=== PATIENT | female | born 1970 | race Caucasian/White ===

== ENCOUNTER 2017-07-02 12:25 | Emergency (ER) | payer MEDICAID ==
[~2017-07-02] VITALS: Ht 172.7 cm; Wt 115.7 kg
[2017-07-02] MEDS ORDERED: TIZANIDINE HCL6 MG PO (12:43)
[2017-07-02] MEDS ORDERED: LANTUS100 UNITS/ SUB-Q (12:44)
[2017-07-02] MEDS ORDERED: HUMALOG100 UNIT/1 SUB-Q (12:44)
[2017-07-02] MEDS ORDERED: METFORMIN HCL1000 MG PO (12:44)
[2017-07-02] MEDS ORDERED: CATAPRES0.1 MG PO (12:45)
[2017-07-02] MEDS ORDERED: PHARBEDRYL25 MG PO (12:45)
[2017-07-02] MEDS ORDERED: METOPROLOL SUCC25 MG PO (12:46)
[2017-07-02] MEDS ORDERED: BUPROPION XL150 MG PO (12:46)
[2017-07-02] MEDS ORDERED: GABAPENTIN300 MG PO (12:46)
[2017-07-02] MEDS ORDERED: FLUOXETINE HCL20 MG PO (12:47)
[2017-07-02] MEDS ORDERED: ASPIR 8181 MG PO (12:47)
[2017-07-02] MEDS ORDERED: DOC-Q-LACE100 MG PO (12:48)
[2017-07-02] MEDS ORDERED: COMBIVENT RESPIM4 GM INH (12:48)
[2017-07-02] MEDS ORDERED: AMITRIPTYLINE H25 MG PO (12:48)
[2017-07-02] MEDS ORDERED: GLUCAGON EMERGEN1 MG INJ (12:49)
[2017-07-02] MEDS ORDERED: COZAAR50 MG PO (12:49)
[2017-07-02] MEDS ORDERED: OYSTER SHELL+D1 EACH PO (12:49)
[2017-07-02] MEDS ORDERED: PRAVACHOL40 MG PO (12:50)
[2017-07-02] MEDS ORDERED: MECLIZINE HCL25 MG PO (13:36)
== END 2017-07-02 14:23 | disposition home or self-care (01) ==
LOC: ED 12:25
DX: R42 Dizziness and giddiness (principal); I10 Essential (primary) hypertension; E11.9 Type 2 diabetes mellitus without complications; F32.9 Major depressive disorder, single episode, unspecified; E78.00 Pure hypercholesterolemia, unspecified; Z87.01 Personal history of pneumonia (recurrent); Z90.49 Acquired absence of other specified parts of digestive tract; Z88.8 Allergy status to other drugs, medicaments and biological substances; Z88.1 Allergy status to other antibiotic agents; Z79.899 Other long term (current) drug therapy; Z79.4 Long term (current) use of insulin; Z79.84 Long term (current) use of oral hypoglycemic drugs; Z79.82 Long term (current) use of aspirin
CPT/HCPCS: 99283

== ENCOUNTER 2017-09-20 12:11 | Emergency (ER) | payer MEDICAID ==
[~2017-09-20] VITALS: Ht 172.7 cm; Wt 115.7 kg
[~2017-09-20 12:11] MED LIST: AMITRIPTYLINE H25 MG PO; ASPIR 8181 MG PO; BUPROPION XL150 MG PO; CATAPRES0.1 MG PO; COMBIVENT RESPIM4 GM INH; COZAAR50 MG PO; DOC-Q-LACE100 MG PO; FLUOXETINE HCL20 MG PO; GABAPENTIN300 MG PO; GLUCAGON EMERGEN1 MG INJ; HUMALOG100 UNIT/1 SUB-Q; LANTUS100 UNITS/ SUB-Q; MECLIZINE HCL25 MG PO; METFORMIN HCL1000 MG PO; METOPROLOL SUCC25 MG PO; OYSTER SHELL+D1 EACH PO; PHARBEDRYL25 MG PO; PRAVACHOL40 MG PO; TIZANIDINE HCL6 MG PO
[2017-09-20] MEDS ORDERED: SYNTHROID75 MCG PO (12:24)
== END 2017-09-20 12:29 | disposition home or self-care (01) ==
LOC: ED 12:11
DX: Z00.8 Encounter for other general examination (principal)

== ENCOUNTER 2017-10-31 14:26 | Emergency (ER) | payer OTHER ==
[~2017-10-31] VITALS: Ht 172.7 cm; Wt 130.6 kg
[~2017-10-31 14:26] MED LIST changes: +SYNTHROID75 MCG PO
== END 2017-10-31 15:57 | disposition home or self-care (01) ==
LOC: ED 14:26
DX: S39.012A Strain of muscle, fascia and tendon of lower back, initial encounter (principal); I10 Essential (primary) hypertension; E78.00 Pure hypercholesterolemia, unspecified; E11.9 Type 2 diabetes mellitus without complications; F32.9 Major depressive disorder, single episode, unspecified; Z86.711 Personal history of pulmonary embolism; Z87.01 Personal history of pneumonia (recurrent); Z86.19 Personal history of other infectious and parasitic diseases; Z90.49 Acquired absence of other specified parts of digestive tract; Z90.89 Acquired absence of other organs; Z88.1 Allergy status to other antibiotic agents; Z88.8 Allergy status to other drugs, medicaments and biological substances; Z88.7 Allergy status to serum and vaccine; Z79.899 Other long term (current) drug therapy; Z79.4 Long term (current) use of insulin; Z79.82 Long term (current) use of aspirin; X50.9XXA Other and unspecified overexertion or strenuous movements or postures, initial encounter
CPT/HCPCS: 96372; 99282; J1885

== ENCOUNTER 2018-02-21 00:09 | Emergency (ER) | payer OTHER ==
[~2018-02-21] VITALS: Ht 175.3 cm; Wt 139.7 kg
[2018-02-21] MEDS ORDERED: PENICILLIN V P500 MG PO (00:25)
[2018-02-21] MEDS ORDERED: TRAMADOL HCL50 MG PO (02:42)
[2018-02-21] MEDS ORDERED: AUGMENTIN 875-1 EACH PO (02:42)
== END 2018-02-21 02:55 | disposition home or self-care (01) ==
LOC: ED 00:09
DX: R51 Headache (principal); K08.89 Other specified disorders of teeth and supporting structures; Z87.01 Personal history of pneumonia (recurrent); E11.9 Type 2 diabetes mellitus without complications; I10 Essential (primary) hypertension; F32.9 Major depressive disorder, single episode, unspecified; E78.00 Pure hypercholesterolemia, unspecified; Z88.8 Allergy status to other drugs, medicaments and biological substances; Z88.1 Allergy status to other antibiotic agents; Z79.899 Other long term (current) drug therapy; Z79.4 Long term (current) use of insulin; Z79.82 Long term (current) use of aspirin; Z79.2 Long term (current) use of antibiotics
CPT/HCPCS: 70450; 80053; 85025; 96374; 96375; 99284; J1200; J1885; J2765; J7030

== ENCOUNTER 2018-03-09 19:19 | Emergency (ER) | payer OTHER ==
[~2018-03-09] VITALS: Ht 175.3 cm; Wt 139.7 kg
[~2018-03-09 19:19] MED LIST changes: +AUGMENTIN 875-1 EACH PO; +PENICILLIN V P500 MG PO; +TRAMADOL HCL50 MG PO
[2018-03-09] MEDS ORDERED: CIPRODEX OTIC7.5 ML AD (19:41)
[2018-03-09] MEDS ORDERED: PREDNISOLONE SO10 ML (19:41)
[2018-03-09] MEDS ORDERED: ACULAR LS5 ML OPTH (19:41)
== END 2018-03-09 20:37 | disposition home or self-care (01) ==
LOC: ED 19:19
DX: G89.18 Other acute postprocedural pain (principal); H57.12 Ocular pain, left eye; E11.9 Type 2 diabetes mellitus without complications; I10 Essential (primary) hypertension; E78.00 Pure hypercholesterolemia, unspecified; Z88.1 Allergy status to other antibiotic agents; Z88.7 Allergy status to serum and vaccine; Z88.8 Allergy status to other drugs, medicaments and biological substances; Z79.4 Long term (current) use of insulin; Z79.899 Other long term (current) drug therapy; Z79.82 Long term (current) use of aspirin; Z98.42 Cataract extraction status, left eye
CPT/HCPCS: 99282

== ENCOUNTER 2018-03-14 19:11 | Emergency (ER) | payer OTHER ==
[~2018-03-14] VITALS: Ht 175.3 cm; Wt 142.4 kg
[~2018-03-14 19:11] MED LIST changes: +ACULAR LS5 ML OPTH; +CIPRODEX OTIC7.5 ML AD; +PREDNISOLONE SO10 ML
[2018-03-14] MEDS ORDERED: TRAMADOL HCL50 MG PO (22:22)
== END 2018-03-14 22:40 | disposition home or self-care (01) ==
LOC: ED 19:11
DX: S06.0X1A Concussion with loss of consciousness of 30 minutes or less, initial encounter (principal); S16.1XXA Strain of muscle, fascia and tendon at neck level, initial encounter; S80.212A Abrasion, left knee, initial encounter; T14.8XXA Other injury of unspecified body region, initial encounter; M54.5 Low back pain; G89.29 Other chronic pain; E11.9 Type 2 diabetes mellitus without complications; E66.01 Morbid (severe) obesity due to excess calories; I10 Essential (primary) hypertension; F32.9 Major depressive disorder, single episode, unspecified; E78.00 Pure hypercholesterolemia, unspecified; Z87.01 Personal history of pneumonia (recurrent); Z88.1 Allergy status to other antibiotic agents; Z88.7 Allergy status to serum and vaccine; Z88.8 Allergy status to other drugs, medicaments and biological substances; Z79.4 Long term (current) use of insulin; Z79.82 Long term (current) use of aspirin; Z79.899 Other long term (current) drug therapy; W01.10XA Fall on same level from slipping, tripping and stumbling with subsequent striking against unspecified object, initial encounter
CPT/HCPCS: 70450; 72100; 72125; 73502; 73560; 96374; 96375; 99284; J1170; J2405

== ENCOUNTER 2018-04-20 11:46 | Emergency (ER) | payer OTHER ==
[~2018-04-20] VITALS: Ht 175.3 cm; Wt 142.4 kg
[2018-04-20] MEDS ORDERED: OMEPRAZOLE20 MG PO (12:41)
[2018-04-20] MEDS ORDERED: VIBRAMYCIN100 MG PO (12:47)
[2018-04-20] MEDS ORDERED: AUGMENTIN 875-1 EACH PO (12:47)
== END 2018-04-20 13:00 | disposition home or self-care (01) ==
LOC: ED 11:46
DX: L02.411 Cutaneous abscess of right axilla (principal); L02.31 Cutaneous abscess of buttock; E11.9 Type 2 diabetes mellitus without complications; F32.9 Major depressive disorder, single episode, unspecified; I10 Essential (primary) hypertension; Z88.1 Allergy status to other antibiotic agents; Z88.7 Allergy status to serum and vaccine; Z88.8 Allergy status to other drugs, medicaments and biological substances; Z79.4 Long term (current) use of insulin; Z79.899 Other long term (current) drug therapy; Z79.82 Long term (current) use of aspirin
CPT/HCPCS: 99283

== ENCOUNTER 2018-07-07 06:05 | Day surgery (SDC) | payer OTHER ==
[~2018-07-07] VITALS: Ht 175.3 cm; Wt 143.8 kg
[~2018-07-07 06:05] MED LIST changes: +AMLODIPINE BESYL5 MG PO; +FAMOTIDINE20 MG PO; +NYSTATIN15 GM TOP; +OMEPRAZOLE20 MG PO; +PRAZOSIN HCL2 MG PO; +VIBRAMYCIN100 MG PO
--- NOTE | 2018-07-07 08:12 | NUR ---
07/07/18 0812 Mary Jane Morris 0805-PATIENT ARRIVED TO PACU ON 3L NC O2 SAT 99% PATIENT REACTIVE TO VOICE LAYING LEFT LATERAL. RR EVEN. SR. ABDOMEN ROUND AND SOFT.
--- NOTE | 2018-07-07 12:06 | OR ---
[facility] [address], [place] [address] Signed DATE OF OPERATION: 07/07/2018 SURGEON: Eddy Kincaid MD UPPER AND LOWER ENDOSCOPY REPORT PREOPERATIVE DIAGNOSES: 1. Anemia. 2. Chronic constipation. 3. Heartburn. POSTOPERATIVE DIAGNOSES: 1. Punctate hemorrhagic distal gastritis. 2. Proximal and distal esophagitis. 3. Bfbghxo-ne-yutcajqu internal hemorrhoids. PROCEDURES: 1. EGD with CLOtest and biopsies of the antrum and GE junction. 2. Colonoscopy without biopsy. 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 However, she is having some health issues and she has moved to [place], [place] to be closer to her sister. In the meantime, she is awaiting disability. When she established with her primary care provider, she was found to be anemic and also suffers with chronic constipation. As a result, she was asked to see me for upper and lower endoscopy. In the office, I gave her pamphlets on upper and lower endoscopy and we looked at those together along with the risks including, but not limited to gas bloating, crampy abdominal pain, bleeding, perforation, requiring surgery, and missed diagnosis. Also, because of her body mass index, very full face and neck and all her medical issues, we asked an anesthesia provider to help us with increased monitoring and sedation with propofol. She had expressed understanding and wish to proceed. DESCRIPTION OF PROCEDURE: Sen was taken into our endoscopy suite and placed in the supine semi-recumbent position. The posterior oropharynx was anesthetized with Hurricaine spray. A bite block was utilized for the case. She was given propofol per our nurse ice cream vault worker. The adult gastroscope was introduced and advanced under direct visualization of camera up into the third portion of the duodenum under direct visualization of camera without difficulty. The duodenum and pyloric channel were fine. In the distal half of the Electronically Signed By: EDDY KINCAID MD 07/07/18 1206 PATIENT NAME: SEN BOUDREAUX JHOAN OPERATIVE REPORT DATE OF : 70 REPORT #: [id number] PHYSICIAN: EDDY KINCAID MD PCP: CATILYN CHAVIS MD REPORT IS CONFIDENTIAL AND NOT TO BE RELEASED WITHOUT AUTHORIZATION [facility] [address], [place] [address] Signed stomach, she has a punctate hemorrhagic gastritis. I suspect this is part of her cause of her anemia. We took a biopsy of the antrum for pathologic review as well as CLOtest. There were no ulcerations. Upon retroflexion of the scope, I really could not appreciate a hiatal hernia. There were no gastric or esophageal varices. I withdrew the scope up to the GE junction, which was compliant without stricture. However, she does have moderate disruption to the Z-line and a couple of islands of granulation tissue above the Z-line. Consequently, we took a biopsy in that area for pathologic review. The middle esophagus was fine and then just below the upper esophageal sphincter in her proximal esophagus, she had a single island of granulation tissue as well. After this, the gas was suctioned out, the gastroscope removed. Sen tolerated the procedure quite well. RECOMMENDATIONS: I will see Sen back in my office in 7 to 14 days to review her results. She is currently taking omeprazole once a day. Sen was then rotated into the left lateral decubitus position. She was maintained on IV sedation with propofol per our nurse ice cream vault worker. A digital rectal exam was performed. This was unremarkable other than liquid stool. She had taken a double prep because of her history of constipation. The adult colonoscope was introduced and advanced under direct visualization of camera. There were several areas of liquid stool I had to suction out. We eventually made our way into the cecum itself. We saw no pathology throughout the entire colon or rectum. We had taken pictures throughout for photodocumentation. Upon retroflexion of the scope, she does have vdzorsh-vz-tuhsmnbn internal hemorrhoids. After this, the gas was suctioned out. The colonoscope removed. Sen tolerated the procedure quite well. RECOMMENDATIONS: I will see Sen back in my office in 7 to 14 days to review her results. Eddy Kincaid MD ALB/MODL /[id number] cc: Eddy Kincaid MD Electronically Signed By: EDDY KINCAID MD 07/07/18 1206 PATIENT NAME: SEN BOUDREAUX [facility] OPERATIVE REPORT DATE OF : 70 REPORT #: [id number] PHYSICIAN: EDDY KINCAID MD PCP: CAITLYN CHAVIS MD REPORT IS CONFIDENTIAL AND NOT TO BE RELEASED WITHOUT AUTHORIZATION [address] [address] Signed Andrews Massey, MD Antony Dawn, MARISABEL Chavis MD Copies: EDDY KINCAID MD,ANTONY COHEN MD, NP, LOHITH VEERAPPA MD ~ Electronically Signed By: EDDY KINCAID MD 07/07/18 1206 PATIENT NAME: SEN BOUDREAUX JHOAN OPERATIVE REPORT DATE OF : 70 REPORT #: [id number] PHYSICIAN: EDDY KINCAID MD PCP: CAITLYN CHAVIS MD REPORT IS CONFIDENTIAL AND NOT TO BE RELEASED WITHOUT AUTHORIZATION
== END 2018-07-07 09:05 | disposition home or self-care (01) ==
LOC: OPS 06:05 → DS 06:05 → OPS 06:45 → DS 08:15 → OPS 09:05
PROVIDERS: Colon & Rectal Surgery
PROC: 0DJD8ZZ Inspection of Lower Intestinal Tract, Via Natural or Artificial Opening Endoscopic (ICD-10-PCS; 2018-07-07)
PROC: 0DB98ZX Excision of Duodenum, Via Natural or Artificial Opening Endoscopic, Diagnostic (ICD-10-PCS; principal; 2018-07-07 06:45)
PROC: 0DB78ZX Excision of Stomach, Pylorus, Via Natural or Artificial Opening Endoscopic, Diagnostic (ICD-10-PCS; 2018-07-07 06:45)
DX: K64.8 Other hemorrhoids (principal); K20.9 Esophagitis, unspecified; K29.50 Unspecified chronic gastritis without bleeding; K59.09 Other constipation; D64.9 Anemia, unspecified; F32.9 Major depressive disorder, single episode, unspecified; E11.22 Type 2 diabetes mellitus with diabetic chronic kidney disease; I12.9 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e 4 chronic kidney disease, or unspecified chronic kidney disease; N18.3 Chronic kidney disease, stage 3 (moderate); E03.9 Hypothyroidism, unspecified; E78.5 Hyperlipidemia, unspecified; E55.9 Vitamin D deficiency, unspecified; G43.909 Migraine, unspecified, not intractable, without status migrainosus; Z79.4 Long term (current) use of insulin; Z88.8 Allergy status to other drugs, medicaments and biological substances; Z88.1 Allergy status to other antibiotic agents; Z79.82 Long term (current) use of aspirin; Z79.899 Other long term (current) drug therapy
CPT/HCPCS: 86677; 88305; J2704; J7120

== ENCOUNTER 2018-12-17 16:37 | Emergency (ER) | payer OTHER ==
[~2018-12-17] VITALS: Ht 175.3 cm; Wt 148.3 kg
[~2018-12-17 16:37] MED LIST changes: +AMITRIPTYLINE H50 MG PO; +AMITRIPTYLINE H75 MG PO; +BACTRIM DS TAB1 EACH PO; +BUPROPION XL300 MG PO; +HYDROCHLOROTHIA25 MG PO; +LEVOTHYROXINE25 MCG PO; +LEVOTHYROXINE75 MCG PO; +MAVYRET 100-401 EACH PO; +METFORMIN HCL500 M1 PO; +METOPROLOL TART50 MG PO; +NEURONTIN300 MG PO; +PRAVASTATIN SOD40 MG PO; +PRAZOSIN HCL5 MG PO; +SENNA8.6 MG PO; +TIZANIDINE HCL2 MG PO
== END 2018-12-17 19:08 | disposition home or self-care (01) ==
LOC: ED 16:37
DX: Z00.8 Encounter for other general examination (principal); F41.9 Anxiety disorder, unspecified; I12.9 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e 4 chronic kidney disease, or unspecified chronic kidney disease; E11.22 Type 2 diabetes mellitus with diabetic chronic kidney disease; N18.3 Chronic kidney disease, stage 3 (moderate); E78.00 Pure hypercholesterolemia, unspecified; Z87.01 Personal history of pneumonia (recurrent); Z86.711 Personal history of pulmonary embolism; Z86.19 Personal history of other infectious and parasitic diseases; Z90.49 Acquired absence of other specified parts of digestive tract; Z88.1 Allergy status to other antibiotic agents; Z88.8 Allergy status to other drugs, medicaments and biological substances; Z88.7 Allergy status to serum and vaccine; Z79.899 Other long term (current) drug therapy; Z79.4 Long term (current) use of insulin
CPT/HCPCS: 36415; 80053; 80176; 81001; 84443; 85025; 99283; G0480

== ENCOUNTER 2019-02-16 17:35 | Emergency (ER) | payer OTHER ==
[~2019-02-16] VITALS: Ht 175.3 cm; Wt 154.2 kg
--- OUTSIDE RECORDS SUMMARY | ~2019-02-16 | XMS | Encounter Summary ---
Demographics + + + | Address | [address] | | | [place] [address] | + + + | Home Phone | | + + + | Preferred Language | Unknown | + + + | Marital Status | Unknown | + + + | Druze Affiliation | Unknown | + + + | Race | Unknown | + + + | Ethnic Group | Unknown | + + + Author + + + | Author | [facility] | + + + | Organization | [facility] | + + + | Address | Unknown | + + + | Phone | Unavailable | + + + Support + + + + + | Name | Relationship | Address | Phone | + + + + + | Isabel Cardona | ECON | [address] | | | | | [place] | | | | | [address] | | + + + + + Care Team Providers + +------+ + | Care Choral Director Name | Role | Phone | + [...] | | | | | [place] [address] | | | | | | [phone] | | | +--------+ + + + [...] + + | 02/23/ | Office | Infectious Diseases | Annel Whitten | | | 2019 | Visit | | Мария Farley MD | | | | | | [address] | | | | | | [place] [address] | | | | | | [phone] | | | | | | | | +--------+---------+ + + + | 05/09/ | Office | Nephrology | Andrews Massey MD | | | 2018 | Visit | | [address] | | | | | | [facility] | | | | | | [address] | | | | | | | [...]
--- OUTSIDE RECORDS SUMMARY | ~2019-02-16 | XMS | Encounter Summary ---
Demographics + + + | Address | [address] | | | [place] [address] | + + + | Home Phone | | + + + | Preferred Language | Unknown | + + + | Marital Status | Unknown | + + + | Christian Affiliation | Unknown | + + + | Race | Unknown | + + + | Ethnic Group | Unknown | + + + Author + + + | Author | [facility] | + + + | Organization | [facility] | + + + | Address | Unknown | + + + | Phone | Unavailable | + + + Support + + + + + | Name | Relationship | Address | Phone | + + + + + | Isabel Cardona | ECON | [address] | | | | | [place] | | | | | [address] | | + + + + + Care Team Providers + +------+ + | Care Counsellors Name | Role | Phone | + [...] + + | 02/16/ | Documentati | [facility] | Garcia KanikaMICHELLE | Other (Lab from | | 2019 | on Only | Infectious Disease | | [facility] DOS | | | | [address] | | 02/15/19 ([facility]) ) | | | | [facility] [address] | | | | | | [place] [address] | | | | | | [phone] | | | +--------+ + + + [...] Lab DOS 02/15/19 ([facility]). Lab abstracted into [facility] and sent to scan. Christa CMA. in this encounter Plan of Treatment +--------+---------+ + + + | Date | Type | Specialty | Care Team | Description | +--------+---------+ + + + | 02/23/ | Office | Infectious Diseases | Annel Whitten | | | 2018 | Visit | | Мария Farley MD | | | | | | [address] | | | | | | [place] [address] | | | | | | [phone] | | | | | | | | +--------+---------+ + + + | 05/09/ | Office | Nephrology | Andrews Massey MD | | | 2018 | Visit | | [address] | | | | | | [address] [place] | | | | | | [address] | | | | | | | [...] | [address] | [place] [address] | | | LABORATORY | 13 | | | + + + + + in this encounter Visit Diagnoses Not on filein this encounter"
--- OUTSIDE RECORDS SUMMARY | ~2019-02-16 | XMS | Encounter Summary ---
Demographics + + + | Address | [address] | | | [place] [address] | + + + | Home Phone | | + + + | Preferred Language | Unknown | + + + | Marital Status | Unknown | + + + | Voodoo Affiliation | Unknown | + + + | Race | Unknown | + + + | Ethnic Group | Unknown | + + + Author + + + | Author | [facility] | + + + | Organization | [facility] | + + + | Address | Unknown | + + + | Phone | Unavailable | + + + Support + + + + + | Name | Relationship | Address | Phone | + + + + + | Isabel Cardona | ECON | [address] | | | | | [place] | | | | | [address] | | + + + + + Care Team Providers + +------+ + | Care Box Sealing Machine Catcher Name | Role | Phone | + [...] | | | | | [place] [address] | | | | | | [phone] | | | +--------+ + + + [...] [address] | | | | | | [place] [address] | | | | | | [phone] | | | | | | | | +--------+---------+ + + + | 05/09/ | Office | Nephrology | Andrews Massey MD | | | 2018 | Visit | | [address] | | | | | | [address] [place] | | | | | | [address] [...] | | | 3 (moderate) ([facility]) | | + +--------+ + + [...] | | | 3 (moderate) ([facility]) | | + +--------+ + + [...] | | | 3 (moderate) ([facility]) | | + +--------+ + + [...] | | | 3 (moderate) ([facility]) | | + +--------+ + + [...] | | | 3 (moderate) ([facility]) | | + +--------+ + + [...] + + + | [facility] | [address] [facility] [address] | [place] [address] | [phone] | | LABORATORY | [address] | | [...]
--- OUTSIDE RECORDS SUMMARY | ~2019-02-16 | XMS | Encounter Summary ---
Demographics + + + | Address | [address] | | | [place] [address] | + + + | Home Phone | | + + + | Preferred Language | Unknown | + + + | Marital Status | Unknown | + + + | Latter Day Affiliation | Unknown | + + + | Race | Unknown | + + + | Ethnic Group | Unknown | + + + Author + + + | Author | [facility] | + + + | Organization | [facility] | + + + | Address | Unknown | + + + | Phone | Unavailable | + + + Support + + + + + | Name | Relationship | Address | Phone | + + + + + | Isabel Cardona | ECON | [address] | | | | | [place] | | | | | [address] | | + + + + + Care Team Providers + +------+ + | Care Basket Operator Name | Role | Phone | [...] Essential | | | | [place] [address] | | (primary) | | | | [phone] | | hypertension; | | | | [...] | | | | | [place] [address] | | | | | | [phone] | | | | | | | | +--------+---------+ + + + | 05/09/ | Office | Nephrology | Andrews Massey MD | | | 2019 | Visit | | [address] | | | | | | [address] [facility] | | | | | | [address] | | | | | | | [...] | + + + + + | [facility] | [address] [facility] | [place] [address] | [phone] | | LABORATORY | [address]. | | | + + + + [...]
--- OUTSIDE RECORDS SUMMARY | ~2019-02-16 | XMS | Encounter Summary ---
Demographics + + + | Address | [address] | | | [place] [address] | + + + | Home Phone [...] | Author | [facility] | + + + | Organization | [facility] | + + + | Address | Unknown | + + + | Phone | Unavailable | + + + Support + + + + + | Name | Relationship | Address | Phone | + + + + + | Isabel Cardona | ECON | [address] | | | | | [place] | | | | | [address] | | + + + + + Care Team Providers + +------+ + | Care Instrumentation Specialist Name | Role | Phone | [...] + + | 02/16/ | Documentati | [facility] | Garcia KanikaMICHELLE | Other (Lab from | | 2019 | on Only | Infectious Disease | | [facility] DOS | | | | [address] | | 02/15/19 ([facility]) ) | | | | [facility] [address] | | | | | | [place] [address] | | | | | | [phone] | | | +--------+ + + + [...] Lab DOS 02/15/19 ([facility]). Lab abstracted into [facility] and sent to scan. Christa CMA. in [...] [address] | | | | | | [place] [address] | | | | | | [phone] | | | | | | | | +--------+---------+ + + + | 05/09/ | Office | Nephrology | Andrews Massey MD | | | 2018 | Visit | | [address] | | | | | | [address] [place] | | | | | | [address] | | | | | | | [...] | [address] | [place] [address] | | | LABORATORY | 13 | | | + + + + + in this encounter Visit Diagnoses Not on filein this encounter"
--- OUTSIDE RECORDS SUMMARY | ~2019-02-16 | XMS | Encounter Summary ---
Demographics + + + | Address | [address] | | | [place] [address] | + + + | Home Phone | | + + + | Preferred Language | Unknown | + + + | Marital Status | Unknown | + + + | Yazidi Affiliation | Unknown | + + + | Race | Unknown | + + + | Ethnic Group | Unknown | + + + Author + + + | Author | [facility] | + + + | Organization | [facility] | + + + | Address | Unknown | + + + | Phone | Unavailable | + + + Support + + + + + | Name | Relationship | Address | Phone | + + + + + | Isabel Cardona | ECON | [address] | | | | | [place] | | | | | [address] | | + + + + + Care Team Providers + +------+ + | Care Membership Sales Representative Name | Role | Phone | [...] | | 2019 | on Only | [place] [address] | MICHELLE Lovelace | 02/11/19) | | | | [address] | | | | | | [place] [address] | | | | | | [phone] | | | +--------+ + + + [...] | | | | | [place] [address] | | | | | | [phone] | | | | | | | | +--------+---------+ + + + | 05/09/ | Office | Nephrology | Andrews Massey MD | | | 2019 | Visit | | [address] | | | | | | [address] [place] | | | | | | [address] | | | | | | | | +--------+---------+ + + + as of this encounter Visit Diagnoses Not on filein this encounter"
--- OUTSIDE RECORDS SUMMARY | ~2019-02-16 | XMS | Encounter Summary ---
Demographics + + + | Address | [address] | | | [place] [address] | + + + | Home Phone [...] + + + | Author | [facility] | + + + | Organization | [facility] | + + + | Address | Unknown | + + + | Phone | Unavailable | + + + Support + + + + + | Name | Relationship | Address | Phone | + + + + + | Isabel Cardona | ECON | [address] | | | | | [place] | | | | | [address] | | + + + + + Care Team Providers + +------+ + | Care Receiving Lead Name | Role | Phone | + [...] | | [address] | [address] [place], [place] | ([facility]) (Primary Dx); | | | | [place] [address] | [address] | Bilateral leg edema; | | | | [phone] | | Anemia of chronic | | | | | | renal failure, stage | | | | | | 3 (moderate) ([facility]); | | | | | | [...] | | | | | ([facility]); Class 3 | | | | [...] adult | | | | | | ([facility]) | +--------+---------+ + + + Social [...] Ferritin, uric acid, urinalysis, Urine total pro wlak-ut-utvjjpyihc ratio before she comes back in 3 months.in this encounter Progress Notes Andrews Massey MD - 01/31/2019 12:00 PM PSTFormatting of this note may be different from th e original. Patient Active Problem List Diagnosis CKD (chronic kidney disease), stage III ([facility]) Essential (primary) hypertension Type 2 diabetes mellitus with diabetic nephropathy, with long-term current use of insul in (HCC) Persistent proteinuria Class 3 severe obesity due to excess calories without serious comorbidity with body mas s index (BMI) of 45.0 to 49.9 in adult (HCC) Hyperuricemia Anemia of chronic renal failure, stage 3 (moderate) ([facility]) Vitamin D deficiency Bilateral leg edema [...] [facility] The patient has history of hypertension [...] LABIRON 36.8 01/18/2019 LABPROT 2,352.9 (A) 10/08/2018 [id number] 22 (A) 04/21/2018 Assessment: Ms. Restrepo is [...] Ferritin, uric acid, urinalysis, Urine total pro bthn-rp-hdqyfjvpdz ratio before she comes back in 3 [...] | | | | | [place] [address] | | | | | | [phone] | | | | | | | | +--------+---------+ + + + | 05/09/ | Office | Nephrology | Andrews Massey MD | | | 2019 | Visit | | [address] | | | | | | [address] [place] | | | | | | [address] | | | | | | | [...]
--- OUTSIDE RECORDS SUMMARY | ~2019-02-16 | XMS | Encounter Summary ---
Demographics + + + | Address | [address] | | | [place] [address] | + + + | Home Phone | | + + + | Preferred Language | Unknown | + + + | Marital Status | Unknown | + + + | Mandaeism Affiliation | Unknown | + + + | Race | Unknown | + + + | Ethnic Group | Unknown | + + + Author + + + | Author | [facility] | + + + | Organization | [facility] | + + + | Address | Unknown | + + + | Phone | Unavailable | + + + Support + + + + + | Name | Relationship | Address | Phone | + + + + + | Isabel Cardona | ECON | [address] | | | | | [place] | | | | | [address] | | + + + + + Care Team Providers + +------+ + | Care Senior Brand Manager Name | Role | Phone | [...] | | | | | [place] [address] | | | | | | [phone] | | | +--------+ + + + [...] | | | | | | [place] [address] | | | | | | [phone] | | | | | | | | +--------+---------+ + + + | 05/09/ | Office | Nephrology | Andrews Massey MD | | | 2018 | Visit | | [address] | | | | | | [address] [place] | | | | | | [address] | | | | | | | | +--------+---------+ + + + as of this encounter Visit Diagnoses Not on filein this encounter"
--- OUTSIDE RECORDS SUMMARY | ~2019-02-16 | XMS | Clinical Summary ---
Demographics + + + | Address | [address] | | | [place] [address] | + + + | Home Phone [...] + | Author | [email or web address] | + + + | Organization | [email or web address] | + + + | Address | Unknown | + + + | Phone | Unavailable | + + + Support + + + + + | Name | Relationship | Address | Phone | + + + + + | Sen Cardona | ECON | [address] | | | | | [place] | | | | | [address] | | + + + + + Care Team Providers + +------+ + | Care Forming Tube Selector Name | Role | Phone | + [...] tablets by | 15 | 11 | 11/ | 111 | Activ | | 1.25 MG tablet | mouth every morning. | tablet | | 2/20 | 2/20 | e | | | | | | 18 | 19 | | + + +--------+---------+------+------+-------+ Active Problems [...] | Hunter, | Labs Only (BMP | 2018 | on Only | | MICHELLE Lovelace | 02/11/19) | +--------+ + + + + | 02/14/ | Orders Only | | Hunter, | CKD (chronic kidney | 2018 | | | MICHELLE Lovelace [...] | | | | | ([facility]) (Primary Dx); | | | | | | Bilateral leg edema; | | | | | | Anemia of chronic | | | | | | renal failure, stage | | | | | | 3 (moderate) ([facility]); | | | | | | Essential [...] | | | | | ([facility]); Class 3 | | | | | [...] adult | | | | | | ([facility]) | +--------+ + + + + | 01/31/ | Telephone | | Hunter, | | | 2019 | | | MICHELLE Lovelace | | +--------+ + + + + | 01/21/ | Documentati | | Hunter | Garo Only | | 2018 | on Only | | MICHELLE Lovelace | (01/18/2019) | +--------+ + + + + | 01/18/ | Telephone | | Hunter | | | 2018 | | | [...] + + + + | Temperature | 37.1 C (98.7 F) | 10/25/2018 1:07 PM PST | + + + + | Respiratory Rate | 18 | 10/25/2018 1:07 PM PST | + + + + | Oxygen Saturation | 98% | 10/25/2018 1:07 PM PST | + + + + | Inhaled [...] AM PST | + + + + Plan of Treatment +--------+---------+ + + + | Date | Type | Specialty | Care Team | Description | +--------+---------+ + + + | 02/23/ | Office | | Annel Whitten | | 2018 | Visit | | Мария Farley MD | | | | | | [address] | | | | | | [place] [address] | | | | | | [phone] | | | | | | | | +--------+---------+ + + + | 05/09/ | Office | | Andrews Massey MD | | | 2019 | Visit | | [address] | | | | | | [address] [place], [place] | | | | | | [address] | | | | | | | [...] | | 08/11/2017, 01/07/2017 | | | (#1) | 8 | | | + + [...] + + from Last 3 Months Results Comprehensive metabolic panel (02/15/2019 5:05 PM) [...] | [address] | [place] [address] | | | LABORATORY | 13 | | | + + + + + Basic metabolic panel (02/11/2019 4:58 PM) + + + + + | Component | Value | Ref Range | Performed At | + + + + + | GLUCOSE | 277 (A) | 70 - 100 mg/dL | [email or web address] | | | | | LABORATORY | [...] + + + + | [facility] | [address] | [place] [address] | [phone] | | LABORATORY | Blvd. | | [...] +------+-------+ + | MEDICAID | [place] | [id number] | | | [address] | | | [address] | | | | [place], [place] | | | [place] | | | | [address] | | | INSPECTOR SALVAGE | | | | | + +--------+ [...] Self | [birth year] | Home: | [address] | | | al/Fam | | 1970 | [phone] | [place] | | | [place] | | | [phone] | [address] | + +--------+ +--------+ + +
--- OUTSIDE RECORDS SUMMARY | ~2019-02-16 | XMS | Encounter Summary ---
Demographics + + + | Address | [address] | | | [place] [address] | + + + | Home Phone | | + + + | Preferred Language | Unknown | + + + | Marital Status | Unknown | + + + | Jehovah'S Witness Affiliation | Unknown | + + + | Race | Unknown | + + + | Ethnic Group | Unknown | + + + Author + + + | Author | [facility] | + + + | Organization | [facility] | + + + | Address | Unknown | + + + | Phone | Unavailable | + + + Support + + + + + | Name | Relationship | Address | Phone | + + + + + | Isabel Cardona | ECON | [address] | | | | | [place] | | | | | [address] | | + + + + + Care Team Providers + +------+ + | Care Director Of Cardiology Service Line Name | Role | Phone | + [...] | | [address] | [address] [place], [place] | ([facility]) (Primary Dx); | | | | [place] [address] | [address] | Bilateral leg edema; | | | | [phone] | | Anemia of chronic | | | | | | renal failure, stage | | | | | | 3 (moderate) ([facility]); | | | | | | [...] insulin | | | | | | ([facility]); Class 3 | | | | [...] adult | | | | | | ([facility]) | +--------+---------+ + + + Social [...] Ferritin, uric acid, urinalysis, Urine total pro hrnp-jg-mgxxvkflen ratio before she comes back in 3 months.in this encounter Progress Notes Andrews Massey MD - 01/31/2019 12:00 PM PSTFormatting of this note may be different from th e original. Patient Active Problem List Diagnosis CKD (chronic kidney disease), stage III ([facility]) Essential (primary) hypertension Type 2 diabetes mellitus with diabetic nephropathy, with long-term current use of insul in (HCC) Persistent proteinuria Class 3 severe obesity due to excess calories without serious comorbidity with body mas s index (BMI) of 45.0 to 49.9 in adult (HCC) Hyperuricemia Anemia of chronic renal failure, stage 3 (moderate) ([facility]) Vitamin D deficiency Bilateral leg edema [...] to baseline with t he interventions at [facility]. The patient has history of hypertension [...] LABIRON 36.8 01/18/2019 LABPROT 2,352.9 (A) 10/08/2018 [id number] 22 (A) 04/21/2018 Assessment: Ms. Restrepo is [...] Ferritin, uric acid, urinalysis, Urine total pro olpk-ik-ordzuxvatv ratio before she comes back in 3 [...] | | | | | [place] [address] | | | | | | [phone] | | | | | | | | +--------+---------+ + + + | 05/09/ | Office | Nephrology | Andrews aMssey MD | | | 2019 | Visit | | [address] | | | | | | [address] [place] | | | | | | [address] | | | | | | | [...]
--- OUTSIDE RECORDS SUMMARY | ~2019-02-16 | XMS | Encounter Summary ---
Demographics + + + | Address | [address] | | | [place] [address] | + + + | Home Phone [...] | [facility] | + + + | Organization | [facility] | + + + | Address | Unknown | + + + | Phone | Unavailable | + + + Support + + + + + | Name | Relationship | Address | Phone | + + + + + | Isabel Cardona | ECON | [address] | | | | | [place] | | | | | [address] | | + + + + + Care Team Providers + +------+ + | Care Facility Maintenance Mechanic Name | Role | Phone | [...] Essential | | | | [place] [address] | | (primary) | | | | [phone] | | hypertension; | | | | [...] | | | | | [place] [address] | | | | | | [phone] | | | | | | | | +--------+---------+ + + + | 05/09/ | Office | Nephrology | Andrews Massey MD | | | 2019 | Visit | | [address] | | | | | | [address] [facility] | | | | | | [address] | | | | | | | [...] | + + + + + | [facility] | [address] | [place] [address] | [phone] | | LABORATORY | Phi. | | [...]
--- OUTSIDE RECORDS SUMMARY | ~2019-02-16 | XMS | Encounter Summary ---
Demographics + + + | Address | [address] | | | [place] [address] | + + + | Home Phone | | + + + | Preferred Language | Unknown | + + + | Marital Status | Unknown | + + + | Congregation Affiliation | Unknown | + + + | Race | Unknown | + + + | Ethnic Group | Unknown | + + + Author + + + | Author | [facility] | + + + | Organization | [facility] | + + + | Address | Unknown | + + + | Phone | Unavailable | + + + Support + + + + + | Name | Relationship | Address | Phone | + + + + + | Isabel Cardona | ECON | [address] | | | | | [place] | | | | | [address] | | + + + + + Care Team Providers + +------+ + | Care Solution Architect Name | Role | Phone | [...] | | | | | [place] [address] | | | | | | [phone] | | | +--------+ + + + [...] [address] | | | | | | [place] [address] | | | | | | [phone] | | | | | | | | +--------+---------+ + + + | 05/09/ | Office | Nephrology | Andrews Massey MD | | | 2018 | Visit | | [address] | | | | | | [address] [facility] | | | | | | [address] | | | | | | | [...]
--- OUTSIDE RECORDS SUMMARY | ~2019-02-16 | XMS | Encounter Summary ---
Demographics + + + | Address | [address] | | | [place] [address] | + + + | Home Phone | | + + + | Preferred Language | Unknown | + + + | Marital Status | Unknown | + + + | Sikhism Affiliation | Unknown | + + + | Race | Unknown | + + + | Ethnic Group | Unknown | + + + Author + + + | Author | [facility] | + + + | Organization | [facility] | + + + | Address | Unknown | + + + | Phone | Unavailable | + + + Support + + + + + | Name | Relationship | Address | Phone | + + + + + | Isabel Cardona | ECON | [address] | | | | | [place] | | | | | [address] | | + + + + + Care Team Providers + +------+ + | Care Small Equipment Operator Name | Role | Phone | [...] | | 2019 | on Only | [address] | MICHELLE Lovelace | 02/11/19) | | | | [address] | | | | | | [place] [address] | | | | | | [phone] | | | +--------+ + + + [...] | | | | | [place] [address] | | | | | | [phone] | | | | | | | | +--------+---------+ + + + | 05/09/ | Office | Nephrology | Andrews Massey MD | | | 2019 | Visit | | [address] | | | | | | [address] [place] | | | | | | [address] | | | | | | | | +--------+---------+ + + + as of this encounter Visit Diagnoses Not on filein this encounter"
--- OUTSIDE RECORDS SUMMARY | ~2019-02-16 | XMS | Clinical Summary ---
Demographics + + + | Address | [address] | | | [place] [address] | + + + | Home Phone | | + + + | Preferred Language | Unknown | + + + | Marital Status | Unknown | + + + | Rastafarian Affiliation | Unknown | + + + | Race | Unknown | + + + | Ethnic Group | Unknown | + + + Author + + + | Author | [facility] | + + + | Organization | [facility] | + + + | Address | Unknown | + + + | Phone | Unavailable | + + + Support + + + + + | Name | Relationship | Address | Phone | + + + + + | Sen Cardona | ECON | [address] | | | | | [place] | | | | | [address] | | + + + + + Care Team Providers + +------+ + | Care Retail Merchandising Manager Name | Role | Phone | [...] III | | | | | | ([facility]) (Primary Dx); | | | | | | Bilateral leg edema; | | | | | | Anemia of chronic | | | | | | renal failure, stage | | | | | | 3 (moderate) ([facility]); | | | | | [...] | | | | | ([facility]); Class 3 | | | [...] | | | | | ([facility]) | +--------+ + + + + [...] [address] | | | | | | [place] [address] | | | | | | [phone] | | | | | | | | +--------+---------+ + + + | 05/09/ | Office | | Andrews Massey MD | | | 2019 | Visit | | [address] | | | | | | [address] [place], [place] | | | | | | [address] | | | | | | | [...] | [address] | [place] [address] | | | LABORATORY | 13 | | | + + + + + Basic metabolic panel (02/11/2019 4:58 PM) + + + + + | Component | Value | Ref Range | Performed At | + + + + + | GLUCOSE | 277 (A) | 70 - 100 mg/dL | [facility] | | | | | LABORATORY | [...] + + + + | [facility] | [address] | [place] [address] | [phone] | | LABORATORY | Blvd[address] | | [...] +------+-------+ + | MEDICAID | [place] | [id number] | | | [address] | | | N | | | | [place], [place] | | | [place] | | | | [address] | | | RAILROAD SHOP INSPECTOR | | | | | + +--------+ [...] | | al/Fam | | 1970 | [phone] | [place] | | | [place] | | | [phone] | [address] | + +--------+ +--------+ + +
--- OUTSIDE RECORDS SUMMARY | ~2019-02-16 | XMS | Encounter Summary ---
Demographics + + + | Address | [address] | | | [place] [address] | + + + | Home Phone | | + + + | Preferred Language | Unknown | + + + | Marital Status | Unknown | + + + | Mormon Affiliation | Unknown | + + + | Race | Unknown | + + + | Ethnic Group | Unknown | + + + Author + + + | Author | [facility] | + + + | Organization | [facility] | + + + | Address | Unknown | + + + | Phone | Unavailable | + + + Support + + + + + | Name | Relationship | Address | Phone | + + + + + | Isabel Cardona | ECON | [address] | | | | | [place] | | | | | [address] | | + + + + + Care Team Providers + +------+ + | Care Yield Loss Inspector Name | Role | Phone | [...] | | | | | [place] [address] | | | | | | [phone] | | | +--------+ + + + [...] | | | | | | [place] [address] | | | | | | [phone] | | | | | | | | +--------+---------+ + + + | 05/09/ | Office | Nephrology | Andrews Massey MD | | | 2018 | Visit | | [address] | | | | | | [address] [place] | | | | | | [address] [...] | | | | | 3 (moderate) ([facility]) | | + +--------+ + + | [...] | | | | | 3 (moderate) ([facility]) | | + +--------+ + + | [...] | | | | | 3 (moderate) ([facility]) | | + +--------+ + + | [...] | | | | | 3 (moderate) ([facility]) | | + +--------+ + + | [...] | | | | | 3 (moderate) ([facility]) | | + +--------+ + + | [...] | [facility] | [address] | [place] [address] | [phone] | | LABORATORY | Blvd[address] | | [...]
--- OUTSIDE RECORDS SUMMARY | ~2019-02-16 | XMS | Encounter Summary ---
Demographics + + + | Address | [address] | | | [place] [address] | + + + | Home Phone [...] + + + | Author | [facility] | + + + | Organization | [facility] | + + + | Address | Unknown | + + + | Phone | Unavailable | + + + Support + + + + + | Name | Relationship | Address | Phone | + + + + + | Isabel Cardona | ECON | [address] | | | | | [place] | | | | | [address] | | + + + + + Care Team Providers + +------+ + | Care Power Plant Technician Name | Role | Phone | [...] | | | | | [place] [address] | | | | | | [phone] | | | +--------+ + + + [...] | | | | | | [place] [address] | | | | | | [phone] | | | | | | | | +--------+---------+ + + + | 05/09/ | Office | Nephrology | Andrews Massey MD | | | 2018 | Visit | | [address] | | | | | | [address] [place] | | | | | | [address] | | | | | | | | +--------+---------+ + + + as of this encounter Visit Diagnoses Not on filein this encounter"
--- OUTSIDE RECORDS SUMMARY | 2019-02-16 17:38 | XMS ---
PreManage Notification: SEN BODUREAUX Security Medication Coordinator Events No recent Security Events currently on file CRITERIA MET - [facility] - Has Care Guidelines CARE PROVIDERS CAITLYN CHAVIS Internal Medicine 09/29/2018-Current Anita Margarita PHONE: [phone] CJ VELASQUEZ Primary Care Current PHONE: [phone] Lorraine has no Care Guidelines for this patient. Care History Medical/Surgical 09/29/2018 [facility] - Patient is currently established with [facility]. If patient is seen in the ED during business hours. Please contact [facility]Ws at [facility]. Care Recommendation: This patient has had 5 or more Emergency Department visits in the last 12 months.\T\nbsp; Patient requires education on the scope and purpose of the ED as an acute care provider not a Primary Care Provider and should not be utilized for chronic conditions.\T\nbsp; These are guidelines and the provider should exercise clinical judgment when providing care. E.D. VISIT COUNT (12 MO.) 7 [facility] TOTAL 7 NOTE: Visits indicate total known visits. ED/UCC VISIT TRACKING (12 MO.) 02/16/2019 17:36 [facility] [place] TYPE: Emergency COMPLAINT: - L KNEE PAIN 12/17/2018 16:38 [facility] [place] TYPE: Emergency COMPLAINT: - MEDICAL CLEARANCE DIAGNOSES: - Acquired absence of other specified parts of digestive tract - Personal history of pneumonia (recurrent) - terminal supervisor (current) use of insulin - Allergy status to other antibiotic agents status - Personal history of pulmonary embolism - Allergy status to other drugs, medicaments and biological substances status - Pure hypercholesterolemia, unspecified - Chronic kidney disease, stage 3 (moderate) - Other longterm (current) drug therapy - Anxiety disorder, unspecified - 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e 4 chronic kidney disease, or unspecified chronic kidney disease - Allergy status to serum and vaccine status - Personal history of other infectious and parasitic diseases - Encounter for other general examination - Type 2 diabetes mellitus with diabetic chronic kidney disease 09/26/2018 02:[address] [facility] [place] TYPE: Emergency COMPLAINT: - TOXIC ENCEPHALOPATHY DIAGNOSES: - Dizziness and giddiness - Unspecified mood [affective] disorder - Allergy status to other antibiotic agents status - Essential (primary) hypertension - terminal supervisor (current) use of aspirin - Allergy status to serum and vaccine status - Toxic encephalopathy - Morbid (severe) obesity due to excess calories - Hypomagnesemia - Pure hypercholesterolemia, unspecified - Allergy status to other drugs, medicaments and biological substances status - Body mass index (BMI) 45.0-49.9, adult - Post-traumatic stress disorder, unspecified - Type 2 diabetes mellitus without complications - Poisoning by antiparkinsonism drugs and other central muscle-tone depressants, accidental (unintentional), initial encounter - Acute kidney failure, unspecified - Major depressive disorder, single episode, unspecified - Personal history of pulmonary embolism - Unspecified viral hepatitis C without hepatic coma - Hypothyroidism, unspecified - halfway (current) use of insulin - Poisoning by antiviral drugs, accidental (unintentional), initial encounter - Allergy status to penicillin - Other tank terminal gauger (current) drug therapy - Chronic obstructive pulmonary disease, unspecified - Other intervertebral disc displacement, lumbosacral region 04/20/2018 11:47 [facility] [place] TYPE: Emergency COMPLAINT: - SKIN PROBLEMS/BP PROBLEM DIAGNOSES: - Essential (primary) hypertension - Cutaneous abscess of right axilla - Allergy status to serum and vaccine status - Type 2 diabetes mellitus without complications - Cutaneous abscess of buttock - Allergy status to other drugs, medicaments and biological substances status - terminal supervisor (current) use of aspirin - Allergy status to other antibiotic agents status - Major depressive disorder, single episode, unspecified - Other longterm (current) drug therapy - terminal supervisor (current) use of insulin 03/14/2018 19:12 [facility] [place] TYPE: Emergency COMPLAINT: - FALL DIAGNOSES: - OTHER INJURY OF UNSPECIFIED BODY REGION, INITIAL E - Other chronic pain - Abrasion, left knee, initial encounter - Allergy status to other drugs, medicaments and biological substances status - Other injury of unspecified body region, initial encounter - terminal supervisor (current) use of aspirin - Allergy status to other antibiotic agents status - Concussion with loss of consciousness of 30 minutes or less, initial encounter - Low back pain - Type 2 diabetes mellitus without complications - PURE HYPERCHOLESTEROLEMIA, UNSPECIFIED - Fall on same level from slipping, tripping and stumbling with subsequent striking against unspecified object, initial encounter - Other tank terminal gauger (current) drug therapy - Morbid (severe) obesity due to excess calories - Major depressive disorder, single episode, unspecified - Allergy status to serum and vaccine status - Strain of muscle, fascia and tendon at neck level, initial encounter - terminal supervisor (current) use of insulin - Essential (primary) hypertension - Unspecified injury of head, initial encounter - Pure hypercholesterolemia, unspecified - Personal history of pneumonia (recurrent) 03/09/2018 19:19 [facility] [place] TYPE: Emergency COMPLAINT: - L EYE PAIN,POST SURGERY DIAGNOSES: - Ocular pain, left eye - Allergy status to serum and vaccine status - halfway (current) use of aspirin - Pure hypercholesterolemia, unspecified - Allergy status to other antibiotic agents status - Cataract extraction status, left eye - Essential (primary) hypertension - Other tank terminal gauger (current) drug therapy - Other acute postprocedural pain - Type 2 diabetes mellitus without complications - terminal supervisor (current) use of insulin - Allergy status to other drugs, medicaments and biological substances status - PURE HYPERCHOLESTEROLEMIA, UNSPECIFIED 02/21/2018 00:10 [facility] [place] TYPE: Emergency COMPLAINT: - HEADACHE DIAGNOSES: - Allergy status to other drugs, medicaments and biological substances status - Headache - PURE HYPERCHOLESTEROLEMIA, UNSPECIFIED - Major depressive disorder, single episode, unspecified - Allergy status to other antibiotic agents status - Type 2 diabetes mellitus without complications - OTHER SPECIFIED DISORDERS OF TEETH AND SUPPORTING STRUCTURES - Other longterm (current) drug therapy - halfway (current) use of antibiotics - Personal history of pneumonia (recurrent) - Pure hypercholesterolemia, unspecified - Other specified disorders of teeth and supporting structures - Essential (primary) hypertension - halfway (current) use of aspirin - terminal supervisor (current) use of insulin INPATIENT VISIT TRACKING (12 MO.) 09/26/2018 02:[address] [facility] [place] TYPE: Medical Surgical COMPLAINT: - TOXIC ENCEPHALOPATHY DIAGNOSES: - Allergy status to serum and vaccine status - Hypomagnesemia - Other tank terminal gauger (current) drug therapy - Morbid (severe) obesity due to excess calories - Chronic obstructive pulmonary disease, unspecified - Hypothyroidism, unspecified - Allergy status to penicillin - Type 2 diabetes mellitus without complications - Other intervertebral disc displacement, lumbosacral region - Dizziness and giddiness - Body mass index (BMI) 45.0-49.9, adult - Allergy status to other drugs, medicaments and biological substances status - Personal history of pulmonary embolism - Unspecified viral hepatitis C without hepatic coma - terminal supervisor (current) use of aspirin - Unspecified mood [affective] disorder - Poisoning by unspecified drugs, medicaments and biological substances, accidental (unintentional), initial encounter - Major depressive disorder, single episode, unspecified - Poisoning by antiviral drugs, accidental (unintentional), initial encounter - Acute kidney failure, unspecified - Essential (primary) hypertension - Post-traumatic stress disorder, unspecified - Allergy status to other antibiotic agents status - terminal supervisor (current) use of insulin - Poisoning by antiparkinsonism drugs and other central muscle-tone depressants, accidental (unintentional), initial encounter - Toxic encephalopathy - Pure hypercholesterolemia, unspecified [email or web address]
[2019-02-16] MEDS ORDERED: AMITRIPTYLINE100 MG PO (18:08)
[2019-02-16] MEDS ORDERED: NEURONTIN300 MG PO (18:09)
[2019-02-16] MEDS ORDERED: LANTUS100 UNITS/ (18:10)
[2019-02-16] MEDS ORDERED: SEROQUEL200 MG PO (18:12)
[2019-02-16] MEDS ORDERED: PRAVASTATIN SOD40 MG PO (18:12)
[2019-02-16] MEDS ORDERED: PROZAC20 MG (18:13)
[2019-02-16] MEDS ORDERED: ATIVAN1 MG PO (18:13)
[2019-02-16] MEDS ORDERED: PRAZOSIN HCL5 MG PO (18:14)
[2019-02-16] MEDS ORDERED: NORCO 5-325 TA1 EACH PO (19:15)
== END 2019-02-16 19:39 | disposition home or self-care (01) ==
LOC: ED 17:35
DX: S83.92XA Sprain of unspecified site of left knee, initial encounter (principal); X50.9XXA Other and unspecified overexertion or strenuous movements or postures, initial encounter; E11.22 Type 2 diabetes mellitus with diabetic chronic kidney disease; F32.9 Major depressive disorder, single episode, unspecified; I12.9 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e 4 chronic kidney disease, or unspecified chronic kidney disease; N18.3 Chronic kidney disease, stage 3 (moderate); E78.00 Pure hypercholesterolemia, unspecified; Z88.8 Allergy status to other drugs, medicaments and biological substances; Z88.1 Allergy status to other antibiotic agents; Z88.7 Allergy status to serum and vaccine; Z79.899 Other long term (current) drug therapy; Z79.82 Long term (current) use of aspirin; Z79.4 Long term (current) use of insulin
CPT/HCPCS: 29515; 73560; 99283-25

== ENCOUNTER 2019-03-09 11:15 | Emergency (ER) | payer OTHER ==
[~2019-03-09] VITALS: Ht 175.3 cm; Wt 154.2 kg
--- OUTSIDE RECORDS SUMMARY | ~2019-03-09 | XMS | Encounter Summary ---
Demographics + + + | Address | [address] | | | [place] [address] | + + + | Home Phone | | + + + | Preferred Language | Unknown | + + + | Marital Status | Unknown | + + + | Nondenominational Affiliation | Unknown | + + + | Race | Unknown | + + + | Ethnic Group | Unknown | + + + Author + + + | Author | [facility] | + + + | Organization | [facility] | + + + | Address | Unknown | + + + | Phone | Unavailable | + + + Support + + + + + | Name | Relationship | Address | Phone | + + + + + | Isabel Cardona | ECON | [address] | | | | | [place] | | | | | [address] | | + + + + + Care Team Providers + +------+ + | Care Law Professor Name | Role | Phone | + +------+ + | Lisa Mcclain MD | PCP | | + +------+ + Encounter Details +--------+ + + + + | Date | Type | Department | Care Team | Description | +--------+ + + + + | 01/31/ | Telephone | [facility] | [place], | | | 2019 | | [place] [address] | [place] [address] | | | | | [address] | | | | | | [place] [address] | | | | | | [phone] | | | +--------+ + + + [...] | | | | | | [address] [place], [place] | | | | | | [address] | | | | | | | | +--------+---------+ + + + + +--------+ + + | Name | Priori | Associated Diagnoses | Order Schedule | | | ty | | | + +--------+ + + | Protein / creatinine ratio, urine | Routin | CKD (chronic | Expected: | | | e | kidney disease), | 02/07/2019, Expires: | | | | stage III (HCC) | 02/01/2020 | | | | Essential (primary) | | | | | hypertension | | | | | Persistent | | | | | proteinuria | | | | | Hyperuricemia | | | | | Anemia of chronic | | | | | renal failure, stage | | | | | 3 (moderate) (HCC) | | + +--------+ + + | Renal function panel | Routin | CKD (chronic | Expected: | | | e | kidney disease), | 05/03/2019, Expires: | | | | stage III (HCC) | 02/01/2020 | | | | Essential (primary) | | | | | hypertension | | | | | Persistent | | | | | proteinuria | | | | | Hyperuricemia | | | | | Anemia of chronic | | | | | renal failure, stage | | | | | 3 (moderate) (HCC) | | + +--------+ + + | CBC W/Auto Diff (Reflex to | Routin | CKD (chronic | Expected: | | Manual) | e | kidney disease), | 05/03/2019, Expires: | | | | stage III (HCC) | 02/01/2020 | | | | Essential (primary) | | | | | hypertension | | | | | Persistent | | | | | proteinuria | | | | | Hyperuricemia | | | | | Anemia of chronic | | | | | renal failure, stage | | | | | 3 (moderate) (HCC) | | + +--------+ + + | Iron Panel W/UIBC | Routin | CKD (chronic | Expected: | | | e | kidney disease), | 05/03/2019, Expires: | | | | stage III (HCC) | 02/01/2020 | | | | Essential (primary) | | | | | hypertension | | | | | Persistent | | | | | proteinuria | | | | | Hyperuricemia | | | | | Anemia of chronic | | | | | renal failure, stage | | | | | 3 (moderate) (HCC) | | + +--------+ + + | Ferritin | Routin | CKD (chronic | Expected: | | | e | kidney disease), | 05/03/2019, Expires: | | | | stage III (HCC) | 02/01/2020 | | | | Essential (primary) | | | | | hypertension | | | | | Persistent | | | | | proteinuria | | | | | Hyperuricemia | | | | | Anemia of chronic | | | | | renal failure, stage | | | | | 3 (moderate) ([facility]) | | + +--------+ + + | Uric acid | Routin | CKD (chronic | Expected: | | | e | kidney disease), | 05/03/2019, Expires: | | | | stage III (HCC) | 02/01/2020 | | | | Essential (primary) | | | | | hypertension | | | | | Persistent | | | | | proteinuria | | | | | Hyperuricemia | | | | | Anemia of chronic | | | | | renal failure, stage | | | | | 3 (moderate) ([facility]) | | + +--------+ + + | Urinalysis (reflex to micro) | Routin | CKD (chronic | Expected: | | | e | kidney disease), | 05/03/2019, Expires: | | | | stage III (HCC) | 02/01/2020 | | | | Essential (primary) | | | | | hypertension | | | | | Persistent | | | | | proteinuria | | | | | Hyperuricemia | | | | | Anemia of chronic | | | | | renal failure, stage | | | | | 3 (moderate) ([facility]) | | + +--------+ + + | Protein / creatinine ratio, urine | Routin | CKD (chronic | Expected: | | | e | kidney disease), | 05/03/2019, Expires: | | | | stage III (HCC) | 02/01/2020 | | | | Essential (primary) | | | | | hypertension | | | | | Persistent | | | | | proteinuria | | | | | Hyperuricemia | | | | | Anemia of chronic | | | | | renal failure, stage | | | | | 3 (moderate) (HCC) | | + +--------+ + + as of this encounter Results Basic metabolic panel (02/11/2019 4:58 PM) + + + + + | Component | Value | Ref Range | Performed At | + + + + + | GLUCOSE | 277 (A) | 70 - 100 mg/dL | [facility] | | | | | [facility] | + + + + + | BUN | 32 (A) | 6 - 23 mg/dL | [facility] | | | | | LAB[facility] | + + + + + | CREATININE | 1.66 (A) | 0.60 - 1.35 mg/dL | [facility] | | | | | LAB[facility] | + + + + + | BUN/CREAT | 19.3 | 6.0 - 28.6 | [facility] | | | | | LAB[facility] | + + + + + | CALCIUM | 9.2 | 8.5 - 10.3 mg/dL | [facility] | | | | | LAB[facility] | + + + + + | SODIUM | 136 | 132 - 143 mmol/L | [facility] | | | | | LAB[facility] | + + + + + | POTASSIUM | 5.4 (A) | 3.6 - 5.1 mmol/L | [facility] | | | | | LAB[facility] | + + + + + | CHLORIDE | 105 | 95 - 112 mmol/L | [facility] | | | | | [facility] | + + + + + | CO2 | 22 | 19 - 31 mmol/L | [facility] | | | | | LAB[facility] | + + + + + | ANION GAP AGAP | 14.4 | 7 - 21 mmol/L | [facility] | | | | | LAB[facility] | + + + + + | EGFR | 33 (A) | 60 - 140 mg/dL | [facility] | | | | | LAB[facility]AT[facility] | + + + + + + + | Specimen | + + | Blood | + + + + + + + | Performing | Address | City/State/Zipcode | Phone Number | | Organization | | | | + + + + + | [facility] | [address] | [place] [address] | [phone] | | LABORATORY | [place] | | | + + + + + in this encounter Visit Diagnoses + + | Diagnosis | + + | CKD (chronic kidney disease), stage III (HCC) - Primary | + + | Chronic kidney disease, Stage III (moderate) | + + | Essential (primary) hypertension | + + | Unspecified essential hypertension | + + | Persistent proteinuria | + + | Proteinuria | + + | Hyperuricemia | + + | Other abnormal blood chemistry | + + | Anemia of chronic renal failure, stage 3 (moderate) (HCC) | + +"
--- OUTSIDE RECORDS SUMMARY | ~2019-03-09 | XMS | Encounter Summary ---
Demographics + + + | Address | [address] | | | [place] [address] | + + + | Home Phone | | + + + | Preferred Language | Unknown | + + + | Marital Status | Unknown | + + + | Samaritan Affiliation | Unknown | + + + | Race | Unknown | + + + | Ethnic Group | Unknown | + + + Author + + + | Author | [facility] | + + + | Organization | [facility] | + + + | Address | Unknown | + + + | Phone | Unavailable | + + + Support + + + + + | Name | Relationship | Address | Phone | + + + + + | Isabel Cardona | ECON | [address] | | | | | [place] | | | | | [address] | | + + + + + Care Team Providers + +------+ + | Care Hematology Nurse Educator Name | Role | Phone | + [...] | | | | | [place] [address] | | | | | | [phone] | | | +--------+ + + + [...]
--- OUTSIDE RECORDS SUMMARY | ~2019-03-09 | XMS | Encounter Summary ---
Demographics + + + | Address | [address] | | | [place] [address] | + + + | Home Phone | | + + + | Preferred Language | Unknown | + + + | Marital Status | Unknown | + + + | Zoroastrian Affiliation | Unknown | + + + | Race | Unknown | + + + | Ethnic Group | Unknown | + + + Author + + + | Author | [facility] | + + + | Organization | [facility] | + + + | Address | Unknown | + + + | Phone | Unavailable | + + + Support + + + + + | Name | Relationship | Address | Phone | + + + + + | Isabel Cardona | ECON | [address] | | | | | [place] | | | | | [address] | | + + + + + Care Team Providers + +------+ + | Care Placement Manager Name | Role | Phone | [...] + + | 02/16/ | Documentati | Merged With [facility] | Garcia KanikaMICHELLE | Other (Lab from | | 2019 | on Only | Infectious Disease | | [facility] DOS | | | | [address] | | 02/15/19 ([facility]) ) | | | | [facility] [address] | | | | | | [place] [address] | | | | | | [phone] | | | +--------+ + + + [...] Lab DOS 02/15/19 (CMP). Lab abstracted into [facility]. and sent to scan. Christa CMA. in this encounter Plan of Treatment +--------+---------+ + + + | Date | Type | Specialty | Care Team | Description | +--------+---------+ + + + | 05/09/ Office | Nephrology | Andrews Massey MD | | | 2018 | Visit | | [address] | | | | | | [address] [place], [place] | | | | | | [address] | | | | | | | [...] + + + | [facility] | [address] | [place] [address] | | | LABORATORY | 13 | | | + + + + + in this encounter Visit Diagnoses Not on filein this encounter"
--- OUTSIDE RECORDS SUMMARY | ~2019-03-09 | XMS | Encounter Summary ---
Demographics + + + | Address | [address] | | | [place] [address] | + + + | Home Phone | | + + + | Preferred Language | Unknown | + + + | Marital Status | Unknown | + + + | Bahai Affiliation | Unknown | + + + | Race | Unknown | + + + | Ethnic Group | Unknown | + + + Author + + + | Author | [facility] | + + + | Organization | [facility] | + + + | Address | Unknown | + + + | Phone | Unavailable | + + + Support + + + + + | Name | Relationship | Address | Phone | + + + + + | Isabel Cardona | ECON | [address] | | | | | [place] | | | | | [address] | | + + + + + Care Team Providers + +------+ + | Care Bobbin Fixer Name | Role | Phone | + [...] disease), stage III | | | | [address] | | (HCC); Essential | | | | [place] [address] | | (primary) | | | | [phone] | | hypertension; | | | | [...] [place] | | | | | | [address] | | | | | | | [...] + + + | [facility] | [address] | [place] [address] | [phone] | | LABORATORY | [address] | | [...]
--- OUTSIDE RECORDS SUMMARY | ~2019-03-09 | XMS | Clinical Summary ---
Demographics + + + | Address | [address] | | | [place] [address] | + + + | Home Phone | | + + + | Preferred Language | Unknown | + + + | Marital Status | Unknown | + + + | Jew Affiliation | Unknown | + + + | Race | Unknown | + + + | Ethnic Group | Unknown | + + + Author + + + | Author | [facility] | + + + | Organization | [facility] | + + + | Address | Unknown | + + + | Phone | Unavailable | + + + Support + + + + + | Name | Relationship | Address | Phone | + + + + + | Sen Cardona | ECON | [address] | | | | | [place] | | | | | [address] | | + + + + + Care Team Providers + +------+ + | Care Environmental Health Technologist Name | Role | Phone | + [...] Tetanus Toxoids | Rash | Medium | 06/03/20 | [...] + + +--------+---------+------+------+-------+ | prazosin | Take 5 mg by mouth | | 0 | 08/1 [...] CONTAINER HOME MISC | | | | 20 | | e | | | | | | 18 | | | + + +--------+---------+------+------+-------+ | B-D INS SYRINGE | | | 1 | 08/0 | | Activ | | 0.5CC/31GX5/16 31G X | | | | 20 | | e | | 516" 0.5 ML | | | | 18 | | | + + +--------+---------+------+------+-------+ | | Take by mouth. | | | | | Activ | | Glecaprevir-Pibrenta | | | | | | e | | svir 100-40 MG TABS | | | | | | | + + +--------+---------+------+------+-------+ | indapamide (LOZOL) | Take 0.5 tablets by | 15 | 11 | 09/30 | 09/30 | Activ | | 1.25 MG tablet | mouth every morning. | tablet | | / | 01/19 | e | | | | | | 18 | 19 | | + + +--------+---------+------+------+-------+ | quetiapine [...] | | e | + + +--------+---------+------+------+-------+ Active Problems + [...] edema | 06/18/2018 | + + + Encounters +--------+ + + + + | Date | Type | Specialty | Care Team | Description | +--------+ + + + + | 03/01/ | Documentati | | Annel Whitten | Other (02/28/2019 | | 2019 | on Only | | Мария Farley MD | [facility]- HCV | | | | | | RNA rcvd: 03/01/2019) | +--------+ + + + + | 02/23/ | Office | | Annel Whitten | Chronic hepatitis C | | 2019 | Visit | | Мария Farley MD | without hepatic coma | | | | | | (HCC) (Primary Dx) | +--------+ + + + + | 02/16/ | Documentati | | Kanika Garcia MA | Other (Lab from | | 2018 | on Only | | | [facility] DOS | | | | | | 02/15/19 (CMP) ) | +--------+ + + + + | 02/14/ | Documentati | | [place], | Labs Only (BMP | | 2018 | on Only | | [facility] [place] | 02/11/19) | +--------+ + + + + | 02/14/ | Orders Only | | [place], | CKD (chronic kidney | | 2018 | | | [facility] [place] | disease), stage III | | | | | | (HCC); Essential | | | | | | [...] (HCC) | +--------+ + + + + | 01/31/ | Office | | Andrews Massey MD | CKD (chronic kidney | | 2019 | Visit | | | disease), stage III | | | | | | (HCC) (Primary Dx); | | | | | | Bilateral leg edema; | | | | | | Anemia of chronic | | | | | | renal failure, stage | | | | | | 3 (moderate) (HCC); | | | | | | Essential [...] | | | | | | ([facility]); Class 3 | | | | | [...] | | | | | | ([facility]) | +--------+ + + + + | 01/31/ | Telephone | | [place], | | | 2018 | | | [place] [place] | | +--------+ + + + + | 01/21/ | Documentati | | [place] | Garo Hutchinson | | 2018 | on Only | | [place] [place] | (01/18/2019) | +--------+ + + + + | 01/18/ | Telephone | | [place], | | | 2018 | | | [place] [place] | | +--------+ + + + + from Last 3 Months Immunizations + + + + | Name [...] PM PDT | + + + + Plan of Treatment +--------+---------+ + + + | Date | Type | Specialty | Care Team | Description | +--------+---------+ + + + | 05/09/ | Office | | Andrews Massey MD | | | 2019 | Visit | | [address] | | | | | | [address] [place] | | | | | | [phone] | | | | | | | | +--------+---------+ + + + + + + + + | Health [...] | + + + + + | Statin Therapy | | | | | (optimal intensity) | 8 | | | + + + + + | Hemoglobin A1c | | 04/21/2018 | | | | 8 | | | + + + + + | Vaccine: Influenza | | 08/11/2017, 01/07/2017 | | | (Season Ended) | 9 | | | + + + + + | Vaccine: | | 04/06/2016 | | | Pneumococcal (PPSV23 | 1 | | | | only) 19-64 Highest | | | | | Risk (2 of 3 - | | | | | PPSV23) | | | | + + + + + Procedures + +--------+ + + + | [...] section. | + +--------+ + + + from Last 3 Months Results HCV RNA quant by PCR (02/28/2019 [...] | [address] | [place] [address] | | | LABORATORY | 13 | | | + + + + + Comprehensive metabolic panel (02/15/2019 5:05 PM) + [...] | [facility] | [address] | [place] [address] | | | LABORATORY | 13 | | | + + + + + Basic metabolic panel (02/11/2019 4:58 PM) + [...] | + + + + + | [facility] | [address] | [place] [address] | [phone] | | LABORATORY | [address] | | | + + + + + Iron panel (01/18/2019 3:10 PM) [...] + | Blood | + + Uric acid (01/18/2019 3:10 PM) + +---------+ [...] + + | Blood | + + from Last 3 Months Insurance + +--------+ +------+-------+ + | Payer | Benefi | Subscriber | Type | Phone | Address | | | t Plan | ID | | | | | | / | | | | | | | Group | | | | | + +--------+ +------+-------+ + | MEDICAID | [employer] | [id number] | | | [address] | | | [place] | | | | [place] | | | [place] | | | | [address] | | | HEALTHCARE CORPORATE ACCOUNT DIRECTOR | | | | | + +--------+ [...] Self | [birth year] | Home: | [address] | | | al/Fam | | 1970 | [phone] [place] | | | [place] | | | [phone] | [address] | + +--------+ +--------+ + +
--- OUTSIDE RECORDS SUMMARY | ~2019-03-09 | XMS | Encounter Summary ---
Demographics + + + | Address | [address] | | | [place] [address] | + + + | Home Phone | | + + + | Preferred Language | Unknown | + + + | Marital Status | Unknown | + + + | Christian Affiliation | Unknown | + + + | Race | Unknown | + + + | Ethnic Group | Unknown | + + + Author + + + | Author | [facility] | + + + | Organization | [facility] | + + + | Address | Unknown | + + + | Phone | Unavailable | + + + Support + + + + + | Name | Relationship | Address | Phone | + + + + + | Isabel Cardona | ECON | [address] | | | | | [place] | | | | | [address] | | + + + + + Care Team Providers + +------+ + | Care Poising Inspector Name | Role | Phone | + [...] | | | | | [place] [address] | | | | | | [phone] | | | +--------+ + + + [...] | | | | | | [address] [place] | | | | | | [address] | | | | | | | | +--------+---------+ + + + as of this encounter Visit Diagnoses Not on filein this encounter"
--- OUTSIDE RECORDS SUMMARY | ~2019-03-09 | XMS | Encounter Summary ---
Demographics + + + | Address | [address] | | | [place] [address] | + + + | Home Phone | | + + + | Preferred Language | Unknown | + + + | Marital Status | Unknown | + + + | Anglican Affiliation | Unknown | + + + | Race | Unknown | + + + | Ethnic Group | Unknown | + + + Author + + + | Author | [facility] | + + + | Organization | [facility] | + + + | Address | Unknown | + + + | Phone | Unavailable | + + + Support + + + + + | Name | Relationship | Address | Phone | + + + + + | Isabel Cardona | ECON | [address] | | | | | [place] | | | | | [address] | | + + + + + Care Team Providers + +------+ + | Care Tracing Lathe Set Up Operator Name | Role | Phone | [...] + + | 02/16/ | Documentati | [facility] | Garcia KanikaMICHELLE | Other (Lab from | | 2019 | on Only | Infectious Disease | | [facility] | | | | [address] | | 02/15/19 ([facility]) ) | | | | [facility] [address] | | | | | | [place] [address] | | | | | | [phone] | | | +--------+ + + + [...] Lab DOS 02/15/19 (CMP). Lab abstracted into [employer] and sent to scan. Christa CMA. in this encounter Plan of Treatment +--------+---------+ + + + | Date | Type | Specialty | Care Team | Description | +--------+---------+ + + + | 05/09/ Office | Nephrology | Andrews Massey MD | | | 2018 | Visit | | [address] | | | | | | [address] [place], [place] | | | | | | [address] | | | | | | | [...] | [address] | [place] [address] | | | LABORATORY | 13 | | | + + + + + in this encounter Visit Diagnoses Not on filein this encounter"
--- OUTSIDE RECORDS SUMMARY | ~2019-03-09 | XMS | Encounter Summary ---
Demographics + + + | Address | [address] | | | [place] [address] | + + + | Home Phone [...] + + | Author | [facility] | + + + | Organization | [facility] | + + + | Address | Unknown | + + + | Phone | Unavailable | + + + Support + + + + + | Name | Relationship | Address | Phone | + + + + + | Isabel Cardona | ECON | [address] | | | | | [place] | | | | | [address] | | + + + + + Care Team Providers + +------+ + | Care Speech Language Pathologist Travel Name | Role | Phone | + [...] + + | 03/01/ | Documentati | [facility] | Annel Whitten | Other (02/28/2019 | | 2019 | on Only | Infectious Disease | Мария Farley MD | [facility] | | | | [address] | [address] | RNA rcvd: 03/01/2019) | | | | [facility] [address] | [place] [address] | | | | | [place] [address] | [phone] | | | | | [phone] | | | +--------+ + + + [...] [place] | | | | | | [address] | | | | | | | [...] | [address] | [place] [address] | | | LABORATORY | 13 | | | + + + + + in this encounter Visit Diagnoses Not on filein this encounter"
--- OUTSIDE RECORDS SUMMARY | ~2019-03-09 | XMS | Clinical Summary ---
Demographics + + + | Address | [address] | | | [place] [address] | + + + | Home Phone | | + + + | Preferred Language | Unknown | + + + | Marital Status | Unknown | + + + | Catholic Affiliation | Unknown | + + + | Race | Unknown | + + + | Ethnic Group | Unknown | + + + Author + + + | Author | [facility] | + + + | Organization | [facility] | + + + | Address | Unknown | + + + | Phone | Unavailable | + + + Support + + + + + | Name | Relationship | Address | Phone | + + + + + | Sen Cardona | ECON | [address] | | | | | [place] | | | | | [address] | | + + + + + Care Team Providers + +------+ + | Care Data Analysis Assistant Name | Role | Phone | [...] insulin | | | | | | ([facility]); Class 3 | | [...] adult | | | | | | ([facility]) | +--------+ + + + + | [...] | | | | | | [address] [place] | | | | | | [phone] | | | | | | | [...] | [address] | [place] [address] | | | LABORATORY | 13 | [...] | [address] | [place] [address] | | | LABORATORY | 13 | [...] | + + + + + | [facility] | [address] | [place] [address] | [phone] | | LABORATORY | [address] | | [...] +------+-------+ + | MEDICAID | [place] | [id number] | | | [address] | | | N | | | | [place] | | | [place] | | | | [address] | | | ACTIVITIES DIRECTOR | | | | | + [...] | | al/Fam | | 1970 | [phone] | [place] | | | hipolito | | | [address]262 | [address] | + +--------+ +--------+ + +
--- OUTSIDE RECORDS SUMMARY | ~2019-03-09 | XMS | Encounter Summary ---
Demographics + + + | Address | [address] | | | [place] [address] | + + + | Home Phone [...] + + + | Author | [facility] | + + + | Organization | [facility] | + + + | Address | Unknown | + + + | Phone | Unavailable | + + + Support + + + + + | Name | Relationship | Address | Phone | + + + + + | Isabel Cardona | ECON | [address] | | | | | [place] | | | | | [address] | | + + + + + Care Team Providers + +------+ + | Care Slot Supervisor Name | Role | Phone | [...] | | 2019 | on Only | [address] | MICHELLE Lovelace | 02/11/19) | | | | [place] | | | | | | [place] [address] | | | | | | [phone] | | | +--------+ + + + [...] [place] | | | | | | [address] | | | | | | | | +--------+---------+ + + + as of this encounter Visit Diagnoses Not on filein this encounter"
--- OUTSIDE RECORDS SUMMARY | ~2019-03-09 | XMS | Encounter Summary ---
Demographics + + + | Address | [address] | | | [place] [address] | + + + | Home Phone | | + + + | Preferred Language | Unknown | + + + | Marital Status | Unknown | + + + | Orthodox Affiliation | Unknown | + + + | Race | Unknown | + + + | Ethnic Group | Unknown | + + + Author + + + | Author | [facility] | + + + | Organization | [facility] | + + + | Address | Unknown | + + + | Phone | Unavailable | + + + Support + + + + + | Name | Relationship | Address | Phone | + + + + + | Isabel Cardona | ECON | [address] | | | | | [place] | | | | | [address] | | + + + + + Care Team Providers + +------+ + | Care Power Generation Technician Name | Role | Phone | [...] + + | 02/23/ | Office | [facility] | Annel Whitten | Chronic hepatitis C | | 2019 | Visit | Infectious Disease | Мария Farley MD | without hepatic coma | | | | [address] | [address] | (HCC) (Primary Dx) | | | | [facility] [address] | [place] [address] | | | | | [place] [address] | [phone] | | | | | [phone] | | | +--------+---------+ + + + [...] may be dif ferent from the original. [facility] Service: Infectious Diseases Outpatient Follow Up Note CHIEF COMPLAINT Follow up on Hep C HISTORY OF PRESENT ILLNESS The patient is a 48 y.o.-year-old female presenting today for follow up. She finished her m edications 3 months ago. She denies any side effects. [facility] and started on seroquel. She experienced significant weight gain since the n. PAST MEDICAL HISTORY Patient Active Problem List Diagnosis CKD (chronic kidney disease), stage III ([facility]) Essential (primary) hypertension Type 2 diabetes mellitus with diabetic nephropathy, with long-term current use of insul in ([facility]) Persistent proteinuria Class 3 severe obesity due to excess calories without serious comorbidity with body mas s index (BMI) of 45.0 to 49.9 in adult (HCC) Hyperuricemia Anemia of chronic renal failure, stage 3 (moderate) ([facility]) Vitamin D deficiency Bilateral leg edema [...] , Rfl: 1 BD SHARPS CON[facility], , Disp: , Rfl: 0 [...] with any worsening of symptoms. Dictation software, [employer], used which may contain error for similar sounding words even af ter review. Personal communication requested for any clarification. Portions of this chart may have been copied from previous notes for continuity of care purp jen Whitten MD Infectious Diseases [facility] [address] [place], [place] [address] O: F: 02/23/2019 in this encounter Plan of Treatment +--------+---------+ + + + | Date | Type | Specialty | Care Team | Description | +--------+---------+ + + + | 05/09/ | Office | Nephrology | Andrews Massey MD | | | 2019 | Visit | | [address] | | | | | | [address] [place], [place] | | | | | | [address] | | | | | | | [...]
--- OUTSIDE RECORDS SUMMARY | ~2019-03-09 | XMS | Encounter Summary ---
Demographics + + + | Address | [address] | | | [place] [address] | + + + | Home Phone | | + + + | Preferred Language | Unknown | + + + | Marital Status | Unknown | + + + | Rastafari Affiliation | Unknown | + + + | Race | Unknown | + + + | Ethnic Group | Unknown | + + + Author + + + | Author | [facility] | + + + | Organization | [facility] | + + + | Address | Unknown | + + + | Phone | Unavailable | + + + Support + + + + + | Name | Relationship | Address | Phone | + + + + + | Isabel Cardona | ECON | [address] | | | | | [place] | | | | | [address] | | + + + + + Care Team Providers + +------+ + | Care Pockets And Pieces Necktie Operator Name | Role | Phone | [...] | | | | | [place] [address] | | | | | | [phone] | | | +--------+ + + + [...] | | | | | | [address] [place] | | | | | | [address] | | | | | | | | +--------+---------+ + + + as of this encounter Visit Diagnoses Not on filein this encounter"
--- OUTSIDE RECORDS SUMMARY | ~2019-03-09 | XMS | Encounter Summary ---
Demographics + + + | Address | [address] | | | [place] [address] | + + + | Home Phone | | + + + | Preferred Language | Unknown | + + + | Marital Status | Unknown | + + + | Yazdanism Affiliation | Unknown | + + + | Race | Unknown | + + + | Ethnic Group | Unknown | + + + Author + + + | Author | [facility] | + + + | Organization | [facility] | + + + | Address | Unknown | + + + | Phone | Unavailable | + + + Support + + + + + | Name | Relationship | Address | Phone | + + + + + | Isabel Cardona | ECON | [address] | | | | | [place] | | | | | [address] | | + + + + + Care Team Providers + +------+ + | Care Messenger Copy Name | Role | Phone | + [...] | | | | | [place] [address] | | | | | | [phone] | | | +--------+ + + + [...] | | | | | | [address] [place], [place] | | | | | | [address] | | | | | | | [...] | | | | 3 (moderate) ([facility]) | | + +--------+ + + | [...] | | | | 3 (moderate) ([facility]) | | + +--------+ + + | [...] | | | | 3 (moderate) ([facility]) | | + +--------+ + + | [...] + + + | [facility] | [address] | [place] [address] | [phone] | | LABORATORY | Phi. | | [...]
--- OUTSIDE RECORDS SUMMARY | ~2019-03-09 | XMS | Encounter Summary ---
Demographics + + + | Address | [address] | | | [place] [address] | + + + | Home Phone | | + + + | Preferred Language | Unknown | + + + | Marital Status | Unknown | + + + | Scientology Affiliation | Unknown | + + + | Race | Unknown | + + + | Ethnic Group | Unknown | + + + Author + + + | Author | [facility] | + + + | Organization | [facility] | + + + | Address | Unknown | + + + | Phone | Unavailable | + + + Support + + + + + | Name | Relationship | Address | Phone | + + + + + | Isabel Cardona | ECON | [address] | | | | | [place] | | | | | [address] | | + + + + + Care Team Providers + +------+ + | Care Fuel Operator Name | Role | Phone | [...] + + | 03/01/ | Documentati | [facility] | Annel Whitten | Other (02/28/2019 | | 2019 | on Only | Infectious Disease | Мария Farley MD | [facility] | | | | [address] | [address] | RNA rcvd: 03/01/2019) | | | | [facility] [address] | [place] [address] | | | | | [place] [address] | [phone] | | | | | [phone] | | | +--------+ + + + [...] [place] | | | | | | [address] | | | | | | | [...] | [facility] | [address] | [place] [address] | | | LABORATORY | 13 | | | + + + + + in this encounter Visit Diagnoses Not on filein this encounter"
--- OUTSIDE RECORDS SUMMARY | ~2019-03-09 | XMS | Encounter Summary ---
Demographics + + + | Address | [address] | | | [place] [address] | + + + | Home Phone [...] | Author | [facility] | + + + | Organization | [facility] | + + + | Address | Unknown | + + + | Phone | Unavailable | + + + Support + + + + + | Name | Relationship | Address | Phone | + + + + + | Isabel Cardona | ECON | [address] | | | | | [place] | | | | | [address] | | + + + + + Care Team Providers + +------+ + | Care Maintenance Person Name | Role | Phone | + [...] | | 2019 | on Only | [address] | MICHELLE Lovelace | 02/11/19) | | | | [place] [address] | | | | | | [place] [address] | | | | | | [phone] | | | +--------+ + + + [...] [place] | | | | | | [address] | | | | | | | | +--------+---------+ + + + as of this encounter Visit Diagnoses Not on filein this encounter"
--- OUTSIDE RECORDS SUMMARY | ~2019-03-09 | XMS | Encounter Summary ---
Demographics + + + | Address | [address] | | | [place] [address] | + + + | Home Phone | | + + + | Preferred Language | Unknown | + + + | Marital Status | Unknown | + + + | Baptism Affiliation | Unknown | + + + | Race | Unknown | + + + | Ethnic Group | Unknown | + + + Author + + + | Author | [facility] | + + + | Organization | [facility] | + + + | Address | Unknown | + + + | Phone | Unavailable | + + + Support + + + + + | Name | Relationship | Address | Phone | + + + + + | Isabel Cardona | ECON | [address] | | | | | [place] | | | | | [address] | | + + + + + Care Team Providers + +------+ + | Care Butcher Head Name | Role | Phone | [...] + + | 02/23/ | Office | [facility] | Annel Whitten | Chronic hepatitis C | | 2019 | Visit | Infectious Disease | Мария Farley MD | without hepatic coma | | | | [address] | [address] | (HCC) (Primary Dx) | | | | [facility] [address] | [place] [address] | | | | | [place] [address] | [phone] | | | | | [phone] | | | +--------+---------+ + + + [...] may be dif ferent from the original. [facility] Service: Infectious Diseases Outpatient Follow Up Note CHIEF COMPLAINT Follow up on Hep C HISTORY OF PRESENT ILLNESS The patient is a 48 y.o.-year-old female presenting today for follow up. She finished her m edications 3 months ago. She denies any side effects. She [facility] and started on seroquel. She experienced significant weight gain since the n. PAST MEDICAL HISTORY Patient Active Problem List Diagnosis CKD (chronic kidney disease), stage III ([facility]) Essential (primary) hypertension Type 2 diabetes mellitus with diabetic nephropathy, with long-term current use of insul in ([facility]) Persistent proteinuria Class 3 severe obesity due to excess calories without serious comorbidity with body mas s index (BMI) of 45.0 to 49.9 in adult (HCC) Hyperuricemia Anemia of chronic renal failure, stage 3 (moderate) ([facility]) Vitamin D deficiency Bilateral leg edema [...] with any worsening of symptoms. Dictation software, [employer], used which may contain error for similar sounding words even af ter review. Personal communication requested for any clarification. Portions of this chart may have been copied from previous notes for continuity of care purp jen Whitten MD Infectious Diseases [facility] [address] [place], [place] [address] O: F: 02/23/2019 in this encounter Plan of Treatment +--------+---------+ + + + | Date | Type | Specialty | Care Team | Description | +--------+---------+ + + + | 05/09/ | Office | Nephrology | Andrews Massey MD | | | 2019 | Visit | | [address] | | | | | | [address] [place], [place] | | | | | | [address] | | | | | | | [...]
--- OUTSIDE RECORDS SUMMARY | ~2019-03-09 | XMS | Encounter Summary ---
Demographics + + + | Address | [address] | | | [place] [address] | + + + | Home Phone | | + + + | Preferred Language | Unknown | + + + | Marital Status | Unknown | + + + | Congregation Affiliation | Unknown | + + + | Race | Unknown | + + + | Ethnic Group | Unknown | + + + Author + + + | Author | [facility] | + + + | Organization | [facility] | + + + | Address | Unknown | + + + | Phone | Unavailable | + + + Support + + + + + | Name | Relationship | Address | Phone | + + + + + | Isabel Cardona | ECON | [address] | | | | | [place] | | | | | [address] | | + + + + + Care Team Providers + +------+ + | Care Cloth Dyeing Range Tender Name | Role | Phone | [...] Essential | | | | [place] [address] | | (primary) | | | | [phone] | | hypertension; | | | | [...] [place] | | | | | | [address] | | | | | | | [...] + + + | [facility] | [address] | [place] [address] | [phone] | | LABORATORY | Blvd. | | [...]
--- OUTSIDE RECORDS SUMMARY | ~2019-03-09 | XMS | Encounter Summary ---
Demographics + + + | Address | [address] | | | [place] [address] | + + + | Home Phone | | + + + | Preferred Language | Unknown | + + + | Marital Status | Unknown | + + + | Catholic Affiliation | Unknown | + + + | Race | Unknown | + + + | Ethnic Group | Unknown | + + + Author + + + | Author | [facility] | + + + | Organization | [facility] | + + + | Address | Unknown | + + + | Phone | Unavailable | + + + Support + + + + + | Name | Relationship | Address | Phone | + + + + + | Isabel Cardona | ECON | [address] | | | | | [place] | | | | | [address] | | + + + + + Care Team Providers + +------+ + | Care Floor Covering Printer Name | Role | Phone | + [...] | | [address] | [address] [place], [place] | ([facility]) (Primary Dx); | | | | [place] [address] | [address] | Bilateral leg edema; | | | | [phone] | | Anemia of chronic | | | | | | renal failure, stage | | | | | | 3 (moderate) ([facility]); | | | | | | [...] | | | | | ([facility]); Class 3 | | | | [...] | | | | | ([facility]) | +--------+---------+ + + + Social [...] Ferritin, uric acid, urinalysis, Urine total pro vlqp-tr-djoinyhead ratio before she comes back in 3 months.in this encounter Progress Notes Andrews Massey MD - 01/31/2019 12:00 PM PSTFormatting of this note may be different from th e original. Patient Active Problem List Diagnosis CKD (chronic kidney disease), stage III ([facility]) Essential (primary) hypertension Type 2 diabetes mellitus with diabetic nephropathy, with long-term current use of insul in (HCC) Persistent proteinuria Class 3 severe obesity due to excess calories without serious comorbidity with body mas s index (BMI) of 45.0 to 49.9 in adult (HCC) Hyperuricemia Anemia of chronic renal failure, stage 3 (moderate) ([facility]) Vitamin D deficiency Bilateral leg edema [...] to baseline with t he interventions at [facility]. The patient has history of hypertension [...] LABIRON 36.8 01/18/2019 LABPROT 2,352.9 (A) 10/08/2018 [id number] 22 (A) 04/21/2018 Assessment: Ms. Restrepo is [...] Ferritin, uric acid, urinalysis, Urine total pro veen-jw-lfqmeibeuy ratio before she comes back in 3 [...] | | | | | | [address] [place], [place] | | | | | | [id number] | | | | | | | [...]
--- OUTSIDE RECORDS SUMMARY | ~2019-03-09 | XMS | Encounter Summary ---
Demographics + + + | Address | [address] | | | [place] [address] | + + + | Home Phone | | + + + | Preferred Language | Unknown | + + + | Marital Status | Unknown | + + + | Jewish Affiliation | Unknown | + + + | Race | Unknown | + + + | Ethnic Group | Unknown | + + + Author + + + | Author | [facility] | + + + | Organization | [facility] | + + + | Address | Unknown | + + + | Phone | Unavailable | + + + Support + + + + + | Name | Relationship | Address | Phone | + + + + + | Isabel Cardona | ECON | [address] | | | | | [place] | | | | | [address] | | + + + + + Care Team Providers + +------+ + | Care Interface Designer Name | Role | Phone | [...] | | [address] | [address] [place], [place] | ([facility]) (Primary Dx); | | | | [place] [address] | [address] | Bilateral leg edema; | | | | [phone] | | Anemia of chronic | | | | | | renal failure, stage | | | | | | 3 (moderate) ([facility]); | | | | | [...] | | | | | ([facility]); Class 3 | | | [...] | | | | | ([facility]) | +--------+---------+ + + + [...] Ferritin, uric acid, urinalysis, Urine total pro ycwk-fd-yrjmqkqyyl ratio before she comes back in 3 months.in this encounter Progress Notes Andrews Massey MD - 01/31/2019 12:00 PM PSTFormatting of this note may be different from th e original. Patient Active Problem List Diagnosis CKD (chronic kidney disease), stage III ([facility]) Essential (primary) hypertension Type 2 diabetes mellitus with diabetic nephropathy, with long-term current use of insul in (HCC) Persistent proteinuria Class 3 severe obesity due to excess calories without serious comorbidity with body mas s index (BMI) of 45.0 to 49.9 in adult (HCC) Hyperuricemia Anemia of chronic renal failure, stage 3 (moderate) ([facility]) Vitamin D deficiency Bilateral leg [...] to baseline with t he interventions at [facility]. The patient has history of [...] LABIRON 36.8 01/18/2019 LABPROT 2,352.9 (A) 10/08/2018 [id number] 22 (A) 04/21/2018 Assessment: Ms. Restrepo is [...] Ferritin, uric acid, urinalysis, Urine total pro ajdc-vn-eqlppaisgu ratio before she comes back in 3 [...] | | | | | | [address] [place], [place] | | | | | | [id number] | | | | | | | [...]
--- OUTSIDE RECORDS SUMMARY | ~2019-03-09 | XMS | Encounter Summary ---
Demographics + + + | Address | [address] | | | [place] [address] | + + + | Home Phone | | + + + | Preferred Language | Unknown | + + + | Marital Status | Unknown | + + + | Scientologist Affiliation | Unknown | + + + | Race | Unknown | + + + | Ethnic Group | Unknown | + + + Author + + + | Author | [facility] | + + + | Organization | [facility] | + + + | Address | Unknown | + + + | Phone | Unavailable | + + + Support + + + + + | Name | Relationship | Address | Phone | + + + + + | Isabel Cardona | ECON | [address] | | | | | [place] | | | | | [address] | | + + + + + Care Team Providers + +------+ + | Care Tank Maker Wood Name | Role | Phone | + [...] | | | | | [place] [address] | | | | | | [phone] | | | +--------+ + + + [...]
[~2019-03-09 11:15] MED LIST changes: +AMITRIPTYLINE100 MG PO; +ATIVAN1 MG PO; +LANTUS100 UNITS/; +NORCO 5-325 TA1 EACH PO; +PROZAC20 MG; +SEROQUEL200 MG PO
--- OUTSIDE RECORDS SUMMARY | 2019-03-09 11:22 | XMS ---
PreManage Notification: SEN BOUDREAUX Security Tow Car Driver Events No recent Security Events currently on file CRITERIA MET - [facility] - Has Care Guidelines - [facility] - 2 Visits in 30 Days CARE PROVIDERS CAITLYN CHAVIS Internal Medicine 09/29/2018-[facility] ANDREJoseph PHONE: [phone] CJ VELASQUEZ Primary Care Current PHONE: [phone] Guidelines [facility] Date: 02/17/2019 Care Coordination: Currently engaged in mental health services with [facility].\T\nbsp; Please contact [facility] with mental health concerns.\T\nbsp; [phone]. Allergies: Azithromycin - mild to moderate Lisinopril - mild to moderate\T\nbsp; Care History Medical/Surgical 09/29/2018 [facility] - Patient is currently established with [facility]. If patient is seen in the ED during business hours. Please contact [facility] at [facility]. Care Recommendation: This patient has had 5 [...] providing care. E.D. VISIT COUNT (12 MO.) [place] TOTAL 7 NOTE: Visits indicate total known visits. ED/UCC VISIT TRACKING (12 MO.) 03/09/2019 11:16 [place] TYPE: Emergency COMPLAINT: - SOB 02/16/2019 17:36 [place] [place] TYPE: Emergency COMPLAINT: - L KNEE PAIN DIAGNOSES: - Type 2 diabetes mellitus with diabetic chronic kidney disease - Allergy status to other drugs, medicaments and biological substances status - 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e 4 chronic kidney disease, or unspecified chronic kidney disease - Other halfway (current) drug therapy - ferry terminal agent (current) use of insulin - Major depressive disorder, single episode, unspecified - Unspecified internal derangement of left knee - Sprain of unspecified site of left knee, initial encounter - Allergy status to other antibiotic agents status - Chronic kidney disease, stage 3 (moderate) - Pure hypercholesterolemia, unspecified - Pain in left knee - half-way (current) use of aspirin - Allergy status to serum and vaccine status - Other and unspecified overexertion or strenuous movements or postures, initial encounter 12/17/2018 16:38 [place] [place] TYPE: Emergency COMPLAINT: - MEDICAL CLEARANCE DIAGNOSES: - Acquired absence of other specified parts of digestive tract - Personal history of pneumonia (recurrent) - ferry terminal agent (current) use of insulin - Allergy status to other antibiotic agents status - Personal history of pulmonary embolism - Allergy status to other drugs, medicaments and biological substances status - Pure hypercholesterolemia, unspecified - Chronic kidney disease, stage 3 (moderate) - Other halfway (current) drug therapy - Anxiety disorder, unspecified - 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e 4 chronic kidney disease, or unspecified chronic kidney disease - Allergy status to serum and vaccine status - Personal history of other infectious and parasitic diseases - Encounter for other general examination - Type 2 diabetes mellitus with diabetic chronic kidney disease 09/26/2018 02:47 [place] [place] TYPE: Emergency COMPLAINT: - TOXIC ENCEPHALOPATHY DIAGNOSES: - Dizziness and giddiness - Unspecified mood [affective] disorder - Allergy status to other antibiotic agents status - Essential (primary) hypertension - half-way (current) use of aspirin - Allergy status [...] without hepatic coma - Hypothyroidism, unspecified - ferry terminal agent (current) use of insulin - Poisoning by antiviral drugs, accidental (unintentional), initial encounter - Allergy status to penicillin - Other halfway (current) drug therapy - Chronic obstructive pulmonary [...] drugs, medicaments and biological substances status - ferry terminal agent (current) use of aspirin - Allergy status to other antibiotic agents status - Major depressive disorder, single episode, unspecified - Other halfway (current) drug therapy - ferry terminal agent (current) use of insulin 03/14/2018 19:12 [place] [place] TYPE: Emergency COMPLAINT: - FALL DIAGNOSES: - OTHER INJURY OF UNSPECIFIED BODY REGION, INITIAL E - Other chronic pain - Abrasion, left knee, initial encounter - Allergy status to other drugs, medicaments and biological substances status - Other injury of unspecified body region, initial encounter - ferry terminal agent (current) use of aspirin - Allergy status to other antibiotic agents status - Concussion with loss of consciousness of 30 minutes or less, initial encounter - Low back pain - Type 2 diabetes mellitus without complications - PURE HYPERCHOLESTEROLEMIA, UNSPECIFIED - Fall on same level from slipping, tripping and stumbling with subsequent striking against unspecified object, initial encounter - Other laborer marine terminal (current) drug therapy - Morbid (severe) obesity due to excess calories - Major depressive disorder, single episode, unspecified - Allergy status to serum and vaccine status - Strain of muscle, fascia and tendon at neck level, initial encounter - half-way (current) use of insulin - Essential (primary) hypertension - Unspecified injury of head, initial encounter - Pure hypercholesterolemia, unspecified - Personal history of pneumonia (recurrent) 03/09/2018 19:19 [place] [place] TYPE: Emergency COMPLAINT: - L EYE PAIN,POST SURGERY DIAGNOSES: - Ocular pain, left eye - Allergy status to serum and vaccine status - ferry terminal agent (current) use of aspirin - Pure hypercholesterolemia, unspecified - Allergy status to other antibiotic agents status - Cataract extraction status, left eye - Essential (primary) hypertension - Other laborer marine terminal (current) drug therapy - Other acute postprocedural pain - Type 2 diabetes mellitus without complications - half-way (current) use of insulin - Allergy status to other drugs, medicaments and biological substances status - PURE HYPERCHOLESTEROLEMIA, UNSPECIFIED INPATIENT VISIT TRACKING (12 MO.) 09/26/2018 02:[address] [facility] [place] TYPE: Medical Surgical COMPLAINT: - TOXIC ENCEPHALOPATHY DIAGNOSES: - Allergy status to serum and vaccine status - Hypomagnesemia - Other halfway (current) drug therapy - Morbid (severe) obesity [...] viral hepatitis C without hepatic coma - half-way (current) use of aspirin - Unspecified mood [affective] disorder - Poisoning by unspecified drugs, medicaments and biological substances, accidental (unintentional), initial encounter - Major depressive disorder, single episode, unspecified - Poisoning by antiviral drugs, accidental (unintentional), initial encounter - Acute kidney failure, unspecified - Essential (primary) hypertension - Post-traumatic stress disorder, unspecified - Allergy status to other antibiotic agents status - ferry terminal agent (current) use of insulin - Poisoning by antiparkinsonism drugs and other central muscle-tone depressants, accidental (unintentional), initial encounter - Toxic encephalopathy - Pure hypercholesterolemia, unspecified [email or web address]
[2019-03-09] MEDS ORDERED: PROMETHAZINE-C473 ML PO (13:16)
[2019-03-09] MEDS ORDERED: ZITHROMAX250 MG PO (13:16)
[2019-03-09] MEDS ORDERED: PREDNISONE20 MG PO (13:16)
== END 2019-03-09 13:49 | disposition home or self-care (01) ==
LOC: ED 11:15
DX: J20.9 Acute bronchitis, unspecified (principal); E11.9 Type 2 diabetes mellitus without complications; I10 Essential (primary) hypertension; F32.9 Major depressive disorder, single episode, unspecified; E78.00 Pure hypercholesterolemia, unspecified; Z88.1 Allergy status to other antibiotic agents; Z88.8 Allergy status to other drugs, medicaments and biological substances; Z88.7 Allergy status to serum and vaccine; Z79.899 Other long term (current) drug therapy; Z79.4 Long term (current) use of insulin; Z79.82 Long term (current) use of aspirin
CPT/HCPCS: 71046; 80053; 85025; 94640; 96374; 99283-25; J2930

== ENCOUNTER 2019-03-12 14:56 | Emergency (ER) | payer OTHER ==
[~2019-03-12] VITALS: Ht 175.3 cm; Wt 154.2 kg
--- OUTSIDE RECORDS SUMMARY | ~2019-03-12 | XMS | Encounter Summary ---
Demographics + + + | Address | [address] | | | [place] [address] | + + + | Home Phone | | + + + | Preferred Language | Unknown | + + + | Marital Status | Unknown | + + + | Temple Affiliation | Unknown | + + + | Race | Unknown | + + + | Ethnic Group | Unknown | + + + Author + + + | Author | [facility] | + + + | Organization | [facility] | + + + | Address | Unknown | + + + | Phone | Unavailable | + + + Support + + + + + | Name | Relationship | Address | Phone | + + + + + | Isabel Cardona | ECON | [address] | | | | | [place] | | | | | [phone] | | + + + + + Care Team Providers + +------+ + | Care Double Back Operator Name | Role | Phone | + +------+ + | Lisa Watson MD | PCP | | + +------+ + Encounter Details +--------+---------+ + + + | Date | Type | Department | Care Team | Description | +--------+---------+ + + + | 01/31/ | Office | [facility] | Andrews Massey MD | CKD (chronic kidney | | 2019 | Visit | [address] | [address] | disease), stage III | | | | [address] | [address] [place], [place] | ([facility]LY [facility]) (Primary Dx); | | | | [place] [address] | [address] | Bilateral leg edema; | | | | [phone] | | Anemia of chronic | | | | | | renal failure, stage | | | | | | 3 (moderate) ([facility]); | | | | | | Essential (primary) | | | | | | hypertension; | | | | | | Persistent | | | | | | proteinuria; | | | | | | Hyperuricemia; Type | | | | | | 2 diabetes mellitus | | | | | | with diabetic | | | | | | nephropathy, with | | | | | | long-term current | | | | | | use of insulin | | | | | | ([facility]); Class 3 | | | | | | severe obesity due | | | | | | to excess calories | | | | | | without serious | | | | | | comorbidity with | | | | | | body mass index | | | | | | (BMI) of 45.0 to | | | | | | 49.9 in adult | | | | | | ([facility]) | +--------+---------+ + + + Social History [...] + + + | Blood Pressure | 132/72 | 01/31/2019 11:54 AM PST | + + + + | Pulse | 62 | 01/31/2019 11:54 AM PST | + + + + | Temperature | - | - | + + + + | Respiratory Rate | - | - | + + + + | Oxygen Saturation | - | - | + + + + | Inhaled Oxygen | - | - | | Concentration | | | + + + + | Weight | 153.9 kg (339 lb 4.8 | 01/31/2019 11:54 AM PST | | | oz) | | + + + + | Height | 175.3 cm (5' 9") | 01/31/2019 11:54 AM PST | + + + + | Body Mass Index | 50.11 | 01/31/2019 11:54 AM PST | + + + + in this encounter Instructions Patient Instructions - Andrews Massey MD - 01/31/2019 12:00 PM PSTDiscussions/Recommendatio ns: I discussed today with Ms. Restrepo the meaning of her CKD and the interaction of that wit h her diabetes & hypertension. I stressed the importance of keeping her BG & BP controlled and avoiding getting dehydra jane if we are to have a chance at helping preserve her renal function. She showed good unde rstanding. I gave her instructions on how to chart her blood pressure in the appropriate manner at home. She is to call us if they fall outside of the optimal provided range. She will bring her sphygmomanometer for validation once a year. She will strictly abide by a low salt, low purine diet and will avoid all kinds of NSAID s for analgesia. Also: I kept her on Indapamide 0.625 mg daily. I sent her for a repeat BMP, UTPCR in 1 week. She will report back to me her home BP readings in 1-2 weeks. At that time, I will decid e whether any change to his vasoactive regimen is warranted. I Kept her on Ferrous Sulfate 325 mg daily. I warned her about its possible side effect s including constipation. she voiced good understanding. I asked her to elevate her legs for 1 hour once or twice a day. She knows that she still needs to be active and ambulatory carefully as possible. I advised her to exercise regularly but safely & to try to lose weight methodically; She voiced good understanding. She will continue to F/U with your office regularly. She will have a RFP, CBC, Iron studies, Ferritin, uric acid, urinalysis, Urine total pro nqgy-bx-djaftslocl ratio before she comes back in 3 months.in this encounter Progress Notes Andrews Massey MD - 01/31/2019 12:00 PM PSTFormatting of this note may be different from th e original. Patient Active Problem List Diagnosis CKD (chronic kidney disease), stage III ([facility]) Essential (primary) hypertension Type 2 diabetes mellitus with diabetic nephropathy, with long-term current use of insul in (HCC) Persistent proteinuria Class 3 severe obesity due to excess calories without serious comorbidity with body mas s index (BMI) of 45.0 to 49.9 in adult (HCC) Hyperuricemia Anemia of chronic renal failure, stage 3 (moderate) ([facility]) Vitamin D deficiency Bilateral leg edema Dear Dr watson: I saw your patient Ms. Restrepo in the office on an urgent basis today. As you are familiar with her case, I will not state her past history in detail. Briefly, she is a 48 y.o. femal e patient with past history as delineated above; she is here to F/U on her CKD & its associ ated complications. She tells me that in 2015, she was told her GFR was down during an acute illness. In 03/2018, her sCr & eGFR were 1.25 & 46. She was hospitalized in late 08/2018 with metabolic encephalopathy; had a minor drop in her GFR (did not amount to an actual CANDICE per KDIGO reference); GFR went back to baseline with t he interventions at [facility]. The patient has history of hypertension since 2016, Diabetes Mellitus since ~1996; her BG and BP control has been reportedly adequate; She has prolonged exposure to NSAIDs: Ibuprofe n 1,200 mg a day for years; she denies any history of recent exposure to known nephrotoxins . she denies any recurrent nephrolithiasis or pyelonephritis. she tells me that she's had no history of urinary retention, gross hematuria or dysuria; she has no incontinence symptoms. No symptoms of UTI; she has 1-2 times nightly nocturia. No history of passing kidney ston es. she has no foamy urine either. her baseline Creatinine is 1.4. There is no family histor y of renal genetic diseases such as PKD. she says that she feels 'good ' today. she denies any blurred vision tinnitus, headache, f ever, chills, or cough. No nausea, vomiting, abdominal pain, diarrhea, melena, or hematoche aye. She has vertigo for which she F/U's with your office. No chest pain, palpitation, dizz iness, loss of consciousness, orthopnea, paroxysmal nocturnal dyspnea; this summer she start ed having leg edema. She has chronic low back & knees pain. The following portions of the patient's history were reviewed and updated as appropriate: a llergies, current medications, past medical history, past social history, past surgical hist ory, family history and problem list. *U/S from 06/2018: no evidence of any significant renal anatomic abnormalities except for m ild cortical thinning. As in History of Present Illness & in Assessment. All the pertinent systems were reviewed a nd were otherwise negative. Current Outpatient Prescriptions Medication Sig Dispense Refill amitriptyline (ELAVIL) 25 MG tablet Take 100 mg by mouth nightly. aspirin 81 MG tablet Take 81 mg by mouth daily. buPROPion (WELLBUTRIN XL) 300 MG 24 hr tablet Take 300 mg by mouth daily. Calcium Carb-Cholecalciferol 600-400 MG-UNIT TABS Take by mouth daily. docusate sodium (COLACE) 100 MG capsule Take 100 mg by mouth 2 (two) times daily. famotidine (PEPCID) 20 MG tablet Take 20 mg by mouth nightly as needed. 0 FLUoxetine HCl 60 MG TABS Take 60 mg by mouth daily. gabapentin (NEURONTIN) 300 MG capsule Take 600 mg by mouth 3 (three) times daily. glucagon (GLUCAGON EMERGENCY) 1 MG injection Inject 1 mg into the vein as needed. indapamide (LOZOL) 1.25 MG tablet Take 0.5 tablets by mouth every morning. 15 tablet 11 insulin glargine (LANTUS) 100 UNIT/ML injection Inject 35 Units into the skin 2 (two) t imes daily. insulin lispro, human, (HUMALOG) 100 UNIT/ML injection Inject 8 Units into the skin 3 ( three) times daily before meals. ipratropium-albuterol (COMBIVENT RESPIMAT) 20-100 MCG/ACT inhaler Inhale 1 puff into th e lungs 4 (four) times daily. levothyroxine (SYNTHROID) 25 MCG tablet Take 75 mcg by mouth every morning before break fast. metoprolol (LOPRESSOR) 50 MG tablet Take 50 mg by mouth 2 (two) times daily. nystatin (MYCOSTATIN) cream Apply topically as needed. 0 prazosin (MINIPRESS) 5 MG capsule Take 5 mg by mouth nightly. 0 RA P COL-RITE 8.6-50 MG per tablet Take 1 tablet by mouth daily. 0 senna (SENOKOT) 8.6 MG tablet Take 1 tablet by mouth daily. B-D INS SYRINGE 0.5CC/31GX5/16 31G X 5/16" 0.5 ML 1 BD SHARPS CONTAINER HOME MISC 0 FREESTYLE TEST STRIPS test strip 0 Glecaprevir-Pibrentasvir 100-40 MG TABS Take by mouth. No current facility-administered medications for this visit. Physical Exam: BP 132/72 (BP Location: Left upper arm, Patient Position: Sitting) | Pulse 62 | Ht 1.753 m (5' 9") | Wt 153.9 kg (339 lb 4.8 oz) | BMI 50.11 kg/m General appearance: Pleasant, not in acute distress. Neck: Supple without tracheal deviation or jugular venous distension. Head and ENT: Head is atraumatic. The oropharynx is without erythema or thrush. Eyes: Anicteric. The extraocular muscle movements are normal. Lungs: Clear to auscultation bilaterally. There are no wheezes. Heart: Regular rate and rhythm without any rub, gallop. No murmur. Abdominal exam: Severely obese. Soft and nontender with normal bowel sounds. Musculoskeletal: No costovertebral angle tenderness bilaterally. Extremities: Warm to touch with 1+ leg edema. There is no cyanosis. Skin: There are no rashes, petechiae, or ecchymosis. Neurological: Awake, alert, and oriented to time, place, and person. Normal gross motor po wer. There is no asterixis. Psychiatric: The patient s behavior is normal. Judgment and thought content are normal. Lab Results Component Value Date BUN 27 (A) 10/26/2018 CREATININE 1.47 (A) 10/26/2018 EGFR 38 10/26/2018 NA 139 10/26/2018 K 4.5 10/26/2018 CL 25 10/26/2018 CO2 25 10/26/2018 CA 9.8 10/26/2018 PHOS 3.8 10/08/2018 ALB 3.5 10/11/2018 HGB 10.4 (A) 10/11/2018 URICACID 9.0 (A) 01/18/2019 WBC 7.9 10/11/2018 HCT 32.7 (A) 10/11/2018 FERRITIN 81.60 01/18/2019 LABIRON 36.8 01/18/2019 LABPROT 2,352.9 (A) 10/08/2018 [id number] 22 (A) 04/21/2018 Assessment: Ms. Restrepo is a 48 y.o. female patient with stage III CKD on a background of longstanding d iabetes & hypertension. The most likely pathology here is that of diabetic nephropathy + /- hypertensive nephrosclerosis/arteriolosclerosis. RENAL FUNCTION: Relatively stable GFR BLOOD PRESSURE: Reports it better controlled at home BLOOD SUGAR: Reports it better controlled ELECTROLYTES: okay ANEMIA: Mild now VITAMIN D: Deficiency is being treated thru your office PARATHYROID HORMONE: ok URIC ACID: Mildly up PROTEINURIA: moderate URINALYSIS: No UTI or hematuria VOLUME STATUS: Euvolumic. Discussions/Recommendations: I discussed today with Ms. Restrepo the meaning of her CKD and the interaction of that wit h her diabetes & hypertension. I stressed the importance of keeping her BG & BP controlled and avoiding getting dehydra jane if we are to have a chance at helping preserve her renal function. She showed good unde rstanding. I gave her instructions on how to chart her blood pressure in the appropriate manner at home. She is to call us if they fall outside of the optimal provided range. She will bring her sphygmomanometer for validation once a year. She will strictly abide by a low salt, low purine diet and will avoid all kinds of NSAID s for analgesia. Also: I kept her on Indapamide 0.625 mg daily. I sent her for a repeat BMP, UTPCR in 1 week. (I will not add an MRA (Spirono or Eplerenone) as her K was near the upper limit of norm al at this time; I will see if she can bring her K down with limiting it in the diet. Then I will introduce an MRA.) (I advised to wait on restarting the DHP CCB Amlodipine to 10 mg as it will likely worse n her leg edema. I advised to hold off on uptitrating her alpha elda Prazosin.) She will report back to me her home BP readings in 1-2 weeks. At that time, I will decid e whether any change to his vasoactive regimen is warranted. I kept her on Ferrous Sulfate 325 mg daily. I warned her about its possible side effects including constipation. she voiced good understanding. I asked her to elevate her legs for 1 hour once or twice a day. She knows that she still needs to be active and ambulatory carefully as possible. I advised her to exercise regularly but safely & to try to lose weight methodically; She voiced good understanding. She will continue to F/U with your office regularly. She will have a RFP, CBC, Iron studies, Ferritin, uric acid, urinalysis, Urine total pro [id number] ratio before she comes back in 3 months. I spent 15 minutes of this 25-minute visit in education, counseling and answering all of her questions to her satisfaction. Thank you Dr Watson for the opportunity to see this patient in F/U today. Please do not hesi dunn to call me at any time with questions or concerns. Truly yours, Andrews Massey MD FACP DEE TATE in this encounter Plan of Treatment +--------+---------+ + + + | Date | Type | Specialty | Care Team | Description | +--------+---------+ + + + | 05/09/ | Office | Nephrology | Andrews Massey MD | | | 2019 | Visit | | [address] | | | | | | [address] [place], [place] | | | | | | [id number] | | | | | | | | +--------+---------+ + + + as of this encounter Visit Diagnoses + + | Diagnosis | + + | CKD (chronic kidney disease), stage III (HCC) - Primary | + + | Chronic kidney disease, Stage III (moderate) | + + | Bilateral leg edema | + + | Edema | + + | Anemia of chronic renal failure, stage 3 (moderate) (HCC) | + + | Essential (primary) hypertension | + + | Unspecified essential hypertension | + + | Persistent proteinuria | + + | Proteinuria | + + | Hyperuricemia | + + | Other abnormal blood chemistry | + + | Type 2 diabetes mellitus with diabetic nephropathy, with long-term current use of | | insulin (HCC) | + + | Class 3 severe obesity due to excess calories without serious comorbidity with body | | mass index (BMI) of 45.0 to 49.9 in adult (HCC) | + + | Vitamin D deficiency | + + | Unspecified vitamin D deficiency | + +
--- OUTSIDE RECORDS SUMMARY | ~2019-03-12 | XMS | Encounter Summary ---
Demographics + + + | Address | [address] | | | [place] [address] | + + + | Home Phone | | + + + | Preferred Language | Unknown | + + + | Marital Status | Unknown | + + + | Religion Affiliation | Unknown | + + + | Race | Unknown | + + + | Ethnic Group | Unknown | + + + Author + + + | Author | [facility] | + + + | Organization | [facility] | + + + | Address | Unknown | + + + | Phone | Unavailable | + + + Support + + + + + | Name | Relationship | Address | Phone | + + + + + | Isabel Cardona | ECON | [address] | | | | | [place] | | | | | [address] | | + + + + + Care Team Providers + +------+ + | Care Manager Payer Name | Role | Phone | + +------+ + | Lisa Mcclain MD | PCP | | + +------+ + Encounter Details +--------+ + + + + | Date | Type | Department | Care Team | Description | +--------+ + + + + | 01/18/ | Telephone | [facility] | [place], | | | 2019 | | [place] | [place] | | | | | [address] | | | | | | [place] [address] | | | | | | [phone] | | | +--------+ + + + [...] | | | | | | [address] | | | | | | [address] | | | | | | | | +--------+---------+ + + + as of this encounter Visit Diagnoses Not on filein this encounter"
--- OUTSIDE RECORDS SUMMARY | ~2019-03-12 | XMS | Encounter Summary ---
Demographics + + + | Address | [address] | | | [place] [address] | + + + | Home Phone | | + + + | Preferred Language | Unknown | + + + | Marital Status | Unknown | + + + | Baptism Affiliation | Unknown | + + + | Race | Unknown | + + + | Ethnic Group | Unknown | + + + Author + + + | Author | [facility] | + + + | Organization | [facility] | + + + | Address | Unknown | + + + | Phone | Unavailable | + + + Support + + + + + | Name | Relationship | Address | Phone | + + + + + | Isabel Cardona | ECON | [address] | | | | | [place] | | | | | [address] | | + + + + + Care Team Providers + +------+ + | Care Calender Operator Helper Name | Role | Phone | + [...] | | 2019 | on Only | [place] [address] | [place] | 02/11/19) | | | | [address] | | | | | | [place] [address] | | | | | | [phone] | | | +--------+ + + + [...] [place] | | | | | | [address] | | | | | | | | +--------+---------+ + + + as of this encounter Visit Diagnoses Not on filein this encounter"
--- OUTSIDE RECORDS SUMMARY | ~2019-03-12 | XMS | Encounter Summary ---
Demographics + + + | Address | [address] | | | [place] [address] | + + + | Home Phone | | + + + | Preferred Language | Unknown | + + + | Marital Status | Unknown | + + + | Jew Affiliation | Unknown | + + + | Race | Unknown | + + + | Ethnic Group | Unknown | + + + Author + + + | Author | [facility] | + + + | Organization | [facility] | + + + | Address | Unknown | + + + | Phone | Unavailable | + + + Support + + + + + | Name | Relationship | Address | Phone | + + + + + | Isabel Cardona | ECON | [address] | | | | | [place] | | | | | [address] | | + + + + + Care Team Providers + +------+ + | Care Speed Belt Sander Name | Role | Phone | [...] Essential | | | | [place] [address] | | (primary) | | | | [phone] | | hypertension; | | | | [...] [place] | | | | | | [address] | | | | | | | [...] + + + | [facility] | [address] | [place] [address] | [phone] | | LABORATORY | Blvd. | | [...]
--- OUTSIDE RECORDS SUMMARY | ~2019-03-12 | XMS | Encounter Summary ---
Demographics + + + | Address | [address] | | | [place] [address] | + + + | Home Phone | | + + + | Preferred Language | Unknown | + + + | Marital Status | Unknown | + + + | Oriental Orthodox Affiliation | Unknown | + + + | Race | Unknown | + + + | Ethnic Group | Unknown | + + + Author + + + | Author | [facility] | + + + | Organization | [facility] | + + + | Address | Unknown | + + + | Phone | Unavailable | + + + Support + + + + + | Name | Relationship | Address | Phone | + + + + + | Isabel Cardona | ECON | [address] | | | | | [place] | | | | | [address] | | + + + + + Care Team Providers + +------+ + | Care Shoe Dyer Name | Role | Phone | + +------+ + | iLsa Mcclain MD | PCP | | + [...] | | | | | [place] [address] | | | | | | [phone] | | | +--------+ + + + [...] | | | | | | [address] [place], [place] | | | | | | [address] | | | | | | | [...] | | | | | 3 (moderate) ([facility]) | | + +--------+ + + | [...] | | | | | 3 (moderate) ([facility]) | | + +--------+ + + | [...] | | | | | 3 (moderate) ([facility]) | | + +--------+ + + | [...] [facility] | [address] | [place] [address] | [phone] | | LABORATORY | Phi. | | [...]
--- OUTSIDE RECORDS SUMMARY | ~2019-03-12 | XMS | Encounter Summary ---
Demographics + + + | Address | [address] | | | [place] [address] | + + + | Home Phone [...] | Author | [facility] | + + + | Organization | [facility] | + + + | Address | Unknown | + + + | Phone | Unavailable | + + + Support + + + + + | Name | Relationship | Address | Phone | + + + + + | Isabel Cardona | ECON | [address] | | | | | [place] | | | | | [address] | | + + + + + Care Team Providers + +------+ + | Care Facilities Project Manager Name | Role | Phone | [...] + + | 02/23/ | Office | [facility] | Annel Whitten | Chronic hepatitis C | | 2019 | Visit | Infectious Disease | Мария Farley MD | without hepatic coma | | | | [address] | [address] | (HCC) (Primary Dx) | | | | [facility] [address] | [place] [address] | | | | | [place] [address] | [phone] | | | | | [phone] | | | +--------+---------+ + + + [...] may be dif ferent from the original. [facility] Service: Infectious Diseases Outpatient Follow Up Note CHIEF COMPLAINT Follow up on Hep C HISTORY OF PRESENT ILLNESS The patient is a 48 y.o.-year-old female presenting today for follow up. She finished her m edications 3 months ago. She denies any side effects. She recently spent a 3-day [facility] and started on seroquel. She experienced significant weight gain since the n. PAST MEDICAL HISTORY Patient Active Problem List Diagnosis CKD (chronic kidney disease), stage III ([facility]) Essential (primary) hypertension Type 2 diabetes mellitus with diabetic nephropathy, with long-term current use of insul in ([facility]) Persistent proteinuria Class 3 severe obesity due to excess calories without serious comorbidity with body mas s index (BMI) of 45.0 to 49.9 in adult (HCC) Hyperuricemia Anemia of chronic renal failure, stage 3 (moderate) ([facility]) Vitamin D deficiency Bilateral leg [...] , Rfl: 1 BD [facility] CON[facility], , Disp: , Rfl: 0 buPROPion (WELLBUTRIN [...] with any worsening of symptoms. Dictation software, Bloomfire, used which may contain error for similar sounding words even af ter review. Personal communication requested for any clarification. Portions of this chart may have been copied from previous notes for continuity of care purp jen Whitten MD Infectious Diseases [facility] [address] [place], [place] [address] O: F: 02/23/2019 in this encounter Plan of Treatment +--------+---------+ + + + | Date | Type | Specialty | Care Team | Description | +--------+---------+ + + + | 05/09/ | Office | Nephrology | Andrews Massey MD | | | 2019 | Visit | | [address] | | | | | | [address] [place], [place] | | | | | | [address] | | | | | | | [...]
--- OUTSIDE RECORDS SUMMARY | ~2019-03-12 | XMS | Encounter Summary ---
Demographics + + + | Address | [address] | | | [place] [address] | + + + | Home Phone | | + + + | Preferred Language | Unknown | + + + | Marital Status | Unknown | + + + | Sabianism Affiliation | Unknown | + + + | Race | Unknown | + + + | Ethnic Group | Unknown | + + + Author + + + | Author | [facility] | + + + | Organization | [facility] | + + + | Address | Unknown | + + + | Phone | Unavailable | + + + Support + + + + + | Name | Relationship | Address | Phone | + + + + + | Isabel Cardona | ECON | [address] | | | | | [place] | | | | | [address] | | + + + + + Care Team Providers + +------+ + | Care Hand Touch Up Painter Name | Role | Phone | + [...] + + | 02/16/ | Documentati | [facility] | Garcia KanikaMICHELLE | Other (Lab from | | 2019 | on Only | Infectious Disease | | [facility] | | | | [address] | | 02/15/19 ([facility]) ) | | | | [facility] [address] | | | | | | [place] [address] | | | | | | [phone] | | | +--------+ + + + [...] Lab DOS 02/15/19 (CMP). Lab abstracted into [facility] and sent to scan. Christa CMA. in this encounter Plan of Treatment +--------+---------+ + + + | Date | Type | Specialty | Care Team | Description | +--------+---------+ + + + | 05/09/ Office | Nephrology | Andrews Massey MD | | | 2018 | Visit | | [address] | | | | | | [address] [place], [place] | | | | | | [address] | | | | | | | [...] | [address] | [place] [address] | | | LABORATORY | 13 | | | + + + + + in this encounter Visit Diagnoses Not on filein this encounter"
--- OUTSIDE RECORDS SUMMARY | ~2019-03-12 | XMS | Encounter Summary ---
Demographics + + + | Address | [address] | | | [place] [address] | + + + | Home Phone [...] | Author | [facility] | + + + | Organization | [facility] [facility] | + + + | Address | Unknown | + + + | Phone | Unavailable | + + + Support + + + + + | Name | Relationship | Address | Phone | + + + + + | Isabel Cardona | ECON | [address] | | | | | [place] | | | | | [address] | | + + + + + Care Team Providers + +------+ + | Care Human Resources Generalist Name | Role | Phone | + [...] + + | 02/23/ | Office | [facility] | Annel Whitten | Chronic hepatitis C | | 2019 | Visit | Infectious Disease | Мария Farley MD | without hepatic coma | | | | [address] | [address] | (HCC) (Primary Dx) | | | | [facility] [address] | [place] [address] | | | | | [place] [address] | [phone] | | | | | [phone] | | | +--------+---------+ + + + [...] may be dif ferent from the original. [facility] Service: Infectious Diseases Outpatient Follow Up Note CHIEF COMPLAINT Follow up on Hep C HISTORY OF PRESENT ILLNESS The patient is a 48 y.o.-year-old female presenting today for follow up. She finished her m edications 3 months ago. She denies any side effects. She recently [facility] and started on seroquel. She experienced significant weight gain since the n. PAST MEDICAL HISTORY Patient Active Problem List Diagnosis CKD (chronic kidney disease), stage III ([facility]) Essential (primary) hypertension Type 2 diabetes mellitus with diabetic nephropathy, with long-term current use of insul in ([facility]) Persistent proteinuria Class 3 severe obesity due to excess calories without serious comorbidity with body mas s index (BMI) of 45.0 to 49.9 in adult (HCC) Hyperuricemia Anemia of chronic renal failure, stage 3 (moderate) ([facility]) Vitamin D deficiency Bilateral leg [...] , Rfl: 1 BD [facility], , Disp: , Rfl: 0 buPROPion (WELLBUTRIN [...] with any worsening of symptoms. Dictation software, Living Proof, used which may contain error for similar sounding words even af ter review. Personal communication requested for any clarification. Portions of this chart may have been copied from previous notes for continuity of care purp jen Whitten MD Infectious Diseases [facility] [address] [place], [place] [address] O: F: 02/23/2019 in this encounter Plan of Treatment +--------+---------+ + + + | Date | Type | Specialty | Care Team | Description | +--------+---------+ + + + | 05/09/ | Office | Nephrology | Andrews Massey MD | | | 2019 | Visit | | [address] | | | | | | [address] [place], [place] | | | | | | [address] | | | | | | | [...]
--- OUTSIDE RECORDS SUMMARY | ~2019-03-12 | XMS | Encounter Summary ---
Demographics + + + | Address | [address] | | | [place] [address] | + + + | Home Phone | | + + + | Preferred Language | Unknown | + + + | Marital Status | Unknown | + + + | Temple Affiliation | Unknown | + + + | Race | Unknown | + + + | Ethnic Group | Unknown | + + + Author + + + | Author | [facility] | + + + | Organization | [facility] [facility] | + + + | Address | Unknown | + + + | Phone | Unavailable | + + + Support + + + + + | Name | Relationship | Address | Phone | + + + + + | Isabel Cardona | ECON | [address] | | | | | [place] | | | | | [address] | | + + + + + Care Team Providers + +------+ + | Care Air Route Controller Name | Role | Phone | + [...] | | [address] | [address] [place], [place] | ([facility]) (Primary Dx); | | | | [place] [address] | [address] | Bilateral leg edema; | | | | [phone] | | Anemia of chronic | | | | | | renal failure, stage | | | | | | 3 (moderate) ([facility]); | | | | | | Essential [...] insulin | | | | | | ([facility]); Class 3 | | | | | [...] adult | | | | | | ([facility]) | +--------+---------+ + + + Social History [...] Ferritin, uric acid, urinalysis, Urine total pro cifz-ks-kdbzkcweoc ratio before she comes back in 3 months.in this encounter Progress Notes Andrews Massey MD - 01/31/2019 12:00 PM PSTFormatting of this note may be different from th e original. Patient Active Problem List Diagnosis CKD (chronic kidney disease), stage III ([facility]) Essential (primary) hypertension Type 2 diabetes mellitus with diabetic nephropathy, with long-term current use of insul in (HCC) Persistent proteinuria Class 3 severe obesity due to excess calories without serious comorbidity with body mas s index (BMI) of 45.0 to 49.9 in adult (HCC) Hyperuricemia Anemia of chronic renal failure, stage 3 (moderate) ([facility]) Vitamin D deficiency Bilateral leg edema Dear [...] to baseline with t he interventions at [facility]. The patient has history of hypertension [...] LABIRON 36.8 01/18/2019 LABPROT 2,352.9 (A) 10/08/2018 [id number] 22 (A) 04/21/2018 Assessment: Ms. Restrepo is [...] Ferritin, uric acid, urinalysis, Urine total pro qexb-bn-dknebyvsom ratio before she comes back in 3 [...] | | | | | | [address] [place], [place] | | | | | | [address] | | | | | | | [...]
--- OUTSIDE RECORDS SUMMARY | ~2019-03-12 | XMS | Encounter Summary ---
Demographics + + + | Address | [address] | | | [place] [address] | + + + | Home Phone | | + + + | Preferred Language | Unknown | + + + | Marital Status | Unknown | + + + | Gnosticist Affiliation | Unknown | + + + | Race | Unknown | + + + | Ethnic Group | Unknown | + + + Author + + + | Author | [facility] | + + + | Organization | [facility] | + + + | Address | Unknown | + + + | Phone | Unavailable | + + + Support + + + + + | Name | Relationship | Address | Phone | + + + + + | Isabel Cardona | ECON | [address] | | | | | [place] | | | | | [address] | | + + + + + Care Team Providers + +------+ + | Care Enrober Name | Role | Phone | + [...] + + | 02/16/ | Documentati | [facility] | Garcia KanikaMICHELLE | Other (Lab from | | 2019 | on Only | Infectious Disease | | [facility] | | | | [address] | | 02/15/19 ([facility]) ) | | | | [facility] [address] | | | | | | [place] [address] | | | | | | [phone] | | | +--------+ + + + [...] Lab DOS 02/15/19 (CMP). Lab abstracted into [facility] and sent to scan. Christa CMA. in this encounter Plan of Treatment +--------+---------+ + + + | Date | Type | Specialty | Care Team | Description | +--------+---------+ + + + | 05/09/ Office | Nephrology | Anrdews Massey MD | | | 2018 | Visit | | [address] | | | | | | [address] [place], [place] | | | | | | [address] | | | | | | | [...] | [address] | [place] [address] | | | LABORATORY | 13 | | | + + + + + in this encounter Visit Diagnoses Not on filein this encounter"
--- OUTSIDE RECORDS SUMMARY | ~2019-03-12 | XMS | Encounter Summary ---
Demographics + + + | Address | [address] | | | [place] [address] | + + + | Home Phone | | + + + | Preferred Language | Unknown | + + + | Marital Status | Unknown | + + + | Denominational Affiliation | Unknown | + + + | Race | Unknown | + + + | Ethnic Group | Unknown | + + + Author + + + | Author | [facility] | + + + | Organization | [facility] | + + + | Address | Unknown | + + + | Phone | Unavailable | + + + Support + + + + + | Name | Relationship | Address | Phone | + + + + + | Isabel Cardona | ECON | [address] | | | | | [place] | | | | | [address] | | + + + + + Care Team Providers + +------+ + | Care Heating Element Repairer Name | Role | Phone | + [...] | | | | | [place] [address] | | | | | | [phone] | | | +--------+ + + + [...]
--- OUTSIDE RECORDS SUMMARY | ~2019-03-12 | XMS | Encounter Summary ---
Demographics + + + | Address | [address] | | | [place] [address] | + + + | Home Phone | | + + + | Preferred Language | Unknown | + + + | Marital Status | Unknown | + + + | Orthodox Affiliation | Unknown | + + + | Race | Unknown | + + + | Ethnic Group | Unknown | + + + Author + + + | Author | [facility] | + + + | Organization | [facility] | + + + | Address | Unknown | + + + | Phone | Unavailable | + + + Support + + + + + | Name | Relationship | Address | Phone | + + + + + | Isabel Cardona | ECON | [address] | | | | | [place] | | | | | [address] | | + + + + + Care Team Providers + +------+ + | Care Authorization Manager Name | Role | Phone | [...] | | | | | [place] [address] | | | | | | [phone] | | | +--------+ + + + [...] | | | | | | [address] [place], [place] | | | | | | [address] | | | | | | | [...] + + + | [facility] | [address] | [place] [address] | [phone] | | LABORATORY | Phi. | | [...]
--- OUTSIDE RECORDS SUMMARY | ~2019-03-12 | XMS | Encounter Summary ---
Demographics + + + | Address | [address] | | | [place] [address] | + + + | Home Phone [...] + + | Author | [facility] | + + + | Organization | [facility] | + + + | Address | Unknown | + + + | Phone | Unavailable | + + + Support + + + + + | Name | Relationship | Address | Phone | + + + + + | Isabel Cardona | ECON | [address] | | | | | [place] | | | | | [address] | | + + + + + Care Team Providers + +------+ + | Care Traffic Officer Name | Role | Phone | [...] + + | 03/01/ | Documentati | [facility] | Annel Whitten | Other (02/28/2019 | | 2019 | on Only | Infectious Disease | Мария Farley MD | [facility] | | | | [address] | [address] | RNA rcvd: 03/01/2019) | | | | [facility] [address] | [place] [address] | | | | | [place] [address] | [phone] | | | | | [phone] | | | +--------+ + + + [...] [place] | | | | | | [address] | | | | | | | [...] | [address] | [place] [address] | | | LABORATORY | 13 | | | + + + + + in this encounter Visit Diagnoses Not on filein this encounter"
--- OUTSIDE RECORDS SUMMARY | ~2019-03-12 | XMS | Encounter Summary ---
Demographics + + + | Address | [address] | | | [place] [address] | + + + | Home Phone | | + + + | Preferred Language | Unknown | + + + | Marital Status | Unknown | + + + | Mandaeism Affiliation | Unknown | + + + | Race | Unknown | + + + | Ethnic Group | Unknown | + + + Author + + + | Author | [facility] | + + + | Organization | [facility] | + + + | Address | Unknown | + + + | Phone | Unavailable | + + + Support + + + + + | Name | Relationship | Address | Phone | + + + + + | Isabel Cardona | ECON | [address] | | | | | [place] | | | | | [address] | | + + + + + Care Team Providers + +------+ + | Care Windows Mobile Developer Name | Role | Phone | [...] + + | 03/01/ | Documentati | [facility] | Annel Whitten | Other (02/28/2019 | | 2019 | on Only | Infectious Disease | Мария Farley MD | [facility] | | | | [address] | [address] | RNA rcvd: 03/01/2019) | | | | [facility] [address] | [place] [address] | | | | | [place] [address] | [phone] | | | | | [phone] | | | +--------+ + + + [...] [place] | | | | | | [address] | | | | | | | [...] | [address] | [place] [address] | | | LABORATORY | 13 | | | + + + + + in this encounter Visit Diagnoses Not on filein this encounter"
--- OUTSIDE RECORDS SUMMARY | ~2019-03-12 | XMS | Clinical Summary ---
Demographics + + + | Address | [address] | | | [place] [address] | + + + | Home Phone [...] + | Author | [facility] | + + + | Organization | [facility] | + + + | Address | Unknown | + + + | Phone | Unavailable | + + + Support + + + + + | Name | Relationship | Address | Phone | + + + + + | Sen Cardona | ECON | [address] | | | | | [place] | | | | | [address] | | + + + + + Care Team Providers + +------+ + | Care Radial Arm Saw Operator Name | Role | Phone | [...] insulin | | | | | | ([facility]); Class 3 | | | | [...] adult | | | | | | ([facility]) | +--------+ + + + + [...] | | | | | | [address] [place] | | | | | | [id number] | | | | | | | [...] | [address] | [place] [address] | | | LABORATORY | 13 | [...] | [address] | [place] [address] | | | LABORATORY | 13 | [...] | + + + + + | [facility] | [address] | [place] [address] | [phone] | | LABORATORY | [address]vd[address] | | [...] +------+-------+ + | MEDICAID | [place] | [id number] | | | [address] | | | [place] | | | | [place] | | | [place] | | | | [address] | | | SHOT POLISHER | | | | | + +--------+ [...] | | al/Fam | | 1970 | [phone] | [place] | | | [place] | | | [address] | [address] | + +--------+ +--------+ + +
--- OUTSIDE RECORDS SUMMARY | ~2019-03-12 | XMS | Encounter Summary ---
Demographics + + + | Address | [address] | | | [place] [address] | + + + | Home Phone | | + + + | Preferred Language | Unknown | + + + | Marital Status | Unknown | + + + | Mormonism Affiliation | Unknown | + + + | Race | Unknown | + + + | Ethnic Group | Unknown | + + + Author + + + | Author | [facility] | + + + | Organization | [facility] | + + + | Address | Unknown | + + + | Phone | Unavailable | + + + Support + + + + + | Name | Relationship | Address | Phone | + + + + + | Isabel Cardona | ECON | [address] | | | | | [place] | | | | | [address] | | + + + + + Care Team Providers + +------+ + | Care Knife Machine Operator Name | Role | Phone [...] Essential | | | | [place] [address] | | (primary) | | | | [phone] | | hypertension; | | | | [...] [place] | | | | | | [address] | | | | | | | [...] + + + | [facility] | [address] | [place] [address] | [phone] | | LABORATORY | Blvd[address] | | [...]
--- OUTSIDE RECORDS SUMMARY | ~2019-03-12 | XMS | Encounter Summary ---
Demographics + + + | Address | [address] | | | [place] [address] | + + + | Home Phone | | + + + | Preferred Language | Unknown | + + + | Marital Status | Unknown | + + + | Muslim Affiliation | Unknown | + + + | Race | Unknown | + + + | Ethnic Group | Unknown | + + + Author + + + | Author | [facility] | + + + | Organization | [facility] | + + + | Address | Unknown | + + + | Phone | Unavailable | + + + Support + + + + + | Name | Relationship | Address | Phone | + + + + + | Isabel Cardona | ECON | [address] | | | | | [place] | | | | | [address] | | + + + + + Care Team Providers + +------+ + | Care Pulling Unit Operator Name | Role | Phone | [...] | | | | | [place] [address] | | | | | | [phone] | | | +--------+ + + + [...] | | | | | | [address] [place] | | | | | | [address] | | | | | | | | +--------+---------+ + + + as of this encounter Visit Diagnoses Not on filein this encounter"
--- OUTSIDE RECORDS SUMMARY | ~2019-03-12 | XMS | Clinical Summary ---
Demographics + + + | Address | [address] | | | [place] [address] | + + + | Home Phone [...] + + | Author | [facility] | + + + | Organization | [facility] | + + + | Address | Unknown | + + + | Phone | Unavailable | + + + Support + + + + + | Name | Relationship | Address | Phone | + + + + + | Sen Cardona | ECON | [address] | | | | | [place] | | | | | [address] | | + + + + + Care Team Providers + +------+ + | Care Rivet Hammer Machine Operator Name | Role | Phone [...] | | | | | ([facility]); Class 3 | | | [...] | | | | | ([facility]) | +--------+ + + + [...] | | | | | | [address] [place] | | | | | | [id number] | | | | | | | [...] | [address] | [place] [address] | | | LABORATORY | 13 | [...] | [address] | [place] [address] | | | LABORATORY | 13 | [...] | + + + + + | [facility] | [address] | [place] [address] | [phone] | | LABORATORY | [address] | | [...] +------+-------+ + | MEDICAID | [place] | [id number] | | | [address] | | | N | | | | [place] | | | [place] | | | | [address] | | | AIRPORT OPERATIONS SPECIALIST | | | | | + +--------+ [...] | | al/Fam | | 1970 | [phone] [place] | | | hipolito | | | [phone] | [address] | + +--------+ +--------+ + +
--- OUTSIDE RECORDS SUMMARY | ~2019-03-12 | XMS | Encounter Summary ---
Demographics + + + | Address | [address] | | | [place] [address] | + + + | Home Phone | | + + + | Preferred Language | Unknown | + + + | Marital Status | Unknown | + + + | Mandaeism Affiliation | Unknown | + + + | Race | Unknown | + + + | Ethnic Group | Unknown | + + + Author + + + | Author | [facility] | + + + | Organization | [facility] | + + + | Address | Unknown | + + + | Phone | Unavailable | + + + Support + + + + + | Name | Relationship | Address | Phone | + + + + + | Isabel Cardona | ECON | [address] | | | | | [place] | | | | | [address] | | + + + + + Care Team Providers + +------+ + | Care Manager Integrated Name | Role | Phone | + [...] | | 2019 | on Only | [address] | MICHELLE Lovelace | 02/11/[birth year]) | | | | [address] | | | | | | [place] [address] | | | | | | [phone] | | | +--------+ + + + [...] [place] | | | | | | [address] | | | | | | | | +--------+---------+ + + + as of this encounter Visit Diagnoses Not on filein this encounter"
--- OUTSIDE RECORDS SUMMARY | ~2019-03-12 | XMS | Encounter Summary ---
Demographics + + + | Address | [address] | | | [place] [address] | + + + | Home Phone | | + + + | Preferred Language | Unknown | + + + | Marital Status | Unknown | + + + | Tenriism Affiliation | Unknown | + + + | Race | Unknown | + + + | Ethnic Group | Unknown | + + + Author + + + | Author | [facility] | + + + | Organization | [facility] | + + + | Address | Unknown | + + + | Phone | Unavailable | + + + Support + + + + + | Name | Relationship | Address | Phone | + + + + + | Isabel Cardona | ECON | [address] | | | | | [place] | | | | | [address] | | + + + + + Care Team Providers + +------+ + | Care Pmo Business Analyst Name | Role | Phone | [...] | | | | | [place] [address] | | | | | | [phone] | | | +--------+ + + + [...]
[~2019-03-12 14:56] MED LIST changes: +PREDNISONE20 MG PO; +PROMETHAZINE-C473 ML PO; +ZITHROMAX250 MG PO
--- OUTSIDE RECORDS SUMMARY | 2019-03-12 14:58 | XMS ---
PreManage Notification: SEN BOUDREAUX Security Sales Representative Door To Door Events No recent Security Events currently on file CRITERIA MET - [facility] - Has Care Guidelines - [facility] - 2 Visits in 30 Days CARE PROVIDERS CAITLYN CHAVIS Internal Medicine 09/29/2018-[facility] ANDREJoseph PHONE: [phone] CJ VELASQUEZ Primary Care Current PHONE: [phone] Guidelines [facility] Guidelines Date: 02/17/2019 Care Coordination: Currently engaged in mental health services with [facility].\T\nbsp; Please contact [facility] with mental health concerns.\T\nbsp; [phone]. Allergies: Azithromycin - mild to moderate Lisinopril - mild to moderate\T\nbsp; Care History Medical/Surgical 09/29/2018 [facility] - Patient is currently established with [facility]. If patient is seen in the ED during business hours. Please contact [facility] at [facility]. Care Recommendation: This patient has had [...] known visits. ED/UCC VISIT TRACKING (12 MO.) 03/12/2019 14:56 [facility] [place] TYPE: Emergency COMPLAINT: - SOB, LEFT SIDE PAIN 03/09/2019 11:16 [facility] [place] TYPE: Emergency COMPLAINT: - SOB DIAGNOSES: - Pure hypercholesterolemia, unspecified - cat cracker operator (current) use of insulin - Major depressive disorder, single episode, unspecified - Allergy status to serum and vaccine status - Other intermediate (current) drug therapy - Cough - long-term (current) use of aspirin - Essential (primary) hypertension - Acute bronchitis, unspecified - Type 2 diabetes mellitus without complications - Allergy status to other antibiotic agents status - Allergy status to other drugs, medicaments and biological substances status 02/16/2019 17:36 [facility] [place] TYPE: Emergency COMPLAINT: - L KNEE PAIN DIAGNOSES: - Type 2 diabetes mellitus with diabetic chronic kidney disease - Allergy status to other drugs, medicaments and biological substances status - 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e 4 chronic kidney disease, or unspecified chronic kidney disease - Other canvas baster (current) drug therapy - cat cracker operator (current) use of insulin - Major depressive disorder, single episode, unspecified - Unspecified internal derangement of left knee - Sprain of unspecified site of left knee, initial encounter - Allergy status to other antibiotic agents status - Chronic kidney disease, stage 3 (moderate) - Pure hypercholesterolemia, unspecified - Pain in left knee - long-term (current) use of aspirin - Allergy status to serum and vaccine status - Other and unspecified overexertion or strenuous movements or postures, initial encounter 12/17/2018 16:38 [facility] [place] TYPE: Emergency COMPLAINT: - MEDICAL CLEARANCE DIAGNOSES: - Acquired absence of other specified parts of digestive tract - Personal history of pneumonia (recurrent) - long-term (current) use of insulin - Allergy status to other antibiotic agents status - Personal history of pulmonary embolism - Allergy status to other drugs, medicaments and biological substances status - Pure hypercholesterolemia, unspecified - Chronic kidney disease, stage 3 (moderate) - Other intermediate (current) drug therapy - Anxiety disorder, unspecified [...] agents status - Essential (primary) hypertension - long-term (current) use of aspirin - Allergy status [...] without hepatic coma - Hypothyroidism, unspecified - cat cracker operator (current) use of insulin - Poisoning by antiviral drugs, accidental (unintentional), initial encounter - Allergy status to penicillin - Other intermediate (current) drug therapy - Chronic obstructive pulmonary [...] drugs, medicaments and biological substances status - long-term (current) use of aspirin - Allergy status to other antibiotic agents status - Major depressive disorder, single episode, unspecified - Other canvas baster (current) drug therapy - long-term (current) use of insulin 03/14/2018 19:12 [facility] [place] TYPE: Emergency COMPLAINT: - FALL DIAGNOSES: - OTHER INJURY OF UNSPECIFIED BODY REGION, INITIAL E - Other chronic pain - Abrasion, left knee, initial encounter - Allergy status to other drugs, medicaments and biological substances status - Other injury of unspecified body region, initial encounter - cat cracker operator (current) use of aspirin - Allergy status to other antibiotic agents status - Concussion with loss of consciousness of 30 minutes or less, initial encounter - Low back pain - Type 2 diabetes mellitus without complications - PURE HYPERCHOLESTEROLEMIA, UNSPECIFIED - Fall on same level from slipping, tripping and stumbling with subsequent striking against unspecified object, initial encounter - Other intermediate (current) drug therapy - Morbid (severe) obesity due to excess calories - Major depressive disorder, single episode, unspecified - Allergy status to serum and vaccine status - Strain of muscle, fascia and tendon at neck level, initial encounter - cat cracker operator (current) use of insulin - Essential (primary) hypertension - Unspecified injury of head, initial encounter - Pure hypercholesterolemia, unspecified - Personal history of pneumonia (recurrent) INPATIENT VISIT TRACKING (12 MO.) 09/26/2018 02:[address] [facility] [place] TYPE: Observation COMPLAINT: - TOXIC ENCEPHALOPATHY DIAGNOSES: - Allergy status to serum and vaccine status - Hypomagnesemia - Other canvas baster (current) drug therapy - Morbid (severe) obesity [...] viral hepatitis C without hepatic coma - long-term (current) use of aspirin - Unspecified mood [affective] disorder - Poisoning by unspecified drugs, medicaments and biological substances, accidental (unintentional), initial encounter - Major depressive disorder, single episode, unspecified - Poisoning by antiviral drugs, accidental (unintentional), initial encounter - Acute kidney failure, unspecified - Essential (primary) hypertension - Post-traumatic stress disorder, unspecified - Allergy status to other antibiotic agents status - cat cracker operator (current) use of insulin - Poisoning by antiparkinsonism drugs and other central muscle-tone depressants, accidental (unintentional), initial encounter - Toxic encephalopathy - Pure hypercholesterolemia, unspecified [email or web address]
[2019-03-12] MEDS ORDERED: NIACIN250 M1 PO (15:22)
[2019-03-12] MEDS ORDERED: FISH OIL 1,0001 EAC3 PO (15:22)
[2019-03-12] MEDS ORDERED: VICTOZA 3-0.6 MG/0.1 SUB-Q (15:23)
[2019-03-12] MEDS ORDERED: COZAAR50 MG PO (15:25)
[2019-03-12] MEDS ORDERED: INDAPAMIDE1.25 MG PO (15:25)
[2019-03-12] MEDS ORDERED: FEROSUL325 MG PO (15:27)
[2019-03-12] MEDS ORDERED: SUMATRIPTAN SUC50 MG PO (15:28)
[2019-03-12] MEDS ORDERED: PERCOCET 5-3251 EACH PO (21:21)
--- NOTE | 2019-03-13 07:18 | EKG ---
[facility] [address] [place] [address] Signed Sinus tachycardia Otherwise normal ECG When compared with ECG of 26-SEP-2018 06:02, Vent. rate has increased BY 45 BPM T wave inversion no longer evident in Anterior leads Confirmed by LIDA REAVES MD ([id number]) on 03/13/2019 7:18:29 AM Electronically Signed By: LIDA REAVES MD 03/13/19 0718 PATIENT NAME: JANUSZSEN JHOAN Electrocardiogram DATE OF : 70 PHYSICIAN: LIDA REAVES MD REPORT #: [id number] REPORT IS CONFIDENTIAL AND NOT TO BE RELEASED WITHOUT AUTHORIZATION
== END 2019-03-12 21:55 | disposition home or self-care (01) ==
LOC: ED 14:56
DX: J40 Bronchitis, not specified as acute or chronic (principal); R07.81 Pleurodynia; E11.22 Type 2 diabetes mellitus with diabetic chronic kidney disease; I12.9 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e 4 chronic kidney disease, or unspecified chronic kidney disease; N18.3 Chronic kidney disease, stage 3 (moderate); Z88.8 Allergy status to other drugs, medicaments and biological substances; Z88.1 Allergy status to other antibiotic agents; Z88.7 Allergy status to serum and vaccine; Z79.52 Long term (current) use of systemic steroids; Z79.899 Other long term (current) drug therapy; Z79.4 Long term (current) use of insulin
CPT/HCPCS: 71045; 71260; 80053; 85025; 85379; 93005; 93010; 94640; 94644; 96361; 99285-25; J1100; J1170; J1885; J2270; J7030; Q9967

== ENCOUNTER 2019-03-16 20:27 | Emergency (ER) | payer OTHER ==
[~2019-03-16] VITALS: Ht 175.3 cm; Wt 154.2 kg
--- OUTSIDE RECORDS SUMMARY | ~2019-03-16 | XMS | Encounter Summary ---
Demographics + + + | Address | [address] | | | [place] [address] | + + + | Home Phone | | + + + | Preferred Language | Unknown | + + + | Marital Status | Unknown | + + + | Faith Affiliation | Unknown | + + + | Race | Unknown | + + + | Ethnic Group | Unknown | + + + Author + + + | Author | [facility] | + + + | Organization | [facility] | + + + | Address | Unknown | + + + | Phone | Unavailable | + + + Support + + + + + | Name | Relationship | Address | Phone | + + + + + | Isabel Cardona | ECON | [address] | | | | | [place] | | | | | [address] | | + + + + + Care Team Providers + +------+ + | Care Promotions Assistant Name | Role | Phone | + +------+ + | Lisa Mcclain MD | PCP | | + +------+ + Reason for Visit +--------+ + | Reason | Comments | +--------+ + | Other | 02/28/2019 [facility]- HCV RNA rcvd: 03/01/2019 | +--------+ + Encounter Details +--------+ + + + + | Date | Type | Department | Care Team | Description | +--------+ + + + + | 03/01/ | Documentati | [facility] | Annel Whitten | Other (02/28/2019 | | 2019 | on Only | Infectious Disease | Мария Farley MD | [facility] | | | | [address] | [address] | RNA rcvd: 03/01/2019) | | | | [facility] [address] | [place] [address] | | | | | [place] [address] | [phone] | | | | | [phone] | | | +--------+ + + + [...] + as of this encounter Progress Notes Patricia Peterson CMA - 03/01/2019 1:55 PM PDT02/28/2019 [facility]- HCV RNA rcvd: 03/01/20 19 Abstracted. Scanned.in this encounter Plan of Treatment +--------+---------+ + + + | Date | Type | Specialty | Care Team | Description | +--------+---------+ + + + | 05/09/ | Office | Nephrology | Andrews Massey MD | | | 2019 | Visit | | [address] | | | | | | [address] [place] | | | | | | [address] | | | | | | | | +--------+---------+ + + + as of this encounter Procedures + +--------+ + + + | Procedure Name | Priori | Date/Time | Associated Diagnosis | Comments | | | ty | | | | + +--------+ + + + | HEPATITIS C RNA, | Routin | 02/28/2019 | | Results for this | | QUANTITATIVE, PCR | e | 3:44 PM | | procedure are in the | | | | PDT | | results section. | + +--------+ + + + in this encounter Results HCV RNA quant by PCR (02/28/2019 3:44 PM) + + + + + | Component | Value | Ref Range | Performed At | + + + + + | HCV RNA VIRAL LOAD | NOT DETECTED | not detected Log | [facility] | | | | IU/ml | LABORATORY | + + + + + | HCV RNA VIRAL LOAD | NOT DETECTED | not detected IU/ml | [facility] | | | | | LABORATORY | + + + + + + + | Specimen | + + | Blood | + + + + + + + | Performing | Address | City/State/Zipcode | Phone Number | | Organization | | | | + + + + + | [facility] | [address] | [place] [address] | | | LABORATORY | 13 | | | + + + + + in this encounter Visit Diagnoses Not on filein this encounter"
--- OUTSIDE RECORDS SUMMARY | ~2019-03-16 | XMS | Encounter Summary ---
Demographics + + + | Address | [address] | | | [place] [address] | + + + | Home Phone | | + + + | Preferred Language | Unknown | + + + | Marital Status | Unknown | + + + | Mormonism Affiliation | Unknown | + + + | Race | Unknown | + + + | Ethnic Group | Unknown | + + + Author + + + | Author | [facility] | + + + | Organization | [facility] | + + + | Address | Unknown | + + + | Phone | Unavailable | + + + Support + + + + + | Name | Relationship | Address | Phone | + + + + + | Isabel Cardona | ECON | [address] | | | | | [place] | | | | | [address] | | + + + + + Care Team Providers + +------+ + | Care Nail Tech Name | Role | Phone | + [...] | | | | | [place] [address] | | | | | | [phone] | | | +--------+ + + + [...]
--- OUTSIDE RECORDS SUMMARY | ~2019-03-16 | XMS | Encounter Summary ---
Demographics + + + | Address | [address] | | | [place] [address] | + + + | Home Phone | | + + + | Preferred Language | Unknown | + + + | Marital Status | Unknown | + + + | Bahai Affiliation | Unknown | + + + | Race | Unknown | + + + | Ethnic Group | Unknown | + + + Author + + + | Author | [facility] | + + + | Organization | [facility] | + + + | Address | Unknown | + + + | Phone | Unavailable | + + + Support + + + + + | Name | Relationship | Address | Phone | + + + + + | Isabel Cardona | ECON | [address] | | | | | [place] | | | | | [address] | | + + + + + Care Team Providers + +------+ + | Care Elevator Examiner Name | Role | Phone | + [...] + + | 02/23/ | Office | [facility] | Annel Whitten | Chronic hepatitis C | | 2019 | Visit | Infectious Disease | Мария Farley MD | without hepatic coma | | | | [address] | [address] | (HCC) (Primary Dx) | | | | [facility] [address] | [place] [address] | | | | | [place] [address] | [phone] | | | | | [phone] | | | +--------+---------+ + + + [...] may be dif ferent from the original. [facility] Service: Infectious Diseases Outpatient Follow Up Note CHIEF COMPLAINT Follow up on Hep C HISTORY OF PRESENT ILLNESS The patient is a 48 y.o.-year-old female presenting today for follow up. She finished her m edications 3 months ago. She denies any side effects. She [facility] and started on seroquel. She experienced significant weight gain since the n. PAST MEDICAL HISTORY Patient Active Problem List Diagnosis CKD (chronic kidney disease), stage III ([facility]) Essential (primary) hypertension Type 2 diabetes mellitus with diabetic nephropathy, with long-term current use of insul in ([facility]) Persistent proteinuria Class 3 severe obesity due to excess calories without serious comorbidity with body mas s index (BMI) of 45.0 to 49.9 in adult (HCC) Hyperuricemia Anemia of chronic renal failure, stage 3 (moderate) ([facility]) Vitamin D deficiency Bilateral leg [...] , Rfl: 1 BD 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 Dictation software, [employer], used which may contain error for similar sounding words even af ter review. Personal communication requested for any clarification. Portions of this chart may have been copied from previous notes for continuity of care purp jen Whitten MD Infectious Diseases [facility] [address] [place], [place] [address] O: F: 02/23/2019 in this encounter Plan of Treatment +--------+---------+ + + + | Date | Type | Specialty | Care Team | Description | +--------+---------+ + + + | 05/09/ | Office | Nephrology | Andrews Massey MD | | | 2019 | Visit | | [address] | | | | | | [address] [place], [place] | | | | | | [address] | | | | | | | [...]
--- OUTSIDE RECORDS SUMMARY | ~2019-03-16 | XMS | Encounter Summary ---
Demographics + + + | Address | [address] | | | [place] [address] | + + + | Home Phone | | + + + | Preferred Language | Unknown | + + + | Marital Status | Unknown | + + + | Episcopal Affiliation | Unknown | + + + | Race | Unknown | + + + | Ethnic Group | Unknown | + + + Author + + + | Author | [facility] | + + + | Organization | [facility] | + + + | Address | Unknown | + + + | Phone | Unavailable | + + + Support + + + + + | Name | Relationship | Address | Phone | + + + + + | Isabel Cardona | ECON | [address] | | | | | [place] | | | | | [address] | | + + + + + Care Team Providers + +------+ + | Care Propellant Assembler Name | Role | Phone | [...] | | | | | [place] [address] | | | | | | [phone] | | | +--------+ + + + [...] | | | | | | [address] [place], [place] | | | | | | [address] | | | | | | | [...] | | | | 3 (moderate) ([facility]) | | + +--------+ + + | [...] | | | | 3 (moderate) ([facility]) | | + +--------+ + + | [...] | | | | 3 (moderate) ([facility]) | | + +--------+ + + | [...] + + + | [facility] | [address] | [place] [address] | [phone] | | LABORATORY | Phi. | | [...]
--- OUTSIDE RECORDS SUMMARY | ~2019-03-16 | XMS | Encounter Summary ---
Demographics + + + | Address | [address] | | | [place] [address] | + + + | Home Phone | | + + + | Preferred Language | Unknown | + + + | Marital Status | Unknown | + + + | Rastafarian Affiliation | Unknown | + + + | Race | Unknown | + + + | Ethnic Group | Unknown | + + + Author + + + | Author | [facility] | + + + | Organization | [facility] | + + + | Address | Unknown | + + + | Phone | Unavailable | + + + Support + + + + + | Name | Relationship | Address | Phone | + + + + + | Isabel Cardona | ECON | [address] | | | | | [place] | | | | | [address] | | + + + + + Care Team Providers + +------+ + | Care Tab Cutting Machine Operator Name | Role | Phone | [...] | | | | | [place] [address] | | | | | | [phone] | | | +--------+ + + + [...] | | | | | | [address] [place] | | | | | | [address] | | | | | | | | +--------+---------+ + + + as of this encounter Visit Diagnoses Not on filein this encounter"
--- OUTSIDE RECORDS SUMMARY | ~2019-03-16 | XMS | Encounter Summary ---
Demographics + + + | Address | [address] | | | [place] [address] | + + + | Home Phone | | + + + | Preferred Language | Unknown | + + + | Marital Status | Unknown | + + + | Confucianist Affiliation | Unknown | + + + | Race | Unknown | + + + | Ethnic Group | Unknown | + + + Author + + + | Author | [facility] | + + + | Organization | [facility] | + + + | Address | Unknown | + + + | Phone | Unavailable | + + + Support + + + + + | Name | Relationship | Address | Phone | + + + + + | Isabel Cardona | ECON | [address] | | | | | [place] | | | | | [address] | | + + + + + Care Team Providers + +------+ + | Care Lasting Room Supervisor Name | Role | Phone | [...] | | 2019 | on Only | [place] [address] | MICHELLE Lovelace | 02/11/19) | | | | [address] | | | | | | [place] [address] | | | | | | [phone] | | | +--------+ + + + [...] [place] | | | | | | [address] | | | | | | | | +--------+---------+ + + + as of this encounter Visit Diagnoses Not on filein this encounter"
--- OUTSIDE RECORDS SUMMARY | ~2019-03-16 | XMS | Encounter Summary ---
Demographics + + + | Address | [address] | | | [place] [address] | + + + | Home Phone | | + + + | Preferred Language | Unknown | + + + | Marital Status | Unknown | + + + | Hindu Affiliation | Unknown | + + + | Race | Unknown | + + + | Ethnic Group | Unknown | + + + Author + + + | Author | [facility] | + + + | Organization | [facility] | + + + | Address | Unknown | + + + | Phone | Unavailable | + + + Support + + + + + | Name | Relationship | Address | Phone | + + + + + | Isabel Cardona | ECON | [address] | | | | | [place] | | | | | [address] | | + + + + + Care Team Providers + +------+ + | Care Tile Sorter Name | Role | Phone | + [...] + + | 02/23/ | Office | [facility] | Annel Whitten | Chronic hepatitis C | | 2019 | Visit | Infectious Disease | Мария Farley MD | without hepatic coma | | | | [address] | [address] | (HCC) (Primary Dx) | | | | [facility] [address] | [place] [address] | | | | | [place] [address] | [phone] | | | | | [phone] | | | +--------+---------+ + + + [...] may be dif ferent from the original. [facility] Service: Infectious Diseases Outpatient Follow Up Note CHIEF COMPLAINT Follow up on Hep C HISTORY OF PRESENT ILLNESS The patient is a 48 y.o.-year-old female presenting today for follow up. She finished her m edications 3 months ago. She denies any side effects. She recently [facility] and started on seroquel. She experienced significant weight gain since the n. PAST MEDICAL HISTORY Patient Active Problem List Diagnosis CKD (chronic kidney disease), stage III ([facility]) Essential (primary) hypertension Type 2 diabetes mellitus with diabetic nephropathy, with long-term current use of insul in ([facility]) Persistent proteinuria Class 3 severe obesity due to excess calories without serious comorbidity with body mas s index (BMI) of 45.0 to 49.9 in adult (HCC) Hyperuricemia Anemia of chronic renal failure, stage 3 (moderate) ([facility]) Vitamin D deficiency Bilateral [...] , Rfl: 1 BD [facility], , Disp: , Rfl: 0 buPROPion (WELLBUTRIN [...] with any worsening of symptoms. Dictation software, [employer] used which may contain error for similar sounding words even af ter review. Personal communication requested for any clarification. Portions of this chart may have been copied from previous notes for continuity of care purp jen Whitten MD Infectious Diseases [facility] Infect[facility] Clinic [address] [place], [place] [address] O: F: 02/23/2019 in this encounter Plan of Treatment +--------+---------+ + + + | Date | Type | Specialty | Care Team | Description | +--------+---------+ + + + | 05/09/ | Office | Nephrology | Andrews Massey MD | | | 2019 | Visit | | [address] | | | | | | [address] [place], [place] | | | | | | [address] | | | | | | | [...]
--- OUTSIDE RECORDS SUMMARY | ~2019-03-16 | XMS | Encounter Summary ---
Demographics + + + | Address | [address] | | | [place] [address] | + + + | Home Phone | | + + + | Preferred Language | Unknown | + + + | Marital Status | Unknown | + + + | Hoahaoism Affiliation | Unknown | + + + | Race | Unknown | + + + | Ethnic Group | Unknown | + + + Author + + + | Author | [facility] | + + + | Organization | [facility] | + + + | Address | Unknown | + + + | Phone | Unavailable | + + + Support + + + + + | Name | Relationship | Address | Phone | + + + + + | Isabel Cardona | ECON | [address] | | | | | [place] | | | | | [address] | | + + + + + Care Team Providers + +------+ + | Care Lining Stitcher Name | Role | Phone | + [...] Essential | | | | [place] [address] | | (primary) | | | | [phone] | | hypertension; | | | | [...] [place] | | | | | | [address] | | | | | | | [...] + + + | [facility] | [address] | [place] [address] | [phone] | | LABORATORY | Blvd. | | [...]
--- OUTSIDE RECORDS SUMMARY | ~2019-03-16 | XMS | Clinical Summary ---
Demographics + + + | Address | [address] | | | [place] [address] | + + + | Home Phone | | + + + | Preferred Language | Unknown | + + + | Marital Status | Unknown | + + + | Adventist Affiliation | Unknown | + + + | Race | Unknown | + + + | Ethnic Group | Unknown | + + + Author + + + | Author | [facility] | + + + | Organization | [facility] | + + + | Address | Unknown | + + + | Phone | Unavailable | + + + Support + + + + + | Name | Relationship | Address | Phone | + + + + + | Sen Cardona | ECON | [address] | | | | | [place] | | | | | [address] | | + + + + + Care Team Providers + +------+ + | Care Activities Concierge Name | Role | Phone | + [...] | | | | | | [address] [place] | | | | | | [phone] | | | | | | | [...] | [address] | [place] [address] | | | LABORATORY | 13 | [...] | [address] | [place] [address] | | | LABORATORY | 13 | [...] | + + + + + | [facility] | [address] | [place] [address] | [phone] | | LABORATORY | Blvd. | | [...] +------+-------+ + | MEDICAID | [place] | [id number] | | | [address] | | | N | | | | [place] | | | [place] | | | | [address] | | | COORDINATING PRODUCER | | | | | + +--------+ [...] | | al/Fam | | 1970 | [phone] | [place] | | | [place] | | | [phone] | [phone] | + +--------+ +--------+ + +
--- OUTSIDE RECORDS SUMMARY | ~2019-03-16 | XMS | Encounter Summary ---
Demographics + + + | Address | [address] | | | [place] [address] | + + + | Home Phone | | + + + | Preferred Language | Unknown | + + + | Marital Status | Unknown | + + + | Islam Affiliation | Unknown | + + + | Race | Unknown | + + + | Ethnic Group | Unknown | + + + Author + + + | Author | [facility] | + + + | Organization | [facility] | + + + | Address | Unknown | + + + | Phone | Unavailable | + + + Support + + + + + | Name | Relationship | Address | Phone | + + + + + | Isabel Cardona | ECON | [address] | | | | | [place] | | | | | [address] | | + + + + + Care Team Providers + +------+ + | Care Dry Folder Cloth Name | Role | Phone | + [...] + + | 02/16/ | Documentati | [facility] | Garcia KanikaMICHELLE | Other (Lab from | | 2019 | on Only | Infectious Disease | | [facility] | | | | [address] | | 02/15/19 ([facility]) ) | | | | [facility] [address] | | | | | | [place] [address] | | | | | | [phone] | | | +--------+ + + + [...] Lab DOS 02/15/19 (CMP). Lab abstracted into [facility] and sent to scan. Christa CMA. in this encounter Plan of Treatment +--------+---------+ + + + | Date | Type | Specialty | Care Team | Description | +--------+---------+ + + + | 05/09/ Office | Nephrology | Andrews Massey MD | | | 2018 | Visit | | [address] | | | | | | [address] [place], [place] | | | | | | [address] | | | | | | | [...] | [address] | [place] [address] | | | LABORATORY | 13 | | | + + + + + in this encounter Visit Diagnoses Not on filein this encounter"
--- OUTSIDE RECORDS SUMMARY | ~2019-03-16 | XMS | Encounter Summary ---
Demographics + + + | Address | [address] | | | [place] [address] | + + + | Home Phone | | + + + | Preferred Language | Unknown | + + + | Marital Status | Unknown | + + + | Muslim Affiliation | Unknown | + + + | Race | Unknown | + + + | Ethnic Group | Unknown | + + + Author + + + | Author | [facility] | + + + | Organization | [facility] | + + + | Address | Unknown | + + + | Phone | Unavailable | + + + Support + + + + + | Name | Relationship | Address | Phone | + + + + + | Isabel Cardona | ECON | [address] | | | | | [place] | | | | | [address] | | + + + + + Care Team Providers + +------+ + | Care Tube Fitter Name | Role | Phone | + [...] + + | 02/16/ | Documentati | [facility] | Garcia KanikaMICHELLE | Other (Lab from | | 2019 | on Only | Infectious Disease | | [facility] DOS | | | | [address] | | 02/15/19 ([facility]) ) | | | | [facility] [address] | | | | | | [place] [address] | | | | | | [phone] | | | +--------+ + + + [...] Lab DOS 02/15/19 (CMP). Lab abstracted into [facility] and sent to scan. Christa CMA. in this encounter Plan of Treatment +--------+---------+ + + + | Date | Type | Specialty | Care Team | Description | +--------+---------+ + + + | 05/09/ Office | Nephrology | Andrews Massey MD | | | 2018 | Visit | | [address] | | | | | | [address] [place], [place] | | | | | | [address] | | | | | | | [...] | [address] | [place] [address] | | | LABORATORY | 13 | | | + + + + + in this encounter Visit Diagnoses Not on filein this encounter"
--- OUTSIDE RECORDS SUMMARY | ~2019-03-16 | XMS | Encounter Summary ---
Demographics + + + | Address | [address] | | | [place] [address] | + + + | Home Phone | | + + + | Preferred Language | Unknown | + + + | Marital Status | Unknown | + + + | Cheondoism Affiliation | Unknown | + + + | Race | Unknown | + + + | Ethnic Group | Unknown | + + + Author + + + | Author | [facility] | + + + | Organization | [facility] | + + + | Address | Unknown | + + + | Phone | Unavailable | + + + Support + + + + + | Name | Relationship | Address | Phone | + + + + + | Isabel Cardona | ECON | [address] | | | | | [place] | | | | | [address] | | + + + + + Care Team Providers + +------+ + | Care Can Runner Name | Role | Phone | + [...] | | [address] | [address] [place], [place] | ([facility]) (Primary Dx); | | | | [place] [address] | [address] | Bilateral leg edema; | | | | [phone] | | Anemia of chronic | | | | | | renal failure, stage | | | | | | 3 (moderate) ([facility]); | | | | | | Essential [...] insulin | | | | | | ([facility]); Class 3 | | | | [...] adult | | | | | | ([facility]) | +--------+---------+ + + + Social History [...] Ferritin, uric acid, urinalysis, Urine total pro rbds-wg-fqrvuhsxbp ratio before she comes back in 3 months.in this encounter Progress Notes Andrews Massey MD - 01/31/2019 12:00 PM PSTFormatting of this note may be different from th e original. Patient Active Problem List Diagnosis CKD (chronic kidney disease), stage III ([facility]) Essential (primary) hypertension Type 2 diabetes mellitus with diabetic nephropathy, with long-term current use of insul in (HCC) Persistent proteinuria Class 3 severe obesity due to excess calories without serious comorbidity with body mas s index (BMI) of 45.0 to 49.9 in adult (HCC) Hyperuricemia Anemia of chronic renal failure, stage 3 (moderate) ([facility]) Vitamin D deficiency Bilateral leg edema Dear [...] to baseline with t he interventions at [facility]. The patient has history of hypertension since [...] LABIRON 36.8 01/18/2019 LABPROT 2,352.9 (A) 10/08/2018 [id number] 22 (A) 04/21/2018 Assessment: Ms. Restrepo is [...] Ferritin, uric acid, urinalysis, Urine total pro buoo-al-icnrubxhqk ratio before she comes back in 3 [...] | | | | | | [address] [place], [place] | | | | | | [id number] | | | | | | | [...]
--- OUTSIDE RECORDS SUMMARY | ~2019-03-16 | XMS | Encounter Summary ---
Demographics + + + | Address | [address] | | | [place] [address] | + + + | Home Phone | | + + + | Preferred Language | Unknown | + + + | Marital Status | Unknown | + + + | Alevism Affiliation | Unknown | + + + | Race | Unknown | + + + | Ethnic Group | Unknown | + + + Author + + + | Author | [facility] | + + + | Organization | [facility] | + + + | Address | Unknown | + + + | Phone | Unavailable | + + + Support + + + + + | Name | Relationship | Address | Phone | + + + + + | Isabel Cardona | ECON | [address] | | | | | [place] | | | | | [address] | | + + + + + Care Team Providers + +------+ + | Care Square Cutter Name | Role | Phone | [...] III | | | | [address] | | (HCC); Essential | | | | [place] [address] | | (primary) | | | | [phone] | | hypertension; | | | | [...] [place] | | | | | | [address] | | | | | | | [...] + + + | [facility] | [address] | [place] [address] | [phone] | | LABORATORY | Blvd. | | [...]
--- OUTSIDE RECORDS SUMMARY | ~2019-03-16 | XMS | Encounter Summary ---
Demographics + + + | Address | [address] | | | [place] [address] | + + + | Home Phone | | + + + | Preferred Language | Unknown | + + + | Marital Status | Unknown | + + + | Anabaptism Affiliation | Unknown | + + + | Race | Unknown | + + + | Ethnic Group | Unknown | + + + Author + + + | Author | [facility] | + + + | Organization | [facility] | + + + | Address | Unknown | + + + | Phone | Unavailable | + + + Support + + + + + | Name | Relationship | Address | Phone | + + + + + | Isabel Cardona | ECON | [address] | | | | | [place] | | | | | [address] | | + + + + + Care Team Providers + +------+ + | Care Drafter Chief Design Name | Role | Phone | + [...] | | | | | [place] [address] | | | | | | [phone] | | | +--------+ + + + [...] | | | | | | [address] [place], [place] | | | | | | [address] | | | | | | | [...] | | 3 (moderate) ([facility]) | | + +--------+ + [...] | | 3 (moderate) ([facility]) | | + +--------+ + [...] | | 3 (moderate) ([facility]) | | + +--------+ + [...] + + + | [facility] | [address] | [place] [address] | [phone] | | LABORATORY | [address] | | [...]
--- OUTSIDE RECORDS SUMMARY | ~2019-03-16 | XMS | Encounter Summary ---
Demographics + + + | Address | [address] | | | [place] [address] | + + + | Home Phone | | + + + | Preferred Language | Unknown | + + + | Marital Status | Unknown | + + + | Sikh Affiliation | Unknown | + + + | Race | Unknown | + + + | Ethnic Group | Unknown | + + + Author + + + | Author | [facility] | + + + | Organization | [facility] | + + + | Address | Unknown | + + + | Phone | Unavailable | + + + Support + + + + + | Name | Relationship | Address | Phone | + + + + + | Isabel Cardona | ECON | [address] | | | | | [place] | | | | | [address] | | + + + + + Care Team Providers + +------+ + | Care Twine Winder Name | Role | Phone | + +------+ + | Lisa Mclcain MD | PCP | | + +------+ [...] | | 2019 | on Only | [place] [address] | [place] | 02/11/19) | | | | [address] | | | | | | [place] [address] | | | | | | [phone] | | | +--------+ + + + [...] [place] | | | | | | [address] | | | | | | | | +--------+---------+ + + + as of this encounter Visit Diagnoses Not on filein this encounter"
--- OUTSIDE RECORDS SUMMARY | ~2019-03-16 | XMS | Encounter Summary ---
Demographics + + + | Address | [address] | | | [place] [address] | + + + | Home Phone [...] + | Author | [facility] | + + + | Organization | [facility] | + + + | Address | Unknown | + + + | Phone | Unavailable | + + + Support + + + + + | Name | Relationship | Address | Phone | + + + + + | Isabel Cardona | ECON | [address] | | | | | [place] | | | | | [address] | | + + + + + Care Team Providers + +------+ + | Care Home Visit Field Care Manager Name | Role | Phone | [...] | | [address] | [address] [place], [place] | ([facility]) (Primary Dx); | | | | [place] [address] | [address] | Bilateral leg edema; | | | | [phone] | | Anemia of chronic | | | | | | renal failure, stage | | | | | | 3 (moderate) ([facility]); | | | | | [...] | | | | | | ([facility]); Class 3 | | | [...] | | | | | | ([facility]) | +--------+---------+ + + + [...] Ferritin, uric acid, urinalysis, Urine total pro clhk-uh-ajsotpzwvw ratio before she comes back in 3 months.in this encounter Progress Notes Andrews Massey MD - 01/31/2019 12:00 PM PSTFormatting of this note may be different from th e original. Patient Active Problem List Diagnosis CKD (chronic kidney disease), stage III ([facility]) Essential (primary) hypertension Type 2 diabetes mellitus with diabetic nephropathy, with long-term current use of insul in (HCC) Persistent proteinuria Class 3 severe obesity due to excess calories without serious comorbidity with body mas s index (BMI) of 45.0 to 49.9 in adult (HCC) Hyperuricemia Anemia of chronic renal failure, stage 3 (moderate) ([facility]) Vitamin D deficiency Bilateral leg [...] to baseline with t he interventions at [facility]. The patient has history of hypertension [...] LABIRON 36.8 01/18/2019 LABPROT 2,352.9 (A) 10/08/2018 [id number] 22 (A) 04/21/2018 Assessment: Ms. Restrepo is [...] Ferritin, uric acid, urinalysis, Urine total pro wtnr-qd-deeyylujuf ratio before she comes back in 3 [...] | | | | | | [address] [place], [place] | | | | | | [id number] | | | | | | | [...]
--- OUTSIDE RECORDS SUMMARY | ~2019-03-16 | XMS | Encounter Summary ---
Demographics + + + | Address | [address] | | | [place] [address] | + + + | Home Phone | | + + + | Preferred Language | Unknown | + + + | Marital Status | Unknown | + + + | Orthodoxy Affiliation | Unknown | + + + | Race | Unknown | + + + | Ethnic Group | Unknown | + + + Author + + + | Author | [facility] | + + + | Organization | [facility] | + + + | Address | Unknown | + + + | Phone | Unavailable | + + + Support + + + + + | Name | Relationship | Address | Phone | + + + + + | Isabel Cardona | ECON | [address] | | | | | [place] | | | | | [address] | | + + + + + Care Team Providers + +------+ + | Care Manager Orange Name | Role | Phone | + [...] | | | | | [place] [address] | | | | | | [phone] | | | +--------+ + + + [...]
--- OUTSIDE RECORDS SUMMARY | ~2019-03-16 | XMS | Encounter Summary ---
Demographics + + + | Address | [address] | | | [place] [address] | + + + | Home Phone | | + + + | Preferred Language | Unknown | + + + | Marital Status | Unknown | + + + | Congregational Affiliation | Unknown | + + + | Race | Unknown | + + + | Ethnic Group | Unknown | + + + Author + + + | Author | [facility] | + + + | Organization | [facility] | + + + | Address | Unknown | + + + | Phone | Unavailable | + + + Support + + + + + | Name | Relationship | Address | Phone | + + + + + | Isabel Cardona | ECON | [address] | | | | | [place] | | | | | [address] | | + + + + + Care Team Providers + +------+ + | Care Semiconductor Wafers Etcher Stripper Name | Role | Phone | + [...] + + | 03/01/ | Documentati | [facility] | Annel Whitten | Other (02/28/2019 | | 2019 | on Only | Infectious Disease | Мария Farley MD | [facility] | | | | [address] | [address] | RNA rcvd: 03/01/2019) | | | | [facility] [address] | [place] [address] | | | | | [place] [address] | [phone] | | | | | [phone] | | | +--------+ + + + [...] [place] | | | | | | [address] | | | | | | | [...] | [address] | [place] [address] | | | LABORATORY | 13 | | | + + + + + in this encounter Visit Diagnoses Not on filein this encounter"
--- OUTSIDE RECORDS SUMMARY | ~2019-03-16 | XMS | Clinical Summary ---
Demographics + + + | Address | [address] | | | [place] [address] | + + + | Home Phone | | + + + | Preferred Language | Unknown | + + + | Marital Status | Unknown | + + + | Voodoo Affiliation | Unknown | + + + | Race | Unknown | + + + | Ethnic Group | Unknown | + + + Author + + + | Author | [facility] | + + + | Organization | [facility] | + + + | Address | Unknown | + + + | Phone | Unavailable | + + + Support + + + + + | Name | Relationship | Address | Phone | + + + + + | Sen Cardona | ECON | [address] | | | | | [place] | | | | | [address] | | + + + + + Care Team Providers + +------+ + | Care Reimbursement Auditor Name | Role | Phone | + [...] | | | | | ([facility]); Class 3 | | | | [...] adult | | | | | | ([facility]) | +--------+ + + + + [...] | | | | | | [address] [place] | | | | | | [id number] | | | | | | | [...] | [address] | [place] [address] | | | LABORATORY | 13 | [...] | [address] | [place] [address] | | | LABORATORY | 13 | [...] | + + + + + | [facility] | [address] | [place] [address] | [phone] | | LABORATORY | Blvd. | | [...] +------+-------+ + | MEDICAID | [place] | [id number] | | | [address] | | | [address] | | | | [place] | | | [place] | | | | [address] | | | HIDE HANDLER | | | | | + +--------+ [...] | | al/Fam | | 1970 | [phone] | [place] | | | [place] | | | [phone] | [address] | + +--------+ +--------+ + +
--- OUTSIDE RECORDS SUMMARY | ~2019-03-16 | XMS | Encounter Summary ---
Demographics + + + | Address | [address] | | | [place] [address] | + + + | Home Phone [...] + | Author | [email or web address] | + + + | Organization | [email or web address] | + + + | Address | Unknown | + + + | Phone | Unavailable | + + + Support + + + + + | Name | Relationship | Address | Phone | + + + + + | Isabel Cardona | ECON | [address] | | | | | [place] | | | | | [address] | | + + + + + Care Team Providers + +------+ + | Care Speech Communication Professor Name | Role | Phone | [...] | | | | | [place] [address] | | | | | | [phone] | | | +--------+ + + + [...] | | | | | | [address] [place] | | | | | | [address] | | | | | | | | +--------+---------+ + + + as of this encounter Visit Diagnoses Not on filein this encounter"
[~2019-03-16 20:27] MED LIST changes: +FEROSUL325 MG PO; +FISH OIL 1,0001 EAC3 PO; +INDAPAMIDE1.25 MG PO; +NIACIN250 M1 PO; +PERCOCET 5-3251 EACH PO; +SUMATRIPTAN SUC50 MG PO; +VICTOZA 3-0.6 MG/0.1 SUB-Q
--- OUTSIDE RECORDS SUMMARY | 2019-03-16 20:30 | XMS ---
PreManage Notification: SEN BOUDREAUX Security Informatics Specialist Events No recent Security Events currently on file CRITERIA MET - 6 ED Visits in 6 Months - [facility] - Has Care Guidelines - PDMP - [facility] - 2 Visits in 30 Days CARE PROVIDERS CAITLYN CHAVIS Internal Medicine 09/29/2018-[facility] PHONE: [phone] CJ VELASQUEZ Primary Care Current PHONE: [phone] Guidelines Source: [facility] Guidelines Date: 02/17/2019 Care Coordination: Currently engaged in mental health services with [facility].\T\nbsp; Please contact [facility] with mental health concerns.\T\nbsp; [phone]. Allergies: Azithromycin - mild to moderate Lisinopril - mild to moderate\T\nbsp; Care History Medical/Surgical 09/29/2018 [facility] - Patient is currently established with [facility]. If patient is seen in the ED during business hours. Please contact [facility] at [facility]. Care Recommendation: This patient has had 5 [...] known visits. ED/UCC VISIT TRACKING (12 MO.) 03/16/2019 20:27 [place] TYPE: Emergency COMPLAINT: - COUGH, L SIDE PAIN 03/12/2019 14:56 [place] [place] TYPE: Emergency COMPLAINT: - SOB, LEFT SIDE PAIN DIAGNOSES: - Type 2 diabetes mellitus with diabetic chronic kidney disease - Chronic kidney disease, stage 3 (moderate) - exterminator helper (current) use of systemic steroids - exterminator helper (current) use of insulin - Allergy status to other drugs, medicaments and biological substances status - Other nursing home (current) drug therapy - Allergy status to serum and vaccine status - Bronchitis, not specified as acute or chronic - 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e 4 chronic kidney disease, or unspecified chronic kidney disease - Allergy status to other antibiotic agents status - Pleurodynia 03/09/2019 11:16 [place] [place] TYPE: Emergency COMPLAINT: - SOB DIAGNOSES: - Pure hypercholesterolemia, unspecified - care home (current) use of insulin - Major depressive disorder, single episode, unspecified - Allergy status to serum and vaccine status - Other terminal clerk (current) drug therapy - Cough - care home (current) use of aspirin - Essential (primary) [...] or unspecified chronic kidney disease - Other nursing home (current) drug therapy - care home (current) use of insulin - Major depressive disorder, single episode, unspecified - Unspecified internal derangement of left knee - Sprain of unspecified site of left knee, initial encounter - Allergy status to other antibiotic agents status - Chronic kidney disease, stage 3 (moderate) - Pure hypercholesterolemia, unspecified - Pain in left knee - exterminator helper (current) use of aspirin - Allergy status to serum and vaccine status - Other and unspecified overexertion or strenuous movements or postures, initial encounter 12/17/2018 16:38 [place] [place] TYPE: Emergency COMPLAINT: - MEDICAL CLEARANCE DIAGNOSES: - Acquired absence of other specified parts of digestive tract - Personal history of pneumonia (recurrent) - exterminator helper (current) use of insulin - Allergy status to other antibiotic agents status - Personal history of pulmonary embolism - Allergy status to other drugs, medicaments and biological substances status - Pure hypercholesterolemia, unspecified - Chronic kidney disease, stage 3 (moderate) - Other nursing home (current) drug therapy - Anxiety disorder, unspecified [...] agents status - Essential (primary) hypertension - exterminator helper (current) use of aspirin - Allergy status [...] without hepatic coma - Hypothyroidism, unspecified - exterminator helper (current) use of insulin - Poisoning by antiviral drugs, accidental (unintentional), initial encounter - Allergy status to penicillin - Other nursing home (current) drug therapy - Chronic obstructive pulmonary [...] drugs, medicaments and biological substances status - exterminator helper (current) use of aspirin - Allergy status to other antibiotic agents status - Major depressive disorder, single episode, unspecified - Other terminal clerk (current) drug therapy - care home (current) use of insulin INPATIENT VISIT TRACKING (12 MO.) 09/26/2018 02:48 [place] TYPE: Observation COMPLAINT: - TOXIC ENCEPHALOPATHY DIAGNOSES: - Allergy status to serum and vaccine status - Hypomagnesemia - Other nursing home (current) drug therapy - Morbid (severe) obesity [...] viral hepatitis C without hepatic coma - care home (current) use of aspirin - Unspecified mood [affective] disorder - Poisoning by unspecified drugs, medicaments and biological substances, accidental (unintentional), initial encounter - Major depressive disorder, single episode, unspecified - Poisoning by antiviral drugs, accidental (unintentional), initial encounter - Acute kidney failure, unspecified - Essential (primary) hypertension - Post-traumatic stress disorder, unspecified - Allergy status to other antibiotic agents status - exterminator helper (current) use of insulin - Poisoning by antiparkinsonism drugs and other central muscle-tone depressants, accidental (unintentional), initial encounter - Toxic encephalopathy - Pure hypercholesterolemia, unspecified [email or web address]
[2019-03-18] MEDS ORDERED: OXYCODONE HCL5 MG PO (19:01)
[2019-03-18] MEDS ORDERED: LASIX40 MG PO (19:01)
== END 2019-03-16 22:07 | disposition home or self-care (01) ==
LOC: ED 20:27
DX: S29.011A Strain of muscle and tendon of front wall of thorax, initial encounter (principal); X58.XXXA Exposure to other specified factors, initial encounter; F32.9 Major depressive disorder, single episode, unspecified; I12.9 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e 4 chronic kidney disease, or unspecified chronic kidney disease; N18.3 Chronic kidney disease, stage 3 (moderate); E11.22 Type 2 diabetes mellitus with diabetic chronic kidney disease; Z88.8 Allergy status to other drugs, medicaments and biological substances; Z88.1 Allergy status to other antibiotic agents; Z79.899 Other long term (current) drug therapy; Z79.82 Long term (current) use of aspirin; Z79.52 Long term (current) use of systemic steroids; Z79.4 Long term (current) use of insulin
CPT/HCPCS: 71046; 96372; 99283-25; J1885

== ENCOUNTER 2019-03-28 14:43 | Emergency (ER) | payer OTHER ==
[~2019-03-28] VITALS: Ht 175.3 cm; Wt 154.2 kg
--- OUTSIDE RECORDS SUMMARY | ~2019-03-28 | XMS | Encounter Summary ---
Demographics + + + | Address | [address] | | | [place] [address] | + + + | Home Phone | | + + + | Preferred Language | Unknown | + + + | Marital Status | Unknown | + + + | Uatsdin Affiliation | Unknown | + + + | Race | Unknown | + + + | Ethnic Group | Unknown | + + + Author + + + | Author | [facility] | + + + | Organization | [facility] | + + + | Address | Unknown | + + + | Phone | Unavailable | + + + Support + + + + + | Name | Relationship | Address | Phone | + + + + + | Isabel Cardona | ECON | [address] | | | | | [place] | | | | | [address] | | + + + + + Care Team Providers + +------+ + | Care Cream Buyer Name | Role | Phone | + +------+ + | Lisa Mcclain MD | PCP | | + +------+ + Reason for Visit + + + | Reason | Comments | + + + | Labs Only | 01/18/2019 | + + + Encounter Details +--------+ + + + + | Date | Type | Department | Care Team | Description | +--------+ + + + + | 01/21/ | Documentati | [facility] | [place], | Labs Only | | 2019 | on Only | [place] [address] | [place] [address] | (01/18/2019) | | | | [address] | | | | | | [place] [address] | | | | | | [phone] | | | +--------+ + + + [...] + +---------+ + | Alcohol Use | Drinks/We | oz/Week | Comments | | | ek | | | + + +---------+ + | No | | | | + + +---------+ + + + + | Sex Assigned at | Date Recorded | | | | + + + | Not on file | | + + + as of this encounter Plan of Treatment +--------+---------+ + + + | Date | Type | Specialty | Care Team | Description | +--------+---------+ + + + | 05/09/ | Office | Nephrology | Andrews Massey MD | | | 2019 | Visit | | [address] | | | | | | [address] [place] | | | | | | [address] | | | | | | | | +--------+---------+ + + + as of this encounter Procedures + +--------+ + + + | Procedure Name | Priori | Date/Time | Associated Diagnosis | Comments | | | ty | | | | + +--------+ + + + | IRON AND TIBC | Routin | 01/18/2019 | | Results [...] section. | + +--------+ + + + in this encounter Results Uric acid (01/18/2019 3:10 PM) + +---------+ + + | Component | Value | Ref Range | Performed At | + +---------+ + + | URIC ACID | 9.0 (A) | 2.3 - 6.6 | | + +---------+ + + + + | Specimen | + + | Blood | + + Iron panel (01/18/2019 3:10 PM) + +--------+ + + | Component | Value | Ref Range | Performed At | + +--------+ + + | IRON | 141.30 | 37 - 160 | | + +--------+ + + | IRON % SAT | 36.8 | 20 - 55 | | + +--------+ + + | TIBC | 384 | 245 - 400 | | + +--------+ + + + + | Specimen | + + | Blood | + + Ferritin (01/18/2019 3:10 PM) + +-------+ + + | Component | Value | Ref Range | Performed At | + +-------+ + + | FERRITIN | 81.60 | 13 - 150 ng/mL | | + +-------+ + + + + | Specimen | + + | Blood | + + in this encounter Visit Diagnoses Not on filein this encounter"
--- OUTSIDE RECORDS SUMMARY | ~2019-03-28 | XMS | Encounter Summary ---
Demographics + + + | Address | [address] | | | [place] [address] | + + + | Home Phone | | + + + | Preferred Language | Unknown | + + + | Marital Status | Unknown | + + + | Hoahaoism Affiliation | Unknown | + + + | Race | Unknown | + + + | Ethnic Group | Unknown | + + + Author + + + | Author | [facility] | + + + | Organization | [facility] | + + + | Address | Unknown | + + + | Phone | Unavailable | + + + Support + + + + + | Name | Relationship | Address | Phone | + + + + + | Isabel Cardona | ECON | [address] | | | | | [place] | | | | | [address] | | + + + + + Care Team Providers + +------+ + | Care Electro Optics Engineer Name | Role | Phone | + +------+ + | Lisa Mcclain MD | PCP | | + +------+ + Reason for Visit +--------+ + | Reason | Comments | +--------+ + | Other | Lab from [facility] 02/15/19 (CMP) | +--------+ + Encounter Details +--------+ + + + + | Date | Type | Department | Care Team | Description | +--------+ + + + + | 02/16/ | Documentati | [facility] | Garcia KanikaMICHELLE | Other (Lab from | | 2019 | on Only | Infectious Disease | | [facility] | | | | [address] | | 02/15/19 ([facility]) ) | | | | [facility] [address] | | | | | | [place] [address] | | | | | | [phone] | | | +--------+ + + + [...] + + + as of this encounter Progress Notes Kanika Garcia MA - 02/16/2019 9:36 AM PDTLab from [facility] 02/15/19 (CMP). Lab abstracted into [facility] and sent to scan. Christa CMA. in this encounter Plan of Treatment +--------+---------+ + + + | Date | Type | Specialty | Care Team | Description | +--------+---------+ + + + | 05/09/ Office | Nephrology | Andrews Massey MD | | | 2018 | Visit | | [address] | | | | | | [address] [place], [place] | | | | | | [address] | | | | | | | | +--------+---------+ + + + as of this encounter Procedures + +--------+ + + + | Procedure Name | Priori | Date/Time | Associated Diagnosis | Comments | | | ty | | | | + +--------+ + + + | COMPREHENSIVE | Routin | 02/15/2019 | | Results for this | | METABOLIC PANEL | e | 5:05 PM | | procedure are in the | | | | PDT | | results section. | + +--------+ + + + in this encounter Results Comprehensive metabolic panel (02/15/2019 5:05 PM) + + + + + | Component | Value | Ref Range | Performed At | + + + + + | GLUCOSE | 172 (A) | 70 - 100 mg/dL | [facility] | | | | | [facility] | + + + + + | BUN | 34 (A) | 6 - 23 mg/dL | [facility] | | | | | [facility] | + + + + + | CREATININE | 1.53 (A) | 0.60 - 1.35 mg/dL | [facility] | | | | | [facility] | + + + + + | BUN/CREAT | 22.4 | 6.0 - 28.6 | [facility] | | | | | [facility] | + + + + + | CALCIUM | 8.6 | 8.5 - 10.3 mg/dL | [facility] | | | | | [facility] | + + + + + | TOTAL PROTEIN | 6.3 | 6.0 - 8.3 g/dL | [facility] | | | | | [facility] | + + + + + | Albumin | 3.5 | 3.5 - 5.0 | [facility] | | | | | [facility] | + + + + + | GLOBULIN | 2.8 | 1.8 - 3.5 | [facility] | | | | | [facility] | + + + + + | A/G | 1.3 | 1.1 - 2.4 | [facility] | | | | | [facility] | + + + + + | TBIL | 0.2 | 0.0 - 1.2 mg/dL | [facility] | | | | | [facility] | + + + + + | ALK PHOS | 118 | 31 - 130 | [facility] | | | | | LAB[facility]AT[facility] | + + + + + | ALT | 17 | 7 - 52 U/L | [facility] | | | | | [facility] | + + + + + | AST | 17 | 13 - 39 U/L | [facility] | | | | | LAB[facility]AT[facility] | + + + + + | SODIUM | 139 | 132 - 143 mmol/L | [facility] | | | | | [facility] | + + + + + | POTASSIUM | 5.1 | 3.6 - 5.1 mmol/L | [facility] | | | | | LAB[facility]AT[facility] | + + + + + | CHLORIDE | 107 | 95 - 112 mmol/L | [facility] | | | | | [facility] | + + + + + | CO2 | 19 | 19 - 31 mmol/L | [facility] | | | | | [facility] | + + + + + | ANION GAP AGAP | 18.1 | 7 - 21 mmol/L | [facility] | | | | | LAB[facility]AT[facility] | + + + + + | EGFR | 37 (A) | 60 mg/dL | [facility] | | | | | LABORATORY | + + + + + + + | Specimen | + + | Blood | + + + + + + + | Performing | Address | City/State/Zipcode | Phone Number | | Organization | | | | + + + + + | [facility] | [address] | [place] [address] | | | LABORATORY | 13 | | | + + + + + in this encounter Visit Diagnoses Not on filein this encounter"
--- OUTSIDE RECORDS SUMMARY | ~2019-03-28 | XMS | Encounter Summary ---
Demographics + + + | Address | [address] | | | [place] [address] | + + + | Home Phone | | + + + | Preferred Language | Unknown | + + + | Marital Status | Unknown | + + + | Taoist Affiliation | Unknown | + + + | Race | Unknown | + + + | Ethnic Group | Unknown | + + + Author + + + | Author | [facility] | + + + | Organization | [facility] | + + + | Address | Unknown | + + + | Phone | Unavailable | + + + Support + + + + + | Name | Relationship | Address | Phone | + + + + + | Isabel Cardona | ECON | [address] | | | | | [place] | | | | | [address] | | + + + + + Care Team Providers + +------+ + | Care Grease Maker Head Name | Role | Phone | + +------+ + | Lisa Mcclain MD | PCP | | + +------+ + Reason for Visit + + + | Reason | Comments | + + + | Labs Only | BMP 02/11/19 | + + + Encounter Details +--------+ + + + + | Date | Type | Department | Care Team | Description | +--------+ + + + + | 02/14/ | Documentati | [facility] | [place], | Labs Only (BMP | | 2019 | on Only | [address] | MICHELLE Lovelace | 02/11/19) | | | | [address] | | | | | | [place] [address] | | | | | | [phone] | | | +--------+ + + + [...] [place] | | | | | | [address] | | | | | | | | +--------+---------+ + + + as of this encounter Visit Diagnoses Not on filein this encounter"
--- OUTSIDE RECORDS SUMMARY | ~2019-03-28 | XMS | Encounter Summary ---
Demographics + + + | Address | [address] | | | [place] [address] | + + + | Home Phone | | + + + | Preferred Language | Unknown | + + + | Marital Status | Unknown | + + + | Hoahaoism Affiliation | Unknown | + + + | Race | Unknown | + + + | Ethnic Group | Unknown | + + + Author + + + | Author | [facility] | + + + | Organization | [facility] | + + + | Address | Unknown | + + + | Phone | Unavailable | + + + Support + + + + + | Name | Relationship | Address | Phone | + + + + + | Isabel Cardona | ECON | [address] | | | | | [place] | | | | | [address] | | + + + + + Care Team Providers + +------+ + | Care Resolution Analyst Name | Role | Phone | + +------+ + | Lisa Mcclain MD | PCP | | + +------+ + Reason for Visit + + + | Reason | Comments | + + + | Follow-up | HCV | + + + Encounter Details +--------+---------+ + + + | Date | Type | Department | Care Team | Description | +--------+---------+ + + + | 02/23/ | Office | [facility] | Annel Whitten | Chronic hepatitis C | | 2019 | Visit | Infectious Disease | Мария Farley MD | without hepatic coma | | | | [address] | [address] | (HCC) (Primary Dx) | | | | [facility] [address] | [place] [address] | | | | | [place] [address] | [phone] | | | | | [phone] | | | +--------+---------+ + + + [...] + + + as of this encounter Last Filed Vital Signs + + + + | Vital Sign | Reading | Time Taken | + + + + | Blood Pressure | 147/72 | 02/23/2019 1:27 PM PDT | + + + + | Pulse | 78 | 02/23/2019 1:27 PM PDT | + + + + | Temperature | 36.2 C (97.2 F) | 02/23/2019 1:27 PM PDT | + + + + | Respiratory Rate | 16 | 02/23/2019 1:27 PM PDT | + + + + | Oxygen Saturation | 98% | 02/23/2019 1:27 PM PDT | + + + + | Inhaled Oxygen | - | - | | Concentration | | | + + + + | Weight | 160.7 kg (354 lb 3.2 | 02/23/2019 1:27 PM PDT | | | oz) | | + + + + | Height | - | - | + + + + | Body Mass Index | 52.31 | 02/23/2019 1:27 PM PDT | + + + + in this encounter Instructions Patient Instructions - Annel Whitten MD - 02/23/2019 2:00 PM PDTLabs today follow up in 3 months with labs one week priorin this encounter Progress Notes Annel Whitten MD - 02/23/2019 2:00 PM PDTFormatting of this note may be dif ferent from the original. [facility] Service: Infectious Diseases Outpatient Follow Up Note CHIEF COMPLAINT Follow up on Hep C HISTORY OF PRESENT ILLNESS The patient is a 48 y.o.-year-old female presenting today for follow up. She finished her m edications 3 months ago. She denies any side effects. She recently [facility] and started on seroquel. She experienced significant weight gain since the n. PAST MEDICAL HISTORY Patient Active Problem List Diagnosis CKD (chronic kidney disease), stage III ([facility]) Essential (primary) hypertension Type 2 diabetes mellitus with diabetic nephropathy, with long-term current use of insul in ([facility]) Persistent proteinuria Class 3 severe obesity due to excess calories without serious comorbidity with body mas s index (BMI) of 45.0 to 49.9 in adult (HCC) Hyperuricemia Anemia of chronic renal failure, stage 3 (moderate) ([facility]) Vitamin D deficiency Bilateral leg edema PAST SURGICAL HISTORY Past Surgical History Procedure Laterality Date CATARACT EXTRACTION SECTION CHOLECYSTECTOMY COLONOSCOPY 07/07/18 ocular Ocular implants TONSILLECTOMY SOCIAL HISTORY Social History Social History Marital status: Unknown Spouse name: N/A Number of children: N/A Years of education: N/A Occupational History Not on file. Social History Main Topics Smoking status: Never Smoker Smokeless tobacco: Never Used Alcohol use No Drug use: No Sexual activity: Not on file Other Topics Concern Not on file Social History Narrative No narrative on file FAM. HISTORY No family history on file. MEDICATIONS Current Outpatient Prescriptions: amitriptyline (ELAVIL) 25 MG tablet, Take 100 mg by mouth nightly., Disp: , Rfl: aspirin 81 MG tablet, Take 81 mg by mouth daily., Disp: , Rfl: B-D INS SYRINGE 0.5CC/31GX5/16 31G X 5/16" 0.5 ML, , Disp: , Rfl: [address] HOME [facility], , Disp: , Rfl: 0 buPROPion (WELLBUTRIN XL) 300 MG 24 hr tablet, Take 300 mg by mouth daily., Disp: , Rf l: Calcium Carb-Cholecalciferol 600-400 MG-UNIT TABS, Take by mouth daily., Disp: , Rfl: docusate sodium (COLACE) 100 MG capsule, Take 100 mg by mouth 2 (two) times daily., Di sp: , Rfl: famotidine (PEPCID) 20 MG tablet, Take 20 mg by mouth nightly as needed., Disp: , Rfl: 0 FLUoxetine HCl 60 MG TABS, Take 60 mg by mouth daily., Disp: , Rfl: FREESTYLE TEST STRIPS test strip, , Disp: , Rfl: 0 gabapentin (NEURONTIN) 300 MG capsule, Take 600 mg by mouth 3 (three) times daily., Di sp: , Rfl: Glecaprevir-Pibrentasvir 100-40 MG TABS, Take by mouth., Disp: , Rfl: glucagon (GLUCAGON EMERGENCY) 1 MG injection, Inject 1 mg into the vein as needed., Di sp: , Rfl: HYDROcodone-acetaminophen (NORCO) 5-325 MG per tablet, Take 1 tablet by mouth every 6 (six) hours as needed for Pain., Disp: , Rfl: indapamide (LOZOL) 1.25 MG tablet, Take 0.5 tablets by mouth every morning., Disp: 15 tablet, Rfl: 11 insulin glargine (LANTUS) 100 UNIT/ML injection, Inject 35 Units into the skin 2 (two) times daily., Disp: , Rfl: insulin lispro, human, (HUMALOG) 100 UNIT/ML injection, Inject 8 Units into the skin 3 (three) times daily before meals., Disp: , Rfl: ipratropium-albuterol (COMBIVENT RESPIMAT) 20-100 MCG/ACT inhaler, Inhale 1 puff into the lungs 4 (four) times daily., Disp: , Rfl: levothyroxine (SYNTHROID) 25 MCG tablet, Take 75 mcg by mouth every morning before cruzito akfast., Disp: , Rfl: LORazepam (ATIVAN) 1 MG tablet, Take 1 mg by mouth every 6 (six) hours as needed for A nxiety., Disp: , Rfl: losartan (COZAAR) 50 MG tablet, Take 50 mg by mouth daily., Disp: , Rfl: metoprolol (LOPRESSOR) 50 MG tablet, Take 50 mg by mouth 2 (two) times daily., Disp: , Rfl: nystatin (MYCOSTATIN) cream, Apply topically as needed., Disp: , Rfl: 0 prazosin (MINIPRESS) 5 MG capsule, Take 5 mg by mouth nightly., Disp: , Rfl: 0 quetiapine (SEROQUEL) 200 MG tablet, Take 200 mg by mouth 2 (two) times daily., Disp: , Rfl: RA P COL-RITE 8.6-50 MG per tablet, Take 1 tablet by mouth daily., Disp: , Rfl: 0 senna (SENOKOT) 8.6 MG tablet, Take 1 tablet by mouth daily., Disp: , Rfl: Allergies Allergen Reactions Clindamycin Hives Adhesive Tape Rash Welts, plastic tape Cefazolin Rash Nafcillin Rash Tetanus Toxoids Rash Lisinopril Cough REVIEW OF SYSTEMS Negative except for pertinent items noted in HPI. PHYSICAL EXAM Vital Signs: BP 147/72 | Pulse 78 | Temp 97.2 F (36.2 C) | Resp 16 | Wt 160.7 kg (354 lb 3.2 oz) | SpO2 98% | BMI 52.31 kg/m General Appearance: HEENT: Alert, cooperative, no distress Head normocephalic and atraumatic EEOMI; no scleral icterus Lungs: Clear to auscultation bilaterally, respirations unlabored Heart:: Regular rate and rhythm, S1 and S2 normal, no rub or gallop Neuro: Attends appropriately; no CN deficits Extremities: Extremities normal, no cyanosis or edema REVIEW OF LABS: All labs were reviewed. MICROBIOLOGY Results No results found for the last 72 hours. Visit Diagnoses and Associated Orders: Isabel was seen today for follow-up. Chronic hepatitis C without hepatic coma (HCC) - HCV RNA quant by PCR; Future ASSESSMENT AND RECOMMENDATIONS The patient is a 48 y.o.-year-old female with the following problems: Hep C, genotype 1 s/p 8 weeks of mavyret 3 months ago No labs done Check HCV RNA today Follow up in 3 months Thank you for allowing us to participate in this patient's care. A return visit has been re quested/scheduled in 3 months for routine clinical follow up. The patient was instructed to call our clinic for any questions, and for any concerns regarding worsening symptoms, includ ing fevers/chills/side effects from medication, especially diarrhea. We will see the patient sooner than the recommended follow up date, if with any worsening of symptoms. Dictation software, RealMatch, used which may contain error for similar sounding words even af ter review. Personal communication requested for any clarification. Portions of this chart may have been copied from previous notes for continuity of care purp jen Whitten MD Infectious Diseases [facility] [address] [place], [place] [id number] O: F: 02/23/2019 in this encounter Plan of Treatment +--------+---------+ + + + | Date | Type | Specialty | Care Team | Description | +--------+---------+ + + + | 05/09/ | Office | Nephrology | Andrews Massey MD | | | 2019 | Visit | | [address] | | | | | | [address] [place], [place] | | | | | | [address] | | | | | | | | +--------+---------+ + + + + +--------+ + + | Name | Priori | Associated Diagnoses | Order Schedule | | | ty | | | + +--------+ + + | HCV RNA quant by PCR | Routin | Chronic hepatitis | Expected: | | | e | C without hepatic | 02/23/2019, Expires: | | | | coma (HCC) | 02/24/2020 | + +--------+ + + as of this encounter Visit Diagnoses + + | Diagnosis | + + | Chronic hepatitis C without hepatic coma (HCC) - Primary | + +
--- OUTSIDE RECORDS SUMMARY | ~2019-03-28 | XMS | Encounter Summary ---
Demographics + + + | Address | [address] | | | [place] [address] | + + + | Home Phone | | + + + | Preferred Language | Unknown | + + + | Marital Status | Unknown | + + + | Hinduism Affiliation | Unknown | + + + | Race | Unknown | + + + | Ethnic Group | Unknown | + + + Author + + + | Author | [facility] | + + + | Organization | [facility] | + + + | Address | Unknown | + + + | Phone | Unavailable | + + + Support + + + + + | Name | Relationship | Address | Phone | + + + + + | Isabel Cardona | ECON | [address] | | | | | [place] | | | | | [address] | | + + + + + Care Team Providers + +------+ + | Care Workers Compensation Attorney Name | Role | Phone | + [...] + + | 02/23/ | Office | [facility] | Annel Whitten | Chronic hepatitis C | | 2019 | Visit | Infectious Disease | Мария Farley MD | without hepatic coma | | | | [address] | [address] | (HCC) (Primary Dx) | | | | [facility] [address] | [place] [address] | | | | | [place] [address] | [phone] | | | | | [phone] | | | +--------+---------+ + + + [...] may be dif ferent from the original. [facility] Service: Infectious Diseases Outpatient Follow Up Note CHIEF COMPLAINT Follow up on Hep C HISTORY OF PRESENT ILLNESS The patient is a 48 y.o.-year-old female presenting today for follow up. She finished her m edications 3 months ago. She denies any side effects. She [facility] and started on seroquel. She experienced significant weight gain since the n. PAST MEDICAL HISTORY Patient Active Problem List Diagnosis CKD (chronic kidney disease), stage III ([facility]) Essential (primary) hypertension Type 2 diabetes mellitus with diabetic nephropathy, with long-term current use of insul in ([facility]) Persistent proteinuria Class 3 severe obesity due to excess calories without serious comorbidity with body mas s index (BMI) of 45.0 to 49.9 in adult (HCC) Hyperuricemia Anemia of chronic renal failure, stage 3 (moderate) ([facility]) Vitamin D deficiency Bilateral leg edema PAST [...] , Rfl: 1 BD [facility]AR[facility] CON[facility], , Disp: , Rfl: 0 buPROPion (WELLBUTRIN [...] with any worsening of symptoms. Dictation software, Anita Margarita, used which may contain error for similar sounding words even af ter review. Personal communication requested for any clarification. Portions of this chart may have been copied from previous notes for continuity of care purp jen Whitten MD Infectious Diseases [facility] [address] [place], [place] [address] O: F: 02/23/2019 in this encounter Plan of Treatment +--------+---------+ + + + | Date | Type | Specialty | Care Team | Description | +--------+---------+ + + + | 05/09/ | Office | Nephrology | Andrews Massey MD | | | 2019 | Visit | | [address] | | | | | | [address] [place], [place] | | | | | | [address] | | | | | | | [...]
--- OUTSIDE RECORDS SUMMARY | ~2019-03-28 | XMS | Encounter Summary ---
Demographics + + + | Address | [address] | | | [place] [address] | + + + | Home Phone | | + + + | Preferred Language | Unknown | + + + | Marital Status | Unknown | + + + | Baptist Affiliation | Unknown | + + + | Race | Unknown | + + + | Ethnic Group | Unknown | + + + Author + + + | Author | [facility] | + + + | Organization | [facility] | + + + | Address | Unknown | + + + | Phone | Unavailable | + + + Support + + + + + | Name | Relationship | Address | Phone | + + + + + | Isabel Cardona | ECON | [address] | | | | | [place] | | | | | [address] | | + + + + + Care Team Providers + +------+ + | Care Parts Expediter Name | Role | Phone | + [...] + + | 03/01/ | Documentati | [facility] | Annel Whitten | Other (02/28/2019 | | 2019 | on Only | Infectious Disease | Мария Farley MD | [facility] | | | | [address] | [address] | RNA rcvd: 03/01/2019) | | | | [facility] [address] | [place] [address] | | | | | [place] [address] | [phone] | | | | | [phone] | | | +--------+ + + + [...] [place] | | | | | | [address] | | | | | | | [...] | [address] | [place] [address] | | | LABORATORY | 13 | | | + + + + + in this encounter Visit Diagnoses Not on filein this encounter"
--- OUTSIDE RECORDS SUMMARY | ~2019-03-28 | XMS | Encounter Summary ---
Demographics + + + | Address | [address] | | | [place] [address] | + + + | Home Phone | | + + + | Preferred Language | Unknown | + + + | Marital Status | Unknown | + + + | Amish Affiliation | Unknown | + + + | Race | Unknown | + + + | Ethnic Group | Unknown | + + + Author + + + | Author | [facility] | + + + | Organization | [facility] | + + + | Address | Unknown | + + + | Phone | Unavailable | + + + Support + + + + + | Name | Relationship | Address | Phone | + + + + + | Isabel Cardona | ECON | [address] | | | | | [place] | | | | | [address] | | + + + + + Care Team Providers + +------+ + | Care Building Tech Name | Role | Phone | [...] | | | | | [place] [address] | | | | | | [phone] | | | +--------+ + + + [...] 05/09/ | Office | Nephrology | Andrews Massye MD | | | 2019 | Visit | | [address] | | | | | | [address] [place] | | | | | | [address] | | | | | | | | +--------+---------+ + + + as of this encounter Visit Diagnoses Not on filein this encounter"
--- OUTSIDE RECORDS SUMMARY | ~2019-03-28 | XMS | Encounter Summary ---
Demographics + + + | Address | [address] | | | [place] [address] | + + + | Home Phone | | + + + | Preferred Language | Unknown | + + + | Marital Status | Unknown | + + + | Synagogue Affiliation | Unknown | + + + | Race | Unknown | + + + | Ethnic Group | Unknown | + + + Author + + + | Author | [facility] | + + + | Organization | [facility] | + + + | Address | Unknown | + + + | Phone | Unavailable | + + + Support + + + + + | Name | Relationship | Address | Phone | + + + + + | Isabel Cardona | ECON | [address] | | | | | [place] | | | | | [address] | | + + + + + Care Team Providers + +------+ + | Care Supervisor Reactor Fueling Name | Role | Phone | + +------+ + | Lisa Mcclain MD | PCP | | + +------+ + Encounter Details +--------+ + + + + | Date | Type | Department | Care Team | Description | +--------+ + + + + | 02/14/ | Orders Only | [place] [facility] | [place], | CKD (chronic kidney | | 2019 | | [address] | MICHELLE Lovelace | disease), stage III | | | | [address] | | (HCC); Essential | | | | [place] [address] | | (primary) | | | | [phone] | | hypertension; | | | | | | Persistent | | | | | | proteinuria; | | | | | | Hyperuricemia; | | | | | | Anemia of chronic | | | | | | renal failure, stage | | | | | | 3 (moderate) (HCC) | +--------+ + + + [...] [place] | | | | | | [address] | | | | | | | | +--------+---------+ + + + as of this encounter Procedures + +--------+ + + + | Procedure Name | Priori | Date/Time | Associated Diagnosis | Comments | | | ty | | | | + +--------+ + + + | BASIC METABOLIC | Routin | 02/11/2019 | CKD (chronic | Results for this | | PANEL | e | 4:58 PM | kidney disease), | procedure are in the | | | | PDT | stage III (HCC) | results section. | | | | | Essential (primary) | | | | | | hypertension | | | | | | Persistent | | | | | | proteinuria | | | | | | Hyperuricemia | | | | | | Anemia of chronic | | | | | | renal failure, stage | | | | | | 3 (moderate) (HCC) | | + +--------+ + + + in this encounter Results Basic metabolic panel (02/11/2019 [...] | [facility] | [address] | [place] [address] | [phone] | | LABORATORY | [address] | | | + + + + + in this encounter Visit Diagnoses + + | Diagnosis | + + | CKD (chronic kidney disease), stage III (HCC) | + + | Chronic kidney disease, [...]
--- OUTSIDE RECORDS SUMMARY | ~2019-03-28 | XMS | Encounter Summary ---
Demographics + + + | Address | [address] | | | [place] [address] | + + + | Home Phone | | + + + | Preferred Language | Unknown | + + + | Marital Status | Unknown | + + + | Pentecostalism Affiliation | Unknown | + + + | Race | Unknown | + + + | Ethnic Group | Unknown | + + + Author + + + | Author | [facility] | + + + | Organization | [facility] | + + + | Address | Unknown | + + + | Phone | Unavailable | + + + Support + + + + + | Name | Relationship | Address | Phone | + + + + + | Isabel Cardona | ECON | [address] | | | | | [place] | | | | | [address] | | + + + + + Care Team Providers + +------+ + | Care Workers Compensation Coordinator Name | Role | Phone | + [...] | | | | | [place] [address] | | | | | | [phone] | | | +--------+ + + + [...] | | | | | | [address] [place] | | | | | | [address] | | | | | | | | +--------+---------+ + + + as of this encounter Visit Diagnoses Not on filein this encounter"
--- OUTSIDE RECORDS SUMMARY | ~2019-03-28 | XMS | Encounter Summary ---
Demographics + + + | Address | [address] | | | [place] [address] | + + + | Home Phone | | + + + | Preferred Language | Unknown | + + + | Marital Status | Unknown | + + + | Spiritism Affiliation | Unknown | + + + | Race | Unknown | + + + | Ethnic Group | Unknown | + + + Author + + + | Author | [facility] | + + + | Organization | [facility] | + + + | Address | Unknown | + + + | Phone | Unavailable | + + + Support + + + + + | Name | Relationship | Address | Phone | + + + + + | Isabel Cardona | ECON | [address] | | | | | [place] | | | | | [address] | | + + + + + Care Team Providers + +------+ + | Care Conference Planning Manager Name | Role | Phone | [...] | | | | | [place] [address] | | | | | | [phone] | | | +--------+ + + + [...] | | | | | | [address] [place], [place] | | | | | | [address] | | | | | | | [...] | | | | 3 (moderate) ([facility]) | | + +--------+ + + | [...] | | | | 3 (moderate) ([facility]) | | + +--------+ + + | [...] | | | | 3 (moderate) ([facility]) | | + +--------+ + + | [...] + + + | [facility] | [address] | [place] [address] | [phone] | | LABORATORY | Phi. | | [...]
--- OUTSIDE RECORDS SUMMARY | ~2019-03-28 | XMS | Encounter Summary ---
Demographics + + + | Address | [address] | | | [place] [address] | + + + | Home Phone | | + + + | Preferred Language | Unknown | + + + | Marital Status | Unknown | + + + | Adventism Affiliation | Unknown | + + + | Race | Unknown | + + + | Ethnic Group | Unknown | + + + Author + + + | Author | [facility] | + + + | Organization | [facility] | + + + | Address | Unknown | + + + | Phone | Unavailable | + + + Support + + + + + | Name | Relationship | Address | Phone | + + + + + | Isabel Cardona | ECON | [address] | | | | | [place] | | | | | [address] | | + + + + + Care Team Providers + +------+ + | Care Office Machines Wirer Name | Role | Phone | + [...] + + | 02/16/ | Documentati | [facility] | Garcia KanikaMICHELLE | Other (Lab from | | 2019 | on Only | Infectious Disease | | [facility] | | | | [address] | | 02/15/19 ([facility] ) | | | | [facility] [address] | | | | | | [place] [address] | | | | | | [phone] | | | +--------+ + + + [...] Lab DOS 02/15/19 (CMP). Lab abstracted into [facility] and sent to scan. Christa CMA. in this encounter Plan of Treatment +--------+---------+ + + + | Date | Type | Specialty | Care Team | Description | +--------+---------+ + + + | 05/09/ Office | Nephrology | Andrews Massey MD | | | 2018 | Visit | | [address] | | | | | | [address] [place], [place] | | | | | | [address] | | | | | | | [...] | [address] | [place] [address] | | | LABORATORY | 13 | | | + + + + + in this encounter Visit Diagnoses Not on filein this encounter"
--- OUTSIDE RECORDS SUMMARY | ~2019-03-28 | XMS | Encounter Summary ---
Demographics + + + | Address | [address] | | | [place] [address] | + + + | Home Phone | | + + + | Preferred Language | Unknown | + + + | Marital Status | Unknown | + + + | Gnosticist Affiliation | Unknown | + + + | Race | Unknown | + + + | Ethnic Group | Unknown | + + + Author + + + | Author | [facility] | + + + | Organization | [facility] | + + + | Address | Unknown | + + + | Phone | Unavailable | + + + Support + + + + + | Name | Relationship | Address | Phone | + + + + + | Isabel Cardona | ECON | [address] | | | | | [place] | | | | | [address] | | + + + + + Care Team Providers + +------+ + | Care Travel Money Advisor Name | Role | Phone | + [...] Essential | | | | [place] [address] | | (primary) | | | | [phone] | | hypertension; | | | | [...] [place] | | | | | | [address] | | | | | | | [...] + + + | [facility] | [address] | [place] [address] | [phone] | | LABORATORY | Blvd. | | [...]
--- OUTSIDE RECORDS SUMMARY | ~2019-03-28 | XMS | Encounter Summary ---
Demographics + + + | Address | [address] | | | [place] [address] | + + + | Home Phone | | + + + | Preferred Language | Unknown | + + + | Marital Status | Unknown | + + + | Episcopalian Affiliation | Unknown | + + + | Race | Unknown | + + + | Ethnic Group | Unknown | + + + Author + + + | Author | [facility] | + + + | Organization | [facility] | + + + | Address | Unknown | + + + | Phone | Unavailable | + + + Support + + + + + | Name | Relationship | Address | Phone | + + + + + | Isabel Cardona | ECON | [address] | | | | | [place] | | | | | [address] | | + + + + + Care Team Providers + +------+ + | Care Packaging Design Engineer Name | Role | Phone | [...] | | [address] | [address] [place], [place] | ([facility]) (Primary Dx); | | | | [place] [address] | [address] | Bilateral leg edema; | | | | [phone] | | Anemia of chronic | | | | | | renal failure, stage | | | | | | 3 (moderate) ([facility]); | | | | [...] insulin | | | | | | ([facility]); Class 3 | | [...] adult | | | | | | ([facility]) | +--------+---------+ + + [...] Ferritin, uric acid, urinalysis, Urine total pro sgmq-wv-plyrftxqsm ratio before she comes back in 3 months.in this encounter Progress Notes Andrews Massey MD - 01/31/2019 12:00 PM PSTFormatting of this note may be different from th e original. Patient Active Problem List Diagnosis CKD (chronic kidney disease), stage III ([facility]) Essential (primary) hypertension Type 2 diabetes mellitus with diabetic nephropathy, with long-term current use of insul in (HCC) Persistent proteinuria Class 3 severe obesity due to excess calories without serious comorbidity with body mas s index (BMI) of 45.0 to 49.9 in adult (HCC) Hyperuricemia Anemia of chronic renal failure, stage 3 (moderate) ([facility]) Vitamin D deficiency Bilateral [...] to baseline with t he interventions at [facility]. The patient has history of hypertension since [...] LABIRON 36.8 01/18/2019 LABPROT 2,352.9 (A) 10/08/2018 [id number] 22 (A) 04/21/2018 Assessment: Ms. Restrepo is [...] Ferritin, uric acid, urinalysis, Urine total pro mrtp-fb-pnkcrwynqd ratio before she comes back in 3 [...] | | | | | | [address] [place], [place] | | | | | | [id number] | | | | | | | [...]
--- OUTSIDE RECORDS SUMMARY | ~2019-03-28 | XMS | Encounter Summary ---
Demographics + + + | Address | [address] | | | [place] [address] | + + + | Home Phone [...] + + | Author | [facility] | + + + | Organization | [facility] | + + + | Address | Unknown | + + + | Phone | Unavailable | + + + Support + + + + + | Name | Relationship | Address | Phone | + + + + + | Isabel Cardona | ECON | [address] | | | | | [place] | | | | | [address] | | + + + + + Care Team Providers + +------+ + | Care Child Welfare Manager Name | Role | Phone | [...] | | | | | [place] [address] | | | | | | [phone] | | | +--------+ + + + [...] | | | | | | [address] [place], [place] | | | | | | [address] | | | | | | | [...] | | | | | 3 (moderate) ([facility]) | | + +--------+ + [...] | | | | | 3 (moderate) ([facility]) | | + +--------+ + [...] | | | | | 3 (moderate) ([facility]) | | + +--------+ + [...] [address] | [place] [address] | [phone] | | LABORATORY | Phi. | | [...]
--- OUTSIDE RECORDS SUMMARY | ~2019-03-28 | XMS | Encounter Summary ---
Demographics + + + | Address | [address] | | | [place] [address] | + + + | Home Phone | | + + + | Preferred Language | Unknown | + + + | Marital Status | Unknown | + + + | Lutheran Affiliation | Unknown | + + + | Race | Unknown | + + + | Ethnic Group | Unknown | + + + Author + + + | Author | [facility] | + + + | Organization | [facility] | + + + | Address | Unknown | + + + | Phone | Unavailable | + + + Support + + + + + | Name | Relationship | Address | Phone | + + + + + | Isabel Cardona | ECON | [address] | | | | | [place] | | | | | [address] | | + + + + + Care Team Providers + +------+ + | Care Software Developer Intern Name | Role | Phone | [...] | | | | | [place] [address] | | | | | | [phone] | | | +--------+ + + + [...]
--- OUTSIDE RECORDS SUMMARY | ~2019-03-28 | XMS | Encounter Summary ---
Demographics + + + | Address | [address] | | | [place] [address] | + + + | Home Phone | | + + + | Preferred Language | Unknown | + + + | Marital Status | Unknown | + + + | Buddhist Affiliation | Unknown | + + + | Race | Unknown | + + + | Ethnic Group | Unknown | + + + Author + + + | Author | [facility] | + + + | Organization | [facility] | + + + | Address | Unknown | + + + | Phone | Unavailable | + + + Support + + + + + | Name | Relationship | Address | Phone | + + + + + | Isabel Cardona | ECON | [address] | | | | | [place] | | | | | [address] | | + + + + + Care Team Providers + +------+ + | Care Floor Mechanic Name | Role | Phone | + [...] + + | 03/01/ | Documentati | [facility] | Annel Whitten | Other (02/28/2019 | | 2019 | on Only | Infectious Disease | Мария Farley MD | [facility] | | | | [address] | [address] | RNA rcvd: 03/01/2019) | | | | [facility] [address] | [place] [address] | | | | | [place] [address] | [phone] | | | | | [phone] | | | +--------+ + + + [...] [place] | | | | | | [address] | | | | | | | [...] | [address] | [place] [address] | | | LABORATORY | 13 | | | + + + + + in this encounter Visit Diagnoses Not on filein this encounter"
--- OUTSIDE RECORDS SUMMARY | ~2019-03-28 | XMS | Encounter Summary ---
Demographics + + + | Address | [address] | | | [place] [address] | + + + | Home Phone | | + + + | Preferred Language | Unknown | + + + | Marital Status | Unknown | + + + | Restorationist Affiliation | Unknown | + + + | Race | Unknown | + + + | Ethnic Group | Unknown | + + + Author + + + | Author | [facility] | + + + | Organization | [facility] | + + + | Address | Unknown | + + + | Phone | Unavailable | + + + Support + + + + + | Name | Relationship | Address | Phone | + + + + + | Isabel Cardona | ECON | [address] | | | | | [place] | | | | | [address] | | + + + + + Care Team Providers + +------+ + | Care Egg Processing Supervisor Name | Role | Phone | [...] | | 2019 | on Only | [address] | [place] | 02/11/19) | | | | [address] | | | | | | [place] [address] | | | | | | [phone] | | | +--------+ + + + [...] [place] | | | | | | [address] | | | | | | | | +--------+---------+ + + + as of this encounter Visit Diagnoses Not on filein this encounter"
--- OUTSIDE RECORDS SUMMARY | ~2019-03-28 | XMS | Clinical Summary ---
Demographics + + + | Address | [address] | | | [place] [address] | + + + | Home Phone [...] + + | Author | [facility] | + + + | Organization | [facility] | + + + | Address | Unknown | + + + | Phone | Unavailable | + + + Support + + + + + | Name | Relationship | Address | Phone | + + + + + | Sen Cardona | ECON | [address] | | | | | [place] | | | | | [address] | | + + + + + Care Team Providers + +------+ + | Care Letter Of Credit Document Examiner Name | Role | Phone | [...] insulin | | | | | | ([facility]); Class 3 | | | | | [...] adult | | | | | | ([facility]) | +--------+ + + + + | [...] | | | | | | [address] [place] | | | | | | [phone] | | | | | | | [...] | [address] | [place] [address] | | | LABORATORY | 13 | [...] + + + | [facility] | [address] | [place] [address] | | | LABORATORY | 13 | [...] | + + + + + | [facility] | [address] | [place] [address] | [phone] | | LABORATORY | Blvd. | | [...] +------+-------+ + | MEDICAID | [place] | [id number] | | | [address] | | | [place] | | | | [place] | | | [place] | | | | [address] | | | BROADCAST OPERATIONS MANAGER | | | | | + +--------+ [...] | | al/Fam | | 1970 | [phone] | [place] | | | [place] | | | [phone] | [address] | + +--------+ +--------+ + +
--- OUTSIDE RECORDS SUMMARY | ~2019-03-28 | XMS | Clinical Summary ---
Demographics + + + | Address | [address] | | | [place] [address] | + + + | Home Phone [...] + + + | Author | [facility] | + + + | Organization | [facility] | + + + | Address | Unknown | + + + | Phone | Unavailable | + + + Support + + + + + | Name | Relationship | Address | Phone | + + + + + | Sen Cardona | ECON | [address] | | | | | [place] | | | | | [address] | | + + + + + [...] | 2018 | on Only | | MICHLELE Lovelace | 02/11/19) | +--------+ + + [...] | | | | | ([facility]); Class 3 | | | | [...] | | | | | ([facility]) | +--------+ + + + + [...] | | | | | | [address] [place] | | | | | | [phone] | | | | | | | [...] | [address] | [place] [address] | | | LABORATORY | 13 | [...] | [address] | [place] [address] | | | LABORATORY | 13 | [...] | + + + + + | [facility] | [address] | [place] [address] | [phone] | | LABORATORY | Blvd. | | [...] +------+-------+ + | MEDICAID | [place] | [id number] | | | [address] | | | N | | | | [place] | | | [place] | | | | [address] | | | GREEN MATERIAL VALUE ADDED ASSESSOR | | | | | + +--------+ [...] | | al/Fam | | 1970 | [phone] | [place] | | | [place] | | | [phone] | [address] | + +--------+ +--------+ + +
--- OUTSIDE RECORDS SUMMARY | ~2019-03-28 | XMS | Encounter Summary ---
Demographics + + + | Address | [address] | | | [place] [address] | + + + | Home Phone | | + + + | Preferred Language | Unknown | + + + | Marital Status | Unknown | + + + | Yarsani Affiliation | Unknown | + + + | Race | Unknown | + + + | Ethnic Group | Unknown | + + + Author + + + | Author | [facility] | + + + | Organization | [facility] | + + + | Address | Unknown | + + + | Phone | Unavailable | + + + Support + + + + + | Name | Relationship | Address | Phone | + + + + + | Isabel Cardona | ECON | [address] | | | | | [place] | | | | | [address] | | + + + + + Care Team Providers + +------+ + | Care Sandwich Wrapper Name | Role | Phone | + [...] | | [address] | [address] [place], [place] | ([facility]) (Primary Dx); | | | | [place] [address] | [address] | Bilateral leg edema; | | | | [phone] | | Anemia of chronic | | | | | | renal failure, stage | | | | | | 3 (moderate) ([facility]); | | | | | [...] insulin | | | | | | ([facility]); Class 3 | | | [...] adult | | | | | | ([facility]) | +--------+---------+ + + + [...] Ferritin, uric acid, urinalysis, Urine total pro rspo-yl-bmfmsrqpgk ratio before she comes back in 3 months.in this encounter Progress Notes Andrews Massey MD - 01/31/2019 12:00 PM PSTFormatting of this note may be different from th e original. Patient Active Problem List Diagnosis CKD (chronic kidney disease), stage III ([facility]) Essential (primary) hypertension Type 2 diabetes mellitus with diabetic nephropathy, with long-term current use of insul in (HCC) Persistent proteinuria Class 3 severe obesity due to excess calories without serious comorbidity with body mas s index (BMI) of 45.0 to 49.9 in adult (HCC) Hyperuricemia Anemia of chronic renal failure, stage 3 (moderate) ([facility]) Vitamin D deficiency Bilateral leg [...] to baseline with t he interventions at [facility]. The patient has history of hypertension [...] LABIRON 36.8 01/18/2019 LABPROT 2,352.9 (A) 10/08/2018 [id number] 22 (A) 04/21/2018 Assessment: Ms. Restrepo is [...] Ferritin, uric acid, urinalysis, Urine total pro napx-cn-zheifbbhdj ratio before she comes back in 3 [...] | | | | | | [address] [place], [place] | | | | | | [id number] | | | | | | | [...]
[~2019-03-28 14:43] MED LIST changes: +LASIX40 MG PO; +OXYCODONE HCL5 MG PO
[2019-03-28] MEDS ORDERED: TESSALON PERLE100 MG PO (17:48)
[2019-03-28] MEDS ORDERED: OXYCODONE HCL5 MG PO (17:48)
== END 2019-03-28 18:15 | disposition home or self-care (01) ==
LOC: ED 14:43
DX: S22.42XA Multiple fractures of ribs, left side, initial encounter for closed fracture (principal); E11.22 Type 2 diabetes mellitus with diabetic chronic kidney disease; I12.9 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e 4 chronic kidney disease, or unspecified chronic kidney disease; N18.3 Chronic kidney disease, stage 3 (moderate); N17.9 Acute kidney failure, unspecified; F32.9 Major depressive disorder, single episode, unspecified; E78.00 Pure hypercholesterolemia, unspecified; Z88.8 Allergy status to other drugs, medicaments and biological substances; Z88.1 Allergy status to other antibiotic agents; Z88.7 Allergy status to serum and vaccine; Z79.899 Other long term (current) drug therapy; Z79.52 Long term (current) use of systemic steroids; X58.XXXA Exposure to other specified factors, initial encounter
CPT/HCPCS: 74176; 80053; 85025; 96374; 99285-25; J1170

== ENCOUNTER 2019-05-16 18:43 | Emergency (ER) | payer OTHER ==
[~2019-05-16] VITALS: Ht 175.3 cm; Wt 154.2 kg
[~2019-05-16 18:43] MED LIST changes: +TESSALON PERLE100 MG PO
== END 2019-05-16 19:09 | disposition home or self-care (01) ==
LOC: ED 18:43
DX: Z76.0 Encounter for issue of repeat prescription (principal)

== ENCOUNTER 2019-05-19 13:46 | Emergency (ER) | payer OTHER ==
[~2019-05-19] VITALS: Ht 175.3 cm; Wt 154.2 kg
== END 2019-05-19 15:00 | disposition home or self-care (01) ==
LOC: ED 13:46
DX: T43.591A Poisoning by other antipsychotics and neuroleptics, accidental (unintentional), initial encounter (principal); I12.9 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e 4 chronic kidney disease, or unspecified chronic kidney disease; E11.9 Type 2 diabetes mellitus without complications; N18.3 Chronic kidney disease, stage 3 (moderate); Z90.49 Acquired absence of other specified parts of digestive tract; Z88.0 Allergy status to penicillin; Z88.1 Allergy status to other antibiotic agents; Z88.7 Allergy status to serum and vaccine; Z88.8 Allergy status to other drugs, medicaments and biological substances; Z79.52 Long term (current) use of systemic steroids; Z79.899 Other long term (current) drug therapy; Z79.4 Long term (current) use of insulin; Z79.82 Long term (current) use of aspirin
CPT/HCPCS: 96374; 99284-25; J2405

== ENCOUNTER 2020-04-03 16:03 | Emergency (ER) | payer OTHER ==
[~2020-04-03] VITALS: Ht 175.3 cm; Wt 160.1 kg
--- OUTSIDE RECORDS SUMMARY | ~2020-04-03 | XMS | Encounter Summary ---
Demographics + + + | Address | [address] | | [place] [address] | + + + | Home Phone | | + + + | Preferred Language | Unknown | + + + | Marital Status | Single | + + + | Yarsanism Affiliation | Unknown | + + + | Race | Unknown | + + + | Ethnic Group | Unknown | + + + Author + + + | Author | [facility] | | | and [place] | + + + | Organization | [facility] | | | and [place] | + + + | Address | Unknown | + + + | Phone | Unavailable | + + + Support + + +---------+ + | Name | Relationship | Address | Phone | + + +---------+ + | Angelina | ECON | Unknown | | | Brendan Mcneal | | | | + + +---------+ + Care Team Providers + +------+ + | Care Transformer Builder Name | Role | Phone | + +------+ + | Yessica Mayorga MD | PCP | | + +------+ + Encounter Details +--------+ + + + + | Date | Type | Department | Care Team | Description | +--------+ + + + + | 01/18/ | Orders Only | [facility] | Conversion | | | 2018 | | [facility] | Transaction, | | | | | [address] | Provider Unknown | | | | | [address] [place] [place] | | | | | | [address] | (Fax) | | | | | [phone] | | | +--------+ + + + + Social History + +-------+ +--------+------+ | Tobacco Use | Types | Packs/Day | Years | Date | | | | | Used | | + +-------+ +--------+------+ | Never Assessed | | | | | + +-------+ +--------+------+ + + + | Sex Assigned at | Date Recorded | | | | + + + | Not on file | | + + + + + + + | Job Start Date | Occupation | Industry | + + + + | Not on file | Not on file | Not on file | + + + + + + + + | Travel History | Travel Start | Travel End | + + + + + + | No recent travel history available. | + + documented as of this encounter Plan of Treatment +--------+---------+ + + + | Date | Type | Specialty | Care Team | Description | +--------+---------+ + + + | 04/30/ | Office | Nephrology | Andrews Massey MD | | | 2019 | Visit | | [address] [facility] | | | | | | [address] | | | | | | [address] | | | | | | | | +--------+---------+ + + + | 06/14/ | Office | Cardiology | Ольга Veloz DO | | | 2019 | Visit | | [address] | | | | | | [place] | | | | | | [address] | | | | | | | | +--------+---------+ + + + documented as of this encounter Procedures + +--------+ + + + | Procedure Name | Priori | Date/Time | Associated Diagnosis | Comments | | | ty | | | | + +--------+ + + + | IRON AND IRON | Routin | 01/18/2019 | | Results for this | | BINDING CAPACITY | e | 3:10 PM | | procedure are in the | | | | PST | | results section. | + +--------+ + + + | URIC ACID | Routin | 01/18/2019 | | Results for this | | | e | 3:10 PM | | procedure are in the | | | | PST | | results section. | + +--------+ + + + | FERRITIN | Routin | 01/18/2019 | | Results for this | | | e | 3:10 PM | | procedure are in the | | | | PST | | results section. | + +--------+ + + + documented in this encounter Results Iron and Iron Binding Capacity (01/18/2019 3:10 PM PST) + +--------+ + + + | Component | Value | Ref Range | Performed | Pathologist | | | | | At | Signature | + +--------+ + + + | Iron | 141.30 | 37 - 160 | EXTERNAL | | | | | | LAB | | + +--------+ + + + | Iron | 36.8 | 20 - 55 | EXTERNAL | | | Saturation | | | LAB | | + +--------+ + + + | TIBC | 384 | 245 - 400 | EXTERNAL | | | | | | LAB | | + +--------+ + + + + + | Specimen | + + | Blood specimen | | (specimen) | + + + +---------+ + + | Performing | Address | City/State/Zipcode | Phone Number | | Organization | | | | + +---------+ + + | EXTERNAL LAB | | | | + +---------+ + + Uric Acid (01/18/2019 3:10 PM PST) + +---------+ + + + | Component | Value | Ref Range | Performed | Pathologist | | | | | At | Signature | + +---------+ + + + | Uric Acid | 9.0 (A) | 2.3 - 6.6 | EXTERNAL | | | | | | LAB | | + +---------+ + + + + + | Specimen | + + | Blood specimen | | (specimen) | + + + +---------+ + + | Performing | Address | City/State/Zipcode | Phone Number | | Organization | | | | + +---------+ + + | EXTERNAL LAB | | | | + +---------+ + + Ferritin (01/18/2019 3:10 PM PST) + +-------+ + + + | Component | Value | Ref Range | Performed | Pathologist | | | | | At | Signature | + +-------+ + + + | Ferritin, | 81.60 | 13 - 150 ng/mL | EXTERNAL | | | External | | | LAB | | + +-------+ + + + + + | Specimen | + + | Blood specimen | | (specimen) | + + + +---------+ + + | Performing | Address | City/State/Zipcode | Phone Number | | Organization | | | | + +---------+ + + | EXTERNAL LAB | | | | + +---------+ + + documented in this encounter Visit Diagnoses Not on filedocumented in this encounter"
--- OUTSIDE RECORDS SUMMARY | ~2020-04-03 | XMS | Encounter Summary ---
Demographics + + + | Address | [address] | | | [place] [address] | + + + | Home Phone | | + + + | Preferred Language | Unknown | + + + | Marital Status | Single | + + + | Oriental Orthodox Affiliation | Unknown | + + + | Race | Unknown | + + + | Ethnic Group | Unknown | + + + Author + + + | Author | [facility] | | | and [place] | + + + | Organization | [facility] | | | and [place] | + + + | Address | Unknown | + + + | Phone | Unavailable | + + + Support + + +---------+ + | Name | Relationship | Address | Phone | + + +---------+ + | Angelina Mendenhall ECON | Unknown | | | Brendan Mcneal | | | | + + +---------+ + Care Team Providers + +------+ + | Care Director Of Counseling Name | Role | Phone | + +------+ + | Lisa Mcclain MD | PCP | | + +------+ + Reason for Visit Auth/Cert +--------+--------+ + + + + | Status | Reason | Specialty | Diagnoses / | Referred By | Referred To | | | | | Procedures | Contact | Contact | +--------+--------+ + + + + | | | | Diagnoses | | | | | | | Iron | | | | | | | deficiency | | | | | | | anemia due | | | | | | | to chronic | | | | | | | blood loss | | | | | | | Procedures | | | | | | | [place] EGD | | | | | | | TRANSORAL | | | | | | | BIOPSY | | | | | | | SINGLE/MULTI | | | | | | | PLE [place] | | | | | | | ANESTHESIA | | | | | | | UPPER GI | | | | | | | ENDOSCOPIC | | | | | | | PX NOS EGD | | | +--------+--------+ + + + + Encounter Details +--------+---------+ + + + | Date | Type | Department | Care Team | Description | +--------+---------+ + + + | 11/21/ | Surgery | [facility] | Doron Herrera | EGD | | 2019 | | [facility] | MD [address] | | | | | INTRA [address] | [place] | | | | | [place] | [address] | | | | | [address] | | | | | | [phone] | | | +--------+---------+ + + + Social History + +-------+ +--------+------+ | Tobacco Use | Types | Packs/Day | Years | Date | | | | | Used | | + +-------+ +--------+------+ | Never Smoker | | | | | + +-------+ +--------+------+ + +---+---+---+ | Smokeless Tobacco: | | | | | Never Used | | | | + +---+---+---+ + + +---------+ + | Alcohol Use | Drinks/Week | oz/Week | Comments | + + +---------+ + | Not Currently | | | Last drink 12/2018 | + + +---------+ + + + + | Sex Assigned at [...] + + documented as of this encounter Last Filed Vital Signs + + + + + | Vital Sign | Reading | Time Taken | Comments | + + + + + | Blood Pressure | 179/94 | 11/21/2019 9:50 AM | | | | | PST | | + + + + + | Pulse | 87 | 11/21/2019 9:50 AM | | | | | PST | | + + + + + | Temperature | 36.4 C (97.5 F) | 11/21/2019 9:37 AM | | | | | PST | | + + + + + | Respiratory Rate | 18 | 11/21/2019 9:50 AM | | | | | PST | | + + + + + | Oxygen Saturation | 96% | 11/21/2019 9:50 AM | | | | | PST | | + + + + + | Inhaled Oxygen | - | - | | | Concentration | | | | + + + + + | Weight | 160 kg (352 lb 11.8 | 11/21/2019 8:37 AM | | | | oz) | PST | | + + + + + | Height | 175.3 cm (5' 9") | 11/21/2019 8:37 AM | | | | | PST | | + + + + + | Body Mass Index | 52.09 | 11/21/2019 8:37 AM | | | | | PST | | + + + + + documented in this encounter Medications at Time of Discharge + + + +---------+ + + | Medication | Sig | Dispensed | Refills | Start | End Date | | | | | | Date | | + + + +---------+ + + | allopurinol | Take 1 tablet by | 30 | 11 | 05/09/20 | | | (ZYLOPRIM) 100 mg | mouth daily. | tablet | | 19 | 0 | | tablet | | | | | | + + + +---------+ + + | ASPIRIN ADULT LOW | Take 1 tablet by | | 0 | 10/10/20 | | | STRENGTH 81 MG EC | mouth Daily. | | | 19 | | | tablet | | | | | | + + + +---------+ + + | B-D INS SYRINGE | | | 1 | 07/04/20 | | | 0.5CC/31GX5/16 31G X | | | | 18 | | | 16" 0.5 ML MISC | | | | | | + + + +---------+ + + | BASAGLAR KWIKPEN | Daily. 62 units in | | 0 | 10/10/20 | | | 100 UNIT/ML | AM 45 units in PM | | | 19 | | | injection (pen) | | | | | | + + + +---------+ + + | BD SHARPS | | | 0 | 06/09/20 | | | CONTAINER HOME MISC | | | | 18 | | + + + +---------+ + + | buPROPion | Take 300 mg by mouth | | 0 | 06/03/20 | | | (WELLBUTRIN XL) 300 | daily. | | | 18 | | | mg 24 hr tablet | | | | | | + + + +---------+ + + | busPIRone (BUSPAR) | Take 15 mg by mouth | | 0 | 05/09/20 | | | 15 mg tablet | 3 (three) times | | | 19 | | | | daily. | | | | | + + + +---------+ + + | Calcium | Take by mouth | | 0 | 06/03/20 | | | Carb-Cholecalciferol | daily. | | | 18 | | | (CALCIUM-VITAMIN D) | | | | | | | 600-400 MG-UNIT | | | | | | | TABS | | | | | | + + + +---------+ + + | docusate sodium | Take 100 mg by mouth | | 0 | 06/03/20 | | | (COLACE) 100 mg | 2 (two) times | | | 18 | | | capsule | daily. | | | | | + + + +---------+ + + | famotidine | Take 20 mg by mouth | | 0 | 06/18/20 | | | (PEPCID) 20 mg | nightly as needed. | | | 18 | | | tablet | | | | | | + + + +---------+ + + | ferrous sulfate | Take 1 tablet by | 180 | 3 | 08/24/20 | | | 325 mg | mouth 2 times daily | tablet | | 19 | | | tabletIndications: | (with breakfast & | | | | | | Anemia of chronic | dinner). | | | | | | renal failure, stage | | | | | | | 3 (moderate) (HCC) | | | | | | + + + +---------+ + + | Fish Oil 1000 MG | Take 1 g by mouth | | 0 | 05/09/20 | | | delayed release | daily. | | | 19 | | | capsule | | | | | | + + + +---------+ + + | FLUoxetine HCl 60 | Take 60 mg by mouth | | 0 | 06/03/20 | | | MG TABS | daily. | | | 18 | | + + + +---------+ + + | gabapentin | Take 600 mg by mouth | | 0 | 06/03/20 | | | (NEURONTIN) 300 mg | 3 (three) times | | | 18 | | | capsule | daily. | | | | | + + + +---------+ + + | levothyroxine | Take 75 mcg by mouth | | 0 | 06/03/20 | | | (SYNTHROID) 25 mcg | every morning | | | 18 | | | tablet | before breakfast. | | | | | + + + +---------+ + + | LIRAGLUTIDE SC | Inject under the | | 0 | | | | | skin as needed. For | | | | | | | low blood sugar | | | | | + + + +---------+ + + | melatonin 5 mg | Take 20 mg by mouth | | 0 | | | | tablet | nightly. | | | | | + + + +---------+ + + | niacin 500 mg | Take 500 mg by mouth | | 0 | | | | tablet | every morning. | | | | | + + + +---------+ + + | NIFEdipine (ADALAT | Take 90 mg by mouth | | 0 | | | | CC) 60 MG 24 hr | every evening. | | | | | | tablet | | | | | | + + + +---------+ + + | NOVOLOG FLEXPEN | Daily. Sldg Scale | | 0 | 11/11/20 | | | 100 UNIT/ML | with 18 units | | | 19 | | | injection pen | breakfast and lunch; | | | | | | | 22 units with | | | | | | | dinner | | | | | + + + +---------+ + + | nystatin | Apply topically as | | 0 | 06/21/20 | | | (MYCOSTATIN) [id number] | needed. | | | 18 | | | UNIT/GM cream | | | | | | + + + +---------+ + + | pravastatin | Take 40 mg by mouth | | 0 | 05/09/20 | | | (PRAVACHOL) 40 MG | nightly. | | | 19 | | | tablet | | | | | | + + + +---------+ + + | prazosin | Take 2 mg by mouth | | 0 | 05/09/20 | | | (MINIPRESS) 2 MG | nightly. | | | 19 | | | capsule | | | | | | + + + +---------+ + + | prazosin | Take by mouth | | 0 | 07/11/20 | | | (MINIPRESS) 5 mg | nightly. | | | 18 | | | capsule | | | | | | + + + +---------+ + + | senna (SENNA) 8.6 | Take 1 tablet by | | 0 | 06/03/20 | | | mg tablet | mouth daily. | | | 18 | | + + + +---------+ + + | SUMAtriptan | Take 50 mg by mouth | | 0 | | | | (IMITREX) 50 mg | as needed for | | | | | | tablet | Migraine. | | | | | + + + +---------+ + + | amitriptyline | Take 100 mg by mouth | | 0 | 06/03/20 | | | (ELAVIL) 25 mg | nightly. | | | 18 | 0 | | tablet | | | | | | + + + +---------+ + + documented as of this encounter Plan of Treatment +--------+---------+ + + + | Date | Type | Specialty | Care Team | Description | +--------+---------+ + + + | 04/30/ | Office | Nephrology | Andrews Massey MD | | | 2019 | Visit | | [address] [facility] | | | | | | [address] | | | | | | [address] | | | | | | | | +--------+---------+ + + + | 06/14/ | Office | Cardiology | Ольга Veloz DO | | | 2019 | Visit | | [address] | | | | | | [place] | | | | | | [address] | | | | | | | | +--------+---------+ + + + documented as of this encounter Procedures + +--------+ + + + | Procedure Name | Priori | Date/Time | Associated Diagnosis | Comments | | | ty | | | | + +--------+ + + + | SURGICAL PATHOLOGY | Routin | 11/21/2019 | Iron deficiency | Results for this | | EXAM | e | 9:25 AM | anemia due to | procedure are in the | | | | PST | chronic blood loss | results section. | + +--------+ + + + | *TERMED* [place] UPPER GI | Routin | 11/21/2019 | | Results for this | | ENDOSCOPY,EXAM | e | 9:13 AM | | procedure are in the | | | | PST | | results section. | + +--------+ + + + | EGD | | 11/21/2019 | Iron deficiency | | | | | 9:08 AM | anemia due to | | | | | PST | chronic blood loss | | + +--------+ + + + +---+--------+ | | | | | Specia | | | l | | | Needs | | | | | | 11/21/ | | | 19, 9 | | | am | | | with | | | anesth | | | esia | +---+--------+ documented in this encounter Results Surgical Pathology Exam (11/21/2019 9:25 AM PST) + + | Specimen | + + | Tissue - Duodenal | | biopsy sample | | (specimen) | + + + ---------+ + | Narrative | Performed At | + ---------+ + | SPECIMEN(S): A | [facility] | | DUODENAL BIOPSY SPECIMEN SOURCE:A. DUODENAL BIOPSY CLINICAL | [facility] | | HISTORY:D50.0 (iron deficiency anemia secondary to blood loss | | | [chronic]) MICROSCOPIC DESCRIPTION:Histologic sections of all | | | submitted blocks are examined by light microscopy. These findings, | | | together with the gross examination, support the pathologic diagnosis. | | | FINAL PATHOLOGIC DIAGNOSIS:Duodenum, biopsy: - No pathologic | | | abnormality, including no evidence of celiac disease or peptic | | | duodenitis GROSS DESCRIPTION:The specimen, labeled "MO," is received | | | in formalin and consists of three pink-cason soft tissue fragment(s) | | | that measure 0.2-0.3 cm in greatest dimension. The specimen is | | | entirely submitted in cassette(A1).JS (under the direct supervision of | | | a pathologist) The Gross Description was prepared using a voice | | | recognition system. The report was reviewed for accuracy; however, | | | sound-alike word errors, addition and/or deletions may occur. If | | | there is anyquestion about this report, please contact Client | | | Services. PERFORMING LABORATORY:The professional interpretation was | | | performed by [facility] | | | [place], [place] (Scheduling Representative: August Bray M.D.; | | | CLIA#: [id number]).The technical component was performed by [employer] | | | [place] [address] (Scheduling Representative: | | | Brooklyn Hunter MD; CLIA# [id number]). Diagnostician: August Bray | | | MDPathologistElectronically Signed 11/24/2019 | | |PERFORMING LABORATORY: | | |The professional interpretation was performed by [facility] (Scheduling Representative: August Bray M.D.; CLIA#: [id number]). | | |The technical component was performed by [facility] [facility], [address] [place] [id number] (Scheduling Representative: Brooklyn Hunter MD; CLIA# [id number]). | | | | | |Diagnostician: August Bray MD | | |Pathologist | | |Electronically Signed 11/24/2019 | | | | | | | | + ---------+ + + +---------+ + + | Performing | Address | City/State/Zipcode | Phone Number | | Organization | | | | + +---------+ + + | [facility] | | | | | [facility] | | | | + +---------+ + + EGD (11/21/2019 9:13 AM PST) + + | Specimen | + + | | + + + + + | Narrative | Performed At | + + + | Pratik | [facility] | | [facility] | [facility] | | [facility] | | | Patient Name: Wayne , | | | Isabel Harrell Procedure Date: 11/21/2019 9:13 AMMRN: [id number] | | | of : | | | 1970 Note Status: FinalizedAttending MD: | | | Doron Herrera IV , | | | | | | Procedure Type: Upper GI | | | endoscopyIndications: Suspected upper | | | gastrointestinal bleeding in patient | | | with unexplained iron deficiency anemia, | | | Gastro-esophageal reflux diseaseMedicines: | | | See the Anesthesia note for documentation of the | | | administered medicationsComplications: | | | No immediate | | | complications. | | | Procedure: Pre-Anesthesia Assessment: | | | - Prior to the procedure, a History and Physical was performed, and | | | patient medications and allergies were reviewed. The patient's | | | tolerance of previous anesthesia was also reviewed. The risks | | | and benefits of the procedure and the sedation options and | | | risks were discussed with the patient. All questions were | | | answered, and informed consent was obtained. Prior | | | Anticoagulants: The patient last took aspirin 1 day prior to the | | | procedure. ASA Grade Assessment: III - A patient with severe | | | systemic disease. After reviewing the risks and benefits, the | | | patient was deemed in satisfactory condition to undergo the | | | procedure. After obtaining informed consent, the endoscope was | | | passed under direct vision. Throughout the procedure, the | | | patient's blood pressure, pulse, and oxygen saturations were | | | monitored continuously. The Endoscope was introduced through | | | the mouth, and advanced to the second part of duodenum. The | | | upper GI endoscopy was accomplished without difficulty. The | | | patient tolerated the procedure well. | | | | | | Estimated Blood Loss: Estimated blood loss was | | | minimal.Findings: The Z-line was regular and was found 40 cm | | | from the incisors. A single diminutive erosion was found at the | | | gastroesophageal junction. At the GE junction there was a | | | diminutive erosion evident without more extensive changes of | | | erosive esophagitis or any changes to suggest eosinophilic | | | esophagitis. The exam of the esophagus was otherwise normal. | | | A medium amount of food (residue) was found in the gastric body. | | | Moderate amount of retained food in the stomach limiting | | | visualization and examination of the stomach also due to the | | | need to minimize any air insufflation. Antral area was felt to | | | have been well seen however and did not show any antral | | | vascular ectasia or ulcerations. A few localized erosions | | | without bleeding were found in the second portion of the | | | duodenum. Biopsies were taken with a cold forceps for | | | histology. Estimated blood loss was minimal. Suggestion of some | | | superficial erosions in the duodenum. Had to limit air | | | insufflation due to retained food in the stomach. No overt | | | ulcerations seen. Biopsies were taken of the duodenal mucosa for | | | histology. | | | | | | Impression: - Z-line regular, 40 cm from the incisors. - A | | | single erosion at the gastroesophageal junction. - At the GE | | | junction there was a diminutive erosion evident without more | | | extensive changes of erosive esophagitis or any changes to suggest | | | eosinophilic esophagitis. - A medium amount of food | | | (residue) in the stomach. - Moderate amount of retained food in | | | the stomach limiting visualization and examination of the | | | stomach also due to the need to minimize any air insufflation. | | | Antral area was felt to have been well seen however and did not | | | show any antral vascular ectasia or ulcerations. - Duodenal | | | erosions without bleeding. Biopsied. - Suggestion of some | | | superficial erosions in the duodenum. Had to limit air | | | insufflation due to retained food in the stomach. No overt | | | ulcerations seen. Biopsies were taken of the duodenal mucosa for | | | histology. - Suspect component of delayed gastric emptying | | | due to her underlying diabetes.Recommendation: - Patient | | | has a contact number available for emergencies. The signs and | | | symptoms of potential delayed complications were discussed with the | | | patient. Return to normal activities tomorrow. Written discharge | | | instructions were provided to the patient. - Resume | | | previous diet. - Continue present medications. - Await | | | pathology results. - Could pursue capsule endoscopy as was | | | requested. Would however strongly recommend a very low residue | | | diet and probably even liquid diet for couple days as possible | | | prior to the study since retained food products will completely | | | impair performance of capsule endoscopy. - Though not severe | | | there was some evidence of early erosive esophagitis. Would | | | emphasize to her the need to take acid reduction therapy on a | | | regular basis rather than sporadically. Doron Laguna | | | Javier ARREDONDO, 11/21/2019 9:39:38 AMThis report has been signed | | | electronically. Note Initiated On: 11/21/2019 9:13 AMNumber of | | | Addenda: 0 [facility] | | | | | |Doron Herrera IV, | | |11/21/2019 9:39:38 AM | | |This report has been signed electronically. | | | | | |Note Initiated On: 11/21/2019 9:13 AM | | |Number of Addenda: 0 | | | | | | [facility] | | + + + + +---------+ + + | Performing | Address | City/State/Zipcode | Phone Number | | Organization | | | | + +---------+ + + | [facility] | | | | + +---------+ + + documented in this encounter Visit Diagnoses + + | Diagnosis | + + | Iron deficiency anemia due to chronic blood loss Iron deficiency anemia secondary to | | blood loss (chronic) | + + documented in this encounter Admitting Diagnoses + + | Diagnosis | + + | Iron deficiency anemia due to chronic blood loss Iron deficiency anemia secondary to | | blood loss (chronic) | + + documented in this encounter Administered Medications + +---------+ +------+-------+------+ | Medication Order | MAR | Action | Dose | Rate | Site | | | Action | Date | | | | + +---------+ +------+-------+------+ | sodium chloride 0.9% (NS) | New Bag | 11/21/20 | | 100 | | | infusion at 100 mL/hr, | | 19 8:53 | | mL/hr | | | Intravenous, CONTINUOUS, Starting | | AM PST | | | | | 11/21/19 at 0845, Pre-op | | | | | | + +---------+ +------+-------+------+ +---+---+ | | | +---+---+ documented in this encounter
--- OUTSIDE RECORDS SUMMARY | ~2020-04-03 | XMS | Encounter Summary ---
Demographics + + + | Address | [address] | | | [place] [address] | + + + | Home Phone | | + + + | Preferred Language | Unknown | + + + | Marital Status | Single | + + + | Hoahaoism Affiliation | Unknown | + + + | Race | Unknown | + + + | Ethnic Group | Unknown | + + + Author + + + | Author | [facility] | | | and [place] | + + + | Organization | [facility] | | | and [...] Team Providers + +------+ + | Care Health Editor Name | Role | Phone | + +------+ + | Lisa Mcclain MD | PCP | | + +------+ + Encounter Details +--------+ + + + + | Date | Type | Department | Care Team | Description | +--------+ + + + + | 07/12/ | Orders Only | [facility] | Conversion | | | 2018 | | CONVERSION [address] | Transaction, | | | | | [address] | Provider Unknown | | | | | [place], [place] | [phone] | | | | | [phone] | (Fax) | | | | | [phone] | | | +--------+ + + + [...] Massey MD | | | 2020 | Visit | | [address] | | | | | | [address] [place] | | | | | | [address] | | | | | | | | +--------+---------+ + + + | 06/14/ | Office | Cardiology | Ольга Veloz DO | | | 2019 | Visit | | [address] | | | | | | [place] | | | | | | [address] | | | | | | | | +--------+---------+ + + + documented as of this encounter Visit Diagnoses Not on filedocumented in this encounter"
--- OUTSIDE RECORDS SUMMARY | ~2020-04-03 | XMS | Encounter Summary ---
Demographics + + + | Address | [address] | | | [place] [address] | + + + | Home Phone | | + + + | Preferred Language | Unknown | + + + | Marital Status | Single | + + + | Congregation Affiliation | Unknown | + + + | Race | Unknown | + + + | Ethnic Group | Unknown | + + + Author + + + | Author | [facility] | | | and [place] | + + + | Organization | [facility] | | | [...] Team Providers + +------+ + | Care Montessori Toddler Teacher Name | Role | Phone | + +------+ + | Yessica Mayorga MD | PCP | | + +------+ + Encounter Details +--------+ + + + + | Date | Type | Department | Care Team | Description | +--------+ + + + + | 05/06/ | Orders Only | [facility] | Conversion | | | 2019 | | NEPHROLOGY MARK | Transaction, | | | | | [address] | Provider Unknown | | | | | [address] [place] | | | | | | [phone] | (Fax) | | | | | [phone] | | | +--------+ + + + [...] 2019 | Visit | | [address] [facility] | | | | | | [address] [place] | | | | | | [address] | | | | | | | | +--------+---------+ + + + | 06/14/ | Office | Cardiology | Ольга Veloz DO | | | 2019 | Visit | | [address] | | | | | | [place] | | | | | | [address] | | | | | | | | +--------+---------+ + + + documented as of this encounter Procedures + +--------+ + + + | Procedure Name | Priori | Date/Time | Associated Diagnosis | Comments | | | ty | | | | + +--------+ + + + | IRON AND IRON | Routin | 05/06/2019 | | Results for this | | BINDING CAPACITY | e | 10:14 AM | | procedure are in the | | | | PDT | | results section. | + +--------+ + + + | FERRITIN | Routin | 05/06/2019 | | Results for this | | | e | 10:14 AM | | procedure are in the | | | | PDT | | results section. | + +--------+ + + + documented in this encounter Results Iron and Iron Binding Capacity (05/06/2019 10:14 AM PDT) + + + + + + | Component | Value | Ref Range | Performed | Pathologist | | | | | At | Signature | + + + + + + | Iron | 54.62 | 37 - 160 | EXTERNAL | | | | | | LAB | | + + + + + + | Iron | 16.5 (A) | 20 - 55 | EXTERNAL | | | Saturation | | | LAB | | + + + + + + | TIBC | 331 | 245 - 400 | EXTERNAL | [...] | | + +---------+ + + Ferritin (05/06/2019 10:14 AM PDT) + +-------+ + + + | Component | Value | Ref Range | Performed | Pathologist | | | | | At | Signature | + +-------+ + + + | Ferritin, | 71.63 | 13 - 150 ng/mL | EXTERNAL [...]
--- OUTSIDE RECORDS SUMMARY | ~2020-04-03 | XMS | Encounter Summary ---
Demographics + + + | Address | [address] | | | [place] [address] | + + + | Home Phone | | + + + | Preferred Language | Unknown | + + + | Marital Status | Single | + + + | Synagogue Affiliation | Unknown | + + + | Race | Unknown | + + + | Ethnic Group | Unknown | + + + Author + + + | Author | [facility] | | | and [place] | + + + | Organization | [facility] | | | and [...] Team Providers + +------+ + | Care Surface Logging Systems Logger Name | Role | Phone | + +------+ + | Lisa Mcclain MD | PCP | | + +------+ + Encounter Details +--------+ + + + + | Date | Type | Department | Care Team | Description | +--------+ + + + + | 07/19/ | Orders Only | [facility] | Andrews Massey MD | | | 2019 | | [address] | [address] [place] | | | | | [address] | [address] [place], [place] | | | | | [facility] [address] [address] | [address] | | | | | [place], [place] | | | | | | [address] | | | | | | [phone] | | | +--------+ + + + [...] 2019 | Visit | | [address] [place] | | | | | | [address] [place] | | | | | | [address] | | | | | | | | +--------+---------+ + + + | 06/14/ | Office | Cardiology | Ольга Veloz DO | | | 2019 | Visit | | [address] | | | | | | [place] | | | | | | [phone] | | | | | | | | +--------+---------+ + + + documented as of this encounter Visit Diagnoses Not on filedocumented in this encounter"
--- OUTSIDE RECORDS SUMMARY | ~2020-04-03 | XMS | Encounter Summary ---
Demographics + + + | Address | [address] | | | [place] [address] | + + + | Home Phone | | + + + | Preferred Language | Unknown | + + + | Marital Status | Single | + + + | Methodist Affiliation | Unknown | + + + | Race | Unknown | + + + | Ethnic Group | Unknown | + + + Author + + + | Author | [facility] | | | and [place] | + + + | Organization | [facility] | | | [...] Team Providers + +------+ + | Care Dishtank Operator Name | Role | Phone | + +------+ + | Yessica Mayorga MD | PCP | | + +------+ + Encounter Details +--------+ + + + + | Date | Type | Department | Care Team | Description | +--------+ + + + + | 05/20/ | Orders Only | [facility] | Andrews Massey MD | | | 2019 | | NEPHROLOGY [place] | [address] [place] | | | | | [address] [place] | [address] [place], [place] | | | | | [address] [place], [place] | [address] | | | | | [address] | | | | | | [phone] | | | +--------+ + + + [...] | Visit | | [address] [place] | | | | | | [address] [place] | | | | | | [address] | | | | | | | | +--------+---------+ + + + | 06/14/ | Office | Cardiology | Ольга Veloz DO | | | 2019 | Visit | | [address] | | | | | | [place] | | | | | | [address] | | | | | | | | +--------+---------+ + + + documented as of this encounter Procedures + +--------+ + + + | Procedure Name | Priori | Date/Time | Associated Diagnosis | Comments | | | ty | | | | + +--------+ + + + | EXTERNAL LAB: [facility] | Routin | 05/20/2019 | | Results for this | | | e | 9:06 AM | | procedure are in the | | | | PDT | | results section. | + +--------+ + + + | BASIC METABOLIC | Routin | 05/20/2019 | | Results for this | | PANEL | e | 9:06 AM | | procedure are in the | | | | PDT | | results section. | + +--------+ + + + documented in this encounter Results External Lab: [facility] (05/20/2019 9:06 AM PDT) + + + + + + | Component | Value | Ref Range | Performed | Pathologist | | | | | At | Signature | + + + + + + | WBC | 6.4 | 4.5 - 11.0 10 | EXTERNAL | | | | | | LAB | | + + + + + + | Red Blood | 3.49 (A) | 3.8 - 5.1 10 | EXTERNAL | | | Cells | | | LAB | | | Counted | | | | | + + + + + + | Hemoglobin | 10.5 (A) | 12.0 - 16.0 | EXTERNAL | | | | | g/dL | LAB | | + + + + + + | Hematocrit, | 31.7 (A) | 35 - 45 % | EXTERNAL | | | POC | | | LAB | | + + + + + + | MCV | 90.9 | 81 - 99 fL | EXTERNAL | | | | | | LAB | | + + + + + + | MCH | 30 | 27 - 33 pg | EXTERNAL | | | | | | LAB | | + + + + + + | MCHC | 33 | 30 - 36 g/dL | EXTERNAL | | | | | | LAB | | + + + + + + | Platelet | 250 | 140 - 440 K/ L | EXTERNAL | | | Count | | | LAB | | | Plasma | | | | | + + + + + + | RDW-CV | 14.7 | 10.5 - 15.0 % | EXTERNAL [...] + + + | % Segmented | 52.6 | 39 - 80 % | EXTERNAL | | | | | | LAB | | | Neutrophils | | | | | + + + + + + | % | 34.5 | 24 - 44 % | EXTERNAL | | | Lymphocytes | | | LAB | | + + + + + + | % Monocytes | 8.6 | 0 - 12 % | EXTERNAL | | | | | | LAB | | + + + + + + | % | 3.0 | 0 - 6 % | EXTERNAL | | | Eosinophils | | | LAB | | + + + + + + | % Basophils | 1.3 | 0 - 2 % | EXTERNAL [...] | | | + +---------+ + + Basic Metabolic Panel (05/20/2019 9:06 AM PDT) + + + + + + | Component | Value | Ref Range | Performed | Pathologist | | | | | At | Signature | + + + + + + | Glucose, | 180 (A) | 70 - 100 mg/dL | EXTERNAL | | | Fasting | | | LAB | | + + + + + + | BUN | 45 (A) | 6 - 23 mg/dL | EXTERNAL | | | | | | LAB | | + + + + + + | Creatinine | 2.41 (A) | 0.60 - 1.35 | EXTERNAL | | | | | mg/dL | LAB | | + + + + + + | BUN/Creatin | 18.7 | 6.0 - 28.6 | EXTERNAL | | | ine Ratio | | | LAB | | + + + + + + | Calcium | 10.6 (A) | 8.5 - 10.3 | EXTERNAL | | | | | mg/dL | LAB | | + + + + + + | Na | 136 | 132 - 143 | EXTERNAL | | | | | mmol/L | LAB | | + + + + + + | K | 4.8 | 3.6 - 5.1 | EXTERNAL | | | | | mmol/L | LAB | | + + + + + + | Cl | 102 | 95 - 112 mmol/L | EXTERNAL | | | | | | LAB | | + + + + + + | CO2 | 23 | 19 - 31 mmol/L | EXTERNAL | | | | | | LAB | | + + + + + + | Anion Gap | 15.8 | 7 - 21 mmol/L | EXTERNAL | | | | | | LAB | | + + + + + + | Estimated | 21 (A) | 60 - 140 mg/dL | [...]
--- OUTSIDE RECORDS SUMMARY | ~2020-04-03 | XMS | Encounter Summary ---
Demographics + + + | Address | [address] | | | [place] [address] | + + + | Home Phone | | + + + | Preferred Language | Unknown | + + + | Marital Status | Single | + + + | Evangelical Affiliation | Unknown | + + + | Race | Unknown | + + + | Ethnic Group | Unknown | + + + Author + + + | Author | [facility] | | | and [place] | + + + | Organization | [facility] | | | [...] Team Providers + +------+ + | Care C Winforms Developer Name | Role | Phone | + +------+ + | Lisa Mcclain MD | PCP | | + +------+ + Encounter Details +--------+ + + + + | Date | Type | Department | Care Team | Description | +--------+ + + + + | 08/24/ | Orders Only | [facility] | Andrews Massey MD | Essential (primary) | | 2019 | | NEPHROLOGY [place] | [address] [place] | hypertension | | | | [address] [place] | [address] [place], [place] | (Primary Dx); CKD | | | | [address] [place], [place] | [address] | (chronic kidney | | | | [address] | | disease), stage III | | | | [phone] | | (HCC); Anemia of | | | | | | chronic renal | | | | | | failure, stage 3 | | | | | | (moderate) (HCC) | +--------+ + + + + Social [...] 2019 | [facility] | | [address] [facility] | | | | | | [address] [place] | | | | | | [address] | | | | | | | | +--------+---------+ + + + | 06/14/ | Office | Cardiology | Ольга Veloz DO | | | 2019 | Visit | | [address] | | | | | | [place] | | | | | | [address] | | | | | | | | +--------+---------+ + + + + +------+--------+ + + | Name | Type | Priori | Associated Diagnoses | Order Schedule | | | | ty | | | + +------+--------+ + + | Basic Metabolic | Lab | Routin | Essential | Expected: | | Panel | | e | (primary) | 09/28/2019, Expires: | | | | | hypertension CKD | 08/24/2020 | | | | | (chronic kidney | | | | | | disease), stage III | | | | | | (HCC) | | + +------+--------+ + + | CBC with | Lab | Routin | Essential | Expected: | | Differential | | e | (primary) | 09/28/2019, Expires: | | | | | hypertension CKD | 08/24/2020 | | | | | (chronic kidney | | | | | | disease), stage III | | | | | | (HCC) | | + +------+--------+ + + | Renal Function Panel | Lab | Routin | Essential | Expected: | | | | e | (primary) | 11/23/2019, Expires: | | | | | hypertension CKD | 08/24/2020 | | | | | (chronic kidney | | | | | | disease), stage III | | | | | | (HCC) | | + +------+--------+ + + | CBC with | Lab | Routin | Essential | Expected: | | Differential | | e | (primary) | 11/23/2019, Expires: | | | | | hypertension CKD | 08/24/2020 | | | | | (chronic kidney | | | | | | disease), stage III | | | | | | (HCC) | | + +------+--------+ + + | Iron and Iron | Lab | Routin | Essential | Expected: | | Binding Capacity | | e | (primary) | 11/23/2019, Expires: | | | | | hypertension CKD | 08/24/2020 | | | | | (chronic kidney | | | | | | disease), stage III | | | | | | (HCC) Anemia of | | | | | | chronic renal | | | | | | failure, stage 3 | | | | | | (moderate) (HCC) | | + +------+--------+ + + | Ferritin | Lab | Routin | Essential | Expected: | | | | e | (primary) | 11/23/2019, Expires: | | | | | hypertension CKD | 08/24/2020 | | | | | (chronic kidney | | | | | | disease), stage III | | | | | | (HCC) Anemia of | | | | | | chronic renal | | | | | | failure, stage 3 | | | | | | (moderate) (HCC) | | + +------+--------+ + + | Uric Acid | Lab | Routin | Essential | Expected: | | | | e | (primary) | 11/23/2019, Expires: | | | | | hypertension CKD | 08/24/2020 | | | | | (chronic kidney | | | | | | disease), stage III | | | | | | (HCC) | | + +------+--------+ + + | Protein/Creatinine | Lab | Routin | Essential | Expected: | | Ratio, Urine | | e | (primary) | 11/23/2019, Expires: | | | | | hypertension CKD | 08/24/2020 | | | | | (chronic kidney | | | | | | disease), stage III | | | | | | (HCC) | | + +------+--------+ + + documented as of this encounter Visit Diagnoses + + | Diagnosis | + + | Essential (primary) hypertension - Primary Unspecified essential hypertension | + + | CKD (chronic kidney disease), stage III (HCC) Chronic kidney disease, Stage III | | (moderate) | + + | Anemia of chronic renal failure, stage 3 (moderate) (HCC) | + + documented in this encounter"
--- OUTSIDE RECORDS SUMMARY | ~2020-04-03 | XMS | Encounter Summary ---
Demographics + + + | Address | [address] | | | [place] [address] | + + + | Home Phone | | + + + | Preferred Language | Unknown | + + + | Marital Status | Single | + + + | Voodoo Affiliation | Unknown | + + + [...] [place] ECON | Unknown | | | Brendna Mcneal | | | | + + +---------+ + Care Team Providers + +------+ + | Care Insulation Worker Interior Surface Name | Role | Phone | + +------+ + | Lisa Mcclain MD | PCP | | + +------+ + Reason for Visit +--------+ + | Reason | Comments | +--------+ + | Other | | +--------+ + Encounter Details +--------+ + + + + | Date | Type | Department | Care Team | Description | +--------+ + + + + | 12/12/ | Telephone | [facility] | Jamie, | Other | | 2020 | | GASTROENTEROLOGY | Claudia Rivera [address] | | | | | [address] | [address] [place], | | | | | [place], [place] | [place] [address] | | | | | [address] | [phone] | | | | | [phone] | | | +--------+ + + + [...] 2020 | Visit | | [address] [place] | | | | | | [address] [place], [place] | | | | | | [address] | | | | | | | | +--------+---------+ + + + | 06/14/ | Office | Cardiology | Ольга Veloz DO | | | 2019 | Visit | | [address] | | | | | | [place] | | | | | | [address] | | | | | | | | +--------+---------+ + + + documented as of this encounter Visit Diagnoses Not on filedocumented in this encounter"
--- OUTSIDE RECORDS SUMMARY | ~2020-04-03 | XMS | Encounter Summary ---
Demographics + + + | Address | [address] | | | [place] [address] | + + + | Home Phone | | + + + | Preferred Language | Unknown | + + + | Marital Status | Single | + + + | Lutheran Affiliation | Unknown | + + + [...] Team Providers + +------+ + | Care Electrical Accessories I Assembler Name | Role | Phone | + +------+ + | Lisa Mcclain MD | PCP | | + +------+ + Reason for Visit + + + | Reason | Comments | + + + | Other | schedule capsule endoscopy | + + + | Procedure | | + + + Encounter Details +--------+ + + + + | Date | Type | Department | Care Team | Description | +--------+ + + + + | 12/21/ | Telephone | [facility] | Lo John RN | Other (schedule | | 2020 | | GASTROENTEROLOGY | | capsule endoscopy ); | | | | [address] | | Procedure | | | | [place] | | | | | | [address] | | | | | | [phone] | | | +--------+ + + + [...] 2020 | Visit | | [address] [facility] [place] | | | | | | [address] [place] | | | | | | [address] | | | | | | | | +--------+---------+ + + + | 06/14/ | Office | Cardiology | Ольга Veloz DO | | | 2019 | Visit | | [address] | | | | | | [place] | | | | | | [address] | | | | | | | | +--------+---------+ + + + documented as of this encounter Visit Diagnoses Not on filedocumented in this encounter"
--- OUTSIDE RECORDS SUMMARY | ~2020-04-03 | XMS | Encounter Summary ---
Demographics + + + | Address | [address] | | | [place] [address] | + + + | Home Phone | | + + + | Preferred Language | Unknown | + + + | Marital Status | Single | + + + | Baptism Affiliation | Unknown | + + + [...] Team Providers + +------+ + | Care Cutter And Paster Press Clippings Name | Role | Phone | + +------+ + | Lisa Mcclain MD | PCP | | + +------+ + Encounter Details +--------+ + + + + | Date | Type | Department | Care Team | Description | +--------+ + + + + | 06/16/ | Orders Only | [facility] | Andrews Massey MD | | | 2017 | | NEPHROLOGY [place] | [address] [place] | | | | | [address] [place] | [address] [place], [place] | | | | | [address] [place], [place] | [address] | | | | | [address] | | | | | | [phone] | | | +--------+ + + + [...] [place] | | | | | | [address] | | | | | | | | +--------+---------+ + + + | 06/14/ | Office | Cardiology | Ольга Veloz DO | | | 2019 | Visit | | [address] | | | | | | [place] | | | | | | [address] | | | | | | | | +--------+---------+ + + + documented as of this encounter Procedures + +--------+ + + + | Procedure Name | Priori | Date/Time | Associated Diagnosis | Comments | | | ty | | | | + +--------+ + + + | EXTERNAL LAB: [facility] | Routin | 06/16/2018 | | Results for this | | | e | 11:15 AM | | procedure are in the | | | | PDT | | results section. | + +--------+ + + + | URIC ACID | Routin | 06/16/2018 | | Results for this | | | e | 11:15 AM | | procedure are in the | | | | PDT | | results section. | + +--------+ + + + | BASIC METABOLIC | Routin | 06/16/2018 | | Results for this | | PANEL | e | 11:15 AM | | procedure are in the | | | | PDT | | results section. | + +--------+ + + + documented in this encounter Results External Lab: [facility] (06/16/2018 11:15 AM PDT) + + + + + [...] + + + | Red Blood | 3.34 (A) | 3.8 - 5.1 10 | EXTERNAL | | | Cells | | | LAB | | | Counted | | | | | + + + + + + | Hemoglobin | 9.1 (A) | 12 - 16 g/dL | EXTERNAL | | | | | | LAB | | + + + + + + | Hematocrit, | 28.6 (A) | 35 - 45 % | EXTERNAL | | | POC | | | LAB | | + + + + + + | MCV | 85.4 | 81 - 99 fL | EXTERNAL | | | | | | LAB | | + + + + + + | MCH | 27 | 27 - 33 pg | EXTERNAL | | | | | | LAB | | + + + + + + | MCHC | 32 | 30 - 36 g/dL | EXTERNAL | | | | | | LAB | | + + + + + + | Platelet | 294 | 140 - 440 K/ L | EXTERNAL | | | Count | | | LAB | | | Plasma | | | | | + + + + + + | RDW-CV | 15.1 (A) | 10.5 - 15.0 % | EXTERNAL [...] + + + | % Segmented | | % | EXTERNAL | | | | | | LAB | | | Neutrophils | | | | | + + + + + + | % | | % | EXTERNAL | | | Lymphocytes | | | LAB | | + + + + + + | % Monocytes | | % | EXTERNAL | | | | | | LAB | | + + + + + + | % | | % | EXTERNAL | | | Eosinophils | | | LAB | | + + + + + + | % Basophils | | % | EXTERNAL | | | | [...] | + +---------+ + + Uric Acid (06/16/2018 11:15 AM PDT) + +---------+ + + + | Component | Value | Ref Range | Performed | Pathologist | | | | | At | Signature | + +---------+ + + + | Uric Acid | 9.1 (A) | 2.3 - 6.6 | EXTERNAL [...] + +---------+ + + Basic Metabolic Panel (06/16/2018 11:15 AM PDT) + +---------+ + + + | Component | Value | Ref Range | Performed | Pathologist | | | | | At | Signature | + +---------+ + + + | Glucose, | 162 (A) | 70 - 100 mg/dL | EXTERNAL | | | Fasting | | | LAB | | + +---------+ + + + | BUN | 24 (A) | 6 - 23 mg/dL | EXTERNAL | | | | | | LAB | | + +---------+ + + + | Creatinine | 1.4 (A) | 0.6 - 1.35 | EXTERNAL | | | | | mg/dL | LAB | | + +---------+ + + + | BUN/Creatin | 17.1 | 6.0 - 28.6 | EXTERNAL | | | ine Ratio | | | LAB | | + +---------+ + + + | Calcium | 8.9 | 8.4 - 10.2 | EXTERNAL | | | | | mg/dL | LAB | | + +---------+ + + + | Na | 139 | 132 - 143 | EXTERNAL | | | | | mmol/L | LAB | | + +---------+ + + + | K | 4.9 | 3.6 - 5.1 | EXTERNAL | | | | | mmol/L | LAB | | + +---------+ + + + | Cl | 106 | 95 - 112 mmol/L | EXTERNAL | | | | | | LAB | | + +---------+ + + + | CO2 | 20 | 19 - 31 mmol/L | EXTERNAL | | | | | | LAB | | + +---------+ + + + | Anion Gap | 17.9 | 7 - 21 mmol/L | EXTERNAL | | | | | | LAB | | + +---------+ + + + | Estimated | 40 (A) | 60 mg/dL | EXTERNAL | [...]
--- OUTSIDE RECORDS SUMMARY | ~2020-04-03 | XMS | Encounter Summary ---
Demographics + + + | Address | [address] | | | [place] [address] | + + + | Home Phone | | + + + | Preferred Language | Unknown | + + + | Marital Status | Single | + + + | Sabianism Affiliation | Unknown | + + + [...] Team Providers + +------+ + | Care Power Plant Manager Name | Role | Phone | + +------+ + | Lisa Mcclain MD | PCP | | + +------+ + Encounter Details +--------+ + + + + | Date | Type | Department | Care Team | Description | +--------+ + + + + | 08/22/ | Orders Only | [facility] | Andrews Massey MD | Anemia of chronic | | 2019 | | NEPHROLOGY [place] | [address] [place] | renal failure, stage | | | | [address] [place] | [address] [place], [place] | 3 (moderate) (HCC) | | | | [address] [place], [place] | [address] | (Primary Dx) | | | | [address] | | | | | | [phone] | | | +--------+ + + + [...] 2019 | Visit | | [address] [facility] | | | | | | [address] [place] | | | | | | [address] | | | | | | | | +--------+---------+ + + + | 06/14/ | Office | Cardiology | Ольга Veloz DO | | | 2019 | Visit | | [address] | | | | | | [place] | | | | | | [address] | | | | | | | | +--------+---------+ + + + documented as of this encounter Visit Diagnoses + + | Diagnosis | + + | Anemia of chronic renal failure, stage 3 (moderate) (HCC) - Primary | + + documented in this encounter"
--- OUTSIDE RECORDS SUMMARY | ~2020-04-03 | XMS | Encounter Summary ---
Demographics + + + | Address | [address] | | | [place] [address] | + + + | Home Phone | | + + + | Preferred Language | Unknown | + + + | Marital Status | Single | + + + | Zoroastrian Affiliation | Unknown | + + + [...] Team Providers + +------+ + | Care Claim Representative Name | Role | Phone | + +------+ + | Yessica Mayorga MD | PCP | | + +------+ + Encounter Details +--------+ + + + + | Date | Type | Department | Care Team | Description | +--------+ + + + + | 05/06/ | Orders Only | [facility] | Andrews Massey MD | | | 2019 | | NEPHROLOGY [place] | [address] [place] | | | | | [address] [place] | [address] [place], [place] | | | | | [address] [place], [place] | [address] | | | | | [address] | | | | | | [phone] | | | +--------+ + + + [...] 2019 | Visit | | [facility] [address] [facility] [place] | | | | | | [address] [place] | | | | | | [address] | | | | | | | | +--------+---------+ + + + | 06/14/ | Office | Cardiology | Ольга Veloz DO | | | 2019 | Visit | | [address] | | | | | | [place] | | | | | | [address] | | | | | | | [...] | | | LAB | | | [facility] | | | | | + + [...]
--- OUTSIDE RECORDS SUMMARY | ~2020-04-03 | XMS | Encounter Summary ---
Demographics + + + | Address | [address] | | | [place] [address] | + + + | Home Phone | | + + + | Preferred Language | Unknown | + + + | Marital Status | Single | + + + | Roman Catholic Affiliation | Unknown | + + + | Race | Unknown | + + + | Ethnic Group | Unknown | + + + Author + + + | Author | [facility] | | | and [place] | + + + | Organization | [facility] | | | [...] Team Providers + +------+ + | Care Sld Inclusion Teacher Name | Role | Phone | + +------+ + | Lisa Mcclain MD | PCP | | + +------+ + Encounter Details +--------+ + + + + | Date | Type | Department | Care Team | Description | +--------+ + + + + | 04/21/ | Orders Only | [facility] | Conversion | | | 2017 | | NEPHROLOGY MARK | Transaction, | | | | | [address] | Provider Unknown | | | | | [address] | | | | | | [address] | (Fax) | | | | | [phone] | | | +--------+ + + + [...] 2019 | Visit | | [address] [facility] [place] | | | | | | [address] | | | | | | [address] | | | | | | | | +--------+---------+ + + + | 06/14/ | Office | Cardiology | Ольга Veloz DO | | | 2019 | Visit | | [address] | | | | | | [place] | | | | | | [address] | | | | | | | | +--------+---------+ + + + documented as of this encounter Procedures + +--------+ + + + | Procedure Name | Priori | Date/Time | Associated Diagnosis | Comments | | | ty | | | | + +--------+ + + + | IRON AND IRON | Routin | 05/06/2018 | | Results for this | | BINDING CAPACITY | e | 8:36 PM | | procedure are in the | | | | PDT | | results section. | + +--------+ + + + | FERRITIN | Routin | 05/06/2018 | | Results for this | | | e | 8:36 PM | | procedure are in the | | | | PDT | | results section. | + +--------+ + + + | EXTERNAL LAB: CBC | Routin | 05/06/2018 | | Results for this | | | e | 3:50 PM | | procedure are in the | | | | PDT | | results section. | + +--------+ + + + | VITAMIN B-12 | Routin | 05/06/2018 | | Results for this | | | e | 3:50 PM | | procedure are in the | | | | PDT | | results section. | + +--------+ + + + | HEPATITIS B CORE AB, | Routin | 05/06/2018 | | Results for this | | IGM | e | 3:50 PM | | procedure are in the | | | | PDT | | results section. | + +--------+ + + + | FOLATE | Routin | 05/06/2018 | | Results for this | | | e | 3:50 PM | | procedure are in the | | | | PDT | | results section. | + +--------+ + + + | EXTERNAL LAB: CBC | Routin | 04/21/2018 | | Results for this | | | e | 3:37 PM | | procedure are in the | | | | PDT | | results section. | + +--------+ + + + | LIPID PANEL | Routin | 04/21/2018 | | Results for this | | | e | 3:37 PM | | procedure are in the | | | | PDT | | results section. | + +--------+ + + + | VITAMIN D, | Routin | 04/21/2018 | | Results for this | | DEFICIENCY SCREEN | e | 3:37 PM | | procedure are in the | | (25-HYDROXY) | | PDT | | results section. | + +--------+ + + + | MICROALBUMIN/CREATIN | Routin | 04/21/2018 | | Results for this | | INE RATIO, URINE | e | 3:37 PM | | procedure are in the | | TEST | | PDT | | results section. | + +--------+ + + + | TSH | Routin | 04/21/2018 | | Results for this | | | e | 3:37 PM | | procedure are in the | | | | PDT | | results section. | + +--------+ + + + | HEMOGLOBIN A1C | Routin | 04/21/2018 | | Results for this | | | e | 3:37 PM | | procedure are in the | | | | PDT | | results section. | + +--------+ + + + | COMPREHENSIVE | Routin | 04/21/2018 | | Results for this | | METABOLIC PANEL | e | 3:37 PM | | procedure are in the | | | | PDT | | results section. | + +--------+ + + + documented in this encounter Results Iron and Iron Binding Capacity (05/06/2018 8:36 PM PDT) + + + + + + | Component | Value | Ref Range | Performed | Pathologist | | | | | At | Signature | + + + + + + | Iron | 49.38 | 37 - 160 | EXTERNAL | | | | | | LAB | | + + + + + + | Iron | 14.3 (A) | 20 - 55 | EXTERNAL | | | Saturation | | | LAB | | + + + + + + | TIBC | 345 | 245 - 400 | EXTERNAL | [...] | | + +---------+ + + Ferritin (05/06/2018 8:36 PM PDT) + +-------+ + + + | Component | Value | Ref Range | Performed | Pathologist | | | | | At | Signature | + +-------+ + + + | Ferritin, | 46.67 | 13 - 150 ng/mL | EXTERNAL [...] | | | + +---------+ + + Hepatitis B Core Ab, IgM (05/06/2018 3:50 PM PDT) + + | Specimen | + + | Blood specimen | | (specimen) | + + + + + | Narrative | Performed At | + + + | Negative | EXTERNAL LAB | + + + + +---------+ + + | Performing | Address | City/State/Zipcode | Phone Number | | Organization | | | | + +---------+ + + | EXTERNAL LAB | | | | + +---------+ + + External Lab: CBC (05/06/2018 3:50 PM PDT) + + + + + + | Component | Value | Ref Range | Performed | Pathologist | | | | | At | Signature | + + + + + + | WBC | 7.8 | 4.5 - 11.0 10 | EXTERNAL | | | | | | LAB | | + + + + + + | Red Blood | 3.53 (A) | 3.8 - 5.1 10 | EXTERNAL | | | Cells | | | LAB | | | Counted | | | | | + + + + + + | Hemoglobin | 10.2 (A) | 12 - 16 g/dL | EXTERNAL | | | | | | LAB | | + + + + + + | Hematocrit, | 29.5 (A) | 35 - 45 % | EXTERNAL | | | POC | | | LAB | | + + + + + + | MCV | 83.4 | 81 - 99 fL | EXTERNAL | | | | | | LAB | | + + + + + + | MCH | 29 | 27 - 33 pg | EXTERNAL | | | | | | LAB | | + + + + + + | MCHC | 35 | 30 - 36 g/dL | EXTERNAL | | | | | | LAB | | + + + + + + | Platelet | 296 | 140 - 440 K/ L | [...] | | | + +---------+ + + Folate (05/06/2018 3:50 PM PDT) + +-------+ + + + | Component | Value | Ref Range | Performed | Pathologist | | | | | At | Signature | + +-------+ + + + | Folate | 19.36 | | EXTERNAL | | | | [...] | | | + +---------+ + + Vitamin B-12 (05/06/2018 3:50 PM PDT) + +-------+ + + + | Component | Value | Ref Range | Performed | Pathologist | | | | | At | Signature | + +-------+ + + + | VITAMIN | 451.4 | 232 - 1,245 | EXTERNAL | | | B-12 | | | LAB | | + +-------+ + + + + + | Specimen | + + | Blood specimen | | (specimen) | + + + +---------+ + + | Performing | Address | City/State/Zipcode | Phone Number | | Organization | | | | + +---------+ + + | EXTERNAL LAB | | | | + +---------+ + + Microalbumin/Creatinine Ratio, Urine (04/21/2018 3:37 PM PDT) + + + + + + | Component | Value | Ref Range | Performed | Pathologist | | | | | At | Signature | + + + + + + | ALBUMIN/CRE | 2325.0 (A) | 0 - 30 | EXTERNAL | | | ATININE | | | LAB | | | RATIO.URINE | | | | | | .ORD.MG/G | | | | | | (SHELDON) | | | | | | | [...] | | | + +---------+ + + Vitamin D, Deficiency Screen (25-Hydroxy) (04/21/2018 3:37 PM PDT) + +--------+ + + + | Component | Value | Ref Range | Performed | Pathologist | | | | | At | Signature | + +--------+ + + + | Vit D, | 22 (A) | 30 - 100 | EXTERNAL | | | 25-Hydroxy | | | LAB | | + [...] + +---------+ + + External Lab: CBC (04/21/2018 3:37 PM PDT) + + + + + + | Component | Value | Ref Range | Performed | Pathologist | | | | | At | Signature | + + + + + + | WBC | 7.7 | 4.5 - 11.0 10 | EXTERNAL | | | | | | LAB | | + + + + + + | Red Blood | 3.64 (A) | 3.8 - 5.1 10 | EXTERNAL | | | Cells | | | LAB | | | Counted | | | | | + + + + + + | Hemoglobin | 10.2 (A) | 12 - 16 g/dL | EXTERNAL | | | | | | LAB | | + + + + + + | Hematocrit, | 30.4 (A) | 35 - 45 % | EXTERNAL | | | POC | | | LAB | | + + + + + + | MCV | 83.5 | 81 - 99 fL | EXTERNAL | | | | | | LAB | | + + + + + + | MCH | 28 | 27 - 33 pg | EXTERNAL | | | | | | LAB | | + + + + + + | MCHC | 34 | 30 - 36 g/dL | EXTERNAL | | | | | | LAB | | + + + + + + | Platelet | 319 | 140 - 440 K/ L | EXTERNAL | | | Count | | | LAB | | | Plasma | | | | | + + + + + + | RDW-CV | 14.2 | 10.5 - 15.0 % | EXTERNAL [...] | | | + +---------+ + + TSH (04/21/2018 3:37 PM PDT) + +-------+ + + + | Component | Value | Ref Range | Performed | Pathologist | | | | | At | Signature | + +-------+ + + + | TSH | 3.59 | 0.27 - 4.20 | EXTERNAL | | | | | uIU/mL | LAB | | + +-------+ + + + + + | Specimen | + + | Blood specimen | | (specimen) | + + + +---------+ + + | Performing | Address | City/State/Zipcode | Phone Number | | Organization | | | | + +---------+ + + | EXTERNAL LAB | | | | + +---------+ + + Hemoglobin A1C (04/21/2018 3:37 PM PDT) + +-------+ + + + | Component | Value | Ref Range | Performed | Pathologist | | | | | At | Signature | + +-------+ + + + | Hemoglobin | 7.8 | % | EXTERNAL | | | A1c | | | LAB | | + +-------+ + + + + + | Specimen | + + | Blood specimen | | (specimen) | + + + +---------+ + + | Performing | Address | City/State/Zipcode | Phone Number | | Organization | | | | + +---------+ + + | EXTERNAL LAB | | | | + +---------+ + + Lipid Panel (04/21/2018 3:37 PM PDT) + +---------+ + + + | Component | Value | Ref Range | Performed | Pathologist | | | | | At | Signature | + +---------+ + + + | Cholesterol | 144 | mg/dL | EXTERNAL | | | | | | LAB | | + +---------+ + + + | Triglycerid | 214 (A) | 30 - 150 mg/dL | EXTERNAL | | | es | | | LAB | | + +---------+ + + + | HDL | 46 | mg/dl | EXTERNAL | | | | | | LAB | | + +---------+ + + + | LDL, | 55 | mg/dL | EXTERNAL | | | Calculated | | | LAB | | + +---------+ + + + | LDl/HDL | | | EXTERNAL | | | Ratio | | | LAB | | + +---------+ + + + | Chol/HDL | 3.1 | | EXTERNAL | | | Ratio | | | LAB | | + +---------+ + + + | VLDL | 43 (A) | 4 - 40 mg/dL | EXTERNAL | | | | | | LAB | | + +---------+ + + + | Non HDL | 98 | | EXTERNAL | | | Chol. | | | LAB | | | (LDL+VLDL) | | | | | + +---------+ + + + + + | Specimen | + + | Blood specimen | | (specimen) | + + + +---------+ + + | Performing | Address | City/State/Zipcode | Phone Number | | Organization | | | | + +---------+ + + | EXTERNAL LAB | | | | + +---------+ + + Comprehensive Metabolic Panel (04/21/2018 3:37 PM PDT) + +---------+ + + + | Component | Value | Ref Range | Performed | Pathologist | | | | | At | Signature | + +---------+ + + + | Glucose, | 142 (A) | 70 - 100 mg/dL | EXTERNAL | | | Fasting | | | LAB | | + +---------+ + + + | BUN | 26 (A) | 6 - 23 mg/dL | EXTERNAL | | | | | | LAB | | + +---------+ + + + | Creatinine | 1.25 | 0.6 - 1.35 | EXTERNAL | | | | | mg/dL | LAB | | + +---------+ + + + | BUN/Creatin | 20.8 | 6.0 - 28.6 | EXTERNAL | | | ine Ratio | | | LAB | | + +---------+ + + + | Calcium | 9.5 | 8.4 - 10.2 | EXTERNAL | | | | | mg/dL | LAB | | + +---------+ + + + | Protein, | 6.9 | 6.0 - 8.3 g/dL | EXTERNAL | | | Total | | | LAB | | + +---------+ + + + | Albumin | 3.8 | 3.5 - 5.0 | EXTERNAL | | | | | | LAB | | + +---------+ + + + | Globulin | 3.1 | 1.8 - 3.5 | EXTERNAL | | | | | | LAB | | + +---------+ + + + | A/G Ratio | 1.2 | 1.1 - 2.4 | EXTERNAL | | | | | | LAB | | + +---------+ + + + | Bilirubin | 0.2 | 0 - 1.2 mg/dL | EXTERNAL | | | Total | | | LAB | | + +---------+ + + + | ALP, | 95 | 31 - 130 | EXTERNAL | | | External | | | LAB | | + +---------+ + + + | ALT | 20 | 7 - 52 U/L | EXTERNAL | | | | | | LAB | | + +---------+ + + + | AST | 17 | 13 - 39 U/L | EXTERNAL | | | | | | LAB | | + +---------+ + + + | Na | 134 | 132 - 143 | EXTERNAL | | | | | mmol/L | LAB | | + +---------+ + + + | K | 4.9 | 3.6 - 5.1 | EXTERNAL | | | | | mmol/L | LAB | | + +---------+ + + + | Cl | 105 | 95 - 112 mmol/L | EXTERNAL | | | | | | LAB | | + +---------+ + + + | CO2 | 23 | 19 - 31 mmol/L | EXTERNAL | | | | | | LAB | | + +---------+ + + + | Anion Gap | 10.9 | 7 - 21 mmol/L | EXTERNAL | | | | | | LAB | | + +---------+ + + + | Estimated | 46 (A) | 60 mg/dL | EXTERNAL | [...]
--- OUTSIDE RECORDS SUMMARY | ~2020-04-03 | XMS | Encounter Summary ---
Demographics + + + | Address | [address] | | | [place] [address] | + + + | Home Phone | | + + + | Preferred Language | Unknown | + + + | Marital Status | Single | + + + | Sikh Affiliation | Unknown | + + + | Race | Unknown | + + + | Ethnic Group | Unknown | + + + Author + + + | Author | [facility] | | | and [place] | + + + | Organization | [facility] [...] Team Providers + +------+ + | Care Mold Maker Apprentice Name | Role | Phone | + +------+ + | Lisa Mcclain MD | PCP | | + +------+ + Encounter Details +--------+ + + + + | Date | Type | Department | Care Team | Description | +--------+ + + + + | 07/20/ | Orders Only | [facility] | Andrews Massey MD | CKD (chronic kidney | | 2019 | | NEPHROLOGY [address] | [address] [facility] [place] | disease), stage III | | | | [address] | [address] [place], [place] | (HCC) (Primary Dx); | | | | [address] [address] | [address] | Essential (primary) | | | | [place], [place] | | hypertension; | | | | [address] | | Persistent | | | | [phone] | | proteinuria | +--------+ + + + + Social [...] 2019 | Visit | | [address] [facility] | | | | | | [address] | | | | | | [address] | | | | | | | | +--------+---------+ + + + | 06/14/ | Office | Cardiology | Ольга Veloz DO | | | 2019 | Visit | | [address] | | | | | | [place] | | | | | | [address] | | | | | | | | +--------+---------+ + + + + +------+--------+ + + | Name | Type | Priori | Associated Diagnoses | Order Schedule | | | | ty | | | + +------+--------+ + + | [facility] Referral | Lab | Routin | CKD (chronic | 1 Occurrences | | | | e | kidney disease), | starting 07/20/2019 | | | | | stage III (HCC) | until 05/09/2020 | | | | | Essential (primary) | | | | | | hypertension | | | | | | Persistent | | | | | | proteinuria | | + +------+--------+ + + documented as of this encounter Visit Diagnoses + + | Diagnosis | + + | CKD (chronic kidney disease), stage III (HCC) - Primary Chronic kidney disease, Stage | | III (moderate) | + + | Essential (primary) hypertension Unspecified essential hypertension | + + | Persistent proteinuria Proteinuria | + + documented in this encounter"
--- OUTSIDE RECORDS SUMMARY | ~2020-04-03 | XMS | Encounter Summary ---
Demographics + + + | Address | [address] | | | [place] [address] | + + + | Home Phone | | + + + | Preferred Language | Unknown | + + + | Marital Status | Single | + + + | Druze Affiliation | Unknown | + + + | Race | Unknown | + + + | Ethnic Group | Unknown | + + + Author + + + | Author | [facility] | | | and [place] | + + + | Organization | [facility] | | | [...] Team Providers + +------+ + | Care Pararescue Manager Name | Role | Phone | + +------+ + | Lisa Mcclain MD | PCP | | + +------+ + Encounter Details +--------+ + + + + | Date | Type | Department | Care Team | Description | +--------+ + + + + | 08/22/ | Orders Only | [facility] | Andrews Massey MD | Anemia of chronic | | 2019 | | NEPHROLOGY [place] | [address] [place] | renal failure, stage | | | | [address] [place] | [address] [place], [place] | 3 (moderate) (HCC) | | | | [address] [place], [place] | [address] | (Primary Dx) | | | | [address] | | | | | | [phone] | | | +--------+ + + + [...] 2019 | Visit | | [address] [facility] | | | | | | [address] | | | | | | [address] | | | | | | | | +--------+---------+ + + + | 06/14/ | Office | Cardiology | Ольга Veloz DO | | | 2019 | Visit | | [address] | | | | | | [place] | | | | | | [address] | | | | | | | | +--------+---------+ + + + documented as of this encounter Visit Diagnoses + + | Diagnosis | + + | Anemia of chronic renal failure, stage 3 (moderate) (HCC) - Primary | + + documented in this encounter"
--- OUTSIDE RECORDS SUMMARY | ~2020-04-03 | XMS | Encounter Summary ---
Demographics + + + | Address | [address] | | | [place] [address] | + + + | Home Phone | | + + + | Preferred Language | Unknown | + + + | Marital Status | Single | + + + | Protestant Affiliation | Unknown | + + + | Race | Unknown | + + + | Ethnic Group | Unknown | + + + Author + + + | Author | [facility] | | | and [place] | + + + | Organization | [facility] | | [...] Team Providers + +------+ + | Care Sales Developer Name | Role | Phone | + +------+ + | Lisa Mcclain MD | PCP | | + +------+ + Reason for Visit + + + | Reason | Comments | + + + | Confirmation | 11/21/19 procedure | + + + Encounter Details +--------+ + + + + | Date | Type | Department | Care Team | Description | +--------+ + + + + | 11/17/ | Telephone | [facility] | Boni Augustin, | Confirmation | | 2019 | | GASTROENTEROLOGY | Boiler Tester | (11/21/19 procedure) | | | | [address] | | | | | | [place] | | | | | | [address] | | | | | | [phone] | | | +--------+ + + + [...] 2020 | Visit | | [address] [facility] | | | | | | [address] [place], [place] | | | | | | [address] | | | | | | | | +--------+---------+ + + + | 06/14/ | Office | Cardiology | Ольга Veloz DO | | | 2020 | Visit | | [address] | | | | | | [place] | | | | | | [address] | | | | | | | | +--------+---------+ + + + documented as of this encounter Visit Diagnoses Not on filedocumented in this encounter"
--- OUTSIDE RECORDS SUMMARY | ~2020-04-03 | XMS | Encounter Summary ---
Demographics + + + | Address | [address] | | | [place] [address] | + + + | Home Phone | | + + + | Preferred Language | Unknown | + + + | Marital Status | Single | + + + | Catholic Affiliation | Unknown | + + + | Race | Unknown | + + + | Ethnic Group | Unknown | + + + Author + + + | Author | [facility] | | | and [place] | + + + | Organization | [facility] | | [...] Team Providers + +------+ + | Care Fuel Verification Technician Name | Role | Phone | + +------+ + | Lisa Mcclain MD | PCP | | + +------+ + Encounter Details +--------+ + + + + | Date | Type | Department | Care Team | Description | +--------+ + + + + | 06/16/ | Orders Only | [facility] | Andrews Massey MD | | | 2017 | | NEPHROLOGY [place] | [address] [place] | | | | | [address] [place] | [address] [place], [place] | | | | | [address] [place], [place] | [address] | | | | | [address] | | | | | | [phone] | | | +--------+ + + + [...] [place] | | | | | | [address] | | | | | | | | +--------+---------+ + + + | 06/14/ | Office | Cardiology | Ольга Veloz DO | | | 2019 | Visit | | [address] | | | | | | [place] | | | | | | [address] | | | | | | | [...]
--- OUTSIDE RECORDS SUMMARY | ~2020-04-03 | XMS | Encounter Summary ---
Demographics + + + | Address | [address] | | | [place] [address] | + + + | Home Phone | | + + + | Preferred Language | Unknown | + + + | Marital Status | Single | + + + | Congregation Affiliation | Unknown | + + + | Race | Unknown | + + + | Ethnic Group | Unknown | + + + Author + + + | Author | [facility] | | | and [place] | + + + | Organization | [facility] | | | [...] Team Providers + +------+ + | Care Assistant Name | Role | Phone | + +------+ + | Lisa Mcclain MD | PCP | | + +------+ + Encounter Details +--------+ + + + + | Date | Type | Department | Care Team | Description | +--------+ + + + + | 06/17/ | Orders Only | [facility] | Andrews Massey MD | | | 2017 | | NEPHROLOGY [place] | [address] [place] | | | | | [address] [place] | [address] [place], [place] | | | | | [address] [place], [place] | [address] | | | | | [address] | | | | | | [phone] | | | +--------+ + + + [...] [place] | | | | | | [address] | | | | | | | | +--------+---------+ + + + | 06/14/ | Office | Cardiology | Ольга Veloz DO | | | 2019 | Visit | | [address] | | | | | | [place] | | | | | | [address] | | | | | | | | +--------+---------+ + + + documented as of this encounter Procedures + +--------+ + + + | Procedure Name | Priori | Date/Time | Associated Diagnosis | Comments | | | ty | | | | + +--------+ + + + | URINALYSIS WITH | Routin | 06/17/2018 | | Results for this | | MICROSCOPIC IF | e | 12:00 AM | | procedure are in the | | INDICATED | | PDT | | results section. | + +--------+ + + + | PROTEIN/CREATININE | Routin | 06/17/2018 | | Results for this | | RATIO, URINE | e | 12:00 AM | | procedure are in the | | | | PDT | | results section. | + +--------+ + + + documented in this encounter Results Protein/Creatinine Ratio, Urine (06/17/2018 12:00 AM PDT) + + + + + + | Component | Value | Ref Range | Performed | Pathologist | | | | | At | Signature | + + + + + + | Protein/Cre | 1000.0 (A) | 0 - 150 | EXTERNAL [...] + + Urinalysis with Microscopic if Indicated (06/17/2018 12:00 AM PDT) + + + + + + | Component | Value | Ref Range | Performed | Pathologist | | | | | At | Signature | + + + + + + | Color | Yellow | | EXTERNAL | | | | | | LAB | | + + + + + + | Clarity | Cloudy | | EXTERNAL | | | | | | LAB | | + + + + + + | Spec Grav, | 1.005 | 1.005 - 1.030 | EXTERNAL | [...] + + + + | Total | 30 | | EXTERNAL | | | Protein | | | LAB | | + + + + + + | pH, Urine | 5 | 5 - 9 | EXTERNAL | | | | | | LAB | | + + + + + + | Blood, | Positive | | EXTERNAL | | | Urine [...] Performed At | + + + | WBC's: 5 H Bacteria: 1+ | EXTERNAL LAB | + + + + +---------+ + + | Performing | Address | City/State/Zipcode | Phone Number | | Organization | | | | + +---------+ + + | EXTERNAL LAB | | | | + +---------+ + + documented in this encounter Visit Diagnoses Not on filedocumented in this encounter"
--- OUTSIDE RECORDS SUMMARY | ~2020-04-03 | XMS | Encounter Summary ---
Demographics + + + | Address | [address] | | | [place] [address] | + + + | Home Phone [...] + + + | Author | [facility] | | | and [place] | + + + | Organization | [facility] | | | [...] Providers + +------+ + | Care Manager Research And Development Name | Role | Phone | + +------+ + | Yessica Mayorga MD | PCP | | + +------+ + Encounter Details +--------+ + + + + | Date | Type | Department | Care Team | Description | +--------+ + + + + | 01/18/ | Orders Only | [facility] | Conversion | | | 2018 | | NEPHCAMMY [place] | Transaction, | | | | | [address] | Provider Unknown | | | | | [address] [place] | | | | | | [address] | (Fax) | | | | | [phone] | | | +--------+ + + + [...] 2019 | Visit | | [address] [facility] [place] | | | | | | [address] [place] | | | | | | [address] | | | | | | | | +--------+---------+ + + + | 06/14/ | Office | Cardiology | Ольга Veloz DO | | | 2019 | Visit | | [address] | | | | | | [place] | | | | | | [address] | | | | | | | [...]
--- OUTSIDE RECORDS SUMMARY | ~2020-04-03 | XMS | Encounter Summary ---
Demographics + + + | Address | [address] | | | [place] [address] | + + + | Home Phone [...] + + + | Author | [facility] | | | and [place] | + + + | Organization | [facility] | | | [...] Team Providers + +------+ + | Care Expressive Therapist Name | Role | Phone | + [...] + + | 08/22/ | Documentati | [facility] | [place], | Results (08/19/19) | | 2019 | on | NEPHROLOGY [address] | [facility] | | | | | [address] [place] | [employer] | | | | | [address] [facility] [place] | | | | | | [address] | | | | | | [phone] | | | +--------+ + + + [...] 2019 | Visit | | [address] [facility] [place] | | | | | | [address] [place] [place] | | | | | | [address] | | | | | | | | +--------+---------+ + + + | 06/14/ | Office | Cardiology | Ольга Veloz DO | | | 2019 | Visit | | [address] | | | | | | [place] | | | | | | [phone] | | | | | | | [...] | | | | | | | [place] | | | | | + + [...]
--- OUTSIDE RECORDS SUMMARY | ~2020-04-03 | XMS | Encounter Summary ---
Demographics + + + | Address | [address] | | | [place] [address] | + + + | Home Phone | | + + + | Preferred Language | Unknown | + + + | Marital Status | Single | + + + | Jehovah'S Witness Affiliation | Unknown | + + + | Race | Unknown | + + + | Ethnic Group | Unknown | + + + Author + + + | Author | [facility] | | | and [place] | + + + | Organization | [facility] | | [...] Team Providers + +------+ + | Care Meat Stuffer Name | Role | Phone | + [...] | | CLINIC [address] | [place], [place] | | | | | [place], [place] | [address] | | | | | [address] | | | | | | [phone] | | | +--------+ + + + [...] NOT TAKE day of procedure nystatin (MYCOSTATIN) 543630 UNIT/GM cream Apply topically as needed. DO [...] vomiting, or vomiting blood Date Last Reviewed: 05/30/201619993509-7569 [facility]. [address] [place] [address], [place] [address]. All righ ts reserved. This information is not intended as a substitute for professional medical care. Always follow your healthcare professional's instructions. documented in this encounter Plan of Treatment +--------+---------+ + + + | Date | Type | Specialty | Care Team | Description | +--------+---------+ + + + | 04/30/ | Office | Nephrology | Andrews Massey MD | | | 2019 | Visit | | [address] [facility] | | | | | | [facility] | | | | | | [address] | | | | | | | | +--------+---------+ + + + | 06/14/ | Office | Cardiology | Ольга Veloz DO | | | 2019 | Visit | | [address] | | | | | | [place] | | | | | | [address] | | | | | | | [...] MD | | | | | | (911) on 11/16/2019 | | | | | [...]
--- OUTSIDE RECORDS SUMMARY | ~2020-04-03 | XMS | Encounter Summary ---
Demographics + + + | Address | [address] | | | [place] [address] | + + + | Home Phone | | + + + | Preferred Language | Unknown | + + + | Marital Status | Single | + + + | Shinto Affiliation | Unknown | + + + [...] Team Providers + +------+ + | Care Bar Porter Name | Role | Phone | + +------+ + | Lisa Mcclain MD | PCP | | + +------+ + Encounter Details +--------+ + + + + | Date | Type | Department | Care Team | Description | +--------+ + + + + | 11/16/ | [facility] | [facility] | Doron Herrera | Preop testing | | 2019 | Encounter | [facility] | MD [address] | | | | | ELECTRODIAGNOSTICS | [address] [place], [place] | | | | | [address] | [address] | | | | | [place], [place] | | | | | | [address] | | | | | | [phone] | | | +--------+ + + + [...] + + documented as of this encounter Medications at Time of Discharge [...] | | | 18 | | | 516" 0.5 ML MISC | | | | [...] 0 | 06/21/20 | | | (MYCOSTATIN) 276271 | needed. | | | 18 | [...] 2019 | Visit | | [address] [facility] | | | | | | [address] [place] | | | | | | [address] | | | | | | | | +--------+---------+ + + + | 06/14/ | Office | Cardiology | Ольга Veloz DO | | | 2019 | Visit | | [address] | | | | | | [place] | | | | | | [address] | | | | | | | | +--------+---------+ + + + documented as of this encounter Procedures + +--------+ + + + | Procedure Name | Priori | Date/Time | Associated Diagnosis | Comments | | | ty | | | | + +--------+ + + + | ECG 12 LEAD | Routin | 11/16/2019 | Preop testing | Results for this | | | e | 11:16 AM | | procedure are in the | | | | PST | | results section. | + +--------+ + + + documented in this encounter Results ECG 12 lead (11/16/2019 [...] MD | | | | | | (854) on 11/16/2019 | | | | | [...] Diagnosis | + + | Preop testing Preoperative examination, unspecified | + + documented in this encounter
--- OUTSIDE RECORDS SUMMARY | ~2020-04-03 | XMS | Encounter Summary ---
Demographics + + + | Address | [address] | | | [place] [address] | + + + | Home Phone | | + + + | Preferred Language | Unknown | + + + | Marital Status | Single | + + + | Methodist Affiliation | Unknown | + + + | Race | Unknown | + + + | Ethnic Group | Unknown | + + + Author + + + | Author | [facility] | | | and [place] | + + + | Organization | [facility] | | | [...] Team Providers + +------+ + | Care Adventure Therapist Name | Role | Phone | + +------+ + | Lisa Watson MD | PCP | | + +------+ + Encounter Details +--------+---------+ + + + | Date | Type | Department | Care Team | Description | +--------+---------+ + + + | 08/22/ | Office | [facility] | Andrews Massey MD | CKD (chronic kidney | | 2019 | Visit | NEPHROLOGY [address] | [address] [place] | disease), stage III | | | | [address] | [address] [place], [place] | ([facility]) (Primary Dx); | | | | [address] [place] [address] | [address] | Persistent | | | | [place], [place] | | proteinuria; Type 2 | | | | [address] | | diabetes mellitus | | | | [phone] | | with diabetic | | | | | | nephropathy, with | | | | | | long-term current | | | | | | use of insulin | | | | | | ([facility]); Essential | | | | | | [...] | | | | 49.9 in adult ([facility]); | | | | | | Anemia of chronic | | | | | | renal failure, stage | | | | | | 3 (moderate) ([facility]); | | | | | | Hyperuricemia; [...] Iron studies, Ferritin, uric acid, Urine total soorhhx-dj-mniz tinine ratio before she comes back in [...] to baseline with t he interventions at [facility]. The patient has history of hypertension since [...] every evening., Disp: , Rfl: nystatin (MYCOSTATIN) 039916 UNIT/GM cream, Apply topically as needed., Disp: [...] 16.5 (A) 05/06/2019 LABPROT 1,148.6 (A) 05/06/2019 [id number] 22 (A) 04/21/2018 Assessment: Ms. Restrepo is [...] Iron studies, Ferritin, uric acid, Urine total cithhzf-ud-dzdr tinine ratio before she comes back in 3 months. I spent 15 minutes of this 25-minute visit in education, counseling and answering all of her questions to her satisfaction. Thank you Dr Watson for the opportunity to see this patient in F/U today. Please do not hesi dunn to call me at any time with questions or concerns. Truly yours, Andrews Massey MD [facility] documented in this enco unter Plan of Treatment +--------+---------+ + + + | Date | Type | Specialty | Care Team | Description | +--------+---------+ + + + | 04/30/ | Office | Nephrology | Andrews Massey MD | | | 2019 | Visit | | [address] [facility] | | | | | | [address] [place] | | | | | | [address] | | | | | | | | +--------+---------+ + + + | 06/14/ | Office | Cardiology | Ольга Veloz DO | | | 2019 | Visit | | [address] | | | | | | [place] | | | | | | [address] | | | | | | | [...] in adult (HCC) | + + | Anemia of chronic renal failure, stage 3 (moderate) (HCC) | + + | Hyperuricemia Other abnormal blood chemistry | + + | Vitamin D deficiency Unspecified vitamin D deficiency | + + | Bilateral leg edema Edema | + + documented in this encounter
--- OUTSIDE RECORDS SUMMARY | ~2020-04-03 | XMS | Encounter Summary ---
Demographics + + + | Address | [address] | | | [place] [address] | + + + | Home Phone | | + + + | Preferred Language | Unknown | + + + | Marital Status | Single | + + + | Yazidism Affiliation | Unknown | + + + | Race | Unknown | + + + | Ethnic Group | Unknown | + + + Author + + + | Author | [facility] | | | and [place] | + + + | Organization | [facility] | | [...] Team Providers + +------+ + | Care Automotive Accessory Installer Name | Role | Phone | + +------+ + | Lisa Mcclain MD | PCP | | + +------+ + Encounter Details +--------+ + + + + | Date | Type | Department | Care Team | Description | +--------+ + + + + | 10/26/ | Orders Only | [facility] | Andrews Massey MD | | | 2017 | | NEPHROLOGY [place] | [address] [place] | | | | | [address] [place] | [address] [place], [place] | | | | | [address] [place], [place] | [address] | | | | | [address] | | | | | | [phone] | | | +--------+ + + + [...] [place] | | | | | | [address] | | | | | | | | +--------+---------+ + + + | 06/14/ | Office | Cardiology | Ольга Veloz DO | | | 2019 | Visit | | [address] | | | | | | [place] | | | | | | [address] | | | | | | | | +--------+---------+ + + + documented as of this encounter Procedures + +--------+ + + + | Procedure Name | Priori | Date/Time | Associated Diagnosis | Comments | | | ty | | | | + +--------+ + + + | BASIC METABOLIC | Routin | 10/26/2018 | | Results for this | | PANEL | e | 12:00 AM | | procedure are in the | | | | PST | | results section. | + +--------+ + + + documented in this encounter Results Basic Metabolic Panel (10/26/2018 12:00 AM PST) + + + + + + | Component | Value | Ref Range | Performed | Pathologist | | | | | At | Signature | + + + + + + | Glucose, | 84 | 70 - 100 mg/dL | EXTERNAL | | | Fasting | | | LAB | | + + + + + + | BUN | 27 (A) | 6 - 23 mg/dL | EXTERNAL | | | | | | LAB | | + + + + + + | Creatinine | 1.47 (A) | 0.60 - 1.35 | EXTERNAL | | | | | mg/dL | LAB | | + + + + + + | BUN/Creatin | 18.4 | 6 - 28.6 | EXTERNAL | | | ine Ratio | | | LAB | | + + + + + + | Calcium | 9.8 | 8.5 - 10.3 | EXTERNAL | | | | | mg/dL | LAB | | + + + + + + | Na | 139 | 132 - 143 | EXTERNAL | | | | | mmol/L | LAB | | + + + + + + | K | 4.5 | 3.6 - 5.1 | EXTERNAL | | | | | mmol/L | LAB | | + + + + + + | Cl | 25 | 19 - 31 | EXTERNAL | | | | | | LAB | | + + + + + + | CO2 | 25 | 19 - 31 mmol/L | EXTERNAL | | | | | | LAB | | + + + + + + | Anion Gap | 18.5 | 7 - 21 mmol/L | EXTERNAL | | | | | | LAB | | + + + + + + | Estimated | 38 | mg/dL | EXTERNAL | | | [...]
--- OUTSIDE RECORDS SUMMARY | ~2020-04-03 | XMS | Clinical Summary ---
Demographics + + + | Address | [address] | | | [place] [address] | + + + | Home Phone | | + + + | Preferred Language | Unknown | + + + | Marital Status | Unknown | + + + | Taoism Affiliation | Unknown | + + + | Race | Unknown | + + + | Ethnic Group | Unknown | + + + Author + + + | Author | [facility] (Historical as of | | | 07-16-19) | + + + | Organization | [facility] (Historical as of | | | 07-16-19) | + + + | Address | Unknown | + + + | Phone | Unavailable | + + + Support + + + + + | Name | Relationship | Address | Phone | + + + + + | May Cardona | ECON | [address] | | | e | | [place] | | | | | [address] | | + + + + + Care Team Providers + +------+ + | Care Director Women Name | Role | Phone | + +------+ + | Lisa Mcclain MD | PP | | + +------+ + Allergies + + + + + + | Active Allergy | Reactions | Severity | Noted | Comments | | | | | Date | | + + + + + + | Adhesive Tape | Rash | Medium | 07/12/20 | Welts, plastic | | | | | 18 | tape | + + + + + + | Cefazolin | Rash | Medium | 06/03/20 | | | | | | 18 | | + + + + + + | Clindamycin | Hives | High | 06/03/20 | | | | | | 18 | | + + + + + + | Lisinopril | Cough | Low | 06/03/20 | | | | | | 18 | | + + + + + + | Nafcillin | Rash | Medium | 06/03/20 | | | | | | 18 | | + + + + + + | Tetanus Toxoids | Rash | Medium | 07/05/20 | | | | | | 18 | | + + + + + + Current Medications + + +--------+---------+------+------+-------+ | Prescription | Sig. | Disp. | Refills | Star | End | Statu | | | | | | t | Date | s | | | | | | Date | | | + + +--------+---------+------+------+-------+ | aspirin 81 MG | Take 81 mg by mouth | | | | | Activ | | tablet | daily. | | | | | e | + + +--------+---------+------+------+-------+ | buPROPion | Take 300 mg by mouth | | | | | Activ | | (WELLBUTRIN XL) 300 | daily. | | | | | e | | MG 24 hr tablet | | | | | | | + + +--------+---------+------+------+-------+ | insulin glargine | Inject 35 Units into | | | | | Activ | | (LANTUS) 100 UNIT/ML | the skin 2 (two) | | | | | e | | injection | times daily. | | | | | | + + +--------+---------+------+------+-------+ | insulin lispro, | Inject 8 Units into | | | | | Activ | | human, (HUMALOG) 100 | the skin 3 (three) | | | | | e | | UNIT/ML injection | times daily before | | | | | | | | meals. | | | | | | + + +--------+---------+------+------+-------+ | levothyroxine | Take 75 mcg by mouth | | | | | Activ | | (SYNTHROID) 25 MCG | every morning | | | | | e | | tablet | before breakfast. | | | | | | + + +--------+---------+------+------+-------+ | FLUoxetine HCl 60 | Take 60 mg by mouth | | | | | Activ | | MG TABS | daily. | | | | | e | + + +--------+---------+------+------+-------+ | | Inhale 1 puff into | | | | | Activ | | ipratropium-albutero | the lungs 4 (four) | | | | | e | | l (COMBIVENT | times daily. | | | | | | | RESPIMAT) 20-100 | | | | | | | | MCG/ACT inhaler | | | | | | | + + +--------+---------+------+------+-------+ | Calcium | Take by mouth | | | | | Activ | | Carb-Cholecalciferol | daily. | | | | | e | | 600-400 MG-UNIT | | | | | | | | TABS | | | | | | | + + +--------+---------+------+------+-------+ | docusate sodium | Take 100 mg by mouth | | | | | Activ | | (COLACE) 100 MG | 2 (two) times | | | | | e | | capsule | daily. | | | | | | + + +--------+---------+------+------+-------+ | glucagon (GLUCAGON | Inject 1 mg into the | | | | | Activ | | EMERGENCY) 1 MG | vein as needed. | | | | | e | | injection | | | | | | | + + +--------+---------+------+------+-------+ | senna (SENOKOT) | Take 1 tablet by | | | | | Activ | | 8.6 MG tablet | mouth daily. | | | | | e | + + +--------+---------+------+------+-------+ | metoprolol | Take 50 mg by mouth | | | | | Activ | | (LOPRESSOR) 50 MG | 2 (two) times daily. | | | | | e | | tablet | | | | | | | + + +--------+---------+------+------+-------+ | gabapentin | Take 600 mg by mouth | | | | | Activ | | (NEURONTIN) 300 MG | 3 (three) times | | | | | e | | capsule | daily. | | | | | | + + +--------+---------+------+------+-------+ | amitriptyline | Take 100 mg by mouth | | | | | Activ | | (ELAVIL) 25 MG | nightly. | | | | | e | | tablet | | | | | | | + + +--------+---------+------+------+-------+ | famotidine | Take 20 mg by mouth | | 0 | 07/2 | | Activ | | (PEPCID) 20 MG | nightly as needed. | | | 0/20 | | e | | tablet | | | | 18 | | | + + +--------+---------+------+------+-------+ | FREESTYLE TEST | | | 0 | 07/2 | | Activ | | STRIPS test strip | | | | 1/20 | | e | | | | | | 18 | | | + + +--------+---------+------+------+-------+ | nystatin | Apply topically as | | 0 | 07/2 | | Activ | | (MYCOSTATIN) cream | needed. | | | 3/20 | | e | | | | | | 18 | | | + + +--------+---------+------+------+-------+ | prazosin | Take by mouth | | 0 | 08/1 | | Activ | | (MINIPRESS) 5 MG | nightly. | | | 2/20 | | e | | capsule | | | | 18 | | | + + +--------+---------+------+------+-------+ | RA P COL-RITE | Take 1 tablet by | | 0 | 08/0 | | Activ | | 8.6-50 MG per tablet | mouth daily. | | | 3/20 | | e | | | | | | 18 | | | + + +--------+---------+------+------+-------+ | BD SHARPS | | | 0 | 07/1 | | Activ | | CONTAINER HOME MISC | | | | 1/20 | | e | | | | | | 18 | | | + + +--------+---------+------+------+-------+ | B-D INS SYRINGE | | | 1 | 08/0 | | Activ | | 0.5CC/31GX5/16 31G X | | | | 5/20 | | e | | 5/16" 0.5 ML | | | | 18 | | | + + +--------+---------+------+------+-------+ | | Take by mouth. | | | | | Activ | | Glecaprevir-Pibrenta | | | | | | e | | svir 100-40 MG TABS | | | | | | | + + +--------+---------+------+------+-------+ | indapamide (LOZOL) | Take 0.5 tablets by | 15 | 11 | 11/1 | | Activ | | 1.25 MG tablet | mouth every morning. | tablet | | 2/20 | | e | | | | | | 18 | | | + + +--------+---------+------+------+-------+ | quetiapine | Take 200 mg by mouth | | | | | Activ | | (SEROQUEL) 200 MG | 2 (two) times | | | | | e | | tablet | daily. | | | | | | + + +--------+---------+------+------+-------+ | LORazepam (ATIVAN) | Take 1 mg by mouth | | | | | Activ | | 1 MG tablet | every 6 (six) hours | | | | | e | | | as needed for | | | | | | | | Anxiety. | | | | | | + + +--------+---------+------+------+-------+ | | Take 1 tablet by | | | | | Activ | | HYDROcodone-acetamin | mouth every 6 (six) | | | | | e | | ophen (NORCO) 5-325 | hours as needed for | | | | | | | MG per tablet | Pain. | | | | | | + + +--------+---------+------+------+-------+ | losartan (COZAAR) | Take 50 mg by mouth | | | | | Activ | | 50 MG tablet | daily. | | | | | e | + + +--------+---------+------+------+-------+ | hydrALAZINE | Take 25 mg by mouth | | | | | Activ | | (APRESOLINE) 25 MG | 3 (three) times | | | | | e | | tablet | daily. | | | | | | + + +--------+---------+------+------+-------+ | busPIRone (BUSPAR) | Take 15 mg by mouth | | | | | Activ | | 15 MG tablet | 3 (three) times | | | | | e | | | daily. | | | | | | + + +--------+---------+------+------+-------+ | niacin 500 MG | Take 500 mg by mouth | | | | | Activ | | tablet | daily with | | | | | e | | | breakfast. | | | | | | + + +--------+---------+------+------+-------+ | fish oil omega-3 | Take 1 g by mouth | | | | | Activ | | fatty acids 1000 MG | daily. | | | | | e | | capsule | | | | | | | + + +--------+---------+------+------+-------+ | prazosin | Take 2 mg by mouth | | | | | Activ | | (MINIPRESS) 2 MG | nightly. | | | | | e | | capsule | | | | | | | + + +--------+---------+------+------+-------+ | pravastatin | Take 40 mg by mouth | | | | | Activ | | (PRAVACHOL) 40 MG | nightly. | | | | | e | | tablet | | | | | | | + + +--------+---------+------+------+-------+ | NIFEdipine | Take 1 tablet by | 30 | 11 | 06/1 | 06/0 | Activ | | (PROCARDIA XL) 30 MG | mouth daily. | tablet | | 0/20 | 9/20 | e | | 24 hr tablet | | | | 19 | 20 | | + + +--------+---------+------+------+-------+ | allopurinol | Take 1 tablet by | 30 | 11 | 06/1 | 06/0 | Activ | | (ZYLOPRIM) 100 MG | mouth daily. | tablet | | 0/20 | 08/19 | e | | tablet | | | | | 20 | | + + +--------+---------+------+------+-------+ Active Problems + + + | Problem | Noted Date | + + + | CKD (chronic kidney disease), stage III (HCC) | 06/18/2018 | + + + | Essential (primary) hypertension | 06/18/2018 | + + + | Type 2 diabetes mellitus with diabetic nephropathy, with | 06/18/2018 | | long-term current use of insulin (HCC) | | + + + | Persistent proteinuria | 06/18/2018 | + + + | Class 3 severe obesity due to excess calories without serious | 06/18/2018 | | comorbidity with body mass index (BMI) of 45.0 to 49.9 in adult | | | (HCC) | | + + + | Hyperuricemia | 06/18/2018 | + + + | Anemia of chronic renal failure, stage 3 (moderate) (HCC) | 06/18/2018 | + + + | Vitamin D deficiency | 06/18/2018 | + + + | Bilateral leg edema | 06/18/2018 | + + + Immunizations + + + + | Name | Dates Previously Given | Next Due | + + + + | INFLUENZA PF, | 01/07/2017 | | | QUADRIVALENT | | | | (PED/ADOL/ADULT) | | | + + + + | INFLUENZA W/PRESERV | 08/11/2017 | | | QUADRIVALENT | | | | (MULTIDOSE) | | | + + + + | Pneumococcal | 04/06/2016 | | | Polysaccharide | | | | 23-valent | | | + + + + Social History + [...] on file | | + + + Last Filed Vital Signs + + + + | Vital Sign | Reading | Time Taken | + + + + | Blood Pressure | 132/72 | 05/09/2019 11:27 AM PDT | + + + + | Pulse | 81 | 05/09/2019 11:27 AM PDT | + + + + | Temperature | 36.2 C (97.2 F) | 02/23/2019 1:27 PM PDT | + + + + | Respiratory Rate | 16 | 02/23/2019 1:27 PM PDT | + + + + | Oxygen Saturation | 97% | 05/09/2019 11:27 AM PDT | + + + + | Inhaled Oxygen | - | - | | Concentration | | | + + + + | Weight | 155.5 kg (342 lb | 05/09/2019 11:27 AM PDT | | | 12.8 oz) | | + + + + | Height | 175.3 cm (5' 9") | 05/09/2019 11:27 AM PDT | + + + + | Body Mass Index | 50.62 | 05/09/2019 11:27 AM PDT | + + + + Plan of Treatment + + + + + | Health Maintenance | Due Date | Last Done | Comments | + + + + + | Diabetic Eye Exam | | | | | | 0 | | | + + + + + | Diabetic Foot Exam | | | | | | 0 | | | + + + + + | Cervical Cancer | | | | | Screening (Pap) | 0 | | | + + + + + | Hemoglobin A1c | | 04/21/2018 | | | | 8 | | | + + + + + | Vaccine: Influenza | | 08/11/2017, 01/07/2017 | | | (Season Ended) | 0 | | | + + + + + | Vaccine: | | 04/06/2016 | | | Pneumococcal (PPSV23 | 1 | | | | only) 19-64 Highest | | | | | Risk (2 of 3 - | | | | | PPSV23) | | | | + + + + + Results Not on filefrom Last 3 Months Insurance + +--------+ +------+-------+ + | Payer | Benefi | Subscriber | Type | Phone | Address | | | t Plan | ID | | | | | | / | | | | | | | Group | | | | | + +--------+ +------+-------+ + | MEDICAID | [place] | [id number] | | | [address] | | | [place] | | | | [place] | | | [place] | | | | [address] | | | [employer]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
--- OUTSIDE RECORDS SUMMARY | ~2020-04-03 | XMS | Encounter Summary ---
Demographics + + + | Address | [address] | | | [place] [address] | + + + | Home Phone | | + + + | Preferred Language | Unknown | + + + | Marital Status | Single | + + + | Adventism Affiliation | Unknown | + + + | Race | Unknown | + + + | Ethnic Group | Unknown | + + + Author + + + | Author | [facility] | | | and [place] | + + + | Organization | [facility] | | | and [...] Team Providers + +------+ + | Care Video Effects Editor Name | Role | Phone | + +------+ + | Lisa Mcclain MD | PCP | | + +------+ + Encounter Details +--------+ + + + + | Date | Type | Department | Care Team | Description | +--------+ + + + + | 10/08/ | Orders Only | [facility] | Andrews Massey MD | | | 2018 | | NEPRHOLOGY EARLY | [address] [place] | | | | | [address] [place] | [address] [place], [place] | | | | | [address] [place], [place] | [address] | | | | | [address] | | | | | | [phone] | | | +--------+ + + + [...] 2019 | Visit | | [address] | | | | | | [address] [place] | | | | | | [address] | | | | | | | | +--------+---------+ + + + | 06/14/ | Office | Cardiology | Ольга Veloz DO | | | 2019 | Visit | | [address] | | | | | | [place] | | | | | | [address] | | | | | | | [...] | | | LAB | | | [facility] | | | | | + + [...]
--- OUTSIDE RECORDS SUMMARY | ~2020-04-03 | XMS | Encounter Summary ---
Demographics + + + | Address | [address] | | | [place] [address] | + + + | Home Phone | | + + + | Preferred Language | Unknown | + + + | Marital Status | Single | + + + | Anabaptism Affiliation | Unknown | + + + | Race | Unknown | + + + | Ethnic Group | Unknown | + + + Author + + + | Author | [facility] | | | and [place] | + + + | Organization | [facility] | | | [...] Team Providers + +------+ + | Care Ruby On Rails Web Developer Name | Role | Phone | [...] | | | | | | | [place] EGD | | | | | | | TRANSORAL | | | | | | | BIOPSY | | | | | | | SINGLE/MULTI | | | | | | | PLE [place] | | | | | | | [...] | | | 2019 | Event | [facility] | MD Ashley FITZPATRICK | | | | | INTRA OP [address] | [place] [address] | | | | | [address] [place], [place] | [phone] | | | | | [address] | | | | | | [phone] | | | +--------+ + + + [...] 0957 by Dominique | | eral | [id number] catheter system; | Devi Greer RN | [...] 2020 | Visit | | [address] [facility] | | | | | | [address] [place], [place] | | | | | | [address] | | | | | | | | +--------+---------+ + + + | 06/14/ | Office | Cardiology | VelozОльга solerDO | | | 2019 | Visit | | [address] | | | | | | [place] | | | | | | [address] | | | | | | | [...] | propofol (DIPRIVAN) injection | Given | 20 | 50 mg | | | | Intravenous, PRN, Starting Mon | | 19 9:21 | | | | | 11/21/19 at 0919, Anesthesia | | AM PST | | | | | Intra-op | | | | | | + +-------+ +-------+---+---+ +-------+ +--------+---+---+ | Given | 20 | 50 mg | | | | [...]
--- OUTSIDE RECORDS SUMMARY | ~2020-04-03 | XMS | Encounter Summary ---
Demographics + + + | Address | [address] | | | [place] [address] | + + + | Home Phone | | + + + | Preferred Language | Unknown | + + + | Marital Status | Single | + + + | Episcopalian Affiliation | Unknown | + + + [...] Team Providers + +------+ + | Care Polisher And Sander Name | Role | Phone | + [...] + + | 10/24/ | Telephone | [facility] | [place], | Other (Medication | | 2019 | | [address]Y [address] | Aminah Lovelace | question) | | | | [address] | Ne[employer] | | | | | [address] | | | | | | RD, [place] | | | | | | [address] | | | | | | [phone] | | | +--------+ + + + [...] 2020 | Visit | | [address] [facility] | | | | | | [address] [place], [place] | | | | | | [address] | | | | | | | | +--------+---------+ + + + | 06/14/ | Office | Cardiology | Ольга Veloz DO | | | 2020 | Visit | | [address] | | | | | | [place] | | | | | | [id number] | | | | | | | | +--------+---------+ + + + documented as of this encounter Visit Diagnoses Not on filedocumented in this encounter"
--- OUTSIDE RECORDS SUMMARY | ~2020-04-03 | XMS | Encounter Summary ---
Demographics + + + | Address | [address] | | | [place] [address] | + + + | Home Phone | | + + + | Preferred Language | Unknown | + + + | Marital Status | Single | + + + | Zoroastrian Affiliation | Unknown | + + + | Race | Unknown | + + + | Ethnic Group | Unknown | + + + Author + + + | Author | [facility] | | | and [place] | + + + | Organization | [facility] | | | and [...] Team Providers + +------+ + | Care Systems Technician Name | Role | Phone | + +------+ + | Lisa Mcclain MD | PCP | | + +------+ + Encounter Details +--------+ + + + + | Date | Type | Department | Care Team | Description | +--------+ + + + + | 10/11/ | Orders Only | [facility] | Conversion | | | 2018 | | INFECTIOUS DISEASE | Transaction, | | | | | [address] | Provider Unknown | | | | | [place], [place] | | | | | | [address] | (Fax) | | | | | [phone] | | | +--------+ + + + [...] documented as of this encounter Progress Notes Alex Patrick, Provider Unknown - 10/20/2018 1:40 PM PSTFormatting of this note m ight be different from the original. Progress Notes by Patricia Peterson CMA at 10/20/18 0699 Author: Patricia Peterson CMA Service: (none) Author Type: [employer] Lif[employer] Filed: 10/20/18 1349 Encounter Date: 10/20/2018 Status: Signed Thread Winder Automatic: Patricia Peterson CMA (Aquatics Lifeguard) 10/11/2018 [facility]- CMP, HCV RNA, CBC rcvd: 10/20/18 Abstracted. Scanned. docume nted in this encounter Plan of Treatment +--------+---------+ + + + | Date | Type | Specialty | Care Team | Description | +--------+---------+ + + + | 04/30/ | Office | Nephrology | Andrews Massey MD | | | 2019 | Visit | | [address] [facility] | | | | | | [address] [place] | | | | | | [address] | | | | | | | | +--------+---------+ + + + | 06/14/ | Office | Cardiology | Ольга Veloz DO | | | 2019 | Visit | | [address] | | | | | | [place] | | | | | | [address] | | | | | | | | +--------+---------+ + + + documented as of this encounter Procedures + +--------+ + + + | Procedure Name | Priori | Date/Time | Associated Diagnosis | Comments | | | ty | | | | + +--------+ + + + | EXTERNAL LAB: CBC | Routin | 10/11/2018 | | Results for this | | | e | 4:57 PM | | procedure are in the | | | | PST | | results section. | + +--------+ + + + | HEPATITIS C | Routin | 10/11/2018 | | Results for this | | RNA,QUANTITATIVE,PCR | e | 4:57 PM | | procedure are in the | | | | PST | | results section. | + +--------+ + + + | COMPREHENSIVE | Routin | 10/11/2018 | | Results for this | | METABOLIC PANEL | e | 4:57 PM | | procedure are in the | | | | PST | | results section. | + +--------+ + + + documented in this encounter Results Hepatitis C RNA, quantitative, PCR (10/11/2018 4:57 PM PST) + + + + + + | Component | Value | Ref Range | Performed | Pathologist | | | | | At | Signature | + + + + + + | HCV-LOG 10 | NOT QUANTIFIED | Log IU/ml | EXTERNAL | | | | | | LAB | | + + + + + + | HCV | NOT QUANTIFIED | IU/ml | EXTERNAL | | | Quantitativ | | | LAB | | | e | | | | | + + [...] + +---------+ + + External Lab: CBC (10/11/2018 4:57 PM PST) + + + + + + | Component | Value | Ref Range | Performed | Pathologist | | | | | At | Signature | + + + + + + | WBC | 7.9 | 4.5 - 11.0 K/uL | EXTERNAL | | | | | | LAB | | + + + + + + | Red Blood | 3.96 | 3.8 - 5.1 M/uL | EXTERNAL | | | Cells | | | LAB | | | Counted | | | | | + + + + + + | Hemoglobin | 10.4 (A) | 12.0 - 16.0 | EXTERNAL | | | | | g/dL | LAB | | + + + + + + | Hematocrit, | 32.7 (A) | 35 - 45 % | EXTERNAL | | | POC | | | LAB | | + + + + + + | MCV | 82.6 | 81 - 99 fL | EXTERNAL | | | | | | LAB | | + + + + + + | MCH | 26 (A) | 27 - 33 pg | EXTERNAL | | | | | | LAB | | + + + + + + | MCHC | 32 | 30 - 36 g/dL | EXTERNAL | | | | | | LAB | | + + + + + + | Platelet | 286 | 140 - 440 K/uL | EXTERNAL | | | Count | | | LAB | | | Plasma | | | | | + + + + + + | RDW-CV | 15.5 (A) | 10.5 - 15.0 % | EXTERNAL | | | | | | LAB | | + + + + + + | MPV | | | EXTERNAL | | | | | | LAB | | + + + + + + | Differentia | | | EXTERNAL | | | l Type | | | LAB | | + + + + + + | % Segmented | 61.6 | 39 - 80 % | EXTERNAL | | | | | | LAB | | | Neutrophils | | | | | + + + + + + | % | 28.2 | 24 - 44 % | EXTERNAL | | | Lymphocytes | | | LAB | | + + + + + + | % Monocytes | 7.4 | 0 - 12 % | EXTERNAL | | | | | | LAB | | + + + + + + | % | 1.9 | 0 - 6 % | EXTERNAL | | | Eosinophils | | | LAB | | + + + + + + | % Basophils | 0.9 | 0 - 2 % | EXTERNAL | | | | | | LAB | | + + + + + + | Absolute | | | EXTERNAL | | | Segmented | | | LAB | | | Neutrophils | | | | | + + + + + + | Absolute | | | EXTERNAL | | | Lymphocytes | | | LAB | | + + + + + + | Absolute | | | EXTERNAL | | | Monocytes | | | LAB | | + + + + + + | Absolute | | | EXTERNAL | | | Eosinophils | | | LAB | | + + + + + + | Absolute | | | EXTERNAL | | | Basophils | | | LAB | | + + + + + + + + | Specimen | + + | Blood specimen | | (specimen) | + + + + + | Impressions | Performed At | + + + | MANUAL DIFFERENTIAL Neutrophils: 60 % Ref. Range: 39-80 % | EXTERNAL LAB | | Bands: 1 Ref. Range: 0-7 % Lymphocytes: 32 Ref. Range: 24-44 % | | | Monocytes: 4 Ref. Range: 0-12 % Eosinophils: 2 Ref. Range: | | | 0-6 % Basophils: 2 Ref. Range: 0-2 % | | + + + + +---------+ + + | Performing | Address | City/State/Zipcode | Phone Number | | Organization | | | | + +---------+ + + | EXTERNAL LAB | | | | + +---------+ + + Comprehensive Metabolic Panel (10/11/2018 4:57 PM PST) + +---------+ + + + | Component | Value | Ref Range | Performed | Pathologist | | | | | At | Signature | + +---------+ + + + | Glucose, | 227 (A) | 70 - 100 mg/dL | EXTERNAL | | | Fasting | | | LAB | | + +---------+ + + + | BUN | 22 | 6 - 23 mg/dL | EXTERNAL | | | | | | LAB | | + +---------+ + + + | Creatinine | 1.20 | 0.60 - 1.35 | EXTERNAL | | | | | mg/dL | LAB | | + +---------+ + + + | BUN/Creatin | 18.3 | 6.0 - 28.6 | EXTERNAL | | | ine Ratio | | | LAB | | + +---------+ + + + | Calcium | 9.1 | 8.5 - 10.3 | EXTERNAL | | | | | mg/dL | LAB | | + +---------+ + + + | Protein, | 6.9 | 6.0 - 8.3 g/dL | EXTERNAL | | | Total | | | LAB | | + +---------+ + + + | Albumin | 3.5 | 3.5 - 5.0 g/dL | EXTERNAL | | | | | | LAB | | + +---------+ + + + | Globulin | 3.4 | 1.8 - 3.5 g/dL | EXTERNAL | | | | | | LAB | | + +---------+ + + + | A/G Ratio | 1.0 (A) | 1.1 - 2.4 | EXTERNAL | | | | | | LAB | | + +---------+ + + + | Bilirubin | 0.3 | 0.0 - 1.2 mg/dL | EXTERNAL | | | Total | | | LAB | | + +---------+ + + + | ALP, | 151 (A) | 31 - 130 U/L | EXTERNAL | | | External | | | LAB | | + +---------+ + + + | ALT | 14 | 7 - 52 U/L | EXTERNAL | | | | | | LAB | | + +---------+ + + + | AST | 14 | 13 - 39 U/L | EXTERNAL | | | | | | LAB | | + +---------+ + + + | Na | 135 | 132 - 143 meq/L | EXTERNAL | | | | | | LAB | | + +---------+ + + + | K | 4.3 | 3.6 - 5.1 meq/L | EXTERNAL | | | | | | LAB | | + +---------+ + + + | Cl | 105 | 95 - 112 meq/L | EXTERNAL | | | | | | LAB | | + +---------+ + + + | CO2 | 23 | 19 - 31 meq/L | EXTERNAL | | | | | | LAB | | + +---------+ + + + | Anion Gap | 11.3 | 7 - 21 | EXTERNAL | | | | | | LAB | | + +---------+ + + + | Estimated | 48 (A) | 60 mL/min | EXTERNAL | | | GFR | [...]
--- OUTSIDE RECORDS SUMMARY | ~2020-04-03 | XMS | Encounter Summary ---
Demographics + + + | Address | [address] | | | [place] [address] | + + + | Home Phone | | + + + | Preferred Language | Unknown | + + + | Marital Status | Single | + + + | Church Affiliation | Unknown | + + + [...] Team Providers + +------+ + | Care Cocktail Server Name | Role | Phone | + [...] + + | 12/12/ | Telephone | [facility] | Jamie, | Other | | 2020 | | GASTROENTEROLOGY | Claudia Rivera [employer] [employer] | | | | | [address] | [address] [place], | | | | | [place], [place] | [place] [address] | | | | | [address] | [phone] | | | | | [phone] | | | +--------+ + + + [...] | | | | | | [address] [place], [place] | | | | | | [address] | | | | | | | | +--------+---------+ + + + | 06/14/ | Office | Cardiology | Ольга Veloz DO | | | 2019 | Visit | | [address] | | | | | | [place] | | | | | | [address] | | | | | | | | +--------+---------+ + + + documented as of this encounter Visit Diagnoses Not on filedocumented in this encounter"
--- OUTSIDE RECORDS SUMMARY | ~2020-04-03 | XMS | Encounter Summary ---
Demographics + + + | Address | [address] | | | [place] [address] | + + + | Home Phone [...] + + + | Author | [facility] | | | and [place] | + + + | Organization | [facility] [...] Team Providers + +------+ + | Care Junior Programmer Name | Role | Phone | + [...] | | | [address] | Way [place], [place] | | | | | [place], [place] | [address] | | | | | [address] | | | | | | [phone] | | | +--------+ + + + [...] Visit | | [address] [place] | | | | | | [address] [place] | | | | | | [address] | | | | | | | | +--------+---------+ + + + | 06/14/ | Office | Cardiology | Ольга Veloz DO | | | 2019 | Visit | | [address] | | | | | | [place] | | | | | | [address] | | | | | | | [...] 0.95 m/s | | | MV Dec Hertford: 4.51 m/s2 MV DecT: 171.69 ms MV E Tripp: 0.77 | | | m/s MV E/A Ratio: 0.81 MV PHT: 49.79 ms MVA By PHT: 4.41 | | | cm2 Septal e': 0.05 m/s Septal E/e': 13.50 Lateral e': | | | 0.08 m/s Lateral E/e': 8.88 RV s': 0.11 m/s Ciaio Counter Molder: | | | DBS Authenticated by: Anaya Vero Report Date/Time: 05-18-2019 | | | 18:21:40 | | + + + + --------+ | Procedure Note | + --------+ | Brad Rueda Conversion - 07/21/2019 1:44 PM PDT Patient [...] cmLVPWd: 0.93 cmLVOT | | Area: 3.18 [id number] Diam: 2.01 cm%FS: 31.25 %EF(Teich): 58.95 %ESV(Teich): | | 43.96 mlLVIDs: 3.29 cmSV(Teich): 63.16 mlRV Major: 7.53 cmRV Minor: 2.92 cmLVEF | | MOD A4C: 56.74 %SV MOD A4C: 67.87 mlLVEDV MOD A4C: 119.61 mlLVLd A4C: 9.44 | | cmLVESV MOD A4C: 51.74 mlLVLs A4C: 7.83 cmLAESV(A-L): 64.31 mlLAESV Index (A-L): | | 24.73 ml/m2LAAs A2C: 21.37 [id number] A-L A2C: 79.16 mlLALs A2C: 4.90 cmLAAs A4C: | | 14.94 [id number] A-L A4C: 44.97 mlLALs A4C: 4.21 cmRAAs: 10.68 [id number] A-L: | | 21.94 mlRAESV MOD: 22.52 mlRALs: 4.41 cmTAPSE: 1.99 cmAV maxP.74 mmHgAV | | meanP.04 mmHgAV Vmax: 1.39 m/Trinity Vmean: 0.93 m/Trinity VTI: 24.81 cmAVA Vmax: | | 2.84 cm2AVA (VTI): 3.25 rd3TJKL (Vmax): 0.00 cm2/m2AVAI (VTI): 0.00 cm2/m2LVOT | | maxP.17 mmHgLVOT meanP.66 mmHgLVSI Dopp: 31.09 ml/m2LVSV Dopp: 80.85 | | mlLVOT Vmax: 1.24 m/sLVOT Vmean: 0.91 m/sLVOT VTI: 25.38 cmMV A Tripp: 0.95 m/sMV | | Dec Hertford: 4.51 m/s2MV DecT: 171.69 msMV E Tripp: 0.77 m/sMV E/A Ratio: 0.81MV | | PHT: 49.79 msMVA By PHT: 4.41 fp1Nnbkvs e': 0.05 m/sSeptal E/e': 13.50Lateral | | e': 0.08 m/sLateral E/e': 8.88RV s': 0.11 m/s Ciaio Counter Molder: DBSAuthenticated by: | | Anaya KumarTrios Health Date/Time: 05-18-2019 18:21:40 IMPRESSION: 1. Overall left [...] A Tripp: 0.95 m/s | |MV Dec Hert[place]: 4.51 m/s2 | |MV DecT: 171.69 ms | |MV E Tripp: 0.77 m/s | |MV E/A Ratio: 0.81 | |MV PHT: 49.79 ms | |MVA By PHT: 4.41 cm2 | |Septal e': 0.05 m/s | |Septal E/e': 13.50 | |Lateral e': 0.08 m/s | |Lateral E/e': 8.88 | |RV s': 0.11 m/s | | | |Ciaio Counter Molder: DBS | |Authenticated by: Anaya Pham | [...]
--- OUTSIDE RECORDS SUMMARY | ~2020-04-03 | XMS | Encounter Summary ---
Demographics + + + | Address | [address] | | | [place] [address] | + + + | Home Phone [...] + + + | Author | [facility] | | | and [place] | + + + | Organization | [facility] | | [...] Team Providers + +------+ + | Care Yeast Culture Operator Name | Role | Phone | + +------+ + | Lisa Mcclain MD | PCP | | + +------+ + Encounter Details +--------+---------+ + + + | Date | Type | Department | Care Team | Description | +--------+---------+ + + + | 11/14/ | Office | [facility] | Andrews Massey MD | CKD (chronic kidney | | 2019 | Visit | NEPHROLOGY RD | [address] [place] | disease) stage 4, | | | | [address] | [address] [place], [place] | GFR 15-29 ml/min | | | | [address] [address] | [address] | (HCC) (Primary Dx); | | | | [place], [place] | | Anemia of chronic | | | | [address] | | renal failure, stage | | | | [phone] | | 4 (severe) ([facility]); | | | | | | Persistent [...] | | | | | | ([facility]); Essential | | | | | | [...] | | | | 49.9 in adult ([facility]); | | | | | | Hyperuricemia; [...] here in [facility]. She will continue to F/U with your office regularly. She will have a RFP, CBC, Iron studies, Ferritin, iPTH, Urine total oquqinc-yi-ybatpggvp e ratio before she comes back in [...] to baseline with t he interventions at [facility]. The patient has history of hypertension since [...] pen, Daily., Disp: , Rfl: nystatin (MYCOSTATIN) 472803 UNIT/GM cream, Apply topically as needed., Disp: [...] 16.5 (A) 05/06/2019 LABPROT 1,148.6 (A) 05/06/2019 [id number] (A) 04/21/2018 Assessment: Ms. Restrepo is [...] CBC, Iron studies, Ferritin, iPTH, Urine total qmrimgu-cw-rtoccautc e ratio before she comes back in 6 months. I spent 15 minutes of this 25-minute visit in education, counseling and answering all of her questions to her satisfaction. Thank you Dr Mcclain for the opportunity to see this patient in F/U today. Please do not hesi dunn to call me at any time with questions or concerns. Truly yours, Andrews Massey MD [facility] documented in this enco unter Plan of Treatment +--------+---------+ + + + | Date | Type | Specialty | Care Team | Description | +--------+---------+ + + + | 04/30/ | Office | Nephrology | Andrews Massey MD | | | 2019 | Visit | | [address] [facility] | | | | | | [address] [place] | | | | | | [address] | | | | | | | | +--------+---------+ + + + | 06/14/ | Office | Cardiology | Ольга Veloz DO | | | 2019 | Visit | | [address] | | | | | | [place] | | | | | | [address] | | | | | | | | +--------+---------+ + + + documented as of this encounter Visit Diagnoses + + | Diagnosis | + + | CKD (chronic kidney disease) stage 4, GFR 15-29 ml/min ([facility]) - Primary Chronic kidney | | disease, Stage IV (severe) | + + | Anemia of chronic renal failure, stage 4 (severe) ([facility]) | + + | Persistent proteinuria Proteinuria [...]
--- OUTSIDE RECORDS SUMMARY | ~2020-04-03 | XMS | Encounter Summary ---
Demographics + + + | Address | [address] | | | [place] [address] | + + + | Home Phone [...] Author + + + | Author | [facility] | | | and [place] | + + + | Organization | [facility] | | [...] Team Providers + +------+ + | Care Foil Spooler Name | Role | Phone | + +------+ + | Lisa Mcclain MD | PCP | | + +------+ + Encounter Details +--------+ + + + + | Date | Type | Department | Care Team | Description | +--------+ + + + + | 07/21/ | Orders Only | [facility] | Conversion | | | 2017 | | INFECTIOUS DISEASE | Transaction, | | | | | [address] | Provider Unknown | | | | | [place], [place] | | | | | | [address] | (Fax) | | | | | [phone] | | | +--------+ + + + [...] Steph Mayorga CMA Service: (none) Author Type: Ham Clerk Filed: 07/28/18 0958 Encounter Date: 07/27/2018 Status: Signed Slag Mixer: Steph Mayorga CMA (Ham Clerk) Labs abstracted. A copy of the labs will be put in Dr. Whitten inbox, as it's hard to abstr act the HCV labs. KENA HERRING onver jovany Transaction, Provider Unknown - 07/27/2018 4:06 PM PDT Addendum Note by Steph Mayorga CMA at 07/27/18 1606 Author: Steph Mayorga CMA Service: (none) Author Type: Ham Clerk Filed: 08/09/18 0944 Encounter Date: 07/27/2018 Status: Signed Slag Mixer: Steph Mayorga CMA (Ham Clerk) Addended by: STEPH MAYORGA on: 08/09/2018 09:44 AM Modules accepted: Orders docume nted in this encounter Plan of Treatment +--------+---------+ + + + | Date | Type | Specialty | Care Team | Description | +--------+---------+ + + + | 04/30/ | Office | Nephrology | Andrews Massey MD | | | 2019 | Visit | | [address] [facility] | | | | | | [address] [place] | | | | | | [address] | | | | | | | | +--------+---------+ + + + | 06/14/ | Office | Cardiology | Ольга Veloz DO | | | 2019 | Visit | | [address] | | | | | | [place] | | | | | | [address] | | | | | | | [...] + + + + | Necroinflam | A1/Q3Qkwiqme: Equal | | EXTERNAL | | | [...]
--- OUTSIDE RECORDS SUMMARY | ~2020-04-03 | XMS | Encounter Summary ---
Demographics + + + | Address | [address] | | | [place] [address] | + + + | Home Phone | | + + + | Preferred Language | Unknown | + + + | Marital Status | Single | + + + | Mosque Affiliation | Unknown | + + + [...] Team Providers + +------+ + | Care Enrobing Machine Corder Name | Role | Phone | + +------+ + | Yessica Mayorga MD | PCP | | + +------+ + Encounter Details +--------+ + + + + | Date | Type | Department | Care Team | Description | +--------+ + + + + | 02/11/ | Orders Only | [facility] | Andrews Massey MD | | | 2019 | | NEPRHOLOGY [place] | [address] [place] | | | | | [address] [place] | [address] [place], [place] | | | | | [address] [place], [place] | [address] | | | | | [address] | | | | | | [phone] | | | +--------+ + + + [...] 2019 | Visit | | [address] [facility] [place] | | | | | | [address] [place] | | | | | | [address] | | | | | | | | +--------+---------+ + + + | 06/14/ | Office | Cardiology | Ольга Veloz DO | | | 2019 | Visit | | [address] | | | | | | [place] | | | | | | [address] | | | | | | | [...]
--- OUTSIDE RECORDS SUMMARY | ~2020-04-03 | XMS | Encounter Summary ---
Demographics + + + | Address | [address] | | | [place] [address] | + + + | Home Phone | | + + + | Preferred Language | Unknown | + + + | Marital Status | Single | + + + | Hinduism Affiliation | Unknown | + + + | Race | Unknown | + + + | Ethnic Group | Unknown | + + + Author + + + | Author | [facility] | | | and [place] | + + + | Organization | [facility] | | | [...] Team Providers + +------+ + | Care Culinary Arts Instructor Name | Role | Phone | + [...] | | [address] | [address] [place], [place] | | | | | [place], [place] | [address] | | | | | [address] | | | | | | [phone] | | | +--------+ + + + [...] PSTdocumented in this encounter Plan of Treatment +--------+---------+ + + + | Date | Type | Specialty | Care Team | Description | +--------+---------+ + + + | 04/30/ | Office | Nephrology | Andrews Massey MD | | 2019 | Visit | | [address] [place] | | | | | | [address] [facility] [place] | | | | | | [address] | | | | | | | | +--------+---------+ + + + | 06/14/ | Office | Cardiology | Ольга Veloz DO | | | 2019 | Visit | | [address] | | | | | | [place] | | | | | | [address] | | | | | | | | +--------+---------+ + + + documented as of this encounter Visit Diagnoses Not on filedocumented in this encounter"
--- OUTSIDE RECORDS SUMMARY | ~2020-04-03 | XMS | Encounter Summary ---
Demographics + + + | Address | [address] | | | [place] [address] | + + + | Home Phone | | + + + | Preferred Language | Unknown | + + + | Marital Status | Single | + + + | Lutheran Affiliation | Unknown | + + + | Race | Unknown | + + + | Ethnic Group | Unknown | + + + Author + + + | Author | [facility] | | | and [place] | + + + | Organization | [facility] | | [...] Team Providers + +------+ + | Care Medical Transport Specialist Name | Role | Phone | [...] | | | | | | | IA EGD | | | | | | | TRANSORAL | | | | | | | BIOPSY | | | | | | | SINGLE/MULTI | | | | | | | PLE IA | | | | | | | [...] + + | 11/21/ | Surgery | [facility] | Doron Herrera | EGD | | 2019 | | [facility] | MD [address] | | | | | INTRA [address] | [place] | | | | | [place] | [address] | | | | | [address] | | | | | | [phone] | | | +--------+---------+ + + + [...] 0 | 06/21/20 | | | (MYCOSTATIN) [id number] | needed. | | | 18 | [...] | | | | | | [address] [place] | | | | | | [address] | | | | | | | | +--------+---------+ + + + | 06/14/ | Office | Cardiology | Ольга Veloz DO | | | 2019 | Visit | | [address] | | | | | | [place] | | | | | | [address] | | | | | | | [...] + +--------+ + + + | *TERMED* IA UPPER GI | Routin | 11/21/2019 | [...] interpretation was | | | performed by [facility] | | | [place], [place] (Humanities Professor: August Bray M.D.; | | | CLIA#: [id number]).The technical component was performed by [facility] | | | [place] [address] (Humanities Professor: | | | Brooklyn Hunter MD; CLIA# [id number]). Diagnostician: August Bray | | | MDPathologistElectronically Signed 11/24/2019 | | |PERFORMING LABORATORY: | | |The professional interpretation was performed by [facility] (Humanities Professor: August Bray M.D.; CLIA#: [id number]). | | |The technical component was performed by [facility], [address] [place] [address] (Humanities Professor: Brooklyn Hunter MD; CLIA# [id number]). | | | | | |Diagnostician: August [...] | + + + | Pratik | [facility] | | [facility] | PROVATION | | CenterGastroenterology | | | Patient Name: Wayne , | | | Isabel [place] Procedure Date: 11/21/2019 9:13 AMMRN: [id number] | | | of : | | [...] AMNumber of | | | Addenda: 0 [facility] | | | | | |Doron Herrera IV, | | |11/21/2019 9:39:38 AM | | |This report has been signed electronically. | | | | | |Note Initiated On: 11/21/2019 9:13 AM | | |Number of Addenda: 0 | | | | | | [facility] | | + + + [...]
--- OUTSIDE RECORDS SUMMARY | ~2020-04-03 | XMS | Encounter Summary ---
Demographics + + + | Address | [address] | | | [place] [address] | + + + | Home Phone | | + + + | Preferred Language | Unknown | + + + | Marital Status | Single | + + + | Caodaism Affiliation | Unknown | + + + | Race | Unknown | + + + | Ethnic Group | Unknown | + + + Author + + + | Author | [facility] | | | and [place] | + + + | Organization | [facility] | | | [...] Team Providers + +------+ + | Care Computer Systems Consultant Name | Role | Phone | [...] + + | 10/24/ | Telephone | [facility] | [place], | Other (Medication | | 2019 | | NE[address]ROLOGY [address] | Aminah Lovelace | question) | | | | [address] | Pump Machine Operator | | | | | [address] | | | | | | [address], [place] | | | | | | [address] | | | | | | [phone] | | | +--------+ + + + [...] 2020 | Visit | | [facility] [address] [facility] | | | | | | [address] [place], [place] | | | | | | [address] | | | | | | | | +--------+---------+ + + + | 06/14/ | Office | Cardiology | Ольга Veloz DO | | | 2020 | Visit | | [address] | | | | | | [place] | | | | | | [address] | | | | | | | | +--------+---------+ + + + documented as of this encounter Visit Diagnoses Not on filedocumented in this encounter"
--- OUTSIDE RECORDS SUMMARY | ~2020-04-03 | XMS | Encounter Summary ---
Demographics + + + | Address | [address] | | | [place] [address] | + + + | Home Phone | | + + + | Preferred Language | Unknown | + + + | Marital Status | Single | + + + | Yazdanism Affiliation | Unknown | + + + | Race | Unknown | + + + | Ethnic Group | Unknown | + + + Author + + + | Author | [facility] | | | and [place] | + + + | Organization | [facility] | | | [...] Providers + +------+ + | Care Supervisor Functional Testing Name | Role | Phone | + [...] Provider Unknown | | | | | [place], [place] | [phone] | | | | | [address] | (Fax) | | | | | [phone] | | | +--------+ + + + [...] 2020 | Visit | | [address] [facility] [place] | | | | | | [address] [place] | | | | | | [address] | | | | | | | | +--------+---------+ + + + | 06/14/ | Office | Cardiology | Ольга Veloz DO | | | 2019 | Visit | | [address] | | | | | | [place] | | | | | | [address] | | | | | | | | +--------+---------+ + + + documented as of this encounter Visit Diagnoses Not on filedocumented in this encounter"
--- OUTSIDE RECORDS SUMMARY | ~2020-04-03 | XMS | Encounter Summary ---
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 | [place], [place] | Phone: | | | | | (chronic) | [address] | [phone] | | | | | Procedures | Phone: | Fax: | | | | | CHG | [phone] | [phone] | | | | | RADIOLOGIC | Fax: | | | | | | EXAM SMALL | [phone] | | | | | | INT [...] + + | 10/17/ | Hospital | [facility] | Doron Herrera | Iron deficiency | | 2019 | Encounter | [facility] | MD Don [address] | anemia due to | | | | [address] | [address] [facility] [place] | chronic blood loss | | | | [place] | [address] | | | | | [address] | | | | | | [phone] | 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 | | | 18 | [...] 2019 | Visit | | [address] [facility] | | | | | | [facility] | | | | | | [address] | | | | | | | | +--------+---------+ + + + | 06/14/ | Office | Cardiology | Ольга Veloz DO | | | 2019 | Visit | | [address] | | | | | | [place] | | | | | | [address] | | | | | | | [...] loss COMPARISON: None | | | PROCEDURE: Director Technical image of the abdomen. Following ingestion of | | | liquid barium, sequential images obtained of the abdomen were | | | obtained. Additional fluoroscopic images of the small bowel with spot | | | images, as needed. Fluoro Time: .9 minute(s). Number of images: | | | 21 Air Kerma: 64.17 mGy FINDINGS: Director Technical image: Non-distended | | | bowel gas [...] | | | | PROCEDURE: | | Director Technical image of the abdomen. Following ingestion of liquid barium, | | sequential images obtained of the abdomen were obtained. Additional | | fluoroscopic images of the small bowel with spot images, as needed. | | | | Fluoro Time: .9 minute(s). Number of images: 21 Air Kerma: 64.17 mGy | | | | FINDINGS: | | Director Technical image: Non-distended bowel gas pattern. No free [...]
--- OUTSIDE RECORDS SUMMARY | ~2020-04-03 | XMS | Clinical Summary ---
Demographics + + + | Address | [address] | | | [place] [address] | + + + | Home Phone | | + + + | Preferred Language | Unknown | + + + | Marital Status | Unknown | + + + | Protestant Affiliation | Unknown | + + + | Race | Unknown | + + + | Ethnic Group | Unknown | + + + Author + + + | Author | [facility] (Historical as of | | | 07-16-19) | + + + | Organization | [facility] (Historical as of | | | 07-16-19) [...] [place] | | | | | [address] | | + + + + + Care Team Providers + +------+ + | Care Coremaking Machine Setter Name | Role | Phone | + [...] +------+-------+ + | MEDICAID | CATHERINE | [id number] | | | [address] | | | N | | | | [place] | | | [place] | | | | [address] | | | 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
--- OUTSIDE RECORDS SUMMARY | ~2020-04-03 | XMS | Encounter Summary ---
Demographics + + + | Address | [address] | | | [place] [address] | + + + | Home Phone | | + + + | Preferred Language | Unknown | + + + | Marital Status | Single | + + + | Catholic Affiliation | Unknown | + + + | Race | Unknown | + + + | Ethnic Group | Unknown | + + + Author + + + | Author | [facility] | | | and [place] | + + + | Organization | [facility] | | | [...] Team Providers + +------+ + | Care Semiconductor Technician Name | Role | Phone | + +------+ + | Lisa Mcclain MD | PCP | | + +------+ + Encounter Details +--------+ + + + + | Date | Type | Department | Care Team | Description | +--------+ + + + + | 10/08/ | Orders Only | [facility] | Andrews Massey MD | | | 2018 | | NEPRHOLOGY [place] | [address] | | | | | [address] [place] | [address] [place], [place] | | | | | [address] [place], [place] | [address] | | | | | [address] | | | | | | [phone] | | | +--------+ + + + [...] [place] | | | | | | [address] | | | | | | | | +--------+---------+ + + + | 06/14/ | Office | Cardiology | Ольга Veloz DO | | | 2019 | Visit | | [address] | | | | | | [place] | | | | | | [address] | | | | | | | [...] | | | LAB | | | [facility] | | | | | + + [...]
--- OUTSIDE RECORDS SUMMARY | ~2020-04-03 | XMS | Encounter Summary ---
Demographics + + + | Address | [address] | | | [place] [address] | + + + | Home Phone | | + + + | Preferred Language | Unknown | + + + | Marital Status | Single | + + + | Restoration Affiliation | Unknown | + + + [...] Team Providers + +------+ + | Care Client Support Representative Name | Role | Phone | [...] + + | 03/13/ | Telephone | [facility] | Andrews Massey MD | Other (UTI and | | 2019 | | NE[address] | [address] [place] | kidney pain) | | | | [address] | [address] [place], [place] | | | | | [address] | [address] | | | | | [address], [place] | | | | | | [address] | | | | | | [phone] | | | +--------+ + + + [...] 2020 | Visit | | [address] [facility] | | | | | | [address] [place] | | | | | | [address] | | | | | | | | +--------+---------+ + + + | 06/14/ | Office | Cardiology | Ольга Veloz DO | | | 2020 | Visit | | [address] | | | | | | [place] | | | | | | [address] | | | | | | | | +--------+---------+ + + + documented as of this encounter Visit Diagnoses Not on filedocumented in this encounter"
--- OUTSIDE RECORDS SUMMARY | ~2020-04-03 | XMS | Encounter Summary ---
Demographics + + + | Address | [address] | | | [place] [address] | + + + | Home Phone [...] + + + | Author | [facility] | | | and [place] | + + + | Organization | [facility] | | | [...] Team Providers + +------+ + | Care Pharmacy Delivery Driver Name | Role | Phone | + +------+ + | Lisa Mcclain MD | PCP | | + +------+ + Encounter Details +--------+ + + + + | Date | Type | Department | Care Team | Description | +--------+ + + + + | 07/26/ | Orders Only | [facility] | Andrews Massey MD | Chronic kidney | | 2019 | | NEPRHOLOGY [place] | [address] | disease, stage III | | | | [address] | [address] [place], [place] | (moderate) (HCC); | | | | [address] [place], [place] | [address] | Essential (primary) | | | | [address] | | hypertension; | | | | [phone] | | Persistent | | | | | | proteinuria | +--------+ + + [...] 2019 | Visit | | [address] [facility] [place] | | | | | | [address] [place] | | | | | | [address] | | | | | | | | +--------+---------+ + + + | 06/14/ | Office | Cardiology | Ольга Veloz DO | | | 2019 | Visit | | [address] | | | | | | [place] | | | | | | [address] | | | | | | | | +--------+---------+ + + + + +------+--------+ + + | Name | Type | Priori | Associated Diagnoses | Order Schedule | | | | ty | | | + +------+--------+ + + | Iron and Iron | Lab | Routin | Chronic kidney | Expected: | | Binding Capacity | | e | disease, stage III | 08/09/2019, Expires: | | | | | (moderate) (HCC) | 05/09/2020 | | | | | Essential (primary) | | | | | | hypertension | | | | | | Persistent | | | | | | proteinuria | | + +------+--------+ + + documented as of this encounter Visit Diagnoses + + | Diagnosis | + + | Chronic kidney disease, stage III (moderate) (HCC) Chronic kidney disease, Stage III | | (moderate) | + + | Essential (primary) hypertension Unspecified essential hypertension | + + | Persistent proteinuria Proteinuria | + + documented in this encounter"
--- OUTSIDE RECORDS SUMMARY | ~2020-04-03 | XMS | Encounter Summary ---
Demographics + + + | Address | [address] | | | [place] [address] | + + + | Home Phone | | + + + | Preferred Language | Unknown | + + + | Marital Status | Single | + + + | Yazidi Affiliation | Unknown | + + + | Race | Unknown | + + + | Ethnic Group | Unknown | + + + Author + + + | Author | [facility] | | | and [place] | + + + | Organization | [facility] | | | [...] Team Providers + +------+ + | Care Meter Attendant Name | Role | Phone | + +------+ + | Lisa Mcclain MD | PCP | | + +------+ + Encounter Details +--------+ + + + + | Date | Type | Department | Care Team | Description | +--------+ + + + + | 11/15/ | Orders Only | [facility] | Andrews Massey MD | Essential (primary) | | 2019 | | NEPHROLOGY [place] | [address] [place] | hypertension | | | | [address] [place] | [address] [place], [place] | (Primary Dx); CKD | | | | [address] [place], [place] | [address] | (chronic kidney | | | | [address] | | disease) stage 4, | | | | [phone] | | GFR 15-29 ml/min | | | | | | (HCC); Persistent | | | | | | proteinuria; Anemia | | | | | | of chronic renal | | | | | | failure, stage 4 | | | | | | (severe) (HCC) | +--------+ + + + + [...] 2020 | Visit | | [facility] [address] [facility] | | | | | | [address] [place] | | | | | | [address] | | | | | | | | +--------+---------+ + + + | 06/14/ | Office | Cardiology | Ольга Veloz DO | | | 2019 | Visit | | [address] | | | | | | [place] | | | | | | [address] | | | | | | | | +--------+---------+ + + + + +------+--------+ + + | Name | Type | Priori | Associated Diagnoses | Order Schedule | | | | ty | | | + +------+--------+ + + | Basic Metabolic | Lab | Routin | Essential | Expected: | | Panel | | e | (primary) | 02/14/2020, Expires: | | | | | hypertension CKD | 11/15/2020 | | | | | (chronic kidney | | | | | | disease) stage 4, | | | | | | GFR 15-29 ml/min | | | | | | (HCC) Persistent | | | | | | proteinuria | | + +------+--------+ + + | CBC with | Lab | Routin | Essential | Expected: | | Differential | | e | (primary) | 02/14/2020, Expires: | | | | | hypertension CKD | 11/15/2020 | | | | | (chronic kidney | | | | | | disease) stage 4, | | | | | | GFR 15-29 ml/min | | | | | | (HCC) Persistent | | | | | | proteinuria | | + +------+--------+ + + | Renal Function Panel | Lab | Routin | Essential | Expected: | | | | e | (primary) | 05/16/2020, Expires: | | | | | hypertension CKD | 11/15/2020 | | | | | (chronic kidney | | | | | | disease) stage 4, | | | | | | GFR 15-29 ml/min | | | | | | (HCC) Persistent | | | | | | proteinuria | | + +------+--------+ + + | CBC with | Lab | Routin | Essential | Expected: | | Differential | | e | (primary) | 05/16/2020, Expires: | | | | | hypertension CKD | 11/15/2020 | | | | | (chronic kidney | | | | | | disease) stage 4, | | | | | | GFR 15-29 ml/min | | | | | | (HCC) Persistent | | | | | | proteinuria | | + +------+--------+ + + | Iron and Iron | Lab | Routin | Essential | Expected: | | Binding Capacity | | e | (primary) | 05/16/2020, Expires: | | | | | hypertension CKD | 11/15/2020 | | | | | (chronic kidney | | | | | | disease) stage 4, | | | | | | GFR 15-29 ml/min | | | | | | (HCC) Persistent | | | | | | proteinuria Anemia | | | | | | of chronic renal | | | | | | failure, stage 4 | | | | | | (severe) (HCC) | | + +------+--------+ + + | Ferritin | Lab | Routin | Essential | Expected: | | | | e | (primary) | 05/16/2020, Expires: | | | | | hypertension CKD | 11/15/2020 | | | | | (chronic kidney | | | | | | disease) stage 4, | | | | | | GFR 15-29 ml/min | | | | | | (HCC) Persistent | | | | | | proteinuria Anemia | | | | | | of chronic renal | | | | | | failure, stage 4 | | | | | | (severe) (HCC) | | + +------+--------+ + + | Parathyroid Hormone, | Lab | Routin | Essential | Expected: | | Intact | | e | (primary) | 05/16/2020, Expires: | | | | | hypertension CKD | 11/15/2020 | | | | | (chronic kidney | | | | | | disease) stage 4, | | | | | | GFR 15-29 ml/min | | | | | | ([facility]) Persistent | | | | | | proteinuria | | + +------+--------+ + + | Protein/Creatinine | Lab | Routin | Essential | Expected: | | Ratio, Urine | | e | (primary) | 05/16/2020, Expires: | | | | | hypertension CKD | 11/15/2020 | | | | | (chronic kidney | | | | | | disease) stage 4, | | | | | | GFR 15-29 ml/min | | | | | | ([facility]) Persistent | | | | | | proteinuria | | + +------+--------+ + + documented as of this encounter Visit Diagnoses + + | Diagnosis | + + | Essential (primary) hypertension - Primary Unspecified essential hypertension | + + | CKD (chronic kidney disease) stage 4, GFR 15-29 ml/min (HCC) Chronic kidney disease, | | Stage IV (severe) | + + | Persistent proteinuria Proteinuria | + + | Anemia of chronic renal failure, stage 4 (severe) ([facility]) | + + documented in this encounter"
--- OUTSIDE RECORDS SUMMARY | ~2020-04-03 | XMS | Encounter Summary ---
Demographics + + + | Address | [address] | | | [place] [address] | + + + | Home Phone | | + + + | Preferred Language | Unknown | + + + | Marital Status | Single | + + + | Taoism Affiliation [...] + +------+ + | Care Director Of Research Center Name | Role | Phone | + [...] + + | 11/11/ | Documentati | [facility] | [place], | Results (11/10/19) | | 2019 | on | NEPHROLOGY MARK | [place] [facility] | | | | | [address] [place] | Bottom Saw Operator | | | | | [address] [facility] [place] | | | | | | [address] | | | | | | [phone] | | | +--------+ + + + [...] [place] | | | | | | [address] | | | | | | (Fax) | | +--------+---------+ + + + | 06/14/ | Office | Cardiology | Ольга Veloz DO | | | 2019 | Visit | | [address] | | | | | | [place] | | | | | | [address] | | | | | | | [...]
--- OUTSIDE RECORDS SUMMARY | ~2020-04-03 | XMS | Encounter Summary ---
Demographics + + + | Address | [address] | | | [place] [address] | + + + | Home Phone [...] + + + | Author | [facility] | | | and [place] | + + + | Organization | [facility] | | | and [...] Team Providers + +------+ + | Care Advisory Internship Name | Role | Phone | + +------+ + | Lisa Mcclain MD | PCP | | + +------+ + Encounter Details +--------+ + + + + | Date | Type | Department | Care Team | Description | +--------+ + + + + | 07/26/ | Orders Only | [facility] | Andrews Massey MD | Chronic kidney | | 2019 | | NEPRHOLOGY [place] | [address] | disease, stage III | | | | [address] | [address] [place], [place] | (moderate) (HCC); | | | | [address] [place], [place] | [address] | Essential (primary) | | | | [address] | | hypertension; | | | | [phone] | | Persistent | | | | [...] 2019 | Visit | | [address] [facility] [place] | | | | | | [address] [place] | | | | | | [address] | | | | | | | | +--------+---------+ + + + | 06/14/ | Office | Cardiology | Ольга Veloz DO | | | 2019 | Visit | | [address] | | | | | | [place] | | | | | | [address] | | | | | | | [...]
--- OUTSIDE RECORDS SUMMARY | ~2020-04-03 | XMS | Encounter Summary ---
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 | Phone | + +------+ + | Lisa Mcclain MD | PCP | | + +------+ + Encounter Details +--------+ + + + + | Date | Type | Department | Care Team | Description | +--------+ + + + + | 07/15/ | Orders Only | [facility] | Annel Whtiten | Chronic viral | | 2019 | | INFECTIOUS DISEASE | Мария Farley MD | hepatitis C (HCC); | | | | [address] | [address] | Chronic kidney | | | | [place], [place] | [place] [address] | disease, stage III | | | | [address] | [phone] | (moderate) (HCC); | | | | [phone] | | Essential (primary) | | | | | | hypertension; | | | | | | Persistent | | | | | | proteinuria; | | | | | | Hyperuricemia | | | | | | without signs of | | | | | | inflammatory | | | | | | arthritis and | | | | | | tophaceous disease; | | | | | | Chronic kidney | | | | | | disease, stage III | | | | | | (moderate) (HCC); | | | | | | Vitamin D | | | | | | deficiency; | | | | | | Localized edema | +--------+ + + + + Social [...] 2019 | Visit | | [address] [facility] | | | | | | [address] | | | | | | [address] | | | | | | | | +--------+---------+ + + + | 06/14/ | Office | Cardiology | Ольга Veloz DO | | | 2019 | Visit | | [address] | | | | | | [place] | | | | | | [address] | | | | | | | | +--------+---------+ + + + + +------+--------+ + + | Name | Type | Priori | Associated Diagnoses | Order Schedule | | | | ty | | | + +------+--------+ + + | CBC with | Lab | Routin | Chronic viral | Expected: | | Differential | | e | hepatitis C (HCC) | 09/29/2018, Expires: | | | | | | 08/09/2019 | + +------+--------+ + + | Comprehensive | Lab | Routin | Chronic viral | Expected: | | Metabolic Panel | | e | hepatitis C (HCC) | 09/29/2018, Expires: | | | | | | 08/09/2019 | + +------+--------+ + + | Hepatitis C RNA, | Lab | Routin | Chronic viral | Expected: | | Quant, NAAT | | e | hepatitis C (HCC) | 09/29/2018, Expires: | | | | | | 08/09/2019 | + +------+--------+ + + | Renal Function Panel | Lab | Routin | Chronic kidney | Expected: | | | | e | disease, stage III | 01/12/2019, Expires: | | | | | (moderate) ([facility]) | 10/12/2019 | | | | | Essential (primary) | | | | | | hypertension | | | | | | Persistent | | | | | | proteinuria | | | | | | Hyperuricemia | | | | | | without signs of | | | | | | inflammatory | | | | | | arthritis and | | | | | | tophaceous disease | | | | | | Chronic kidney | | | | | | disease, stage III | | | | | | (moderate) ([facility]) | | | | | | Vitamin D deficiency | | | | | | Localized edema | | + +------+--------+ + + | CBC with | Lab | Routin | Chronic kidney | Expected: | | Differential | | e | disease, stage III | 01/12/2019, Expires: | | | | | (moderate) ([facility]) | 10/12/2019 | | | | | Essential (primary) | | | | | | hypertension | | | | | | Persistent | | | | | | proteinuria | | | | | | Hyperuricemia | | | | | | without signs of | | | | | | inflammatory | | | | | | arthritis and | | | | | | tophaceous disease | | | | | | Chronic kidney | | | | | | disease, stage III | | | | | | (moderate) ([facility]) | | | | | | Vitamin D deficiency | | | | | | Localized edema | | + +------+--------+ + + | Iron and Iron | Lab | Routin | Chronic kidney | Expected: | | Binding Capacity | | e | disease, stage III | 01/12/2019, Expires: | | | | | (moderate) ([facility]) | 10/12/2019 | | | | | Essential (primary) | | | | | | hypertension | | | | | | Persistent | | | | | | proteinuria | | | | | | Hyperuricemia | | | | | | without signs of | | | | | | inflammatory | | | | | | arthritis and | | | | | | tophaceous disease | | | | | | Chronic kidney | | | | | | disease, stage III | | | | | | (moderate) ([facility]) | | | | | | Vitamin D deficiency | | | | | | Localized edema | | + +------+--------+ + + | Ferritin | Lab | Routin | Chronic kidney | Expected: | | | | e | disease, stage III | 01/12/2019, Expires: | | | | | (moderate) ([facility]) | 10/12/2019 | | | | | Essential (primary) | | | | | | hypertension | | | | | | Persistent | | | | | | proteinuria | | | | | | Hyperuricemia | | | | | | without signs of | | | | | | inflammatory | | | | | | arthritis and | | | | | | tophaceous disease | | | | | | Chronic kidney | | | | | | disease, stage III | | | | | | (moderate) ([facility]) | | | | | | Vitamin D deficiency | | | | | | Localized edema | | + +------+--------+ + + | Uric Acid | Lab | Routin | Chronic kidney | Expected: | | | | e | disease, stage III | 01/12/2019, Expires: | | | | | (moderate) ([facility]) | 10/12/2019 | | | | | Essential (primary) | | | | | | hypertension | | | | | | Persistent | | | | | | proteinuria | | | | | | Hyperuricemia | | | | | | without signs of | | | | | | inflammatory | | | | | | arthritis and | | | | | | tophaceous disease | | | | | | Chronic kidney | | | | | | disease, stage III | | | | | | (moderate) ([facility]) | | | | | | Vitamin D deficiency | | | | | | Localized edema | | + +------+--------+ + + | Urinalysis with | Lab | Routin | Chronic kidney | Expected: | | Microscopic if | | e | disease, stage III | 01/12/2019, Expires: | | Indicated | | | (moderate) ([facility]) | 10/12/2019 | | | | | Essential (primary) | | | | | | hypertension | | | | | | Persistent | | | | | | proteinuria | | | | | | Hyperuricemia | | | | | | without signs of | | | | | | inflammatory | | | | | | arthritis and | | | | | | tophaceous disease | | | | | | Chronic kidney | | | | | | disease, stage III | | | | | | (moderate) ([facility]) | | | | | | Vitamin D deficiency | | | | | | Localized edema | | + +------+--------+ + + | Protein/Creatinine | Lab | Routin | Chronic kidney | Expected: | | Ratio, Urine | | e | disease, stage III | 01/12/2019, Expires: | | | | | (moderate) ([facility]) | 10/12/2019 | | | | | Essential (primary) | | | | | | hypertension | | | | | | Persistent | | | | | | proteinuria | | | | | | Hyperuricemia | | | | | | without signs of | | | | | | inflammatory | | | | | | arthritis and | | | | | | tophaceous disease | | | | | | Chronic kidney | | | | | | disease, stage III | | | | | | (moderate) ([facility]) | | | | | | Vitamin D deficiency | | | | | | Localized edema | | + +------+--------+ + + | Protein/Creatinine | Lab | Routin | Chronic kidney | Expected: | | Ratio, Urine | | e | disease, stage III | 02/07/2019, Expires: | | | | | (moderate) ([facility]) | 02/01/2020 | | | | | Essential (primary) | | | | | | hypertension | | | | | | Persistent | | | | | | proteinuria | | | | | | Hyperuricemia | | | | | | without signs of | | | | | | inflammatory | | | | | | arthritis and | | | | | | tophaceous disease | | | | | | Chronic kidney | | | | | | disease, stage III | | | | | | (moderate) (HCC) | | + +------+--------+ + + | Ferritin | Lab | Routin | Chronic kidney | Expected: | | | | e | disease, stage III | 05/03/2019, Expires: | | | | | (moderate) (HCC) | 02/01/2020 | | | | | Essential (primary) | | | | | | hypertension | | | | | | Persistent | | | | | | proteinuria | | | | | | Hyperuricemia | | | | | | without signs of | | | | | | inflammatory | | | | | | arthritis and | | | | | | tophaceous disease | | | | | | Chronic kidney | | | | | | disease, stage III | | | | | | (moderate) (HCC) | | + +------+--------+ + + | Hepatitis C RNA, | Lab | Routin | Chronic viral | Expected: | | Quant, NAAT | | e | hepatitis C (HCC) | 02/23/2019, Expires: | | | | | | 02/24/2020 | + +------+--------+ + + | Renal Function Panel | Lab | Routin | Chronic kidney | Expected: | | | | e | disease, stage III | 08/09/2019, Expires: | | | | | (moderate) ([facility]) | 05/09/2020 | | | | | Essential (primary) | | | | | | hypertension | | | | | | Persistent | | | | | | proteinuria | | + +------+--------+ + + | CBC with | Lab | Routin | Chronic kidney | Expected: | | Differential | | e | disease, stage III | 08/09/2019, Expires: | | | | | (moderate) ([facility]) | 05/09/2020 | | | | | Essential (primary) | | | | | | hypertension | | | | | | Persistent | | | | | | proteinuria | | + +------+--------+ + + | Ferritin | Lab | Routin | Chronic kidney | Expected: | | | | e | disease, stage III | 08/09/2019, Expires: | | | | | (moderate) ([facility]) | 05/09/2020 | | | | | Essential (primary) | | | | | | hypertension | | | | | | Persistent | | | | | | proteinuria | | + +------+--------+ + + | Uric Acid | Lab | Routin | Chronic kidney | Expected: | | | | e | disease, stage III | 08/09/2019, Expires: | | | | | (moderate) ([facility]) | 05/09/2020 | | | | | Essential (primary) | | | | | | hypertension | | | | | | Persistent | | | | | | proteinuria | | + +------+--------+ + + | Protein/Creatinine | Lab | Routin | Chronic kidney | Expected: | | Ratio, Urine | | e | disease, stage III | 08/09/2019, Expires: | | | | | (moderate) ([facility]) | 05/09/2020 | | | | | Essential (primary) | | | | | | hypertension | | | | | | Persistent | | | | | | proteinuria | | + +------+--------+ + + | Hepatitis C RNA, | Lab | Routin | Chronic viral | Expected: | | Quant, NAAT | | e | hepatitis C ([facility]) | 05/18/2019, Expires: | | | | | | 05/16/2020 | + +------+--------+ + + | Hepatitis C RNA, | Lab | Routin | Chronic viral | Expected: | | Quant, NAAT | | e | hepatitis C (HCC) | 05/18/2019, Expires: | | | | | | 05/18/2020 | + +------+--------+ + + | Comprehensive | Lab | Routin | Chronic viral | Expected: | | Metabolic Panel | | e | hepatitis C (HCC) | 05/18/2019, Expires: | | | | | | 05/18/2020 | + +------+--------+ + + | CBC with | Lab | Routin | Chronic viral | Expected: | | Differential | | e | hepatitis C (HCC) | 05/18/2019, Expires: | | | | | | 05/18/2020 | + +------+--------+ + + documented as of this encounter Visit Diagnoses + + | Diagnosis | + + | Chronic viral hepatitis C (HCC) Chronic hepatitis C without mention of hepatic coma | + + | Chronic kidney disease, stage III (moderate) (HCC) Chronic kidney disease, Stage III | | (moderate) | + + | Essential (primary) hypertension Unspecified essential hypertension | + + | Persistent proteinuria Proteinuria | + + | Hyperuricemia without signs of inflammatory arthritis and tophaceous disease Other | | abnormal blood chemistry | + + | Vitamin D deficiency Unspecified vitamin D deficiency | + + | Localized edema Edema | + + documented in this encounter"
--- OUTSIDE RECORDS SUMMARY | ~2020-04-03 | XMS | Encounter Summary ---
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 | Role | Phone | [...] | | | | Type 2 | [facility] | | | | | diabetes | , Claudia Rivera, | [address] | | | | | mellitus | [address] | [place] | | | | | with | [address], [place] | | | | | diabetic | [place], [place] | [address] | | | | | nephropathy, | [address] | Phone: | | | | | with | Phone: | [phone] | | | | | long-term | [phone] | Fax: | | | | | current use | Fax: | [phone] | | | | | of insulin | [phone] | | | | | | (HCC) [...] | | | unspecified | [address], | [place], [place] | | | | | | [place] [address] | [address] Phone: | | | | | | Phone: | [phone] | | | | | | [phone] | Fax: | | | | | | Fax: | [phone] | | | | | | [phone] | | + + + + + + + Encounter Details +--------+---------+ + + + | Date | Type | Department | Care Team | Description | +--------+---------+ + + + | 12/12/ | Office | [facility] | Jamie, | Early satiety | | 2020 | Visit | GASTROENTEROLOGY | [address] | (Primary Dx); | | | | [address] | [address] [place], | Abdominal bloating; | | | | [place], [place] | [place] [address] | Type 2 diabetes | | | | [address] | [phone] | mellitus with | | | | [phone] | | diabetic | | | | | | nephropathy, with | | | | | | long-term current | | | | | | use of insulin | | | | | | ([facility]); | | | | | | Gastroesophageal [...] negative then we would refer you to 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 On the acid reflux continue the Pepcid 20 mg 1/2 hour before breakfast and bedtime daily . See handout on GERD 3. Retained food Gastric emptying study orders given she will have it at [facility] in [facility] [place] they need to send me a [...] by your healthcare provider Date Last Reviewed: 04/30/201819999936-[address] [employer] [place] [address], [place] [address]. All righ ts reserved. This information is [...] make GERD symptoms worse. Date Last Reviewed: 05/30/201619992571-4698 [employer] [place] [address]. All righ ts reserved. This information is [...] the back, neck, shoulder, or arm An hhqm-jfv-jxwiavr trial of medicine doesn't relieve your symptoms Weight loss that can't be explained Trouble or pain swallowing Frequent vomiting (can t keep down liquids) Blood in the stool or vomit (red or black in color) Feeling weak or dizzy Fever of 100.4F (38C) or higher, or as directed by your healthcare provider Date Last Reviewed: 01/28/201819999690-2748 [employer]. [address] [place] [address], [place] [address]. All righ ts reserved. This information is [...] the test. This includes: All prescription medicines Ttmw-xwa-rgshbki medicines such as aspirin or ibuprofen Street drugs Herbs, vitamins, and other supplements Also before the test: Tell your provider about any surgeries you ve had before, that could cause the capsule to get stuck. Switch to a clear liquid [id number] before the test. Don t eat anything starting [id number] before the test. You may be instructed [...] facility. You can d rink clear liquids [id number], and you can eat food or take medicines [id number]. Be sure to follow any other instructions [...] to remove the capsule. Date Last Reviewed: 05/30/201619991218-6641 [employer] [place] [address]. All righ ts reserved. This information is [...] dysphagia or cardiac pacemaker. Last colonoscopy 2018 [place] ORE internal hemorrhoids normal other kumar no [...] lunch; 22 units with dinner nystatin (MYCOSTATIN) 679642 UNIT/GM cream Apply topically as needed. 0 [...] CHOLECYSTECTOMY 1999 COLONOSCOPY 07/07/2018 Dr. Cabral in [place], [place] LIPOMA RESECTION x3 on abdomen and neck OTHER SURGICAL HISTORY Ocular implants ROTATOR CUFF REPAIR Left 2009 TONSILLECTOMY AND ADENOIDECTOMY 1992 UPPER GASTROINTESTINAL ENDOSCOPY 07/07/2018 Dr. 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 On the acid reflux continue the Pepcid 20 mg 1/2 hour before breakfast and bedtime daily . See handout on GERD 3. Retained food Gastric emptying study orders given she will have it at [facility] in [facility] [place] they need to send me a copy. 4. Follow up with me I can see you afterwards post capsule this study in 2 months. Records Reviewed PCP chart notes and previous [facility] records including Gastroenterology Procedures/Treatment s/Imaging/Laboratory studies have been reviewed (Using the electronic record system of [facility]). I carefully reviewed the records with regard to the past medical/surgical history, previous medications, and allergies). Nursing notes reviewed for chief complaint, medications, clinical presentation and vital signs Total direct qjio-ax-qaua time of 45minutes spent in reviewing information and discussion w ith greater than 50% of that time spent in counseling or coordinating of care. Thank you for allowing me PABLO Perdomo [facility] [address] [place] [address]. [place]. [address] to participate in the care of your patient. Please do not hesitate to david l me with any questions or concerns. This report has been prepared using a voice recognition system called [email or web address]. The report wa s reviewed for accuracy, [...] 2019 | Visit | | [address] [facility] [place] | | | | | | [address] | | | | | | [address] | | | | | | | | +--------+---------+ + + + | 06/14/ | Office | Cardiology | Ольга Veloz DO | | | 2019 | Visit | | [address] | | | | | | [place] | | | | | | [address] | | | | | | | | +--------+---------+ + + + + +---------+--------+ + + [...]
--- OUTSIDE RECORDS SUMMARY | ~2020-04-03 | XMS | Encounter Summary ---
Demographics + + + | Address | [address] | | | [place] [address] | + + + | Home Phone [...] Providers + +------+ + | Care Spray Gun Striper Name | Role | Phone | + +------+ + | Lisa Mcclain MD | PCP | | + +------+ + Reason for Visit + + + | Reason | Comments | + + + | Iron Deficiency | | | Anemia | | + + + Evaluate & Treat [...] | | | unspecified | [address], | [place], [place] | | | | | | [place] [address] | [address] Phone: | | | | | | Phone: | [phone] | | | | | | [phone] | Fax: | | | | | | Fax: | [phone] | | | | | | [phone] | | + + + + + + + Encounter Details +--------+---------+ + + + | Date | Type | Department | Care Team | Description | +--------+---------+ + + + | 10/11/ | Office | [facility] | Doron Herrera | Iron deficiency | | 2019 | Visit | GASTROENTEROLOGY | MD Don [address] | anemia due to | | | | [address] | [address] [place], [place] | chronic blood loss | | | | [place], [place] | [address] | (Primary Dx); Anemia | | | | [address] | | due to stage 3 | | | | [phone] | | chronic kidney | | | | | | disease (HCC) | +--------+---------+ + + + Social History [...] + + + | Blood Pressure | 139/84 | 10/11/2019 2:57 PM | | | | | PST | | + + + + + | Pulse | 88 | 10/11/2019 2:57 PM | | | | | PST [...] + + + + | Weight | 162.8 kg (359 lb) | 10/11/2019 2:57 PM | | | | | PST | | + + + + + | Height | 175.3 cm (5' 9") | 10/11/2019 2:57 PM | | | | | PST | | + + + + + | Body Mass Index | 53.02 | 10/11/2019 2:57 PM | | | | | PST | | + + + + + documented in this encounter Progress Notes Doron Herrera MD - 10/11/2019 2:50 PM PST [facility] Gastroenterology Subjective: Chief Complaint Patient presents with Iron Deficiency Anemia Patient ID: Isabel Ames is a 49 y.o. female. HPI New patient evaluation regarding iron deficiency anemia in the setting of chronic kidney di sease with request to consider capsule endoscopy. According to the patient she was started on oral iron sometime near the end of last year 2018 at 1 tablet daily and most recently inc reased to 2 of them in a day. She had EGD and colonoscopy performed in her local area by on e of the primary care providers or surgeons, however I do not have the official reports. Cl inic note comments that there was a "punctate hemorrhagic distal gastritis. Proximal and di stal esophagitis." Colonoscopy reportedly only notable for hemorrhoids but again I do not h ave these official reports. She has not noticed any visible blood in her stool. She has no t had any imaging studies of the small intestine. Not really experiencing substantial abdom inal pain. She does have heartburn symptoms and currently just on famotidine 20 mg once a d ay. Her concert manager has been very hesitant to consider PPI therapy due to chronic kidney d isease and possible association with aggravation by PPI therapy. She does have breakthrough heartburn but overall seems to be reasonably managed. No food impactions or pronounced dys phagia. No nocturnal awakening. Denies significant abdominal pain or unexplained weight lo ss. There is no family history of colon cancers or upper GI tract cancers. On review of lab studies available in the electronic chart she has had a number of iron balderrama els performed which have shown borderline low iron saturations only. Hemoglobin has been co nsistently in approximately the 9-10 range typical for chronic kidney disease. Claims she d id have a severe anemia in 2016 when presenting with respiratory failure which ended up with a prolonged ICU course she informs me. She is not menstruating or having other obvious chr onic blood loss. Patient's medications, allergies, past medical, surgical, social and family histories were obtained and reviewed as appropriate. Allergies: Allergies Allergen Reactions Clindamycin Hives Adhesive & Tape Rash Rash, Welts, plastic tape Cefazolin Rash Rash Nafcillin Rash Rash Tetanus Toxoids Rash Rash Lisinopril Cough Cough Medications: Current Outpatient Medications Medication Sig Dispense Refill allopurinol (ZYLOPRIM) 100 mg tablet Take 1 tablet by mouth daily. 30 tablet 11 amitriptyline (ELAVIL) 25 mg tablet Take 100 mg by mouth nightly. (Patient taking diffe rently: Take 50 mg by mouth nightly.) ASPIRIN ADULT LOW STRENGTH 81 MG EC [...] D) 600-400 MG-UNIT TABS Take by mouth dev mcmillan. (Patient taking differently: Take by mouth 2 [...] mg by mouth daily. gabapentin (NEURONTIN) 300 mg capsule Take 600 mg by mouth 3 (three) times daily. levothyroxine (SYNTHROID) 25 mcg tablet Take 75 mcg by mouth every morning before break fast. (Patient taking differently: Take 88 mcg by mouth every morning (before breakfast).) LIRAGLUTIDE SC Inject under the skin. niacin 500 mg tablet Take 500 mg by mouth every morning. NIFEdipine (ADALAT CC) 60 MG 24 hr tablet Take 60 mg by mouth every evening. NOVOLOG FLEXPEN 100 UNIT/ML injection pen Daily. nystatin (MYCOSTATIN) 808443 UNIT/GM cream Apply topically as needed. 0 [...] by mouth as needed for Migraine. No current facility-administered medications for this visit. Past Medical History: Diagnosis Date Anemia Bipolar disorder (HCC) with anxiety Chronic constipation Chronic kidney disease, stage III (moderate) (HCC) Gastrointestinal bleeding GERD (gastroesophageal reflux disease) Hepatitis C Hyperlipidemia Hypertension Hypothyroidism MRSA infection Proteinuria Type 2 diabetes mellitus (HCC) Vitamin D deficiency Past Surgical History: Procedure Laterality Date CATARACT REMOVAL Bilateral 2018 SECTION SECTION 1999, 1993 CHOLECYSTECTOMY 1999 COLONOSCOPY 07/07/2018 Dr. Cabral in [place], [place] LIPOMA RESECTION x3 OTHER SURGICAL HISTORY Ocular implants TONSILLECTOMY AND ADENOIDECTOMY 1992 UPPER GASTROINTESTINAL ENDOSCOPY 07/07/2018 Dr. Cabral in [place], [place] Family History Problem Relation Age of Onset Colon polyps Neg Hx Colon cancer Neg Hx Social History Socioeconomic History Marital status: Unknown Spouse name: Not on file Number of [...] file Gets together: Not on file Attends yazidi service: Not on file Active member of [...] file Social History Narrative Not on file Social History Tobacco Use Smoking Status Never Smoker Smokeless Tobacco Never Used Social History Substance and Sexual Activity Alcohol Use Not Currently Comment: Last drink 12/2018 Social History Substance and Sexual Activity Drug Use Never Comment: Drug use: No Social History Substance and Sexual Activity Sexual Activity Not on file Review of Systems Constitutional: Positive for chills, fatigue and fever. Negative for activity change, appet ite change, diaphoresis and unexpected weight change. HENT: Negative for ear pain, mouth sores, nosebleeds, sore throat, trouble swallowing and v oice change. Eyes: Negative for pain, redness and visual disturbance. Respiratory: Positive for shortness of breath. Negative for cough, choking, chest tightness and wheezing. Cardiovascular: Positive for palpitations and leg swelling. Negative for chest pain. Gastrointestinal: Positive for constipation. Negative for abdominal distention, abdominal p ain, anal bleeding, blood in stool, diarrhea, nausea, rectal pain and vomiting. C/o heartburn Endocrine: Positive for cold intolerance. Negative for heat intolerance and polydipsia. Genitourinary: Negative for difficulty urinating, dysuria, frequency, hematuria, urgency an d vaginal bleeding. Musculoskeletal: Positive for arthralgias, back pain, gait problem, joint swelling and myal gias. Negative for neck pain and neck stiffness. Skin: Negative for color change, rash and wound. Allergic/Immunologic: Negative for environmental allergies, food allergies and immunocompro mised state. Neurological: Positive for dizziness, weakness and light-headedness. Negative for tremors, seizures, syncope and headaches. Hematological: Negative for adenopathy. Does not bruise/bleed easily. Psychiatric/Behavioral: Positive for agitation and confusion. Negative for behavioral probl ems, dysphoric mood, hallucinations and suicidal ideas. The patient is nervous/anxious. Objective: BP 139/84 | Pulse 88 | Ht 1.753 m (5' 9") | Wt (!) 162.8 kg (359 lb) | BMI 53.02 kg/m Physical Exam Vital signs reviewed. General appearance: Appears morbidly obese otherwise well-developed and not in acute distr ess. Psychiatric: Appropriate affect, behavior and judgment appear normal. Neurological: Patient is alert and oriented. No focal neurologic deficits. No CN deficit s. HEENT: Head: Normocephalic and Atraumatic. Mouth/Throat: Oropharynx is clear and moist. Eyes: No conjunctiva injection. EOM Intact. PERRL. No scleral icterus. Neck: Neck supple. No tracheal deviation present. No cervical adenopathy. Cardiovascular: Regular rate and rhythm, no murmur heard. Pulmonary/Chest: Clear bilaterally, no wheezes. Abdominal: Normal active bowel sounds. Morbidly obese with very large pannus. Soft, poo rly able to assess for mass or hepatosplenomegaly due to body habitus. No tenderness. No i nvoluntary guarding or rebound present. Musculoskeletal: Moves all limbs, No joint tenderness. No pedal edema. Skin: Skin is warm and dry. No rash noted. No erythema. No pallor. Labs: CBC: Lab Results Component Value Date WBC 6.4 05/20/2019 RBC 3.39 (A) 09/28/2019 RBC 3 (A) 08/19/2019 HGB 10.0 (A) 09/28/2019 HGB 10.5 (A) 05/20/2019 MCV 89.7 09/28/2019 MCV 90.5 08/19/2019 MCH 29.0 09/28/2019 MCH 31 08/19/2019 MCHC 33.0 09/28/2019 MCHC 34 08/19/2019 RDW 14.3 09/28/2019 CMP: Lab Results Component Value Date NA 139 09/28/2019 K 4.3 09/28/2019 CL 102 09/28/2019 CO2 25 09/28/2019 ANIONGAP 16 09/28/2019 GLUF 180 (A) 05/20/2019 BUN 28 (A) 09/28/2019 CREA 1.79 (A) 09/28/2019 CREA 2.03 (A) 08/19/2019 BCR 15.6 09/28/2019 GLOB 2.8 02/15/2019 AGRATIO 1.3 02/15/2019 BILITOT 0.2 02/15/2019 AST 17 02/15/2019 ALT 17 02/15/2019 EGFR 30.0 (A) 09/28/2019 CRP: No results found for: CRP ESR: No results found for: ESR Lipase: No results found for: LIPASE Amylase: No results found for: AMYLASE Ref. Range 10/08/2018 00:00 01/18/2019 15:10 05/06/2019 10:14 08/19/2019 11:14 09/28/2019 00:00 Ferritin, External Latest Ref Range: 13 - 150 33.61 81.60 71.63 93.47 FERRITIN Latest Ref Range: 13 - 150 92.45 Iron, External Latest Ref Range: 37 - 160 78 Iron Latest Ref Range: 37 - 160 ug/dL 48.05 141.30 54.62 57 TIBC Latest Ref Range: 245 - 400 ug/dL 389 384 331 297 360 Iron Saturation Latest Ref Range: 20 - 55 % 12.4 (A) 36.8 16.5 (A) 26 16 (A) Transferrin Latest Ref Range: 192.0 - 382.0 mg/dL 211.9 Ref. Range 06/16/2018 11:15 10/08/2018 00:00 10/11/2018 16:57 05/06/2019 10:14 05/20/2019 09:06 08/19/2019 00:00 09/28/2019 00:00 TOTAL Hemoglobin Latest Ref Range: 12 - 16 9.1 (A) 10.1 (A) 10.4 (A) 9.8 (A) 10.5 (A) 9.2 (A) 10.0 (A) Hematocrit, POC Latest Ref Range: 35.0 - 45.0 % 28.6 (A) 30.4 (A) 32.7 (A) 30.4 (A) 31.7 (A ) 30.4 (A) Diagnostic imaging: No pertinent GI studies available Data Review: Available clinic records sent with referral reviewed. Assessment and Plan: 1. Iron deficiency anemia due to chronic blood loss [place] Small Bowel Follow Through 2. Anemia due to stage 3 chronic kidney disease (HCC) Patient with mixed anemia currently component related to chronic kidney disease with a hemo globin typical for that level. Available iron studies in the electronic chart show borderli ne iron deficiency based on iron saturation only. With EGD reportedly showing some sort of hemorrhagic gastritis question arises of potential gastric antral vascular ectasia or other similar entity which can clearly be a cause of chr onic blood loss. Also has erosive esophagitis that could be a factor as well. As such I th ink EGD needs to be repeated at this point. Could also biopsy duodenum for any evidence of celiac disease if that was not previously done. Patient would be interested in pursuing thi s. Though I did not perform her colonoscopy the likelihood of missing a cancer which would be the main concern would be low. Unless recurring with profound iron deficiency would not rep eat colonoscopy for now. Discussed capsule endoscopy as a way of evaluating the small intestine would be looking for occult causes of chronic blood loss. Need to exclude obstructive process first. Since she lives quite a long distance from the local area I would go with a contrast study of the sma ll bowel first. Due to underlying kidney disease will proceed with small bowel follow-throu to avoid the need for any IV contrast. Review capsule endoscopy as the next step dependi ng what EGD shows. Recommendations 1. Schedule for EGD with anesthesia assisted sedation - The procedure was discussed in det ail to include indications, limitations, alternatives available and potential complications to include but not limited to bleeding, infection, tear or perforation, missed lesions and p otential reaction to medications. The added potential complication of pancreatitis discussed if ERCP is being performed. Patient and/or responsible adult voiced full understanding of t hese, opportunity for questions provided and informed consent was obtained. 2. SBFT. 3. If the above unremarkable would pursue capsule endoscopy. Procedure Consent: The procedure, indications, limitations, alternatives available and potential complications to include but not limited to bleeding, perforation, infection, incomplete study and capsul e retention were explained. Opportunity for questions provided and informed consent obtained . William Herrera IV, M.D. [facility] Gastroenterology 10/11/2019 This note was dictated using [employer]finch voice recognition software. Document was reviewed at ti me of dictation but [id number] errors may be present. Please call with any questions or c larifications. TIME: New patient - total direct [id number] time of 45 minutes spent in reviewing info rmation and discussion with greater than 50% of that time spent in counseling or coordinatin g of care. documented in thi s encounter Plan of Treatment +--------+---------+ + + + | Date | Type | Specialty | Care Team | Description | +--------+---------+ + + + | 04/30/ | Office | Nephrology | Andrews Massey MD | | 2019 | Visit | | [address] [facility] | | | | | | [address] [place], [place] | | | | | | [id number] | | | | | | | | +--------+---------+ + + + | 06/14/ | Office | Cardiology | Ольга Veloz DO | | | 2020 | Visit | | [address] | | | | | | [place], [place] | | | | | | [address] | | | | | | | | +--------+---------+ + + + documented as of this encounter Results [place] Small Bowel Follow Through (10/17/2019 1:19 PM [...] loss COMPARISON: None | | | PROCEDURE: Change Director image of the abdomen. Following ingestion of | | | liquid barium, sequential images obtained of the abdomen were | | | obtained. Additional fluoroscopic images of the small bowel with spot | | | images, as needed. Fluoro Time: .9 minute(s). Number of images: | | | 21 Air Kerma: 64.17 mGy FINDINGS: Change Director image: Non-distended | | | bowel gas [...] | | | | PROCEDURE: | | Change Director image of the abdomen. Following ingestion of liquid barium, | | sequential images obtained of the abdomen were obtained. Additional | | fluoroscopic images of the small bowel with spot images, as needed. | | | | Fluoro Time: .9 minute(s). Number of images: 21 Air Kerma: 64.17 mGy | | | | FINDINGS: | | Change Director image: Non-distended bowel gas pattern. No free [...] deficiency anemia due to chronic blood loss - Primary Iron deficiency anemia | | secondary to blood loss (chronic) | + + | Anemia due to stage 3 chronic kidney disease (HCC) | + + documented in this encounter
--- OUTSIDE RECORDS SUMMARY | ~2020-04-03 | XMS | Encounter Summary ---
Demographics + + + | Address | [address] | | | [place] [address] | + + + | Home Phone [...] + + + | Author | [facility] | | | and [place] | + + + | Organization | [facility] | | | [...] Team Providers + +------+ + | Care Teleprinter Name | Role | Phone | + [...] + + | 03/13/ | Telephone | [facility] | Andrews Massey MD | Other (UTI and | | 2019 | | NEPHROLOGY [address] | [address] [place] | kidney pain) | | | | [address] | [address] [place], [place] | | | | | [address] [place] [address] | [address] | | | | | [address], [place] | | | | | | [address] | | | | | | [phone] | | | +--------+ + + + [...] 2020 | Visit | | [address] [facility] | | | | | | [address] [place] | | | | | | [address] | | | | | | | | +--------+---------+ + + + | 06/14/ | Office | Cardiology | Ольга Veloz DO | | | 2020 | Visit | | [address] | | | | | | [place] | | | | | | [address] | | | | | | | | +--------+---------+ + + + documented as of this encounter Visit Diagnoses Not on filedocumented in this encounter"
--- OUTSIDE RECORDS SUMMARY | ~2020-04-03 | XMS | Encounter Summary ---
Demographics + + + | Address | [address] | | | [place] [address] | + + + | Home Phone | | + + + | Preferred Language | Unknown | + + + | Marital Status | Single | + + + | Alevism Affiliation | Unknown | + + + [...] Team Providers + +------+ + | Care Hazardous Waste Management Specialist Name | Role | Phone | [...] | | | unspecified | [address], | [place], [place] | | | | | | [place] [address] | [address] Phone: | | | | | | Phone: | [phone] | | | | | | [phone] | Fax: | | | | | | Fax: | [phone] | | | | | | [phone] | | + + + + + + + Encounter Details +--------+ + + + + | Date | Type | Department | Care Team | Description | +--------+ + + + + | 01/12/ | Clinical | [facility] | Darcie Jane, | Iron deficiency | | 2019 | Support | GASTROENTEROLOGY | RN | anemia, unspecified | | | | [address] | | iron deficiency | | | | [place] | | anemia type (Primary | | | | [address] | | Dx) | | | | [phone] | | | +--------+ + + + [...] in this e ncounter Plan of Treatment +--------+---------+ + + + | Date | Type | Specialty | Care Team | Description | +--------+---------+ + + + | 04/30/ | Office | Nephrology | Andrews Massey MD | | | 2019 | Visit | | [address] [place] | | | | | | [address] [place], [place] | | | | | | [address] | | | | | | | | +--------+---------+ + + + | 06/14/ | Office | Cardiology | Ольга Veloz DO | | | 2019 | Visit | | [address] | | | | | | [place] | | | | | | [address] | | | | | | | | +--------+---------+ + + + documented as of this encounter Visit Diagnoses + + | Diagnosis | + + | Iron deficiency anemia, unspecified iron deficiency anemia type - Primary | + + documented in this encounter"
--- OUTSIDE RECORDS SUMMARY | ~2020-04-03 | XMS | Encounter Summary ---
Demographics + + + | Address | [address] | | | [place] [address] | + + + | Home Phone [...] + + + | Author | [facility] | | | and [place] | + + + | Organization | [facility] | | | [...] Team Providers + +------+ + | Care Coke Still Cleaner Name | Role | Phone | + [...] Provider Unknown | | | | | [place], [place] | [phone] | | | | | [address] | (Fax) | | | | | [phone] | | | +--------+ + + + [...] [place] | | | | | | [address] | | | | | | | | +--------+---------+ + + + | 06/14/ | Office | Cardiology | Ольга Veloz DO | | | 2019 | Visit | | [address] | | | | | | [place] | | | | | | [address] | | | | | | | | +--------+---------+ + + + documented as of this encounter Visit Diagnoses Not on filedocumented in this encounter"
--- OUTSIDE RECORDS SUMMARY | ~2020-04-03 | XMS | Encounter Summary ---
Demographics + + + | Address | [address] | | | [place] [address] | + + + | Home Phone [...] Team Providers + +------+ + | Care Ecological Economist Name | Role | Phone | + +------+ + | Lsia Mcclain MD | PCP | | + +------+ + Encounter Details +--------+ + + + + | Date | Type | Department | Care Team | Description | +--------+ + + + + | 11/15/ | Orders Only | [facility] | Andrews Massey MD | Essential (primary) | | 2019 | | NEPHROLOGY [place] | [address] [place] | hypertension | | | | [address] [place] | [address] [place], [place] | (Primary Dx); CKD | | | | [address] [place], [place] | [address] | (chronic kidney | | | | [address] | | disease) stage 4, | | | | [phone] | | GFR 15-29 ml/min | | [...] 2020 | Visit | | [address] [facility] | | | | | | [address] [place] | | | | | | [address] | | | | | | | | +--------+---------+ + + + | 06/14/ | Office | Cardiology | Ольга Veloz DO | | | 2019 | Visit | | [address] | | | | | | [place] | | | | | | [address] | | | | | | | [...] ml/min | | | | | | ([facility]) Persistent | | | | | | [...] ml/min | | | | | | ([facility]) Persistent | | | | | | [...] chronic renal failure, stage 4 (severe) ([facility]) | + + documented in this encounter"
--- OUTSIDE RECORDS SUMMARY | ~2020-04-03 | XMS | Encounter Summary ---
Demographics + + + | Address | [address] | | | [place] [address] | + + + | Home Phone [...] Team Providers + +------+ + | Care Engineering Design Manager Name | Role | Phone | + +------+ + | Lisa Mcclain MD | PCP | | + +------+ + Encounter Details +--------+ + + + + | Date | Type | Department | Care Team | Description | +--------+ + + + + | 07/15/ | Orders Only | [facility] | Annel Whitten | Chronic viral | | 2019 | | INFECTIOUS DISEASE | Мария Farley MD | hepatitis C (HCC); | | | | [address] | [address] | Chronic kidney | | | | [place], [place] | [place] [address] | disease, stage III | | | | [address] | [phone] | (moderate) (HCC); | | | | [phone] | | Essential (primary) | | | [...] 2019 | Visit | | [address] [facility] | | | | | | [address] | | | | | | [address] | | | | | | | | +--------+---------+ + + + | 06/14/ | Office | Cardiology | Ольга Veloz DO | | | 2019 | Visit | | [address] | | | | | | [place] | | | | | | [address] | | | | | | | [...] Expires: | | | | | (moderate) ([facility]) | 10/12/2019 | | | | | [...] | | | | | | (moderate) ([facility]) | | | | | | Vitamin D deficiency | | | | | | Localized edema | | + +------+--------+ + + | CBC with | Lab | Routin | Chronic kidney | Expected: | | Differential | | e | disease, stage III | 01/12/2019, Expires: | | | | | (moderate) ([facility]) | 10/12/2019 | | | | | [...] | | | | | | (moderate) ([facility]) | | | | | | Vitamin D deficiency | | | | | | Localized edema | | + +------+--------+ + + | Iron and Iron | Lab | Routin | Chronic kidney | Expected: | | Binding Capacity | | e | disease, stage III | 01/12/2019, Expires: | | | | | (moderate) ([facility]) | 10/12/2019 | | | | | [...] | | | | | | (moderate) ([facility]) | | | | | | Vitamin D deficiency | | | | | | Localized edema | | + +------+--------+ + + | Ferritin | Lab | Routin | Chronic kidney | Expected: | | | | e | disease, stage III | 01/12/2019, Expires: | | | | | (moderate) ([facility]) | 10/12/2019 | | | | | [...] | | | | | | (moderate) ([facility]) | | | | | | Vitamin D deficiency | | | | | | Localized edema | | + +------+--------+ + + | Uric Acid | Lab | Routin | Chronic kidney | Expected: | | | | e | disease, stage III | 01/12/2019, Expires: | | | | | (moderate) ([facility]) | 10/12/2019 | | | | | [...] | | | | | | (moderate) ([facility]) | | | | | | Vitamin D deficiency | | | | | | Localized edema | | + +------+--------+ + + | Urinalysis with | Lab | Routin | Chronic kidney | Expected: | | Microscopic if | | e | disease, stage III | 01/12/2019, Expires: | | Indicated | | | (moderate) ([facility]) | 10/12/2019 | | | | | [...] | | | | | | (moderate) ([facility]) | | | | | | Vitamin D deficiency | | | | | | Localized edema | | + +------+--------+ + + | Protein/Creatinine | Lab | Routin | Chronic kidney | Expected: | | Ratio, Urine | | e | disease, stage III | 01/12/2019, Expires: | | | | | (moderate) ([facility]) | 10/12/2019 | | | | | [...] | | | | | | (moderate) ([facility]) | | | | | | Vitamin D deficiency | | | | | | Localized edema | | + +------+--------+ + + | Protein/Creatinine | Lab | Routin | Chronic kidney | Expected: | | Ratio, Urine | | e | disease, stage III | 02/07/2019, Expires: | | | | | (moderate) ([facility]) | 02/01/2020 | | | | | [...] Expires: | | | | | (moderate) ([facility]) | 05/09/2020 | | | | | [...] Expires: | | | | | (moderate) ([facility]) | 05/09/2020 | | | | | [...] Expires: | | | | | (moderate) ([facility]) | 05/09/2020 | | | | | [...] Expires: | | | | | (moderate) ([facility]) | 05/09/2020 | | | | | [...] Expires: | | | | | (moderate) ([facility]) | 05/09/2020 | | | | | Essential (primary) | | | | | | hypertension | | | | | | Persistent | | | | | | proteinuria | | + +------+--------+ + + | Hepatitis C RNA, | Lab | Routin | Chronic viral | Expected: | | Quant, NAAT | | e | hepatitis C ([facility]) | 05/18/2019, Expires: | | | | [...]
--- OUTSIDE RECORDS SUMMARY | ~2020-04-03 | XMS | Encounter Summary ---
Demographics + + + | Address | [address] | | | [place] [address] | + + + | Home Phone [...] Team Providers + +------+ + | Care Cardiopulmonary Technician Name | Role | Phone | [...] | | | unspecified | [address], | [place], [place] | | | | | | [place] [address] | [address] Phone: | | | | | | Phone: | [phone] | | | | | | [phone] | Fax: | | | | | | Fax: | [phone] | | | | | | [phone] | | + + + + + + + Encounter Details +--------+---------+ + + + | Date | Type | Department | Care Team | Description | +--------+---------+ + + + | 01/12/ | Office | [facility] | Doron Herrera | Iron deficiency | | 2019 | Visit | GASTROENTEROLOGY | MD Don [address] | anemia, unspecified | | | | [address] | [address]VD [place], [place] | iron deficiency | | | | [place], [place] | [address] | anemia type (Primary | | | | [address] | | Dx) | | | | [phone] | | | +--------+---------+ + + + [...] Visit | | [address] [place] | | | | | | [address] [place], [place] | | | | | | [address] | | | | | | | | +--------+---------+ + + + | 06/14/ | Office | Cardiology | Ольга Veloz | | | 2019 | Visit | | [address] | | | | | | [place] [facility] | | | | | | [address] | | | | | | | [...] | | | | | Oral, ONCE, [facility] 01/12/20 at 0915, | | AM PST | | | | | For 1 dose, Mix with 30 mL water | | | | | | | prior to giving., | | | | | | + +--------+ +--------+------+------+ +---+---+ | | | +---+---+ documented in this encounter"
--- OUTSIDE RECORDS SUMMARY | ~2020-04-03 | XMS | Encounter Summary ---
Demographics + + + | Address | [address] | | | [place] [address] | + + + | Home Phone | | + + + | Preferred Language | Unknown | + + + | Marital Status | Single | + + + | Bahai Affiliation | Unknown | + + + | Race | Unknown | + + + | Ethnic Group | Unknown | + + + Author + + + | Author | [facility] | | | and [place] | + + + | Organization | [facility] | | | [...] Team Providers + +------+ + | Care Plastics Design Engineer Name | Role | Phone [...] | | | | Type 2 | [facility] | | | | | diabetes | , Cluadia Rivera, | [address] | | | | | mellitus | PATIENT [address] | [address] [address] | | | | | with | [address] | [address], [place] | | | | | diabetic | [place], [place] | [address] | | | | | nephropathy, | [address] | Phone: | | | | | with | Phone: | [phone] | | | | | long-term | [phone] | Fax: | | | | | current use | Fax: | [phone] | | | | | of insulin | [phone] | | | | | | (HCC) [...] | | | unspecified | RD, | [place], [place] | | | | | | [place] [address] | [address] Phone: | | | | | | Phone: | [phone] | | | | | | [phone] | Fax: | | | | | | Fax: | [phone] | | | | | | [phone] | | + + + + + + + Encounter Details +--------+---------+ + + + | Date | Type | Department | Care Team | Description | +--------+---------+ + + + | 12/12/ | Office | [facility] | Jamie, | Early satiety | | 2020 | Visit | GASTROENTEROLOGY | [address] | (Primary Dx); | | | | [address] | [address] [place], | Abdominal bloating; | | | | [place], [place] | [place] [address] | Type 2 diabetes | | | | [address] | [phone] | mellitus with | | | | [phone] | | diabetic | | | | | | nephropathy, with | | | | | | long-term current | | | | | | use of insulin | | | | | | ([facility]); | | | | | [...] negative then we would refer you to electroplating sales representative 2. On the acid reflux continue the Pepcid 20 mg 1/2 hour before breakfast and bedtime daily . See handout on GERD 3. Retained food Gastric emptying study orders given she will have it at [facility] [place] they need to send me [...] by your healthcare provider Date Last Reviewed: 04/30/201819995244-[address] [employer] [place] [address], [place] [address]. All righ ts reserved. This information is [...] make GERD symptoms worse. Date Last Reviewed: 05/30/201619993702-2760 [employer]. [address] [place] [address]. All righ ts reserved. This information is [...] the back, neck, shoulder, or arm An vgfv-kel-qreqhnc trial of medicine doesn't relieve your symptoms Weight loss that can't be explained Trouble or pain swallowing Frequent vomiting (can t keep down liquids) Blood in the stool or vomit (red or black in color) Feeling weak or dizzy Fever of 100.4F (38C) or higher, or as directed by your healthcare provider Date Last Reviewed: 01/28/201819997381-6128 [employer] [address] [place] [address], [place] [address]. All righ ts reserved. This information is [...] the test. This includes: All prescription medicines Jmev-wlp-uroiuld medicines such as aspirin or ibuprofen Street drugs Herbs, vitamins, and other supplements Also before the test: Tell your provider about any surgeries you ve had before, that could cause the capsule to get stuck. Switch to a clear liquid [id number] before the test. Don t eat anything starting [id number] before the test. You may be instructed [...] facility. You can d rink clear liquids rvotz3lxbxh, and you can eat food or take medicines [id number]. Be sure to follow any other instructions [...] to remove the capsule. Date Last Reviewed: 05/30/201619994282-5929 [employer] [address] [place] [address]. All righ ts reserved. This information is [...] dysphagia or cardiac pacemaker. Last colonoscopy 2018 [place] [facility] internal hemorrhoids normal other kumar no [...] lunch; 22 units with dinner nystatin (MYCOSTATIN) 651080 UNIT/GM cream Apply topically as needed. 0 [...] CHOLECYSTECTOMY 1999 COLONOSCOPY 07/07/2018 Dr. Cabral in [place], [place] LIPOMA RESECTION x3 on abdomen and neck OTHER SURGICAL HISTORY Ocular implants ROTATOR CUFF REPAIR Left 2009 TONSILLECTOMY AND ADENOIDECTOMY 1992 UPPER GASTROINTESTINAL ENDOSCOPY 07/07/2018 Dr. Cabral in [place], [place] UPPER GASTROINTESTINAL ENDOSCOPY N/A 11/21/2019 Procedure: EGD; Surgeon: Doron Herrera MD; Location: [facility] Family History Problem Relation [...] file Gets together: Not on file Attends amish service: Not on file Active member of [...] Gen: NAD, Morbidly obses Mouth and Throat: [place], moist, clean, Uvula midline, Mallampati 2 CV: [...] negative then we would refer you to electroplating sales representative 2. On the acid reflux continue the Pepcid 20 mg 1/2 hour before breakfast and bedtime daily . See handout on GERD 3. Retained food Gastric emptying study orders given she will have it at [facility] [place] they need to send me a copy. 4. Follow up with me I can see you afterwards post capsule this study in 2 months. Records Reviewed PCP chart notes and previous [facility] records including Gastroenterology Procedures/Treatment s/Imaging/Laboratory studies have been reviewed (Using the electronic record system of [facility]). I carefully reviewed the records with regard to the past medical/surgical history, previous medications, and allergies). Nursing notes reviewed for chief complaint, medications, clinical presentation and vital signs Total direct xnfm-dy-wwrr time of 45minutes spent in reviewing information and discussion w ith greater than 50% of that time spent in counseling or coordinating of care. Thank you for allowing me PABLO Perdomo [facility] Gastroenterology [address] [place] [address]. [place]. [address] to participate in the care of your patient. Please do not hesitate to david l me with any questions or concerns. This report has been prepared using a voice recognition system called [employer]. The report wa s reviewed for accuracy, [...] 2019 | Visit | | [address] [facility] [place] | | | | | | [address] | | | | | | [address] | | | | | | | | +--------+---------+ + + + | 06/14/ | Office | Cardiology | Ольга Veloz DO | | | 2019 | Visit | | [address] | | | | | | [place] | | | | | | [id number] | | | | | | | [...]
--- OUTSIDE RECORDS SUMMARY | ~2020-04-03 | XMS | Encounter Summary ---
Demographics + + + | Address | [address] | | | [place] [address] | + + + | Home Phone [...] Team Providers + +------+ + | Care Ware Server Name | Role | Phone | + +------+ + | Lisa Mcclain MD | PCP | | + +------+ + Encounter Details +--------+ + + + + | Date | Type | Department | Care Team | Description | +--------+ + + + + | 07/19/ | Orders Only | [facility] | Andrews Massey MD | | | 2019 | | NEPHROLOGY [address] | [address] [place] | | | | | [address] | [address] [place], [place] | | | | | [facility] [address] | [address] | | | | | [place], [place] | | | | | | [address] | | | | | | [phone] | | | +--------+ + + + [...] [place] | | | | | | [address] | | | | | | | | +--------+---------+ + + + | 06/14/ | Office | Cardiology | Ольга Veloz DO | | | 2019 | Visit | | [address] | | | | | | [place] | | | | | | [address] | | | | | | | | +--------+---------+ + + + documented as of this encounter Visit Diagnoses Not on filedocumented in this encounter"
--- OUTSIDE RECORDS SUMMARY | ~2020-04-03 | XMS | Encounter Summary ---
Demographics + + + | Address | [address] | | | [place] [address] | + + + | Home Phone | | + + + | Preferred Language | Unknown | + + + | Marital Status | Single | + + + | Yazidi Affiliation | Unknown | + + + | Race | Unknown | + + + | Ethnic Group | Unknown | + + + Author + + + | Author | [facility] | | | and [place] | + + + | Organization | [facility] | | | [...] Team Providers + +------+ + | Care Motor Grader Operator Name | Role | Phone | [...] Provider Unknown | | | | | [place], [place] | [phone] | | | | | [address] | (Fax) | | | | | [phone] | | | +--------+ + + + [...] [place] | | | | | | [address] | | | | | | | | +--------+---------+ + + + | 06/14/ | Office | Cardiology | Ольга Veloz DO | | | 2019 | Visit | | [address] | | | | | | [place] | | | | | | [address] | | | | | | | | +--------+---------+ + + + documented as of this encounter Visit Diagnoses Not on filedocumented in this encounter"
--- OUTSIDE RECORDS SUMMARY | ~2020-04-03 | XMS | Encounter Summary ---
Demographics + + + | Address | [address] | | | [place] [address] | + + + | Home Phone | | + + + | Preferred Language | Unknown | + + + | Marital Status | Single | + + + | Caodaism Affiliation | Unknown | + + + | Race | Unknown | + + + | Ethnic Group | Unknown | + + + Author + + + | Author | [facility] | | | and [place] | + + + | Organization | [facility] | | [...] Team Providers + +------+ + | Care Bottle Packer Name | Role | Phone | + [...] | | | | | | | [place] EGD | | | | | | | TRANSORAL | | | | | | | BIOPSY | | | | | | | SINGLE/MULTI | | | | | | | PLE [place] | | | | | | | [...] | | | 2019 | Event | [facility] | MD [address] | | | | | INTRA OP [address] | [place] [address] | | | | | [address]VD [place], [place] | [phone] | | | | | [address] | | | | | | [phone] | | | +--------+ + + + [...] 0957 by Dominique | | eral | pgkz-kyh-xdgxhj catheter system; | Devi Greer RN | [...] 2020 | Visit | | [address] [facility] | | | | | | [address] [place], [place] | | | | | | [address] | | | | | | | | +--------+---------+ + + + | 06/14/ | Office | Cardiology | VelozОльга solerDO | | | 2019 | Visit | | [address] | | | | | | [place] | | | | | | [address] | | | | | | | [...]
--- OUTSIDE RECORDS SUMMARY | ~2020-04-03 | XMS | Encounter Summary ---
Demographics + + + | Address | [address] | | | [place] [address] | + + + | Home Phone | | + + + | Preferred Language | Unknown | + + + | Marital Status | Single | + + + | Tenriism Affiliation | Unknown | + + + [...] Team Providers + +------+ + | Care Rock Crusher Name | Role | Phone | + +------+ + | Lisa Mcclain MD | PCP | | + +------+ + Encounter Details +--------+ + + + + | Date | Type | Department | Care Team | Description | +--------+ + + + + | 07/21/ | Orders Only | [facility] | Conversion | | | 2017 | | INFECTIOUS DISEASE | Transaction, | | | | | [address] | Provider Unknown | | | | | [place], [place] | | | | | | [address] | (Fax) | | | | | [phone] | | | +--------+ + + + [...] Steph Mayorga CMA Service: (none) Author Type: Spot Welder Line Filed: 07/28/18 0958 Encounter Date: 07/27/2018 Status: Signed Chairman & Ceo: Steph Mayorga CMA (Spot Welder Line) Labs abstracted. A copy of the labs will be put in Dr. Whitten inbox, as it's hard to abstr act the HCV labs. KENA HERRING onver jovany Transaction, Provider Unknown - 07/27/2018 4:06 PM PDT Addendum Note by Steph Mayorga CMA at 07/27/18 1606 Author: Steph Mayorga CMA Service: (none) Author Type: Spot Welder Line Filed: 08/09/18 0944 Encounter Date: 07/27/2018 Status: Signed Chairman & Ceo: Steph Mayorga CMA (Spot Welder Line) Addended by: STEPH MAYORGA on: 08/09/2018 09:44 AM Modules accepted: Orders docume nted in this encounter Plan of Treatment +--------+---------+ + + + | Date | Type | Specialty | Care Team | Description | +--------+---------+ + + + | 04/30/ | Office | Nephrology | Andrews Massey MD | | | 2019 | Visit | | [address] [facility] | | | | | | [address] [place] | | | | | | [address] | | | | | | | | +--------+---------+ + + + | 06/14/ | Office | Cardiology | Ольга Veloz DO | | | 2019 | Visit | | [address] | | | | | | [place] | | | | | | [address] | | | | | | | [...] + + + + | Necroinflam | A1/A5Skhvxkb: Equal | | EXTERNAL | | | [...]
--- OUTSIDE RECORDS SUMMARY | ~2020-04-03 | XMS | Encounter Summary ---
Demographics + + + | Address | [address] | | | [place] [address] | + + + | Home Phone | | + + + | Preferred Language | Unknown | + + + | Marital Status | Single | + + + | Uatsdin Affiliation | Unknown | + + + | Race | Unknown | + + + | Ethnic Group | Unknown | + + + Author + + + | Author | [facility] | | | and [place] | + + + | Organization | [facility] | [...] Team Providers + +------+ + | Care Book Coverer Name | Role | Phone | + [...] Provider Unknown | | | | | [place], [place] | [phone] | | | | | [address] | (Fax) | | | | | [phone] | | | +--------+ + + + [...] 2020 | Visit | | [address] [facility] [place] | | | | | | [address] [place] | | | | | | [address] | | | | | | | | +--------+---------+ + + + | 06/14/ | Office | Cardiology | Ольга Veloz DO | | | 2019 | Visit | | [address] | | | | | | [place] | | | | | | [id number] | | | | | | | | +--------+---------+ + + + documented as of this encounter Visit Diagnoses Not on filedocumented in this encounter"
--- OUTSIDE RECORDS SUMMARY | ~2020-04-03 | XMS | Encounter Summary ---
Demographics + + + | Address | [address] | | | [place] [address] | + + + | Home Phone [...] Team Providers + +------+ + | Care Seed Packer Name | Role | Phone | + +------+ + | Yessica Mayorga MD | PCP | | + +------+ + Encounter Details +--------+ + + + + | Date | Type | Department | Care Team | Description | +--------+ + + + + | 05/06/ | Orders Only | [facility] | Conversion | | | 2019 | | NEPHROLOGY MARK | Transaction, | | | | | [address] | Provider Unknown | | | | | [address] | | | | | | [address] | (Fax) | | | | | [phone] | | | +--------+ + + + [...] 2019 | Visit | | [address] [facility] [place] | | | | | | [address] | | | | | | [address] | | | | | | | | +--------+---------+ + + + | 06/14/ | Office | Cardiology | Ольга Veloz DO | | | 2019 | Visit | | [address] | | | | | | [place] | | | | | | [address] | | | | | | | [...]
--- OUTSIDE RECORDS SUMMARY | ~2020-04-03 | XMS | Encounter Summary ---
Demographics + + + | Address | [address] | | | [place] [address] | + + + | Home Phone [...] Team Providers + +------+ + | Care Multilith Operator Name | Role | Phone | [...] + + | 11/17/ | Telephone | [facility] | Boni Augustin, | Confirmation | | 2019 | | GASTROENTEROLOGY | Reinsurance Clerk | (11/21/19 procedure) | | | | [address] | | | | | | [place] | | | | | | [address] | | | | | | [phone] | | | +--------+ + + + [...] 2020 | Visit | | [address] [facility] | | | | | | [address] [place], [place] | | | | | | [address] | | | | | | | | +--------+---------+ + + + | 06/14/ | Office | Cardiology | Ольга Veloz DO | | | 2020 | Visit | | [address] | | | | | | [place] | | | | | | [address] | | | | | | | | +--------+---------+ + + + documented as of this encounter Visit Diagnoses Not on filedocumented in this encounter"
--- OUTSIDE RECORDS SUMMARY | ~2020-04-03 | XMS | Encounter Summary ---
Demographics + + + | Address | [address] | | | [place] [address] | + + + | Home Phone [...] Team Providers + +------+ + | Care General Milling Superintendent Name | Role | Phone | + +------+ + | Lisa Mcclain MD | PCP | | + +------+ + Encounter Details +--------+ + + + + | Date | Type | Department | Care Team | Description | +--------+ + + + + | 10/11/ | Orders Only | [facility] | Conversion | | | 2018 | | INFECTIOUS DISEASE | Transaction, | | | | | [address] | Provider Unknown | | | | | [place], [place] | | | | | | [address] | (Fax) | | | | | [phone] | | | +--------+ + + + [...] Notes by Patricia Peterson CMA at 10/20/18 9041 Author: Patricia Peterson CMA Service: (none) Author Type: Sales Secretary Filed: 10/20/18 1349 Encounter Date: 10/20/2018 Status: Signed Transportation Program Director: Patricia Peterson CMA (Sales Secretary) 10/11/2018 [facility]- CMP, HCV RNA, CBC rcvd: 10/20/18 Abstracted. Scanned. docume nted in this encounter Plan of Treatment +--------+---------+ + + + | Date | Type | Specialty | Care Team | Description | +--------+---------+ + + + | 04/30/ | Office | Nephrology | Andrews Massey MD | | | 2019 | Visit | | [address] [facility] | | | | | | [address] | | | | | | [address] | | | | | | | | +--------+---------+ + + + | 06/14/ | Office | Cardiology | Ольга Veloz DO | | | 2019 | Visit | | [address] | | | | | | [place] | | | | | | [address] | | | | | | | [...]
--- OUTSIDE RECORDS SUMMARY | ~2020-04-03 | XMS | Encounter Summary ---
Demographics + + + | Address | [address] | | | [place] [address] | + + + | Home Phone | | + + + | Preferred Language | Unknown | + + + | Marital Status | Single | + + + | Jew Affiliation [...] Team Providers + +------+ + | Care Weir Fisherman Name | Role | Phone | + [...] Provider Unknown | | | | | [place], [place] | [phone] | | | | | [address] | (Fax) | | | | | [phone] | | | +--------+ + + + [...] [place] | | | | | | [address] | | | | | | | | +--------+---------+ + + + | 06/14/ | Office | Cardiology | Ольга Veloz DO | | | 2019 | Visit | | [address] | | | | | | [place] | | | | | | [address] | | | | | | | | +--------+---------+ + + + documented as of this encounter Visit Diagnoses Not on filedocumented in this encounter"
--- OUTSIDE RECORDS SUMMARY | ~2020-04-03 | XMS | Encounter Summary ---
Demographics + + + | Address | [address] | | | [place] [address] | + + + | Home Phone [...] Team Providers + +------+ + | Care Manual Control Auger Press Operator Name | Role | Phone | [...] + + | 12/21/ | Telephone | [facility] | Lo John RN | Other (schedule | | 2020 | | GASTROENTEROLOGY | | capsule endoscopy ); | | | | [address] | | Procedure | | | | [place] | | | | | | [address] | | | | | | [phone] | | | +--------+ + + + [...] 2020 | Visit | | [address] [facility] [place] | | | | | | [address] [place] | | | | | | [address] | | | | | | | | +--------+---------+ + + + | 06/14/ | Office | Cardiology | Ольга Veloz DO | | | 2019 | Visit | | [address] | | | | | | [place] | | | | | | [address] | | | | | | | | +--------+---------+ + + + documented as of this encounter Visit Diagnoses Not on filedocumented in this encounter"
--- OUTSIDE RECORDS SUMMARY | ~2020-04-03 | XMS | Encounter Summary ---
Demographics + + + | Address | [address] | | | [place] [address] | + + + | Home Phone [...] ECON | Unknown | | | Brendan Mcnael | | | | + + +---------+ + Care Team Providers + +------+ + | Care Crossword Puzzle Maker Name | Role | Phone | + +------+ + | Lias Mcclain MD | PCP | | + +------+ + Encounter Details +--------+ + + + + | Date | Type | Department | Care Team | Description | +--------+ + + + + | 04/21/ | Orders Only | [facility] | Conversion | | | 2017 | | NEPHROLOGY [place] | Transaction, | | | | | [address] | Provider Unknown | | | | | [address] | | | | | | [address] | (Fax) | | | | | [phone] | | | +--------+ + + + [...] 2019 | Visit | | [address] [place] | | | | | | [address] [address] | | | | | | [address] | | | | | | | | +--------+---------+ + + + | 06/14/ | Office | Cardiology | Ольга Veloz DO | | | 2019 | Visit | | [address] | | | | | | [place] | | | | | | [address] | | | | | | | [...]
--- OUTSIDE RECORDS SUMMARY | ~2020-04-03 | XMS | Encounter Summary ---
Demographics + + + | Address | [address] | | | [place] [address] | + + + | Home Phone [...] Team Providers + +------+ + | Care Acura Sales Consultant Name | Role | Phone | [...] | | anemia | [address] | [place], [place] | | | | | secondary to | [address]VD | [address] | | | | | blood loss | [place], [place] | Phone: | | | | | (chronic) | [address] | [phone] | | | | | Procedures | Phone: | Fax: | | | | | CHG | [phone] | [phone] | | | | | RADIOLOGIC | Fax: | | | | | | EXAM SMALL | [phone] | | | | | | INT [...] + + | 10/17/ | Hospital | [facility] | Doron Herrera | Iron deficiency | | 2019 | Encounter | [facility] XRAY | MD Don [address] | anemia due to | | | | [address] | [address] [facility] [place] | chronic blood loss | | | | [place] | [address] | | | | | [address] | | | | | | [phone] | Imaging, [facility] | | +--------+ + + + + [...] 0 | 06/21/20 | | | (MYCOSTATIN) [id number] | needed. | | | 18 | [...] | Visit | | [address] [facility] | | | | | | [facility] | | | | | | [address] | | | | | | | | +--------+---------+ + + + | 06/14/ | Office | Cardiology | Ольга Veloz DO | | | 2019 | Visit | | [address] | | | | | | [place] | | | | | | [address] | | | | | | | [...] loss COMPARISON: None | | | PROCEDURE: Dredge Hand image of the abdomen. Following ingestion of | | | liquid barium, sequential images obtained of the abdomen were | | | obtained. Additional fluoroscopic images of the small bowel with spot | | | images, as needed. Fluoro Time: .9 minute(s). Number of images: | | | 21 Air Kerma: 64.17 mGy FINDINGS: Dredge Hand image: Non-distended | | | bowel gas [...] | | | | PROCEDURE: | | Dredge Hand image of the abdomen. Following ingestion of liquid barium, | | sequential images obtained of the abdomen were obtained. Additional | | fluoroscopic images of the small bowel with spot images, as needed. | | | | Fluoro Time: .9 minute(s). Number of images: 21 Air Kerma: 64.17 mGy | | | | FINDINGS: | | Dredge Hand image: Non-distended bowel gas pattern. No free [...]
--- OUTSIDE RECORDS SUMMARY | ~2020-04-03 | XMS | Encounter Summary ---
Demographics + + + | Address | [address] | | | [place] [address] | + + + | Home Phone [...] Team Providers + +------+ + | Care Piece Goods Clerk Name | Role | Phone | + +------+ + | Lisa Mcclain MD | PCP | | + +------+ + Encounter Details +--------+ + + + + | Date | Type | Department | Care Team | Description | +--------+ + + + + | 07/17/ | Orders Only | [facility] | Andrews Massey MD | | | 2018 | | NEPRHOLOGY [place] | [address] [place] | | | | | [address] [place] | [address] [place], [place] | | | | | [address] [place], [place] | [address] | | | | | [address] | | | | | | [phone] | | | +--------+ + + + [...] Visit | | [address] | | | | | | [address] [place] | | | | | | [address] | | | | | | | | +--------+---------+ + + + | 06/14/ | Office | Cardiology | Ольга Veloz DO | | | 2019 | Visit | | [address] | | | | | | [place] | | | | | | [address] | | | | | | | [...]
--- OUTSIDE RECORDS SUMMARY | ~2020-04-03 | XMS | Encounter Summary ---
Demographics + + + | Address | [address] | | | [place] [address] | + + + | Home Phone [...] Team Providers + +------+ + | Care Industry Analyst Name | Role | Phone | + +------+ + | Lisa Mcclain MD | PCP | | + +------+ + Reason for Visit + + + | Reason | Comments | + + + | Procedure | Capsule Endoscopy | + + + Encounter Details +--------+ + + + + | Date | Type | Department | Care Team | Description | +--------+ + + + + | 10/20/ | Telephone | [facility] | Charli, Boni S, | Procedure (Capsule | | 2018 | | GASTROENTEROLOGY | Looper Fixer | Endoscopy) | | | | [address] | | | | | | [place] | | | | | | [address] | | | | | | [phone] | | | +--------+ + + + [...] 2020 | Visit | | [address] [facility] | | | | | | [address] [place], [place] | | | | | | [address] | | | | | | | | +--------+---------+ + + + | 06/14/ | Office | Cardiology | Ольга Veloz DO | | | 2020 | Visit | | [address] | | | | | | [place] | | | | | | [address] | | | | | | | | +--------+---------+ + + + documented as of this encounter Visit Diagnoses Not on filedocumented in this encounter"
--- OUTSIDE RECORDS SUMMARY | ~2020-04-03 | XMS | Clinical Summary ---
Demographics + + + | Address | [address] | | | [place] [address] | + + + | Home Phone | | + + + | Preferred Language | Unknown | + + + | Marital Status | Single | + + + | Baptist Affiliation [...] Team Providers + +------+ + | Care Porcelain Finisher Name | Role | Phone | + [...] 07/2 | | Activ | | (MYCOSTATIN) [id number] | needed. | | | 3/20 | [...] automatically from request for surgery | | [id number] | + + + + + | [...] | continued medical care if she leaves [place].We discussed the | | following plan:1) Pt will drive to the [facility] to meet | | with CHW/RD. 2) I will ask our [facility] in [place] to reach out | | and welcome [...] (UTI and | | 2019 | | | | kidney pain) | +--------+ + + + + | 01/18/ | Documentati | Gastroenterology | Doron Herrera | | | 2019 | on | | MD Don | | +--------+ + + + + | 01/12/ | Clinical | Gastroenterology | Darcie Jane, | Iron deficiency | | 2019 | Support | | RN | anemia, unspecified | | | | | | iron deficiency | | | | | | anemia type (Primary | | | | | | Dx) | +--------+ + + + + | 01/12/ | Office | Gastroenterology | Doron Herrera | Iron deficiency | 2019 | Visit | | MD Don | anemia, unspecified | | | | | | iron deficiency | | | | | | anemia type (Primary | | | | | | Dx) | +--------+ + + + + from [...] | | [address] [facility] | | | | | | [address] [place] | | | | | | [address] | | | | | | | | +--------+---------+ + + + | 06/14/ | Office | Cardiology | Ольга Veloz DO | | | 2020 | Visit | | [address] | | | | | | [place] | | | | | | [address] | | | | | | | [...] | [employer] | COMM | [id number] | 11/30/19 | [phone] | | Medica [...] | [employer] | MODA | [id number] | 07/03/20 | [phone] | | Medica [...] Harrell | al/Fam | | 1970 | 62 | [place] | | | [place] | | | 2 (Home) | [address] | + +--------+ +--------+ + + | Kishore Ames | Person | Self | [birth year] | | [address] | | yovani Harrell | al/Fam | | 1970 | [id number] | [address] [place] | | | [place] | | | 2 (Home) | | + +--------+ +--------+ + + Advance Directives + + + + + | Type | Date Recorded | Patient | Explanation | | | | Jet Inspector | | + + + + + | Power of | | | | | Stone Polisher Hand | | | | + + + + + | Advance | 11/07/2019 4:17 | | | | Directive | PM | | | + + + + +
--- OUTSIDE RECORDS SUMMARY | ~2020-04-03 | XMS | Encounter Summary ---
Demographics + + + | Address | [address] | | | [place] [address] | + + + | Home Phone [...] Providers + +------+ + | Care Director Search Marketing Strategies Name | Role | Phone | + [...] | | | | | | | CA EGD | | | | | | | TRANSORAL | | | | | | | BIOPSY | | | | | | | SINGLE/MULTI | | | | | | | PLE CA | | | | | | | [...] + + | 11/21/ | Hospital | [facility] | Doron Herrera | Iron deficiency | | 2019 | Encounter | [facility] | MD Don [address] | anemia due to | | | | INTRA [address] | [place] | chronic blood loss; | | | | [place] | [address] | Iron deficiency | | | | [address] | | anemia due to | | | | [phone] | | chronic blood loss; | | [...] 0 | 06/21/20 | | | (MYCOSTATIN) [id number] | needed. | | | 18 | [...] [place] | | | | | | [address] | | | | | | | | +--------+---------+ + + + | 06/14/ | Office | Cardiology | Ольга Veloz DO | | | 2019 | Visit | | [address] | | | | | | [place] | | | | | | [address] | | | | | | | [...] + +--------+ + + + | *TERMED* CA UPPER GI | Routin | 11/21/2019 | [...] interpretation was | | | performed by [email or web address] [address] | | | [place], [place] (Pest Management Supervisor: August Bray M.D.; | | | CLIA#: [id number]).The technical component was performed by [employer] | | | [employer], [address] [place] [address] (Pest Management Supervisor: | | | Brooklyn Hunter MD; CLIA# [id number]). Diagnostician: August Bray | | | MDPathologistElectronically Signed 11/24/2019 | | |PERFORMING LABORATORY: | | |The professional interpretation was performed by [email or web address] (Pest Management Supervisor: August Bray M.D.; CLIA#: [id number]). | | |The technical component was performed by [email or web address], [address] [place] [address] (Pest Management Supervisor: Brooklyn Hunter MD; CLIA# [id number]). | | | | | |Diagnostician: August [...] Performed At | + + + | [facility] | [facility] | | [facility] | PROVATION | | CenterGastroenterology | | | Patient Name: Wayne , | | | Isabel Sharri Procedure Date: 11/21/2019 9:13 AMMRN: [id number] | | | of : | | [...] | | regular basis rather than sporadically. Peter D | | | Javier IV, 11/21/2019 9:39:38 AMThis report has been signed | | | electronically. Note Initiated On: 11/21/2019 9:13 AMNumber of | | | Addenda: 0 [facility] | | | | | |Doron Luz Elena Herrera IV, | | |11/21/2019 9:39:38 AM | | |This report has been signed electronically. | | | | | |Note Initiated On: 11/21/2019 9:13 AM | | |Number of Addenda: 0 | | | | | | [facility] | | + + + + +---------+ [...]
--- OUTSIDE RECORDS SUMMARY | ~2020-04-03 | XMS | Encounter Summary ---
Demographics + + + | Address | [address] | | | [place] [address] | + + + | Home Phone [...] Team Providers + +------+ + | Care Warp Starter Name | Role | Phone | + +------+ + | Lisa Mcclain MD | PCP | | + +------+ + Encounter Details +--------+---------+ + + + | Date | Type | Department | Care Team | Description | +--------+---------+ + + + | 11/14/ | Office | [facility] | Andrews Massey MD | CKD (chronic kidney | | 2019 | Visit | NEPHROLOGY [address] | [address] [place] | disease) stage 4, | | | | [address] | [address] [place], [place] | GFR 15-29 ml/min | | | | [address] [address] | [address] | (HCC) (Primary Dx); | | | | [place], [place] | | Anemia of chronic | | | | [address] | | renal failure, stage | | | | [phone] | | 4 (severe) ([facility]); | | | | | | Persistent | | | | | | proteinuria; Type 2 | | | | | | 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 She will continue to F/U with your office regularly. She will have a RFP, CBC, Iron studies, Ferritin, iPTH, Urine total cnygald-rp-ypvkqykpz e ratio before she comes back in [...] to baseline with t he interventions at [facility]. The patient has history of hypertension since [...] pen, Daily., Disp: , Rfl: nystatin (MYCOSTATIN) 344926 UNIT/GM cream, Apply topically as needed., Disp: [...] 16.5 (A) 05/06/2019 LABPROT 1,148.6 (A) 05/06/2019 [id number] 22 (A) 04/21/2018 Assessment: Ms. Restrepo is [...] CBC, Iron studies, Ferritin, iPTH, Urine total loprpze-ip-qinvyeyrg e ratio before she comes back in 6 months. I spent 15 minutes of this 25-minute visit in education, counseling and answering all of her questions to her satisfaction. Thank you Dr Mcclain for the opportunity to see this patient in F/U today. Please do not hesi dunn to call me at any time with questions or concerns. Truly yours, Andrews Massey MD [facility] documented in this enco unter Plan of Treatment +--------+---------+ + + + | Date | Type | Specialty | Care Team | Description | +--------+---------+ + + + | 04/30/ | Office | Nephrology | Andrews Massey MD | | | 2019 | Visit | | [address] [facility] | | | | | | [address] [place] | | | | | | [address] | | | | | | | | +--------+---------+ + + + | 06/14/ | Office | Cardiology | Ольга Veloz DO | | | 2019 | Visit | | [address] | | | | | | [place] | | | | | | [address] | | | | | | | | +--------+---------+ + + + documented as of this encounter Visit Diagnoses + + | Diagnosis | + + | CKD (chronic kidney disease) stage 4, GFR 15-29 ml/min ([facility]) - Primary Chronic kidney | | disease, Stage IV (severe) | + + | Anemia of chronic renal failure, stage 4 (severe) ([facility]) | + + | Persistent proteinuria Proteinuria [...]
--- OUTSIDE RECORDS SUMMARY | ~2020-04-03 | XMS | Encounter Summary ---
Demographics + + + | Address | [address] | | | [place] [address] | + + + | Home Phone | | + + + | Preferred Language | Unknown | + + + | Marital Status | Single | + + + | Zoroastrian Affiliation | Unknown | + + + | Race | Unknown | + + + | Ethnic Group | Unknown | + + + Author + + + | Author | [facility] | | | and [place] | + + + | Organization | [facility] | | | and [...] Team Providers + +------+ + | Care Sort Operations Supervisor Name | Role | Phone | + +------+ + | Lisa Mcclain MD | PCP | | + +------+ + Encounter Details +--------+ + + + + | Date | Type | Department | Care Team | Description | +--------+ + + + + | 06/17/ | Orders Only | [facility] | Andrews Massey MD | | | 2017 | | NEPHROLOGY [place] | [address] [place] | | | | | [address] [place] | [address] [place], [place] | | | | | [address] [place], [place] | [address] | | | | | [address] | | | | | | [phone] | | | +--------+ + + + [...] [place] | | | | | | [address] | | | | | | | | +--------+---------+ + + + | 06/14/ | Office | Cardiology | Ольга Veloz DO | | | 2019 | Visit | | [address] | | | | | | [place] | | | | | | [address] | | | | | | | [...]
--- OUTSIDE RECORDS SUMMARY | ~2020-04-03 | XMS | Encounter Summary ---
Demographics + + + | Address | [address] | | | [place] [address] | + + + | Home Phone [...] Team Providers + +------+ + | Care Product Management Intern Name | Role | Phone | + +------+ + | Lisa Mcclain MD | PCP | | + +------+ + Encounter Details +--------+ + + + + | Date | Type | Department | Care Team | Description | +--------+ + + + + | 07/17/ | Orders Only | [facility] | Andrews Massey MD | | | 2018 | | NEPRHOLOGY [place] | [address] | | | | | [address] [place] | [address] [place], [place] | | | | | [address] [place], [place] | [address] | | | | | [address] | | | | | | [phone] | | | +--------+ + + + [...] [place] | | | | | | [address] | | | | | | | | +--------+---------+ + + + | 06/14/ | Office | Cardiology | Ольга Veloz DO | | | 2019 | Visit | | [address] | | | | | | [place] | | | | | | [address] | | | | | | | [...]
--- OUTSIDE RECORDS SUMMARY | ~2020-04-03 | XMS | Encounter Summary ---
Demographics + + + | Address | [address] | | | [place] [address] | + + + | Home Phone | | + + + | Preferred Language | Unknown | + + + | Marital Status | Single | + + + | Latter Day Affiliation | Unknown | + + + | Race | Unknown | + + + | Ethnic Group | Unknown | + + + Author + + + | Author | [facility] | | | and [place] | + + + | Organization | [facility] | | | [...] Team Providers + +------+ + | Care Student Outreach Coordinator Name | Role | Phone | + +------+ + | Lisa Mcclain MD | PCP | | + +------+ + Encounter Details +--------+ + + + + | Date | Type | Department | Care Team | Description | +--------+ + + + + | 08/24/ | Orders Only | [facility] | Andrews Massey MD | Essential (primary) | | 2019 | | NEPHROLOGY [place] | [address] [place] | hypertension | | | | [address] [place] | [address] [place], [place] | (Primary Dx); CKD | | | | [address] [place], [place] | [address] | (chronic kidney | | | | [address] | | disease), stage III | | | | [phone] | | (HCC); Anemia of | | [...] 2019 | Visit | | [address] [facility] | | | | | | [address] [place] | | | | | | [address] | | | | | | | | +--------+---------+ + + + | 06/14/ | Office | Cardiology | Ольга Veloz DO | | | 2019 | Visit | | [address] | | | | | | [place] | | | | | | [address] | | | | | | | [...]
--- OUTSIDE RECORDS SUMMARY | ~2020-04-03 | XMS | Encounter Summary ---
Demographics + + + | Address | [address] | | | [place] [address] | + + + | Home Phone | | + + + | Preferred Language | Unknown | + + + | Marital Status | Single | + + + | Sabianist Affiliation | Unknown | + + + [...] Team Providers + +------+ + | Care Linderman Machine Operator Name | Role | Phone | + +------+ + | Lisa Mcclain MD | PCP | | + +------+ + Encounter Details +--------+ + + + + | Date | Type | Department | Care Team | Description | +--------+ + + + + | 11/16/ | [facility] | [facility] | Doron Herrera | Preop testing | | 2019 | Encounter | [facility] | MD Don [address] | | | | | ELECTRODIAGNOSTICS | [address] [place], [place] | | | | | [address] | [address] | | | | | [place], [place] | | | | | | [address] | | | | | | [phone] | | | +--------+ + + + [...] 0 | 06/21/20 | | | (MYCOSTATIN) [id number] | needed. | | | 18 | [...] 2019 | Visit | | [address] [facility] | | | | | | [address] [place] | | | | | | [address] | | | | | | | | +--------+---------+ + + + | 06/14/ | Office | Cardiology | Ольга Veloz DO | | | 2019 | Visit | | [address] | | | | | | [place] | | | | | | [address] | | | | | | | [...] MD | | | | | | (504) on 11/16/2019 | | | | | [...]
--- OUTSIDE RECORDS SUMMARY | ~2020-04-03 | XMS | Encounter Summary ---
Demographics + + + | Address | [address] | | | [place] [address] | + + + | Home Phone [...] + + + | Author | [facility] | | | and [place] | + + + | Organization | [facility] | | [...] Team Providers + +------+ + | Care Pocket And Pulley Machine Operator Name | Role | Phone | + +------+ + | Yessica Mayorga MD | PCP | | + +------+ + Encounter Details +--------+ + + + + | Date | Type | Department | Care Team | Description | +--------+ + + + + | 05/20/ | Orders Only | [facility] | Andrews Massey MD | | | 2019 | | NEPHROLOGY [place] | [address] [place] | | | | | [address] [place] | [address] [place], [place] | | | | | [address] [place], [place] | [address] | | | | | [address] | | | | | | [phone] | | | +--------+ + + + [...] [place] | | | | | | [address] | | | | | | | | +--------+---------+ + + + | 06/14/ | Office | Cardiology | Ольга Veloz DO | | | 2019 | Visit | | [address] | | | | | | [place] | | | | | | [address] | | | | | | | [...]
--- OUTSIDE RECORDS SUMMARY | ~2020-04-03 | XMS | Encounter Summary ---
Demographics + + + | Address | [address] | | | [place] [address] | + + + | Home Phone [...] Team Providers + +------+ + | Care Inbound Sales Representative Name | Role | Phone [...] | | CLINIC [address] | [place], [place] | | | | | [place], [place] | [address] | | | | | [address] | | | | | | [phone] | | | +--------+ + + + [...] NOT TAKE day of procedure nystatin (MYCOSTATIN) 493557 UNIT/GM cream Apply topically as needed. DO [...] vomiting, or vomiting blood Date Last Reviewed: 05/30/201619997045-8561 [employer]. [address] [place] [address], [place] [address]. All righ ts reserved. This information is [...] 2019 | Visit | | [address] [facility] | | | | | | [facility] | | | | | | [address] | | | | | | | | +--------+---------+ + + + | 06/14/ | Office | Cardiology | Ольга Veloz DO | | | 2019 | Visit | | [address] | | | | | | [place] | | | | | | [address] | | | | | | | [...] MD | | | | | | (147) on 11/16/2019 | | | | | [...]
--- OUTSIDE RECORDS SUMMARY | ~2020-04-03 | XMS | Encounter Summary ---
Demographics + + + | Address | [address] | | | [place] [address] | + + + | Home Phone [...] Team Providers + +------+ + | Care Buyer Renter Name | Role | Phone | + [...] + + | 11/01/ | Telephone | [facility] | Doron Herrera | Other (CAPSULE) | | 2019 | | GASTROENTEROLOGY | MD [address] | | | | | [address] | [address] [place], [place] | | | | | [place], [place] | [address] | | | | | [address] | | | | | | [phone] | | | +--------+ + + + [...] | Visit | | [facility] [facility] | | | | | | [address] [place] | | | | | | [address] | | | | | | | | +--------+---------+ + + + | 06/14/ | Office | Cardiology | Ольга Veloz DO | | | 2020 | Visit | | [address] | | | | | | [place] | | | | | | [address] | | | | | | | | +--------+---------+ + + + documented as of this encounter Visit Diagnoses Not on filedocumented in this encounter"
--- OUTSIDE RECORDS SUMMARY | ~2020-04-03 | XMS | Encounter Summary ---
Demographics + + + | Address | [address] | | | [place] [address] | + + + | Home Phone [...] Team Providers + +------+ + | Care Die Machine Operator Name | Role | Phone [...] + + | 10/06/ | Documentati | [facility] | [place], | Results (09/28/19) | | 2019 | on | NEPHROLOGY [address] | [facility] | | | | | [address] | Manager Video | | | | | [address] | | | | | | [place] | | | | | | [address] | | | | | | [phone] | | | +--------+ + + + [...] 2019 | Visit | | [facility] [address] [facility] | | | | | | [address] [place] | | | | | | [address] | | | | | | | | +--------+---------+ + + + | 06/14/ | Office | Cardiology | Ольга Veloz DO | | | 2019 | Visit | | [address] | | | | | | [place] | | | | | | [address] | | | | | | | | +--------+---------+ + + + documented as of this encounter Procedures + +--------+ + + + | Procedure Name | Priori | Date/Time | Associated Diagnosis | Comments | | | ty | | | | + +--------+ + + + | EXTERNAL LAB: [facility], | Routin | 09/28/2019 | | Results [...] 1.005 - 1.030 | | | | [place], | | | | | | Urine [...]
--- OUTSIDE RECORDS SUMMARY | ~2020-04-03 | XMS | Encounter Summary ---
Demographics + + + | Address | [address] | | | [place] [address] | + + + | Home Phone [...] + + | Author | [facility] | | | and [place] | + + + | Organization | [facility] | | | and [...] Team Providers + +------+ + | Care Community Dietitian Name | Role | Phone | + [...] | | [address] | BLVD [place], [place] | | | | | [place], [place] | [address] | | | | | [address] | | | | | | [phone] | | | +--------+ + + + [...] | | | | | | [address] [facility], [place] | | | | | | [address] | | | | | | | | +--------+---------+ + + + | 06/14/ | Office | Cardiology | Ольга Veloz DO | | | 2019 | Visit | | [address] | | | | | | [place] | | | | | | [address] | | | | | | | | +--------+---------+ + + + documented as of this encounter Visit Diagnoses Not on filedocumented in this encounter"
--- OUTSIDE RECORDS SUMMARY | ~2020-04-03 | XMS | Encounter Summary ---
Demographics + + + | Address | [address] | | | [place] [address] | + + + | Home Phone [...] + + + | Author | [facility] | | | and [place] | + + + | Organization | [facility] | | | [...] Team Providers + +------+ + | Care Transition Advisor Name | Role | Phone | + +------+ + | Yessica Mayorga MD | PCP | | + +------+ + Encounter Details +--------+ + + + + | Date | Type | Department | Care Team | Description | +--------+ + + + + | 05/06/ | Orders Only | [facility] | Andrews Massey MD | | | 2019 | | NEPHROLOGY [place] | [address] [place] | | | | | [address] [place] | [address] [place], [place] | | | | | [address] [place], [place] | [address] | | | | | [address] | | | | | | [phone] | | | +--------+ + + + [...] 2019 | Visit | | [address] [facility] [place] | | | | | | [address] [place] | | | | | | [address] | | | | | | | | +--------+---------+ + + + | 06/14/ | Office | Cardiology | Ольга Veloz DO | | | 2019 | Visit | | [address] | | | | | | [place] | | | | | | [address] | | | | | | | [...] | | | LAB | | | LITHUANIAN | | | | | + + [...]
--- OUTSIDE RECORDS SUMMARY | ~2020-04-03 | XMS | Encounter Summary ---
Demographics + + + | Address | [address] | | | [place] [address] | + + + | Home Phone [...] Team Providers + +------+ + | Care Csw Name | Role | Phone | + [...] + + | 08/22/ | Documentati | [facility] | Harrison, | Results (08/19/19) | | 2019 | on | NEPHROLOGY [place] | [facility] | | | | | [address] [place] | Process Coach | | | | | [address] [facility] [place] | | | | | | [address] | | | | | | [phone] | | | +--------+ + + + [...] 2019 | Visit | | [address] [facility] [place] | | | | | | [address] [place] | | | | | | [address] | | | | | | | | +--------+---------+ + + + | 06/14/ | Office | Cardiology | Ольга Veloz DO | | | 2019 | Visit | | [address] | | | | | | [place] | | | | | | [address] | | | | | | | [...] | | | | | | | [place] | | | | | + + [...]
--- OUTSIDE RECORDS SUMMARY | ~2020-04-03 | XMS | Encounter Summary ---
Demographics + + + | Address | [address] | | | [place] [address] | + + + | Home Phone [...] Team Providers + +------+ + | Care Food Or Baggage Handling Rampman Name | Role | Phone | + [...] Provider Unknown | | | | | [place], [place] | [phone] | | | | | [address] | (Fax) | | | | | [phone] | | | +--------+ + + + [...] [place] | | | | | | [address] | | | | | | | | +--------+---------+ + + + | 06/14/ | Office | Cardiology | Ольга Veloz DO | | | 2019 | Visit | | [address] | | | | | | [place] | | | | | | [address] | | | | | | | | +--------+---------+ + + + documented as of this encounter Visit Diagnoses Not on filedocumented in this encounter"
--- OUTSIDE RECORDS SUMMARY | ~2020-04-03 | XMS | Encounter Summary ---
Demographics + + + | Address | [address] | | | [place] [address] | + + + | Home Phone [...] Team Providers + +------+ + | Care Handle Bar Assembler Name | Role | Phone | [...] | | | unspecified | [address], | [place], [place] | | | | | | [place] [address] | [address] Phone: | | | | | | Phone: | [phone] | | | | | | [phone] | Fax: | | | | | | Fax: | [phone] | | | | | | [phone] | | + + + + + + + Encounter Details +--------+ + + + + | Date | Type | Department | Care Team | Description | +--------+ + + + + | 01/12/ | Clinical | [facility] | Darcie Jane, | Iron deficiency | | 2019 | Support | GASTROENTEROLOGY | RN | anemia, unspecified | | | | [address] | | iron deficiency | | | | [place] | | anemia type (Primary | | | | [address] | | Dx) | | | | [phone] | | | +--------+ + + + [...] [place] | | | | | | [address] | | | | | | | | +--------+---------+ + + + | 06/14/ | Office | Cardiology | Ольга Veloz DO | | | 2019 | Visit | | [address] | | | | | | [place] | | | | | | [address] | | | | | | | | +--------+---------+ + + + documented as of this encounter Visit Diagnoses + + | Diagnosis | + + | Iron deficiency anemia, unspecified iron deficiency anemia type - Primary | + + documented in this encounter"
--- OUTSIDE RECORDS SUMMARY | ~2020-04-03 | XMS | Encounter Summary ---
Demographics + + + | Address | [address] | | | [place] [address] | + + + | Home Phone [...] Team Providers + +------+ + | Care Opal Miner Name | Role | Phone | [...] + + | 10/20/ | Telephone | [facility] | Charli, Boni S, | Procedure (Capsule | | 2018 | | GASTROENTEROLOGY | Supervisor Payroll | Endoscopy) | | | | [address] | | | | | | [place] | | | | | | [address] | | | | | | [phone] | | | +--------+ + + + [...] 2020 | Visit | | [address] [facility] | | | | | | [address] [place], [place] | | | | | | [address] | | | | | | | | +--------+---------+ + + + | 06/14/ | Office | Cardiology | Ольга Veloz DO | | | 2020 | Visit | | [address] | | | | | | [place] | | | | | | [address] | | | | | | | | +--------+---------+ + + + documented as of this encounter Visit Diagnoses Not on filedocumented in this encounter"
--- OUTSIDE RECORDS SUMMARY | ~2020-04-03 | XMS | Encounter Summary ---
Demographics + + + | Address | [address] | | | [place] [address] | + + + | Home Phone [...] Team Providers + +------+ + | Care Marketing Information Coordinator Name | Role | Phone | + +------+ + | Lisa Mcclain MD | PCP | | + +------+ + Encounter Details +--------+ + + + + | Date | Type | Department | Care Team | Description | +--------+ + + + + | 07/20/ | Orders Only | [facility] | Andrews Massey MD | CKD (chronic kidney | | 2019 | | NEPHROLOGY [address] | [address] [facility] [place] | disease), stage III | | | | [address] | [address] [place], [place] | (HCC) (Primary Dx); | | | | [address] [place] [address] | [address] | Essential (primary) | | | | [place], [place] | | hypertension; | | | | [address] | | Persistent | | | | [phone] | | proteinuria | +--------+ + + [...] 2019 | Visit | | [address] [facility] [place] | | | | | | [address] [place] | | | | | | [address] | | | | | | | | +--------+---------+ + + + | 06/14/ | Office | Cardiology | Ольга Veloz DO | | | 2019 | Visit | | [address] | | | | | | [place] | | | | | | [address] | | | | | | | | +--------+---------+ + + + + +------+--------+ + + | Name | Type | Priori | Associated Diagnoses | Order Schedule | | | | ty | | | + +------+--------+ + + | [facility] Lab Referral | Lab | Routin | [...]
--- OUTSIDE RECORDS SUMMARY | ~2020-04-03 | XMS | Encounter Summary ---
Demographics + + + | Address | [address] | | | [place] [address] | + + + | Home Phone | | + + + | Preferred Language | Unknown | + + + | Marital Status | Single | + + + | Rastafarian Affiliation [...] Team Providers + +------+ + | Care Machine Riveter Name | Role | Phone | + [...] + + | 11/11/ | Documentati | [facility] | [place], | Results (11/10/19) | | 2019 | on | NEPHROLOGY [address] | [facility] | | | | | [address] [place] | Materials Branch Chief | | | | | 160 [facility] [place] | | | | | | [address] | | | | | | [phone] | | | +--------+ + + + [...] [place] | | | | | | [address] | | | | | | (Fax) | | +--------+---------+ + + + | 06/14/ | Office | Cardiology | Ольга Veloz DO | | | 2019 | Visit | | [address] | | | | | | [place] | | | | | | [address] | | | | | | | [...]
--- OUTSIDE RECORDS SUMMARY | ~2020-04-03 | XMS | Encounter Summary ---
Demographics + + + | Address | [address] | | | [place] [address] | + + + | Home Phone [...] Team Providers + +------+ + | Care Lead Software Tester Name | Role | Phone | + [...] + + | 10/06/ | Documentati | [facility] | [place], | Results (09/28/19) | | 2019 | on | NEPHROLOGY [address] | [facility] | | | | | [address] | Welding Supervisor | | | | | [address] | | | | | | [place] | | | | | | [address] | | | | | | [phone] | | | +--------+ + + + [...] 2019 | Visit | | [address] [facility] [place] | | | | | | [address] [place] | | | | | | [address] | | | | | | | | +--------+---------+ + + + | 06/14/ | Office | Cardiology | Ольга Veloz DO | | | 2019 | Visit | | [address] | | | | | | [place] | | | | | | [address] | | | | | | | [...] 1.005 - 1.030 | | | | [place], | | | | | | Urine [...]
--- OUTSIDE RECORDS SUMMARY | ~2020-04-03 | XMS | Encounter Summary ---
Demographics + + + | Address | [address] | | | [place] [address] | + + + | Home Phone [...] Providers + +------+ + | Care Car Supplier Name | Role | Phone | + [...] | | | | | | | [place] EGD | | | | | | | TRANSORAL | | | | | | | BIOPSY | | | | | | | SINGLE/MULTI | | | | | | | PLE [place] | | | | | | | [...] + + | 11/21/ | Hospital | [facility] | Doron Herrera | Iron deficiency | | 2019 | Encounter | [facility] | MD Don [address] | anemia due to | | | | INTRA [address] | [place] | chronic blood loss; | | | | [place] | [address] | Iron deficiency | | | | [address] | | anemia due to | | | | [phone] | | chronic blood loss; | | [...] 0 | 06/21/20 | | | (MYCOSTATIN) [id number] | needed. | | | 18 | [...] [place] | | | | | | [address] | | | | | | | | +--------+---------+ + + + | 06/14/ | Office | Cardiology | Ольга Veloz DO | | | 2019 | Visit | | [address] | | | | | | [place] | | | | | | [address] | | | | | | | [...] + +--------+ + + + | *TERMED* [place] UPPER GI | Routin | 11/21/2019 | [...] interpretation was | | | performed by [facility] [address] | | | [place], [place] (Rn Military: August Bray M.D.; | | | CLIA#: [id number]).The technical component was performed by [facility] | | | [address], [address] [place] [address] (Rn Military: | | | Brooklyn Hunter MD; CLIA# [id number]). Diagnostician: August Bray | | | MDPathologistElectronically Signed 11/24/2019 | | |PERFORMING LABORATORY: | | |The professional interpretation was performed by [facility] (Rn Military: August Bray M.D.; CLIA#: [id number]). | | |The technical component was performed by [facility], [address] [place] [address] (Rn Military: Brooklyn Hunter MD; CLIA# [id number]). | | | | | |Diagnostician: August [...] Performed At | + + + | [facility] | COMT | | [facility] | PROVATION | | CenterGastroenterology | | | Patient Name: Wayne , | | | Isabel Sharri Procedure Date: 11/21/2019 9:13 AMMRN: [id number] | | | of : | | [...] AMNumber of | | | Addenda: 0 [facility] | | | | | |Doron Luz Elena Herrera IV, | | |11/21/2019 9:39:38 AM | | |This report has been signed electronically. | | | | | |Note Initiated On: 11/21/2019 9:13 AM | | |Number of Addenda: 0 | | | | | | [facility] | | + + + + [...]
--- OUTSIDE RECORDS SUMMARY | ~2020-04-03 | XMS | Encounter Summary ---
Demographics + + + | Address | [address] | | | [place] [address] | + + + | Home Phone | | + + + | Preferred Language | Unknown | + + + | Marital Status | Single | + + + | Caodaism Affiliation | Unknown | + + + | Race | Unknown | + + + | Ethnic Group | Unknown | + + + Author + + + | Author | [facility] | | | and [place] | + + + | Organization | [facility] | | | [...] Team Providers + +------+ + | Care Export Sales Manager Name | Role | Phone | [...] + + | 11/01/ | Telephone | [facility] | Doron Herrera | Other (CAPSULE) | | 2019 | | GASTROENTEROLOGY | MD Don [address] | | | | | [address] | [address] [place], [place] | | | | | [place], [place] | [address] | | | | | [address] | | | | | | [phone] | | | +--------+ + + + [...] 2020 | Visit | | [address] [facility] [place] | | | | | | [address] [place] | | | | | | [address] | | | | | | | | +--------+---------+ + + + | 06/14/ | Office | Cardiology | Ольга Veloz DO | | | 2020 | Visit | | [address] | | | | | | [place] | | | | | | [address] | | | | | | | | +--------+---------+ + + + documented as of this encounter Visit Diagnoses Not on filedocumented in this encounter"
--- OUTSIDE RECORDS SUMMARY | ~2020-04-03 | XMS | Encounter Summary ---
Demographics + + + | Address | [address] | | | [place] [address] | + + + | Home Phone | | + + + | Preferred Language | Unknown | + + + | Marital Status | Single | + + + | Jew Affiliation | Unknown | + + + | Race | Unknown | + + + | Ethnic Group | Unknown | + + + Author + + + | Author | [facility] | | | and [place] | + + + | Organization | [facility] | | | [...] Team Providers + +------+ + | Care Concaving Machine Operator Name | Role | Phone | + +------+ + | Yessica Mayorga MD | PCP | | + +------+ + Encounter Details +--------+ + + + + | Date | Type | Department | Care Team | Description | +--------+ + + + + | 02/11/ | Orders Only | [facility] | Andrews Massey MD | | | 2019 | | NEPRHOLOGY [place] | [address] [place] | | | | | [address] [place] | 160 [place], [place] | | | | | [address] [place], [place] | [address] | | | | | [address] | | | | | | [phone] | | | +--------+ + + + [...] 2019 | Visit | | [facility] [facility] [place] | | | | | | [address] [place] | | | | | | [address] | | | | | | | | +--------+---------+ + + + | 06/14/ | Office | Cardiology | Ольга Veloz DO | | | 2019 | Visit | | [address] | | | | | | [place] | | | | | | [address] | | | | | | | [...]
--- OUTSIDE RECORDS SUMMARY | ~2020-04-03 | XMS | Encounter Summary ---
Demographics + + + | Address | [address] | | | [place] [address] | + + + | Home Phone [...] Providers + +------+ + | Care Director Dental Services Name | Role | Phone | + [...] | | | unspecified | [address], | [place], [place] | | | | | | [place] [address] | [address] Phone: | | | | | | Phone: | [phone] | | | | | | [phone] | Fax: | | | | | | Fax: | [phone] | | | | | | [phone] | | + + + + + + + Encounter Details +--------+---------+ + + + | Date | Type | Department | Care Team | Description | +--------+---------+ + + + | 01/12/ | Office | [facility] | Doron Herrera | Iron deficiency | | 2019 | Visit | GASTROENTEROLOGY | MD [address] | anemia, unspecified | | | | [address] | [address] [place], [place] | iron deficiency | | | | [place] | [address] | anemia type (Primary | | | | [address] | | Dx) | | | | [phone] | | | +--------+---------+ + + + [...] | | | | | | [address] [place], [place] | | | | | | [address] | | | | | | | | +--------+---------+ + + + | 06/14/ | Office | Cardiology | Ольга Veloz | | | 2019 | Visit | | [address] | | | | | | [place] [facility] | | | | | | [address] | | | | | | | [...] | | | | | Oral, ONCE, [facility] 01/12/20 at 0915, | | AM PST | | | | | For 1 dose, Mix with 30 mL water | | | | | | | prior to giving., | | | | | | + +--------+ +--------+------+------+ +---+---+ | | | +---+---+ documented in this encounter"
--- OUTSIDE RECORDS SUMMARY | ~2020-04-03 | XMS | Encounter Summary ---
Demographics + + + | Address | [address] | | | [place] [address] | + + + | Home Phone | | + + + | Preferred Language | Unknown | + + + | Marital Status | Single | + + + | Anglican Affiliation [...] Team Providers + +------+ + | Care Hot Billet Shear Operator Name | Role | Phone | + +------+ + | Lisa Mcclain MD | PCP | | + +------+ + Encounter Details +--------+ + + + + | Date | Type | Department | Care Team | Description | +--------+ + + + + | 10/26/ | Orders Only | [facility] | Andrews Massey MD | | | 2017 | | NEPHROLOGY [place] | [address] [place] | | | | | [address] [place] | [address] [place], [place] | | | | | [address] [place], [place] | [address] | | | | | [address] | | | | | | [phone] | | | +--------+ + + + [...] [place] | | | | | | [address] | | | | | | | | +--------+---------+ + + + | 06/14/ | Office | Cardiology | Ольга Veloz DO | | | 2019 | Visit | | [address] | | | | | | [place] | | | | | | [address] | | | | | | | [...]
--- OUTSIDE RECORDS SUMMARY | ~2020-04-03 | XMS | Encounter Summary ---
Demographics + + + | Address | [address] | | | [place] [address] | + + + | Home Phone [...] Team Providers + +------+ + | Care Biotechnologist Name | Role | Phone | + [...] | Specialty | Gastroenterol | Diagnoses | Mcclian, | Javier, | | | Services | ogy | Iron | Lisa Díaz MD | Doron Ochoa, | | | Required | | deficiency | [address] | [address] | | | | | anemia, | [address] | [address]VD | | | | | unspecified | [address], | [place], [place] | | | | | | [place] [address] | [address] Phone: | | | | | | Phone: | [phone] | | | | | | [phone] | Fax: | | | | | | Fax: | [phone] | | | | | | [phone] | | + + + + + + + Encounter Details +--------+---------+ + + + | Date | Type | Department | Care Team | Description | +--------+---------+ + + + | 10/11/ | Office | [facility] | Doron Herrera | Iron deficiency | | 2019 | Visit | GASTROENTEROLOGY | MD Don [address] | anemia due to | | | | [address] | [address] [place], [place] | chronic blood loss | | | | [place], [place] | [address] | (Primary Dx); Anemia | | | | [address] | | due to stage 3 | | | | [phone] | | chronic kidney | | | [...] Herrera MD - 10/11/2019 2:50 PM PST [facility] Gastroenterology Subjective: Chief Complaint Patient presents with [...] 20 mg once a d ay. 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 nystatin (MYCOSTATIN) 717923 UNIT/GM cream Apply topically as needed. 0 [...] Cabral in [place], [place] LIPOMA RESECTION x3 OTHER SURGICAL HISTORY Ocular implants TONSILLECTOMY AND ADENOIDECTOMY 1992 UPPER GASTROINTESTINAL ENDOSCOPY 07/07/2018 Dr. Cabral in [place], [place] Family History Problem Relation Age of [...] file Gets together: Not on file Attends baptism service: Not on file Active member of [...] consent obtained . William Herrera IV, M.D. [facility] Gastroenterology 10/11/2019 This note was dictated using [employer] voice recognition software. Document was reviewed at ti me of dictation but [id number] errors may be present. Please call with any questions or c larifications. TIME: New patient - total direct [id number] time of 45 minutes spent in reviewing info rmation and discussion with greater than 50% of that time spent in counseling or coordinatin g of care. documented in thi s encounter Plan of Treatment +--------+---------+ + + + | Date | Type | Specialty | Care Team | Description | +--------+---------+ + + + | 04/30/ | Office | Nephrology | Anderws Massey MD | | 2019 | Visit | | [address] [facility] | | | | | | [address] [place], [place] | | | | | | [address] | | | | | | | | +--------+---------+ + + + | 06/14/ | Office | Cardiology | Ольга Veloz DO | | | 2020 | Visit | | [address] | | | | | | [place], [place] | | | | | | [address] | | | | | | | | +--------+---------+ + + + documented as of this encounter Results [place] Small Bowel Follow Through (10/17/2019 1:19 PM [...] loss COMPARISON: None | | | PROCEDURE: Stoker Mechanic image of the abdomen. Following ingestion of | | | liquid barium, sequential images obtained of the abdomen were | | | obtained. Additional fluoroscopic images of the small bowel with spot | | | images, as needed. Fluoro Time: .9 minute(s). Number of images: | | | 21 Air Kerma: 64.17 mGy FINDINGS: Stoker Mechanic image: Non-distended | | | bowel gas [...] | | | | PROCEDURE: | | Stoker Mechanic image of the abdomen. Following ingestion of liquid barium, | | sequential images obtained of the abdomen were obtained. Additional | | fluoroscopic images of the small bowel with spot images, as needed. | | | | Fluoro Time: .9 minute(s). Number of images: 21 Air Kerma: 64.17 mGy | | | | FINDINGS: | | Stoker Mechanic image: Non-distended bowel gas pattern. No free [...]
--- OUTSIDE RECORDS SUMMARY | ~2020-04-03 | XMS | Clinical Summary ---
Demographics + + + | Address | [address] | | | [place] [address] | + + + | Home Phone [...] Providers + +------+ + | Care Lead Former Name | Role | Phone | + [...] 07/2 | | Activ | | (MYCOSTATIN) [id number] | needed. | | | 3/20 | [...] automatically from request for surgery | | [id number] | + + + + + | [...] | continued medical care if she leaves [place].We discussed the | | following plan:1) Pt will drive to the [place] [facility] to meet | | with CHW/RD. 2) I will ask our [facility] in [place] to reach out | | and welcome [...] 2019 | Visit | | [address] [facility] | | | | | | [address] [place] | | | | | | [address] | | | | | | | | +--------+---------+ + + + | 06/14/ | Office | Cardiology | Ольга Veloz DO | | | 2020 | Visit | | [address] | | | | | | [place] | | | | | | [address] | | | | | | | [...] | [employer] | COMM | [id number] | 11/30/19 | [phone] | | Medica [...] | [employer] | [employer] | [id number] | 07/03/20 | [phone] | | Medica [...] hipolito | | | 2 (Home) | [address] | + +--------+ +--------+ + + | [...] Patient | Explanation | | | | Hardware Installation Coordinator | | + + + + + | Power of | | | | | Cell Efficiency Supervisor | | | | + + + + + | Advance | 11/07/2019 4:17 | | | | Directive | PM | | | + + + + +
--- OUTSIDE RECORDS SUMMARY | ~2020-04-03 | XMS | Encounter Summary ---
Demographics + + + | Address | [address] | | | [place] [address] | + + + | Home Phone [...] Team Providers + +------+ + | Care Harbor Tug Captain Name | Role | Phone | + [...] Provider Unknown | | | | | [place], [place] | [phone] | | | | | [address] | (Fax) | | | | | [phone] | | | +--------+ + + + [...] [place] | | | | | | [address] | | | | | | | | +--------+---------+ + + + | 06/14/ | Office | Cardiology | Ольга Veloz DO | | | 2019 | Visit | | [address] | | | | | | [place] | | | | | | [address] | | | | | | | | +--------+---------+ + + + documented as of this encounter Visit Diagnoses Not on filedocumented in this encounter"
--- OUTSIDE RECORDS SUMMARY | ~2020-04-03 | XMS | Encounter Summary ---
Demographics + + + | Address | [address] | | | [place] [address] | + + + | Home Phone [...] Team Providers + +------+ + | Care Contact And Service Clerks Supervisor Name | Role | Phone | [...] | | | [address] | [address] [place], [place] | | | | | [place], [place] | [address] | | | | | [address] | | | | | | [phone] | | | +--------+ + + + [...] [place] | | | | | | [address] | | | | | | | | +--------+---------+ + + + | 06/14/ | Office | Cardiology | Ольга Veloz DO | | | 2019 | Visit | | [address] | | | | | | [place] | | | | | | [address] | | | | | | | [...] 0.95 m/s | | | MV Dec Newton: 4.51 m/s2 MV DecT: 171.69 ms MV E Tripp: 0.77 | | | m/s MV E/A Ratio: 0.81 MV PHT: 49.79 ms MVA By PHT: 4.41 | | | cm2 Septal e': 0.05 m/s Septal E/e': 13.50 Lateral e': | | | 0.08 m/s Lateral E/e': 8.88 RV s': 0.11 m/s Coil Connector: | | | DBS Authenticated by: Anaya [...] cmLVPWd: 0.93 cmLVOT | | Area: 3.18 [id number] Diam: 2.01 cm%FS: 31.25 %EF(Teich): 58.95 %ESV(Teich): | | 43.96 mlLVIDs: 3.29 cmSV(Teich): 63.16 mlRV Major: 7.53 cmRV Minor: 2.92 cmLVEF | | MOD A4C: 56.74 %SV MOD A4C: 67.87 mlLVEDV MOD A4C: 119.61 mlLVLd A4C: 9.44 | | cmLVESV MOD A4C: 51.74 mlLVLs A4C: 7.83 cmLAESV(A-L): 64.31 mlLAESV Index (A-L): | | 24.73 ml/m2LAAs A2C: 21.37 [id number] A-L A2C: 79.16 mlLALs A2C: 4.90 cmLAAs A4C: | | 14.94 mr8LCWTE A-L A4C: 44.97 mlLALs A4C: 4.21 cmRAAs: 10.68 [id number] A-L: | | 21.94 mlRAESV MOD: 22.52 mlRALs: 4.41 cmTAPSE: 1.99 cmAV maxP.74 mmHgAV | | meanP.04 mmHgAV Vmax: 1.39 m/Trinity Vmean: 0.93 m/Trinity VTI: 24.81 cmAVA Vmax: | | 2.84 cm2AVA (VTI): 3.25 qr8LLMF (Vmax): 0.00 cm2/m2AVAI (VTI): 0.00 cm2/m2LVOT | | maxP.17 mmHgLVOT meanP.66 mmHgLVSI Dopp: 31.09 ml/m2LVSV Dopp: 80.85 | | mlLVOT Vmax: 1.24 m/sLVOT Vmean: 0.91 m/sLVOT VTI: 25.38 cmMV A Tripp: 0.95 m/sMV | | Dec Newton: 4.51 m/s2MV DecT: 171.69 msMV E Tripp: 0.77 m/sMV E/A Ratio: 0.81MV | | PHT: 49.79 msMVA By PHT: 4.41 mw1Iktayh e': 0.05 m/sSeptal E/e': 13.50Lateral | | e': 0.08 m/sLateral E/e': 8.88RV s': 0.11 m/s Coil Connector: DBSAuthenticated by: | | [facility] Date/Time: 05-18-2019 18:21:40 IMPRESSION: 1. Overall [...] A Tripp: 0.95 m/s | |MV Dec Newton: 4.51 m/s2 | |MV DecT: 171.69 ms | |MV E Tripp: 0.77 m/s | |MV E/A Ratio: 0.81 | |MV PHT: 49.79 ms | |MVA By PHT: 4.41 cm2 | |Septal e': 0.05 m/s | |Septal E/e': 13.50 | |Lateral e': 0.08 m/s | |Lateral E/e': 8.88 | |RV s': 0.11 m/s | | | |Coil Connector: DBS | |Authenticated by: Anaya Pham | [...]
--- OUTSIDE RECORDS SUMMARY | ~2020-04-03 | XMS | Encounter Summary ---
Demographics + + + | Address | [address] | | | [place] [address] | + + + | Home Phone [...] Team Providers + +------+ + | Care Polishing Machine Operator Helper Name | Role | Phone | + +------+ + | Lisa Watson MD | PCP | | + +------+ + Encounter Details +--------+---------+ + + + | Date | Type | Department | Care Team | Description | +--------+---------+ + + + | 08/22/ | Office | [facility] | Andrews Massey MD | CKD (chronic kidney | | 2019 | Visit | NEPHROLOGY [address] | [address] [place] | disease), stage III | | | | [address] | [address] [place], [place] | ([facility]) (Primary Dx); | | | | [address] [place] [address] | [address] | Persistent | | | | [place], [place] | | proteinuria; Type 2 | | | | [address] | | diabetes mellitus | | | | [phone] | | with diabetic | | | | | | nephropathy, with | | | | | | long-term current | | | | | | use of insulin | | | | | | ([facility]); Essential | | | | | | [...] | | | | 49.9 in adult ([facility]); | | | | | | Anemia of chronic | | | | | | renal failure, stage | | | | | | 3 (moderate) ([facility]); | | | | | | Hyperuricemia; [...] Iron studies, Ferritin, uric acid, Urine total jvppcrt-cz-pqfz tinine ratio before she comes back in [...] to baseline with t he interventions at [facility]. The patient has history of [...] every evening., Disp: , Rfl: nystatin (MYCOSTATIN) [id number] UNIT/GM cream, Apply topically as needed., Disp: [...] 16.5 (A) 05/06/2019 LABPROT 1,148.6 (A) 05/06/2019 [id number] 22 (A) 04/21/2018 Assessment: Ms. Restrepo is [...] Iron studies, Ferritin, uric acid, Urine total rnqjtxs-dt-yozn tinine ratio before she comes back in 3 months. I spent 15 minutes of this 25-minute visit in education, counseling and answering all of her questions to her satisfaction. Thank you Dr Watson for the opportunity to see this patient in F/U today. Please do not hesi dunn to call me at any time with questions or concerns. Truly yours, Andrews Massey MD [facility] documented in this enco unter Plan of Treatment +--------+---------+ + + + | Date | Type | Specialty | Care Team | Description | +--------+---------+ + + + | 04/30/ | Office | Nephrology | Andrews Massey MD | | | 2019 | Visit | | [address] [facility] | | | | | | [address] [place] | | | | | | [address] | | | | | | | | +--------+---------+ + + + | 06/14/ | Office | Cardiology | Ольга Veloz DO | | | 2019 | Visit | | [address] | | | | | | [place] | | | | | | [address] | | | | | | | [...]
[~2020-04-03 16:03] MED LIST changes: +ALLOPURINOL100 MG PO; +LEVOTHYROXINE88 MCG PO; +NIFEDIPINE ER30 M1 PO; +NOVOLOG100 UNIT/2 SUB-Q; +PEPCID40 MG PO; -PROZAC20 MG; +PROZAC20 MG PO
--- OUTSIDE RECORDS SUMMARY | 2020-04-03 16:06 | XMS ---
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 Date: 02/17/2019 Care Coordination: Currently engaged in mental health services with [facility].\T\nbsp; Please contact [facility] with mental health concerns.\T\nbsp; [phone]. Allergies: Azithromycin - mild to moderate Lisinopril - mild to moderate\T\nbsp; Care History Medical/Surgical 12/19/2019 [facility] Patient seen\T\nbsp;after clinic hours. \T\nbsp;Unable to pull up patient name in [employer].\T\nbsp; 06/21/2019 [facility] - PATIENT HAS AN APT WITH PCP DR CHAVIS ON 06/27/19 FOR ED FOLLOW UP. 03/29/2019 [facility] - [facility] CASE MANAGEMENT REFERRAL MADE DUE TO CHRONIC PAIN MANAGEMENT EDUCATION NEEDED. Mark VISIT COUNT (12 MO.) 9 [facility] [place] TOTAL 9 NOTE: Visits indicate total known visits. ED/UCC VISIT TRACKING (12 MO.) [facility] COMPLAINT: - WEAKNESS 12/17/2019 23:52 [facility] [place] TYPE: Emergency COMPLAINT: - FALL DIAGNOSES: - Altered mental status, unspecified - Major depressive disorder, single episode, unspecified - Type 2 diabetes mellitus without complications - Orthostatic hypotension - Other long-term (current) drug therapy - Pure hypercholesterolemia, unspecified 07/08/2019 10:34 [facility] [place] TYPE: Emergency COMPLAINT: - CHEST PAIN DIAGNOSES: - Allergy status to other antibiotic agents status - Allergy status to serum and vaccine status - 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 - Type 2 diabetes mellitus with diabetic chronic kidney disease - Allergy status to other drugs, medicaments and biological sub - exterminator termite (current) use of insulin - Personal history of pulmonary embolism - Allergy status to penicillin - Chest pain, unspecified - Other long-term (current) drug therapy - Other nonmedicinal substance allergy status - Chronic kidney disease, stage 3 (moderate) - Hypotension, unspecified 06/20/2019 10:20 [facility] [place] TYPE: Emergency COMPLAINT: - DIZZINESS DIAGNOSES: - Personal history of pulmonary embolism - 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 - Allergy status to other drugs, medicaments and biological sub - Chronic kidney disease, stage 3 (moderate) - Acquired absence of other specified parts of digestive tract - Allergy status to penicillin - exterminator termite (current) use of insulin - 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 - Other nonmedicinal substance allergy status - Hypotension, unspecified - Dizziness and giddiness - Allergy status to serum and vaccine status - Allergy status to other antibiotic agents status - skilled nursing (current) use of aspirin - Type 2 diabetes mellitus without complications 06/16/2019 10:43 [facility] [place] TYPE: Emergency COMPLAINT: - BLOOD PRESSURE PROBLEM DIAGNOSES: - 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 - Allergy status to other antibiotic agents status - Acquired absence of other specified parts of digestive tract - exterminator termite (current) use of insulin - Type 2 diabetes mellitus without complications - skilled nursing (current) use of aspirin - Nonspecific low blood-pressure reading - Other nonmedicinal substance allergy status - Allergy status to penicillin - Allergy status to other drugs, medicaments and biological sub - Allergy status to serum and vaccine status - Hypotension, unspecified - 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 - Personal history of pulmonary embolism - Chronic kidney disease, stage 3 (moderate) 06/12/2019 12:29 [facility] [place] TYPE: Emergency COMPLAINT: - WEAKNESS DIAGNOSES: - Personal history of pulmonary embolism - 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 - Allergy status to penicillin - Hypotension, unspecified - Allergy status to serum and vaccine status - Chronic kidney disease, stage 3 (moderate) - Allergy status to other drugs, medicaments and biological sub - Allergy status to other antibiotic agents status - Major depressive disorder, single episode, unspecified - Weakness - Acquired absence of other specified parts of digestive tract - Type 2 diabetes mellitus with diabetic chronic kidney disease - Other long-term (current) drug therapy - skilled nursing (current) use of aspirin - skilled nursing (current) use of insulin - Other nonmedicinal substance allergy status - Anemia, unspecified 06/11/2019 11:17 [facility] [place] TYPE: Emergency COMPLAINT: - NUMBNESS DIAGNOSES: - Allergy status to penicillin - Acquired absence of other specified parts of digestive tract - Chronic kidney disease, stage 3 (moderate) - Allergy status to other antibiotic agents status - 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 - Paresthesia of skin - Allergy status to other drugs, medicaments and biological sub - Other injury of unspecified body region, initial encounter - Type 2 diabetes mellitus with diabetic chronic kidney disease - Other nonmedicinal substance allergy status - exterminator termite (current) use of aspirin - Allergy status to serum and vaccine status - 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 05/19/2019 13:47 [facility] [place] TYPE: Emergency COMPLAINT: - WEAKNESS DIAGNOSES: - Poisoning by other antipsychotics and neuroleptics, accidenta - Type 2 diabetes mellitus without complications - skilled nursing (current) use of insulin - exterminator termite (current) use of aspirin - Allergy status to other antibiotic agents status - Weakness - Allergy status to penicillin - Acquired absence of other specified parts of digestive tract - Allergy status to other drugs, medicaments and biological sub - 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 [place] TYPE: Emergency COMPLAINT: - INSULIN ISSUE DIAGNOSES: - Encounter for issue of repeat prescription INPATIENT VISIT TRACKING (12 MO.) No inpatient visits to display in this time frame [email or web address]
== END 2020-04-03 18:14 | disposition home or self-care (01) ==
LOC: ED 16:03
DX: R19.7 Diarrhea, unspecified (principal); J43.9 Emphysema, unspecified; E11.9 Type 2 diabetes mellitus without complications; F32.9 Major depressive disorder, single episode, unspecified; I10 Essential (primary) hypertension; E78.00 Pure hypercholesterolemia, unspecified; Z88.1 Allergy status to other antibiotic agents; Z91.048 Other nonmedicinal substance allergy status; Z88.8 Allergy status to other drugs, medicaments and biological substances; Z88.7 Allergy status to serum and vaccine; Z79.899 Other long term (current) drug therapy
CPT/HCPCS: 80053; 85025; 96360; 96361; 99284-25; J7030

== ENCOUNTER 2020-04-23 08:08 | Emergency (ER) | payer OTHER ==
[~2020-04-23] VITALS: Ht 175.3 cm; Wt 160.1 kg
--- OUTSIDE RECORDS SUMMARY | ~2020-04-23 | XMS | Encounter Summary ---
Demographics + + + | Address | [address] | | | [place] [address] | + + + | Home Phone | | + + + | Preferred Language | Unknown | + + + | Marital Status | Single | + + + | Restorationism Affiliation | Unknown | + + + | Race | Unknown | + + + | Ethnic Group | Unknown | + + + Author + + + | Author | [facility] | | | and [place] | + + + | Organization | [facility] | | | and [place] | + + + | Address | Unknown | + + + | Phone | Unavailable | + + + Support + + +---------+ + | Name | Relationship | Address | Phone | + + +---------+ + | Angelina | ECON | Unknown | | | Cardonakike Mcneal | | | | + + +---------+ + Care Team Providers + +------+ + | Care Blasting Clay Miner Name | Role | Phone | + +------+ + | Yessica Mayorga MD | PCP | | + +------+ + Encounter Details +--------+ + + + + | Date | Type | Department | Care Team | Description | +--------+ + + + + | 05/06/ | Orders Only | [facility] | Andrews Massey MD | | | 2019 | | NEPHROLOGY [place] | [address] [place] | | | | | [address] [place] | [address] [place], [place] | | | | | [address] [place], [place] | [address] | | | | | [address] | | | | | | [phone] | | | +--------+ + + + [...] as of this encounter Plan of Treatment +--------+ + + + + | Date | Type | Specialty | Care Team | Description | +--------+ + + + + | 04/30/ | Virtual | Nephrology | Andrews Massey MD | | | 2019 | Office | | [address] [place] | | | | Visit | | [address] [place] | | | | | | [address] | | | | | | | | +--------+ + + + + | 06/14/ | Office | Cardiology | Ольга Veloz DO | | | 2019 | Visit | | [address] | | | | | | [place] | | | | | | [address] | | | | | | | | +--------+ + + + + documented as of this encounter Procedures + +--------+ + + + | Procedure Name | Priori | Date/Time | Associated Diagnosis | Comments | | | ty | | | | + +--------+ + + + | EXTERNAL LAB: CBC | Routin | 05/06/2019 | | Results for this | | | e | 10:14 AM | | procedure are in the | | | | PDT | | results section. | + +--------+ + + + | URINALYSIS WITH | Routin | 05/06/2019 | | Results for this | | MICROSCOPIC IF | e | 10:14 AM | | procedure are in the | | INDICATED | | PDT | | results section. | + +--------+ + + + | PROTEIN/CREATININE | Routin | 05/06/2019 | | Results for this | | RATIO, URINE | e | 10:14 AM | | procedure are in the | | | | PDT | | results section. | + +--------+ + + + | URIC ACID | Routin | 05/06/2019 | | Results for this | | | e | 10:14 AM | | procedure are in the | | | | PDT | | results section. | + +--------+ + + + | RENAL FUNCTION PANEL | Routin | 05/06/2019 | | Results for this | | | e | 10:14 AM | | procedure are in the | | | | PDT | | results section. | + +--------+ + + + documented in this encounter Results Protein/Creatinine Ratio, Urine (05/06/2019 10:14 AM PDT) + + + + + + | Component | Value | Ref Range | Performed | Pathologist | | | | | At | Signature | + + + + + + | Protein/Cre | 1148.6 (A) | 0 - 150 | EXTERNAL | | | at Ratio | | | LAB | | + + + + + + + + | Specimen | + + | Urine specimen | | (specimen) | + + + +---------+ + + | Performing | Address | City/State/Zipcode | Phone Number | | Organization | | | | + +---------+ + + | EXTERNAL LAB | | | | + +---------+ + + Urinalysis with Microscopic if Indicated (05/06/2019 10:14 AM PDT) + + + + + + | Component | Value | Ref Range | Performed | Pathologist | | | | | At | Signature | + + + + + + | Color | Yellow | | EXTERNAL | | | | | | LAB | | + + + + + + | Clarity | Clear | | EXTERNAL | | | | | | LAB | | + + + + + + | Spec Grav, | 1.010 | 1.005 - 1.030 | EXTERNAL | | | Fluid | | | LAB | | + + + + + + | Leukocyte | Negative | | EXTERNAL | | | Esterase, | | | LAB | | | Urine | | | | | + + + + + + | Nitrite, | Negative | | EXTERNAL | | | Urine | | | LAB | | + + + + + + | Urobilinoge | Normal | | EXTERNAL | | | n, Urine | | | LAB | | + + + + + + | Total | 100 | | EXTERNAL | | | Protein | | | LAB | | + + + + + + | pH, Urine | 5 | 5 - 9 | EXTERNAL | | | | | | LAB | | + + + + + + | Blood, | Negative | | EXTERNAL | | | Urine | | | LAB | | + + + + + + | Ketones | Negative | | EXTERNAL | | | | | | LAB | | + + + + + + | Bilirubin, | Negative | | EXTERNAL | | | Urine | | | LAB | | + + + + + + | Glucose, | Negative | | EXTERNAL | | | Urine | | | LAB | | + + + + + + + + | Specimen | + + | Urine specimen | | (specimen) | + + + + + | Narrative | Performed At | + + + | Casts: Hyaline 1+ WBC's: 2 RBC's: 2 Epithelial: Squamous 2+ | EXTERNAL LAB | | Crystals: Negative Bacteria: 1+ | | + + + + +---------+ + + | Performing | Address | City/State/Zipcode | Phone Number | | Organization | | | | + +---------+ + + | EXTERNAL LAB | | | | + +---------+ + + External Lab: CBC (05/06/2019 10:14 AM PDT) + + + + + + | Component | Value | Ref Range | Performed | Pathologist | | | | | At | Signature | + + + + + + | WBC | 5.9 | 4.5 - 11.0 10 | EXTERNAL | | | | | | LAB | | + + + + + + | Red Blood | 3.33 (A) | 3.8 - 5.1 10 | EXTERNAL | | | Cells | | | LAB | | | Counted | | | | | + + + + + + | Hemoglobin | 9.8 (A) | 121.0 - 16.0 | EXTERNAL | | | | | g/dL | LAB | | + + + + + + | Hematocrit, | 30.4 (A) | 35 - 45 % | EXTERNAL | | | POC | | | LAB | | + + + + + + | MCV | 91.2 | 81 - 99 fL | EXTERNAL | | | | | | LAB | | + + + + + + | MCH | 29 | 27 - 33 pg | EXTERNAL | | | | | | LAB | | + + + + + + | MCHC | 32 | 30 - 36 g/dL | EXTERNAL | | | | | | LAB | | + + + + + + | Platelet | 249 | 140 - 440 K/ L | EXTERNAL | | | Count | | | LAB | | | Plasma | | | | | + + + + + + | RDW-CV | 14.4 | 10.5 - 15.0 % | EXTERNAL | | | | | | LAB | | + + + + + + | MPV | | fL | EXTERNAL | | | | | | LAB | | + + + + + + | Differentia | | | EXTERNAL | | | l Type | | | LAB | | + + + + + + | % Segmented | 60.2 | 39 - 80 % | EXTERNAL | | | | | | LAB | | | Neutrophils | | | | | + + + + + + | % | 29.3 | 24 - 44 % | EXTERNAL | | | Lymphocytes | | | LAB | | + + + + + + | % Monocytes | 6.8 | 0 - 12 % | EXTERNAL | | | | | | LAB | | + + + + + + | % | 3.2 | 0 - 6 % | EXTERNAL | | | Eosinophils | | | LAB | | + + + + + + | % Basophils | 0.5 | 0 - 2 % | EXTERNAL | | | | | | LAB | | + + + + + + | Absolute | | / L | EXTERNAL | | | Segmented | | | LAB | | | Neutrophils | | | | | + + + + + + | Absolute | | / L | EXTERNAL | | | Lymphocytes | | | LAB | | + + + + + + | Absolute | | / L | EXTERNAL | | | Monocytes | | | LAB | | + + + + + + | Absolute | | / L | EXTERNAL | | | Eosinophils | | | LAB | | + + + + + + | Absolute | | / L | EXTERNAL | | | Basophils | | | LAB | | + + + + + + + + | Specimen | + + | Blood specimen | | (specimen) | + + + +---------+ + + | Performing | Address | City/State/Zipcode | Phone Number | | Organization | | | | + +---------+ + + | EXTERNAL LAB | | | | + +---------+ + + Uric Acid (05/06/2019 10:14 AM PDT) + +---------+ + + + | Component [...] | | | + +---------+ + + Renal Function Panel (05/06/2019 10:14 AM PDT) + + + + + + | Component | Value | Ref Range | Performed | Pathologist | | | | | At | Signature | + + + + + + | Glucose, | 117 (A) | 70 - 100 mg/dL | EXTERNAL | | | Fasting | | | LAB | | + + + + + + | BUN | 29 (A) | 6 - 23 mg/dL | EXTERNAL | | | | | | LAB | | + + + + + + | Creatinine | 1.62 (A) | 0.60 - 1.35 | EXTERNAL | | | | | mg/dL | LAB | | + + + + + + | PHOSPHORUS | 4.1 | 2.5 - 5.0 mg/dL | EXTERNAL | | | | | | LAB | | + + + + + + | Albumin | 3.5 | 3.5 - 5.0 | EXTERNAL | | | | | | LAB | | + + + + + + | Na | 139 | 132 - 143 | EXTERNAL | | | | | mmol/L | LAB | | + + + + + + | K | 4.6 | 3.6 - 5.1 | EXTERNAL | | | | | mmol/L | LAB | | + + + + + + | Cl | 105 | 95 - 112 mmol/L | EXTERNAL | | | | | | LAB | | + + + + + + | CO2 | 24 | 19 - 31 mmol/L | EXTERNAL | | | | | | LAB | | + + + + + + | Anion Gap | 14.6 | 6 - 21 mmol/L | EXTERNAL | | | | | | LAB | | + + + + + + | eGFR if not | | | EXTERNAL | | | | | | LAB | | | [place] | | | | | + + + + + + | Phosphorus, | | | EXTERNAL | | | Inorganic | | | LAB | | + + + + + + | BUN/Creatin | 17.9 | 6.0 - 28.6 | EXTERNAL | | | ine Ratio | | | LAB | | + + + + + + | Calcium | 9.7 | 8.5 - 10.3 | EXTERNAL | | | | | mg/dL | LAB | | + + + + + + | Estimated | 34 (A) | 60 - 140 mg/dL | EXTERNAL | | | GFR | | | LAB | | + + + + + + + + | Specimen [...]
--- OUTSIDE RECORDS SUMMARY | ~2020-04-23 | XMS | Encounter Summary ---
Demographics + + + | Address | [address] | | | [place] [address] | + + + | Home Phone | | + + + | Preferred Language | Unknown | + + + | Marital Status | Single | + + + | Restorationist Affiliation | Unknown | + + + | Race | Unknown | + + + | Ethnic Group | Unknown | + + + Author + + + | Author | [facility] | | | and [place] | + + + | Organization | [facility] | | | [...] Team Providers + +------+ + | Care Learning And Development Specialist Name | Role | Phone | + +------+ + | Lisa Mcclain MD | PCP | | + +------+ + Encounter Details +--------+ + + + + | Date | Type | Department | Care Team | Description | +--------+ + + + + | 02/23/ | Orders Only | [facility] | Conversion | | | 2019 | | CONVERSION [address] | Transaction, | | | | | [address] | Provider Unknown | | | | | [place], [place] | [phone] | | | | | [address] | (Fax) | | | | | [phone] | | | +--------+ + + + [...] 2019 | Office | | [address] | | | | Visit | | [address] [place] | | | | | | [address] | | | | | | | | +--------+ + + + + | 06/14/ | Office | Cardiology | Ольга Veloz DO | | | 2019 | Visit | | [address] | | | | | | [place] | | | | | | [address] | | | | | | | | +--------+ + + + + documented as of this encounter Visit Diagnoses Not on filedocumented in this encounter"
--- OUTSIDE RECORDS SUMMARY | ~2020-04-23 | XMS | Encounter Summary ---
Demographics + + + | Address | [address] | | | [place] [address] | + + + | Home Phone | | + + + | Preferred Language | Unknown | + + + | Marital Status | Single | + + + | Latter-Day Affiliation | Unknown | + + + | Race | Unknown | + + + | Ethnic Group | Unknown | + + + Author + + + | Author | [facility] | | | and [place] | + + + | Organization | [facility] | | | [...] Team Providers + +------+ + | Care Diamond Cutter Name | Role | Phone | + [...] | | | | | | | DE EGD | | | | | | | TRANSORAL | | | | | | | BIOPSY | | | | | | | SINGLE/MULTI | | | | | | | PLE DE | | | | | | | ANESTHESIA | | | | | | | UPPER GI | | | | | | | ENDOSCOPIC | | | | | | | PX NOS EGD | | | +--------+--------+ + + + + Encounter Details +--------+ + + + + | Date | Type | Department | Care Team | Description | +--------+ + + + + | 11/21/ | Anesthesia | [facility] | Eleni Kendall, | | | 2019 | Event | [facility] | MD Ashley FITZPATRICK | | | | | INTRA OP [address] | [place] [address] | | | | | [address]VD [place], [place] | [phone] | | | | | [address] | | | | | | [phone] | | | +--------+ + + + + Anesthesia Record + + + + + | Procedure Name | Responsible | Anesthesia Start | Anesthesia Stop Time | | | Anesthesiologist | Time | | + + + + + | EGLuz Elena (N/A Mouth) | Eleni Kendall MD | 11/21/19911 | 11/21/19928 | + + + + + +----+---+ + + | Da | T | Event | Comment | | te | i | | | | | m | | | | | e | | | +----+---+ + + | 12 | 0 | An Checkout | Pre-use anesthesia machine/equipment checkout. | | /2 | 9 | | | | 3/ | 1 | | | | 20 | 2 | | | | 19 | | | | +----+---+ + + | | 0 | An Start | Reassessment prior to anesthesia induction/procedure. | | | 9 | | | | | 1 | | | | | 2 | | | +----+---+ + + | | 0 | First | | | | 9 | Inc/Proc St | | | | 2 | | | | | 0 | | | +----+---+ + + | | 0 | an stop | | | | 9 | data | | | | 2 | | | | | 7 | | | +----+---+ + + | | 0 | An Stop | Patient handed off to recovery nurse. | | | 2 | | | | | 9 | | | +----+---+ + + +------+ | Meds | +------+ + +--------+ | Name | Total | + +--------+ | lidocaine 2% | 60 mg | + +--------+ | propofol | 200 mg | + +--------+ | sodium chloride 0.9% (NS) | 300 mL | | infusion | | + +--------+ + + | Name | + + | N2O Flow Rate (L/Min) | + + | O2 Flow Rate (L/Min) | + + | Insp O2 | + + | Exp N2O | + + | Air Flow Rate (L/Min) | + + + + | No blood administrations on file. | + + +--------+ + + + | Type | Details | Placement | Removal | +--------+ + + + | Periph | 12/23/19; 0853; Right; Forearm; | 11/21/19 0853 by | 11/21/19 0957 by Dominique | | eral | [id number] catheter system; | Devi Greer RN | QIAN Morales | | IV | 20 gauge (Pillo Steel RN); no | | | | | longer indicated, catheter/device | | | | | intact, site care per | | | | | policy/procedure, removed per | | | | | policy/procedure; expected | | | | | removal post discharge; 11/21/19; | | | | | 0957 | | | +--------+ + + + documented in this encounter Social History + +-------+ +--------+------+ | Tobacco [...] | Andrews Massey MD | | | 2020 | Office | | [address] [facility] | | | | Visit | | [address] [place], [place] | | | | | | [address] | | | | | | | | +--------+ + + + + | 06/14/ | Office | Cardiology | VelozОльга solerDO | | | 2019 | Visit | | [address] | | | | | | [place] | | | | | | [address] | | | | | | | | +--------+ + + + + documented as of this encounter Visit Diagnoses Not on filedocumented in this encounter Administered Medications + +--------+ +-------+------+------+ | Medication Order | MAR | Action | Dose | Rate | Site | | | Action | Date | | | | + +--------+ +-------+------+------+ | lidocaine (PF) 2% injection | Given | 11/21/20 | 60 mg | | | | Intravenous, PRN, Starting Mon | | 19 9:19 | | | | | 11/21/19 at 0919, Anesthesia | | AM PST | | | | | Intra-op | | | | | | + +--------+ +-------+------+------+ +---+---+ | | | +---+---+ + +-------+ +-------+---+---+ | propofol (DIPRIVAN) injection | Given | 11/21/20 | 50 mg | | | | Intravenous, PRN, Starting Mon | | 19 9:21 | | | | | 11/21/19 at 0919, Anesthesia | | AM PST | | | | | Intra-op | | | | | | + +-------+ +-------+---+---+ +-------+ +--------+---+---+ | Given | 11/21/20 | 50 mg | | | | | 19 9:20 | | | | | | AM PST | | | | +-------+ +--------+---+---+ | Given | 11/21/20 | 100 mg | | | | | 19 9:19 | | | | | | AM PST | | | | +-------+ +--------+---+---+ +---+---+ | | | +---+---+ documented in this encounter"
--- OUTSIDE RECORDS SUMMARY | ~2020-04-23 | XMS | Encounter Summary ---
Demographics + + + | Address | [address] | | | [place] [address] | + + + | Home Phone | | + + + | Preferred Language | Unknown | + + + | Marital Status | Single | + + + | Sikhism Affiliation | Unknown | + + + | Race | Unknown | + + + | Ethnic Group | Unknown | + + + Author + + + | Author | [facility] | | | and [place] | + + + | Organization | [facility] | | | [...] Team Providers + +------+ + | Care Outside Collector Name | Role | Phone | + [...] | | | | | | | LA EGD | | | | | | | TRANSORAL | | | | | | | BIOPSY | | | | | | | SINGLE/MULTI | | | | | | | PLE LA | | | | | | | [...] + + | 11/21/ | Surgery | [facility] | Doron Herrera | EGD | | 2019 | | [facility] | MD [address] | | | | | INTRA OP [address] | [place] | | | | | [place] | [address] | | | | | [address] | | | | | | [phone] | | | +--------+---------+ + + + [...] 0 | 06/21/20 | | | (MYCOSTATIN) [id number] | needed. | | | 18 | [...] 2019 | Office | | [address] [facility] | | | | Visit | | [address] [place] | | | | | | [address] | | | | | | | | +--------+ + + + + | 06/14/ | Office | Cardiology | Ольга Veloz DO | | | 2019 | Visit | | [address] | | | | | | [place] | | | | | | [address] | | | | | | | [...] + +--------+ + + + | *TERMED* LA UPPER GI | Routin | 11/21/2019 | [...] interpretation was | | | performed by [facility] | | | [place], [place] (Hat Steamer: August Bray M.D.; | | | CLIA#: [id number]).The technical component was performed by [employer] | | | [employer] [address] (Hat Steamer: | | | Brooklyn Hunter MD; CLIA# [id number]). Diagnostician: August Bray | | | MDPathologistElectronically Signed 11/24/2019 | | |PERFORMING LABORATORY: | | |The professional interpretation was performed by [employer] (Hat Steamer: August Bray M.D.; CLIA#: [id number]). | | |The technical component was performed by [employer], [address] [place] [address] (Hat Steamer: Brooklyn Hunter MD; CLIA# [id number]). | | | | | |Diagnostician: August [...] Performed At | + + + | [facility] | [facility] | | [facility] | PROVATION | | CenterGastroenterology | | | Patient Name: Wayne , | | | Isabel Harrell Procedure Date: 11/21/2019 9:13 AMMRN: [id number] | | | of : | | [...] AMNumber of | | | Addenda: 0 [facility] | | | | | |Doron Barberer IV, | | |11/21/2019 9:39:38 AM | | |This report has been signed electronically. | | | | | |Note Initiated On: 11/21/2019 9:13 AM | | |Number of Addenda: 0 | | | | | | [facility] | | + + + + +---------+ [...]
--- OUTSIDE RECORDS SUMMARY | ~2020-04-23 | XMS | Encounter Summary ---
Demographics + + + | Address | [address] | | | [place] [address] | + + + | Home Phone | | + + + | Preferred Language | Unknown | + + + | Marital Status | Single | + + + | Mormon Affiliation | Unknown | + + + | Race | Unknown | + + + | Ethnic Group | Unknown | + + + Author + + + | Author | [facility] | | | and [place] | + + + | Organization | [facility] | | | [...] Team Providers + +------+ + | Care Sweet Dough Mixer Name | Role | Phone | + [...] Provider Unknown | | | | | [place], [place] | [phone] | | | | | [address] | (Fax) | | | | | [phone] | | | +--------+ + + + [...] [place] | | | | | | [address] | | | | | | | | +--------+ + + + + | 06/14/ | Office | Cardiology | Ольга Veloz DO | | | 2019 | Visit | | [address] | | | | | | [place] | | | | | | [address] | | | | | | | | +--------+ + + + + documented as of this encounter Visit Diagnoses Not on filedocumented in this encounter"
--- OUTSIDE RECORDS SUMMARY | ~2020-04-23 | XMS | Encounter Summary ---
Demographics + + + | Address | [address] | | | [place] [address] | + + + | Home Phone | | + + + | Preferred Language | Unknown | + + + | Marital Status | Single | + + + | Cheondoism Affiliation | Unknown | + + + | Race | Unknown | + + + | Ethnic Group | Unknown | + + + Author + + + | Author | [facility] | | | and [place] | + + + | Organization | [facility] | | | and [...] Team Providers + +------+ + | Care Supervisor Patching Name | Role | Phone | + +------+ + | Lisa Mcclain MD | PCP | | + +------+ + Encounter Details +--------+ + + + + | Date | Type | Department | Care Team | Description | +--------+ + + + + | 11/16/ | Preadmit | [facility] | Doron Herrera | Preop testing | | 2019 | Visit | [facility] | MD Don [address] | (Primary Dx) | | | | CLINIC [address] | [place], [place] | | | | | [place], [place] | [address] | | | | | [address] | | | | | | [phone] | | | +--------+ + + + [...] + + + | Blood Pressure | 143/65 | 11/16/2019 11:40 AM | | | | | PST | | + + + + + | Pulse | 84 | 11/16/2019 11:40 AM | | | | | PST | | + + + + + | Temperature | - | - | | + + + + + | Respiratory Rate | - | - | | + + + + + | Oxygen Saturation | 97% | 11/16/2019 11:40 AM | | | | | PST | | + + + + + | Inhaled Oxygen | - | - | | | Concentration | | | | + + + + + | Weight | 160 kg (352 lb 11.8 | 11/16/2019 11:40 AM | | | | oz) | PST | | + + + + + | Height | 175.3 cm (5' 9") | 11/16/2019 11:40 AM | | | | | PST | | + + + + + | Body Mass Index | 52.09 | 11/16/2019 11:40 AM | | | | | PST | | + + + + + documented in this encounter Patient Instructions Instructions Tejal Rogers RN - 11/16/2019 Outpatient Medications Marked as Taking for the 11/16/19 encounter (Preadmit Visit) with JESSICA REINOSO ROOM 3 Medication Sig Instructions allopurinol (ZYLOPRIM) 100 mg tablet Take 1 tablet by mouth daily. TAKE day of procedur e, if needed amitriptyline (ELAVIL) 25 mg tablet Take 100 mg by mouth nightly. (Patient taking diffe rently: Take 50 mg by mouth nightly.) TAKE night before procedure ASPIRIN ADULT LOW STRENGTH 81 MG EC tablet Take 1 tablet by mouth Daily. DO NOT TAKE da y of procedure BASAGLAR KWIKPEN 100 UNIT/ML injection (pen) Daily. 62 units in AM 45 units in PM TAKE 1/2 dose morning of procedure buPROPion (WELLBUTRIN XL) 300 mg 24 hr tablet Take 300 mg by mouth daily. TAKE day of p rocedure, if needed busPIRone (BUSPAR) 15 mg tablet Take 15 mg by mouth 3 (three) times daily. TAKE day of procedure, if needed Calcium Carb-Cholecalciferol (CALCIUM-VITAMIN D) 600-400 MG-UNIT TABS Take by mouth da hipolito. (Patient taking differently: Take by mouth 2 times daily.) DO NOT TAKE day of procedur e docusate sodium (COLACE) 100 mg capsule Take 100 mg by mouth 2 (two) times daily. DO NO T TAKE day of procedure ferrous sulfate 325 mg tablet Take 1 tablet by mouth 2 times daily (with breakfast & di nner). HOLD prior to procedure. Take last dose for 7 days Fish Oil 1000 MG delayed release capsule Take 1 g by mouth daily. (Patient taking diffe rently: Take 1 g by mouth 3 times daily.) HOLD prior to procedure. Take last dose for 7 days FLUoxetine HCl 60 MG TABS Take 60 mg by mouth daily. (Patient taking differently: Take 60 mg by mouth nightly.) TAKE night before procedure gabapentin (NEURONTIN) 300 mg capsule Take 600 mg by mouth 3 (three) times daily. TAKE day of procedure, if needed levothyroxine (SYNTHROID) 25 mcg tablet Take 75 mcg by mouth every morning before break fast. (Patient taking differently: Take 88 mcg by mouth every morning (before breakfast).) T MAGEN day of procedure LIRAGLUTIDE SC Inject under the skin as needed. For low blood sugar TAKE day of proced ure, if needed melatonin 5 mg tablet Take 20 mg by mouth nightly. TAKE night before procedure niacin 500 mg tablet Take 500 mg by mouth every morning. DO NOT TAKE day of procedure NIFEdipine (ADALAT CC) 60 MG 24 hr tablet Take 90 mg by mouth every evening. TAKE night before procedure NOVOLOG FLEXPEN 100 UNIT/ML injection pen Daily. Sldg Scale with 18 units breakfast an d lunch; 22 units with dinner DO NOT TAKE day of procedure nystatin (MYCOSTATIN) 905645 UNIT/GM cream Apply topically as needed. DO NOT TAKE day of procedure pravastatin (PRAVACHOL) 40 MG tablet Take 40 mg by mouth nightly. TAKE night before pro cedure prazosin (MINIPRESS) 2 MG capsule Take 2 mg by mouth nightly. TAKE night before procedu re prazosin (MINIPRESS) 5 mg capsule Take by mouth nightly. TAKE night before procedure senna (SENNA) 8.6 mg tablet Take 1 tablet by mouth daily. (Patient taking differently: Take 2 tablets by mouth 2 times daily (before meals).) DO NOT TAKE day of procedure SUMAtriptan (IMITREX) 50 mg tablet Take 50 mg by mouth as needed for Migraine. TAKE day of procedure, if needed Upper GI Endoscopy During endoscopy, a long, flexible tube is used to view the inside of your upper GI tract. Upper GI endoscopy allows your healthcare provider to look directly into the beginning of y our gastrointestinal (GI) tract. The esophagus, stomach, and duodenum (the first part of the small intestine) make up the upper GI tract. Before the exam Follow these and any other instructions you are given before your endoscopy. If you don t follow the healthcare provider s instructions carefully, the test may need to be canceled or done over: Don't eat or drink anything after midnight the night before your exam. If your exam is i n the afternoon, drink only clear liquids in the morning. Don't eat or drink anything for8 hours before the exam. In some cases, you may be able to take medicines with sips of water until 2 hours before the procedure. Speak with your healthcare provider about this. Bring your X-rays and any other test results you have. Because you will be sedated, arrange for an adult to drive you home after the exam. Tell your healthcare provider before the exam if you are taking any medicines or have an y medical problems. The procedure Here is what to expect: You will lie on the endoscopy table. Usually patients lie on the left side. You will be monitored and given oxygen. Your throat may be numbed with a spray or gargle. You are given medicine through an intr avenous (IV) line that will help you relax and remain comfortable. You may be awake or aslee p during the procedure. The healthcare provider will put the endoscope in your mouth and down your esophagus.I tis thinner than most pieces of food that you swallow. It will not affect your breathing. The medicine helps keep you from gagging. Air is put into your GI tract to expand it. It can make you burp. During the procedure, the healthcare provider can take biopsies (tissue samples), remove abnormalities, such as polyps, or treat abnormalities through a variety of devices placed t hrough the endoscope. You will not feel this. The endoscope carries images of your upper GI tract to a video screen. If you are awake, you may be able to look at the images. After the procedure is done, you will rest for a time. An adult must drive you home. When to call your healthcare provider Contact your healthcare provider if you have: Black or tarry stools, or blood in your stool Fever Pain in your belly that does not go away Nausea and vomiting, or vomiting blood Date Last Reviewed: 05/30/201619994086-0304 [employer]. [address] [place] [address], [place] [address]. All righ ts reserved. This information is not intended as a substitute for professional medical care. Always follow your healthcare professional's instructions. documented in this encounter Plan of Treatment +--------+ + + + + | Date | Type | Specialty | Care Team | Description | +--------+ + + + + | 04/30/ | Virtual | Nephrology | Andrews Massey MD | | | 2019 | Office | | [address] [facility] | | | | Visit | | [address] [place] | | | | | | [address] | | | | | | | | +--------+ + + + + | 06/14/ | Office | Cardiology | Ольга Veloz DO | | | 2019 | Visit | | [address] | | | | | | [place] | | | | | | [address] | | | | | | | | +--------+ + + + + documented as of this encounter Results ECG 12 lead (11/16/2019 11:16 AM PST) + + + + + + | Component | Value | Ref Range | Performed | Pathologist | | | | | At | Signature | + + + + + + | VENTRICULAR | 89 | BPM | [facility] | | | RATE EKG | | | | | + + + + + + | ATRIAL RATE | 89 | BPM | [facility] | | + + + + + + | P-R | 202 | ms | [facility] | | | INTERVAL | | | | | + + + + + + | QRS | 108 | ms | [facility] | | | DURATION | | | | | + + + + + + | Q-T | 380 | ms | [facility] | | | INTERVAL | | | | | + + + + + + | Q-T | 462 | ms | [facility] | | | INTERVAL | | | | | | (CORRECTED) | | | | | + + + + + + | P WAVE AXIS | 57 | degrees | [facility] | | + + + + + + | QRS AXIS | 16 | degrees | [facility] | | + + + + + + | T AXIS | 48 | degrees | [facility] | | + + + + + + | INTERPRETAT | Normal sinus | | [facility] | | | ION TEXT | rhythmMildly Prolonged | | | | | | Q-T intervalOtherwise | | | | | | normal ECGNo previous | | | | | | ECGs availableConfirmed | | | | | | by Tha Flores MD | | | | | | (105) on 11/16/2019 | | | | | | 3:56:35 PM | | | | + + + + + + + + | Specimen | + + | | + + + + + | Narrative | Performed At | + + + | | | + + + + +---------+ + + | Performing | Address | City/State/Zipcode | Phone Number | | Organization | | | | + +---------+ + + | [facility] | | | | + +---------+ + + documented in this encounter Visit Diagnoses + + | Diagnosis | + + | Preop testing - Primary Preoperative examination, unspecified | + + documented in this encounter
--- OUTSIDE RECORDS SUMMARY | ~2020-04-23 | XMS | Encounter Summary ---
Demographics + + + | Address | [address] | | | [place] [address] | + + + | Home Phone | | + + + | Preferred Language | Unknown | + + + | Marital Status | Single | + + + | Samaritan Affiliation | Unknown | + + + | Race | Unknown | + + + | Ethnic Group | Unknown | + + + Author + + + | Author | [facility] | | | and [place] | + + + | Organization | [facility] | | | [...] Team Providers + +------+ + | Care Cleaner And Polisher Name | Role | Phone | + [...] | | | | | | | NM EGD | | | | | | | TRANSORAL | | | | | | | BIOPSY | | | | | | | SINGLE/MULTI | | | | | | | PLE NM | | | | | | | [...] + + + + | 11/21/ | Hospital | [facility] | Doron Herrera | Iron deficiency | | 2019 | Encounter | [facility] | MD [address] | anemia due to | | | | INTRA [address] | [place] | chronic blood loss; | | | | [place] | [address] | Iron deficiency | | | | [address] | | anemia due to | | | | [phone] | | chronic blood loss; | | | | | | Gastroesophageal | | | | | | reflux disease, | | | | | | esophagitis presence | | | | | | not specified | +--------+ + + + + Social [...] | | | 18 | | | 5/16" 0.5 ML MISC | | | | | | + + + +---------+ + + | МАРИЯ MURRELL | Daily. 62 units in | | [...] Daily. Sldg Scale | | 0 | 10/10/20 | | | 100 UNIT/ML | with [...] 0 | 06/21/20 | | | (MYCOSTATIN) [id number] | needed. | | | 18 | [...] 2020 | Office | | [address] [facility] [address] [place] | | | | Visit | | [address] [place] | | | | | | [address] | | | | | | | | +--------+ + + + + | 06/14/ | Office | Cardiology | Ольга Veloz DO | | | 2019 | Visit | | [address] | | | | | | [place] | | | | | | [address] | | | | | | | [...] + +--------+ + + + | *TERMED* NM UPPER GI | Routin | 11/21/2019 | [...] + ---------+ + | SPECIMEN(S): A | [facility] | | DUODENAL BIOPSY SPECIMEN SOURCE:A. [...] interpretation was | | | performed by [facility] [address] | | | [place], [place] (Turkey Picker: August Bray M.D.; | | | CLIA#: [id number]).The technical component was performed by [employer] | | | [employer], [address] [place] [address] (Turkey Picker: | | | Brooklyn Hunter MD; CLIA# [id number]). Diagnostician: August Bray | | | MDPathologistElectronically Signed 11/24/2019 | | |PERFORMING LABORATORY: | | |The professional interpretation was performed by [employer] (Turkey Picker: August Bray M.D.; CLIA#: [id number]). | | |The technical component was performed by [employer], [address] [place] [address] (Turkey Picker: Brooklyn Hunter MD; CLIA# [id number]). | | | | | |Diagnostician: August [...] Performed At | + + + | [facility] | [facility] | | [facility] | PROVATION | | CenterGastroenterology | | | Patient Name: Wayne , | | | Isabel Harrell Procedure Date: 11/21/2019 9:13 AMMRN: [id number] | | | of : | | [...] sporadically. Doron Laguna | | | Javier IV, 11/21/2019 9:39:38 AMThis report has been signed | | | electronically. Note Initiated On: 11/21/2019 9:13 AMNumber of | | | Addenda: 0 [facility] | | | | | |Doron Herrera IV, | | |11/21/2019 9:39:38 AM | | |This report has been signed electronically. | | | | | |Note Initiated On: 11/21/2019 9:13 AM | | |Number of Addenda: 0 | | | | | | [facility] | | + + + + [...] | blood loss (chronic) | + + | Gastroesophageal reflux disease, esophagitis presence not specified | + + documented in this encounter [...]
--- OUTSIDE RECORDS SUMMARY | ~2020-04-23 | XMS | Encounter Summary ---
Demographics + + + | Address | [address] | | | [place] [address] | + + + | Home Phone | | + + + | Preferred Language | Unknown | + + + | Marital Status | Single | + + + | Mormon Affiliation | Unknown | + + + | Race | Unknown | + + + | Ethnic Group | Unknown | + + + Author + + + | Author | [facility] | | | and [place] | + + + | Organization | [facility] | | | and [place] | + + + | Address | Unknown | + + + | Phone | Unavailable | + + + Support + + +---------+ + | Name | Relationship | Address | Phone | + + +---------+ + | Angelina Mendenhall ECON | Unknown | | | Brendan Mcnela | | | | + + +---------+ + Care Team Providers + +------+ + | Care Melter Supervisor Electric Arc Furnace Name | Role | Phone | + +------+ + | Lisa Mcclain MD | PCP | | + +------+ + Encounter Details +--------+ + + + + | Date | Type | Department | Care Team | Description | +--------+ + + + + | 07/17/ | Orders Only | [facility] | Andrews Massey MD | | | 2018 | | NEPRHOLOGY [place] | [address] [place] | | | | | [address] [place] | [address] [place], [place] | | | | | [address] [place], [place] | [address] | | | | | [address] | | | | | | [phone] | | | +--------+ + + + [...] 2019 | Office | | [address] [facility] [place] | | | | Visit | | [address] [place] | | | | | | [address] | | | | | | | | +--------+ + + + + | 06/14/ | Office | Cardiology | Ольга Veloz DO | | | 2019 | Visit | | [address] | | | | | | [place] | | | | | | [address] | | | | | | | | +--------+ + + + + documented as of this encounter Procedures + +--------+ + + + | Procedure Name | Priori | Date/Time | Associated Diagnosis | Comments | | | ty | | | | + +--------+ + + + | BASIC METABOLIC | Routin | 07/17/2018 | | Results for this | | PANEL | e | 9:24 AM | | procedure are in the | | | | PDT | | results section. | + +--------+ + + + documented in this encounter Results Basic Metabolic Panel (07/17/2018 9:24 AM PDT) + + + + + + | Component | Value | Ref Range | Performed | Pathologist | | | | | At | Signature | + + + + + + | Glucose, | 69 (A) | 70 - 100 mg/dL | EXTERNAL | | | Fasting | | | LAB | | + + + + + + | BUN | 27 (A) | 6 - 23 mg/dL | EXTERNAL | | | | | | LAB | | + + + + + + | Creatinine | 1.47 (A) | 0.6 - 1.35 | EXTERNAL | | | | | mg/dL | LAB | | + + + + + + | BUN/Creatin | 18.4 | 6.0 - 28.6 | EXTERNAL | | | ine Ratio | | | LAB | | + + + + + + | Calcium | 9.3 | 8.5 - 10.3 | EXTERNAL | | | | | mg/dL | LAB | | + + + + + + | Na | 140 | 132 - 143 | EXTERNAL | | | | | mmol/L | LAB | | + + + + + + | K | 4.8 | 3.6 - 5.1 | EXTERNAL | | | | | mmol/L | LAB | | + + + + + + | Cl | 107 | 95 - 112 mmol/L | EXTERNAL | | | | | | LAB | | + + + + + + | CO2 | 25 | 19 - 31 mmol/L | EXTERNAL | | | | | | LAB | | + + + + + + | Anion Gap | 12.8 | 7 - 21 mmol/L | EXTERNAL | | | | | | LAB | | + + + + + + | Estimated | 38 (A) | 60 mg/dL | EXTERNAL | | | GFR [...]
--- OUTSIDE RECORDS SUMMARY | ~2020-04-23 | XMS | Encounter Summary ---
Demographics + + + | Address | [address] | | | [place] [address] | + + + | Home Phone | | + + + | Preferred Language | Unknown | + + + | Marital Status | Single | + + + | Episcopal Affiliation | Unknown | + + + | Race | Unknown | + + + | Ethnic Group | Unknown | + + + Author + + + | Author | [facility] | | | and [place] | + + + | Organization | [facility] | | | and [...] Team Providers + +------+ + | Care Rail Track Maintainer Name | Role | Phone | + +------+ + | Lisa Mcclain MD | PCP | | + +------+ + Encounter Details +--------+ + + + + | Date | Type | Department | Care Team | Description | +--------+ + + + + | 05/18/ | Orders Only | [facility] | Lisa Mcclain V, | | | 2019 | | CONVERSION [address] | [address] | | | | | [address] | [address] [place], [place] | | | | | [place], [place] | [address] | | | | | [address] | | | | | | [phone] | | | +--------+ + + + [...] 2019 | Office | | [address] [place] | | | | Visit | | [address] [place] | | | | | | [address] | | | | | | | | +--------+ + + + + | 06/14/ | Office | Cardiology | Ольга Veloz DO | | | 2019 | Visit | | [address] | | | | | | [place] | | | | | | [address] | | | | | | | | +--------+ + + + + documented as of this encounter Procedures + +--------+ + + + | Procedure Name | Priori | Date/Time | Associated Diagnosis | Comments | | | ty | | | | + +--------+ + + + | ECHO INTERPRETATION | Routin | 05/18/2019 | | Results for this | | OF OUTSIDE FILMS | e | 5:31 PM | | procedure are in the | | | | PDT | | results section. | + +--------+ + + + documented in this encounter Results ECHO Interpretation of Outside Films (05/18/2019 5:31 PM PDT) + + | Specimen | + + | | + + + + + | Impressions | Performed At | + + + | 1. Overall left ventricular systolic function is normal with, an EF | | | between 65 - 70 %. 2. The right ventricle is normal in size and | | | function. 3. Pulmonary artery systolic pressure could not be assessed | | | due to the absence of adequate TR jet. 4. There is no pericardial | | | effusion. | | + + + + + + | Narrative | Performed At | + + + | Patient Name: Isabel Restrepo Date of : 1970 | | | Performing Physician: Anaya Pham | | | | | | INDICATIONS LE EDEMA CONCLUSIONS 1. | | | Overall left ventricular systolic function is normal with, an EF | | | between 65 - 70 %. 2. The right ventricle is normal in size and | | | function. 3. Pulmonary artery systolic pressure could not be assessed | | | due to the absence of adequate TR jet. 4. There is no pericardial | | | effusion. FINDINGS -------- ECG rhythm: Sinus rhythm. Study: A | | | 2-dimensional transthoracic echocardiogram with m-mode, spectral and | | | color flow Doppler was perfomed. Study: This was a technically | | | adequate study. Left Ventricle: Overall left ventricular systolic | | | function is normal with, an EF between 65 - 70 %. Left Ventricle: The | | | left ventricle cavity size is normal. Left Ventricle: Left | | | ventricular wall thickness is normal. Left Ventricle: The diastolic | | | filling pattern is normal for the age of the patient. Right | | | Ventricle: The right ventricle is normal in size and function. Left | | | Atrium: The left atrium is normal in size. Right Atrium: The right | | | atrium is normal in size. Aortic Valve: The aortic valve was not well | | | visualized. Aortic Valve: Trace amount of aortic regurgitation. | | | Aortic Valve: There is no evidence of aortic stenosis. Mitral Valve: | | | The mitral valve is normal. Mitral Valve: There is trace mitral | | | regurgitation. Tricuspid Valve: The tricuspid valve appears | | | structurally normal. Tricuspid Valve: Pulmonary artery systolic | | | pressure could not be assessed due to the absence of adequate TR jet. | | | Pulmonic Valve: The pulmonic valve was not well visualized. Pulmonic | | | Valve: Trace pulmonic regurgitation. Pericardium: There is no | | | pericardial effusion. Pericardium: No pleural effusion seen. | | | IVC/Hepatic Veins: The inferior vena cava is normal in size and | | | collapses > 50 % with sniff, indicating normal central venous | | | pressures. Aorta: The aortic root, ascending aorta and aortic arch | | | are normal. MEASUREMENTS Ao asc: 3.07 cm Ao | | | sinus: 3.[address] junct: 2.67 cm IVC: 1.59 cm | | | EDV(Teich): 107.12 ml IVSd: 1.05 cm LVIDd: 4.79 cm LVPWd: | | | 0.93 cm LVOT Area: 3.18 cm2 LVOT Diam: 2.01 cm %FS: | | | 31.25 % EF(Teich): 58.95 % ESV(Teich): 43.96 ml LVIDs: | | | 3.29 cm SV(Teich): 63.16 ml RV Major: 7.53 cm RV Minor: | | | 2.92 cm LVEF MOD A4C: 56.74 % SV MOD A4C: 67.87 ml LVEDV MOD | | | A4C: 119.61 ml LVLd A4C: 9.44 cm LVESV MOD A4C: 51.74 ml | | | LVLs A4C: 7.83 cm LAESV(A-L): 64.31 ml LAESV Index (A-L): | | | 24.73 ml/m2 LAAs A2C: 21.37 cm2 LAESV A-L A2C: 79.16 ml LALs | | | A2C: 4.90 cm LAAs A4C: 14.94 cm2 LAESV A-L A4C: 44.97 ml | | | LALs A4C: 4.21 cm RAAs: 10.68 cm2 RAESV A-L: 21.94 ml | | | RAESV MOD: 22.52 ml RALs: 4.41 cm TAPSE: 1.99 cm AV maxPG: | | | 7.74 mmHg AV meanP.04 mmHg AV Vmax: 1.39 m/s AV | | | Vmean: 0.93 m/s AV VTI: 24.81 cm JENNY Vmax: 2.84 cm2 JENNY | | | (VTI): 3.25 cm2 AVAI (Vmax): 0.00 cm2/m2 AVAI (VTI): 0.00 | | | cm2/m2 LVOT maxP.17 mmHg LVOT meanP.66 mmHg LVSI | | | Dopp: 31.09 ml/m2 LVSV Dopp: 80.85 ml LVOT Vmax: 1.24 m/s | | | LVOT Vmean: 0.91 m/s LVOT VTI: 25.38 cm MV A Tripp: 0.95 m/s | | | MV Dec Bullitt: 4.51 m/s2 MV DecT: 171.69 ms MV E Tripp: 0.77 | | | m/s MV E/A Ratio: 0.81 MV PHT: 49.79 ms MVA By PHT: 4.41 | | | cm2 Septal e': 0.05 m/s Septal E/e': 13.50 Lateral e': | | | 0.08 m/s Lateral E/e': 8.88 RV s': 0.11 m/s Grocery Caddy: | | | DBS Authenticated by: Anaya Pham Report Date/Time: 05-18-2019 | | | 18:21:40 | | + + + + --------+ | Procedure Note | + --------+ | MohitBrad Conversion - 07/21/2019 1:44 PM PDT Patient Name: Victorino Restrepo of | | : 1970 Performing Physician: Anaya | | Vero INDICATIONS------ | | -----LE EDEMA CONCLUSIONS 1. Overall left ventricular systolic function is | | normal with, an EF between 65 - 70 %.2. The right ventricle is normal in size and | | function.3. Pulmonary artery systolic pressure could not be assessed due to the absence | | of adequate TR jet.4. There is no pericardial effusion. FINDINGS--------ECG rhythm: | | Sinus rhythm.Study: A 2-dimensional transthoracic echocardiogram with m-mode, spectral | | and color flow Doppler was perfomed.Study: This was a technically adequate study.Left | | Ventricle: Overall left ventricular systolic function is normal with, an EF between 65 - | | 70 %.Left Ventricle: The left ventricle cavity size is normal.Left Ventricle: Left | | ventricular wall thickness is normal.Left Ventricle: The diastolic filling pattern is | | normal for the age of the patient.Right Ventricle: The right ventricle is normal in size | | and function.Left Atrium: The left atrium is normal in size.Right Atrium: The right | | atrium is normal in size.Aortic Valve: The aortic valve was not well visualized.Aortic | | Valve: Trace amount of aortic regurgitation.Aortic Valve: There is no evidence of aortic | | stenosis.Mitral Valve: The mitral valve is normal.Mitral Valve: There is trace mitral | | regurgitation.Tricuspid Valve: The tricuspid valve appears structurally normal.Tricuspid | | Valve: Pulmonary artery systolic pressure could not be assessed due to the absence of | | adequate TR jet.Pulmonic Valve: The pulmonic valve was not well visualized.Pulmonic | | Valve: Trace pulmonic regurgitation.Pericardium: There is no pericardial | | effusion.Pericardium: No pleural effusion seen.IVC/Hepatic Veins: The inferior vena cava | | is normal in size and collapses > 50 % with sniff, indicating normal central venous | | pressures.Aorta: The aortic root, ascending aorta and aortic arch are normal. | | MEASUREMENTS Ao asc: 3.07 cmAo sinus: 3.[address] junct: 2.67 cmIVC: | | 1.59 cmEDV(Teich): 107.12 mlIVSd: 1.05 cmLVIDd: 4.79 cmLVPWd: 0.93 cmLVOT | | Area: 3.18 [id number] Diam: 2.01 cm%FS: 31.25 %EF(Teich): 58.95 %ESV(Teich): | | 43.96 mlLVIDs: 3.29 cmSV(Teich): 63.16 mlRV Major: 7.53 cmRV Minor: 2.92 cmLVEF | | MOD A4C: 56.74 %SV MOD A4C: 67.87 mlLVEDV MOD A4C: 119.61 mlLVLd A4C: 9.44 | | cmLVESV MOD A4C: 51.74 mlLVLs A4C: 7.83 cmLAESV(A-L): 64.31 mlLAESV Index (A-L): | | 24.73 ml/m2LAAs A2C: 21.37 [id number] A-L A2C: 79.16 mlLALs A2C: 4.90 cmLAAs A4C: | | 14.94 [id number] A-L A4C: 44.97 mlLALs A4C: 4.21 cmRAAs: 10.68 [id number] A-L: | | 21.94 mlRAESV MOD: 22.52 mlRALs: 4.41 cmTAPSE: 1.99 cmAV maxP.74 mmHgAV | | meanP.04 mmHgAV Vmax: 1.39 m/Trinity Vmean: 0.93 m/Trinity VTI: 24.81 cmAVA Vmax: | | 2.84 cm2AVA (VTI): 3.25 al7KGNZ (Vmax): 0.00 cm2/m2AVAI (VTI): 0.00 cm2/m2LVOT | | maxP.17 mmHgLVOT meanP.66 mmHgLVSI Dopp: 31.09 ml/m2LVSV Dopp: 80.85 | | mlLVOT Vmax: 1.24 m/sLVOT Vmean: 0.91 m/sLVOT VTI: 25.38 cmMV A Tripp: 0.95 m/sMV | | Dec Bullitt: 4.51 m/s2MV DecT: 171.69 msMV E Tripp: 0.77 m/sMV E/A Ratio: 0.81MV | | PHT: 49.79 msMVA By PHT: 4.41 ur0Edhwva e': 0.05 m/sSeptal E/e': 13.50Lateral | | e': 0.08 m/sLateral E/e': 8.88RV s': 0.11 m/s Grocery Caddy: DBSAuthenticated by: | | Anaya [facility] Date/Time: 05-18-2019 18:21:40 IMPRESSION: 1. Overall left | | ventricular systolic function is normal with, an EF between 65 - 70 %.2. The right | | ventricle is normal in size and function.3. Pulmonary artery systolic pressure could not | | be assessed due to the absence of adequate TR jet.4. There is no pericardial effusion. | | | |MEASUREMENTS | | | |Ao asc: 3.07 cm | |Ao sinus: 3.28 cm | |Ao st junct: 2.67 cm | |IVC: 1.59 cm | |EDV(Teich): 107.12 ml | |IVSd: 1.05 cm | |LVIDd: 4.79 cm | |LVPWd: 0.93 cm | |LVOT Area: 3.18 cm2 | |LVOT Diam: 2.01 cm | |%FS: 31.25 % | |EF(Teich): 58.95 % | |ESV(Teich): 43.96 ml | |LVIDs: 3.29 cm | |SV(Teich): 63.16 ml | |RV Major: 7.53 cm | |RV Minor: 2.92 cm | |LVEF MOD A4C: 56.74 % | |SV MOD A4C: 67.87 ml | |LVEDV MOD A4C: 119.61 ml | |LVLd A4C: 9.44 cm | |LVESV MOD A4C: 51.74 ml | |LVLs A4C: 7.83 cm | |LAESV(A-L): 64.31 ml | |LAESV Index (A-L): 24.73 ml/m2 | |LAAs A2C: 21.37 cm2 | |LAESV A-L A2C: 79.16 ml | |LALs A2C: 4.90 cm | |LAAs A4C: 14.94 cm2 | |LAESV A-L A4C: 44.97 ml | |LALs A4C: 4.21 cm | |RAAs: 10.68 cm2 | |RAESV A-L: 21.94 ml | |RAESV MOD: 22.52 ml | |RALs: 4.41 cm | |TAPSE: 1.99 cm | |AV maxP.74 mmHg | |AV meanP.04 mmHg | |AV Vmax: 1.39 m/s | |AV Vmean: 0.93 m/s | |AV VTI: 24.81 cm | |JENNY Vmax: 2.84 cm2 | |JENNY (VTI): 3.25 cm2 | |AVAI (Vmax): 0.00 cm2/m2 | |AVAI (VTI): 0.00 cm2/m2 | |LVOT maxP.17 mmHg | |LVOT meanP.66 mmHg | |LVSI Dopp: 31.09 ml/m2 | |LVSV Dopp: 80.85 ml | |LVOT Vmax: 1.24 m/s | |LVOT Vmean: 0.91 m/s | |LVOT VTI: 25.38 cm | |MV A Tripp: 0.95 m/s | |MV Dec Bullitt: 4.51 m/s2 | |MV DecT: 171.69 ms | |MV E Tripp: 0.77 m/s | |MV E/A Ratio: 0.81 | |MV PHT: 49.79 ms | |MVA By PHT: 4.41 cm2 | |Septal e': 0.05 m/s | |Septal E/e': 13.50 | |Lateral e': 0.08 m/s | |Lateral E/e': 8.88 | |RV s': 0.11 m/s | | | |Grocery Caddy: DBS | |Authenticated by: Anaya Pham | |Report Date/Time: 05-18-2019 18:21:40 | | | |IMPRESSION: | |1. Overall left ventricular systolic function is normal with, an EF between 65 - 70 %. | |2. The right ventricle is normal in size and function. | |3. Pulmonary artery systolic pressure could not be assessed due to the absence of adequate TR jet. | |4. There is no pericardial effusion. | + --------+ documented in this encounter Visit Diagnoses Not on filedocumented in this encounter"
--- OUTSIDE RECORDS SUMMARY | ~2020-04-23 | XMS | Encounter Summary ---
Demographics + + + | Address | [address] | | | [place] [address] | + + + | Home Phone | | + + + | Preferred Language | Unknown | + + + | Marital Status | Single | + + + | Presybeterian Affiliation | Unknown | + + + | Race | Unknown | + + + | Ethnic Group | Unknown | + + + Author + + + | Author | [facility] | | | and [place] | + + + | Organization | [facility] | | | [...] Team Providers + +------+ + | Care Lpn Per Diem Name | Role | Phone | + +------+ + | Yessica Mayorga MD | PCP | | + +------+ + Encounter Details +--------+ + + + + | Date | Type | Department | Care Team | Description | +--------+ + + + + | 05/06/ | Orders Only | [facility] | Andrews Massey MD | | | 2019 | | NEPHROLOGY [place] | [address] [place] | | | | | [address] [place] | [address] [place], [place] | | | | | [address] [place], [place] | [address] | | | | | [address] | | | | | | [phone] | | | +--------+ + + + [...] 2019 | Office | | [address] [facility] [place] | | | | Visit | | [address] | | | | | | [address] | | | | | | | | +--------+ + + + + | 06/14/ | Office | Cardiology | Ольга Veloz DO | | | 2019 | Visit | | [address] | | | | | | [place] | | | | | | [address] | | | | | | | [...] | | | LAB | | | [facility] | | | | | + + [...]
--- OUTSIDE RECORDS SUMMARY | ~2020-04-23 | XMS | Encounter Summary ---
Demographics + + + | Address | [address] | | | [place] [address] | + + + | Home Phone | | + + + | Preferred Language | Unknown | + + + | Marital Status | Single | + + + | Yarsani Affiliation | Unknown | + + + | Race | Unknown | + + + | Ethnic Group | Unknown | + + + Author + + + | Author | [facility] | | | and [place] | + + + | Organization | [facility] | | | and [...] Providers + +------+ + | Care Supervisor Grips Name | Role | Phone | + +------+ + | Lisa Mcclain MD | PCP | | + +------+ + Reason for Visit +---------+ + | Reason | Comments | +---------+ + | Results | 11/10/19 | +---------+ + Encounter Details +--------+ + + + + | Date | Type | Department | Care Team | Description | +--------+ + + + + | 11/11/ | Documentati | [facility] | [place], | Results (11/10/19) | | 2019 | on | NEPHROLOGY [place] | [facility] | | | | | [address] | Hydroblaster | | | | | [address] [facility] [place] | | | | | | [address] | | | | | | [phone] | | | +--------+ + + + [...] 2019 | Office | | [address] [facility] | | | | Visit | | [address] [facility] | | | | | | [address] | | | | | | | | +--------+ + + + + | 06/14/ | Office | Cardiology | Ольга Veloz DO | | | 2019 | Visit | | [address] | | | | | | [place] | | | | | | [address] | | | | | | | | +--------+ + + + + documented as of this encounter Procedures + +--------+ + + + | Procedure Name | Priori | Date/Time | Associated Diagnosis | Comments | | | ty | | | | + +--------+ + + + | CBC NO DIFFERENTIAL | Routin | 11/10/2019 | | Results for this | | | e | | | procedure are in the | | | | | | results section. | + +--------+ + + + | IRON AND IRON | Routin | 11/10/2019 | | Results for this | | BINDING CAPACITY | e | | | procedure are in the | | | | | | results section. | + +--------+ + + + | URIC ACID | Routin | 11/10/2019 | | Results for this | | | e | | | procedure are in the | | | | | | results section. | + +--------+ + + + | RENAL FUNCTION PANEL | Routin | 11/10/2019 | | Results for this | | | e | | | procedure are in the | | | | | | results section. | + +--------+ + + + | PROTEIN/CREATININE | Routin | 10/31/2019 | | Results for this | | RATIO, URINE | e | | | procedure are in the | | | | | | results section. | + +--------+ + + + documented in this encounter Results CBC with Manual Differential (11/10/2019) + + + + + + | Component | Value | Ref Range | Performed | Pathologist | | | | | At | Signature | + + + + + + | WBC | 6.7 | 4.5 - 11.0 | | | + + + + + + | RBC | 3.67 (A) | 3.80 - 5.10 | | | | | | M/uL | | | + + + + + + | Hemoglobin | 10.7 (A) | 12 - 16 | | | + + + + + + | Hematocrit, | 32.7 (A) | 35.0 - 45.0 % | | | | POC | | | | | + + + + + + | MCV | 89.0 | 81.0 - 99.0 fL | | | + + + + + + | MCH | 29.0 | 27.0 - 33.0 pg | | | + + + + + + | MCHC | 33.0 | 30.0 - 36.0 | | | | | | g/dL | | | + + + + + + | Platelet | 276 | 140 - 440 | | | | Count | | | | | | Plasma | | | | | + + + + + + | RDW | 14.6 | 10.5 - 15.0 | | | + + + + + + | Neutrophils | 63.3 | 39 - 80 | | | | , Absolute | | | | | + + + + + + | Absolute | 26.7 | 24 - 44 | | | | Lymphocytes | | | | | + + + + + + | Absolute | 7.0 | 0 - 12 | | | | Monocytes | | | | | + + + + + + | Eosinophils | 2.0 | 0 - 6 | | | | , Absolute | | | | | + + + + + + | Basophils, | 1.0 | 0 - 2 | | | | Absolute | | | | | + + + + + + + + | Specimen | + + | Blood | + + Iron and Iron Binding Capacity (11/10/2019) + +--------+ + + + | Component | Value | Ref Range | Performed | Pathologist | | | | | At | Signature | + +--------+ + + + | Iron | 61 (A) | 37 - 60 ug/dL | | | + +--------+ + + + | Iron | 18 (A) | 20 - 55 % | | | | Saturation | | | | | + +--------+ + + + | TIBC | 344 | 245 - 400 ug/dL | | | + +--------+ + + + | Ferritin, | 81.41 | 13 - 150 | | | | External | | | | | + +--------+ + + + | TRANSFERRIN | 245.6 | 192.0 - 382.0 | | | | | | mg/dL | | | + +--------+ + + + + + | Specimen | + + | Blood | + + Renal Function Panel (11/10/2019) + + + + + + | Component | Value | Ref Range | Performed | Pathologist | | | | | At | Signature | + + + + + + | Na | 138 | 132 - 143 | | | | | | mmol/L | | | + + + + + + | K | 4.3 | 3.6 - 5.1 | | | | | | mmol/L | | | + + + + + + | Cl | 100 | 95 - 112 mmol/L | | | + + + + + + | CO2 | 25 | 19 - 31 mmol/L | | | + + + + + + | Anion Gap | 17 | 7 - 21 mmol/L | | | + + + + + + | Glucose | 202 (A) | 70 - 100 mg/dL | | | + + + + + + | Anion Gap | 32 (A) | 6 - 23 mmol/L | | | + + + + + + | BUN | 32 (A) | 6 - 23 mg/dL | | | + + + + + + | Creatinine | 2.03 (A) | 0.60 - 1.35 | | | | | | mg/dL | | | + + + + + + | Estimated | 26.0 (A) | 60.0 - 140.0 | | | | GFR | | mL/min/1.73m2 | | | + + + + + + | BUN/Creatin | 15.8 | 6.0 - 28.6 | | | | ine Ratio | | | | | + + + + + + | Albumin | 3.8 | 3.5 - 5.0 g/dL | | | + + + + + + | Calcium | 10.0 | 8.5 - 10.3 | | | + + + + + + | PHOSPHORUS | 4.4 | 2.5 - 5.0 | | | + + + + + + + + | Specimen | + + | Blood | + + Uric Acid (11/10/2019) + +---------+ + + + | Component | Value | Ref Range | Performed | Pathologist | | | | | At | Signature | + +---------+ + + + | Uric Acid | 6.7 (A) | 2.3 - 6.6 | | | + +---------+ + + + + + | Specimen | + + | Blood | + + Protein/Creatinine Ratio, Urine (10/31/2019) + + + + + + | Component | Value | Ref Range | Performed | Pathologist | | | | | At | Signature | + + + + + + | Protein/Cre | 1,281.2 (A) | 0 - 150 | | | | at Ratio | | | | | + + + + + + + + | Specimen | + + | Urine | + + documented in this encounter Visit Diagnoses Not on filedocumented in this encounter"
--- OUTSIDE RECORDS SUMMARY | ~2020-04-23 | XMS | Encounter Summary ---
Demographics + + + | Address | [address] | | | [place] [address] | + + + | Home Phone | | + + + | Preferred Language | Unknown | + + + | Marital Status | Single | + + + | Hindu Affiliation | Unknown | + + + | Race | Unknown | + + + | Ethnic Group | Unknown | + + + Author + + + | Author | [facility] | | | and [place] | + + + | Organization | [facility] | | | and [...] Team Providers + +------+ + | Care Pc Network Technician Name | Role | Phone | + +------+ + | Lisa Mcclain MD | PCP | | + +------+ + Encounter Details +--------+---------+ + + + | Date | Type | Department | Care Team | Description | +--------+---------+ + + + | 11/14/ | Office | [facility] | Andrews Massey MD | CKD (chronic kidney | | 2019 | Visit | NEPHROLOGY [address] | [address] [place] | disease) stage 4, | | | | [address] | [address] [place], [place] | GFR 15-29 ml/min | | | | [address] [address] | [id number] | (HCC) (Primary Dx); | | | | [place], [place] | | Anemia of chronic | | | | [address] | | renal failure, stage | | | | [phone] | | 4 (severe) ([facility]); | | | | | | Persistent | | | | | | proteinuria; Type 2 | | | | | | diabetes mellitus | | | | | | with diabetic | | | | | | nephropathy, with | | | | | | long-term current | | | | | | use of insulin | | | | | | ([facility]); Essential | | | | | | (primary) | | | | | | hypertension; Class | | | | | | 3 severe obesity due | | | | | | to excess calories | | | | | | without serious | | | | | | comorbidity with | | | | | | body mass index | | | | | | (BMI) of 45.0 to | | | | | | 49.9 in adult ([facility]); | | | | | | Hyperuricemia; | | | | | | Vitamin D | | | | | | deficiency; | | | | | | Bilateral leg edema; | | | | | | Iron deficiency | | | | | | anemia due to | | | | | | chronic blood loss | +--------+---------+ + + + Social History [...] + | Blood Pressure | 132/72 | 11/14/2019 12:41 PM | | | | | PST | | + + + + + | Pulse | 74 | 11/14/2019 12:41 PM | | | | | PST | | + + + + + | Temperature | - | - | | + + + + + | Respiratory Rate | - | - | | + + + + + | Oxygen Saturation | - | - | | + + + + + | Inhaled Oxygen | - | - | | | Concentration | | | | + + + + + | Weight | 160.5 kg (353 lb | 11/14/2019 12:41 PM | | | | 12.8 oz) | PST | | + + + + + | Height | 175.3 cm (5' 9") | 11/14/2019 12:41 PM | | | | | PST | | + + + + + | Body Mass Index | 52.25 | 11/14/2019 12:41 PM | | | | | PST | | + + + + + documented in this encounter Patient Instructions Patient Instructions Andrews Massey MD - 11/14/2019 12:10 PM PSTDiscussions/Recommendations : I discussed today with Ms. Restrepo the [...] bring her sphygmomanometer for validation once a year (ok in 04/2019). She will strictly abide by a low salt, low purine diet. She will avoid all kinds of NSAIDs for analgesia. Also: I will not change any of her vasoactive meds today. She will report back to me her home BP readings if they fall outside of the optimal prov ided range. I sent her for a repeat BMP, CBC in 3 months. I kept her Ferrous Sulfate 325 mg twice a day. I asked her to elevate her legs for 1 hour once or twice a day. She knows that she still needs to be active and ambulatory carefully as possible. I advised her to exercise regularly but safely & to try to lose weight methodically; She voiced good understanding. She will see the Urology team here in [facility]. She will continue to F/U with your office regularly. She will have a RFP, CBC, Iron studies, Ferritin, iPTH, Urine total apptzsh-ih-bjdjjuocs e ratio before she comes back in 6 months.Electronically signed by Andrews Massey MD at 11/14 1:47 PM PST documented in this encounter Progress Notes Andrews Massey MD - 11/14/2019 12:10 PM PST Patient Active Problem List Diagnosis Date Noted POA Iron deficiency anemia due to chronic blood loss 10/12/2019 Unknown CKD (chronic kidney disease), stage III 06/18/2018 Unknown Essential (primary) hypertension 06/18/2018 Unknown Type 2 diabetes mellitus with diabetic nephropathy, with long-term current use of insul in 06/18/2018 Unknown Persistent proteinuria 06/18/2018 Unknown Class 3 severe obesity due to excess calories without serious comorbidity with body mas s index (BMI) of 45.0 to 49.9 in adult 06/18/2018 Unknown Hyperuricemia 06/18/2018 Unknown Anemia of chronic renal failure, stage 3 (moderate) 06/18/2018 Unknown Vitamin D deficiency 06/18/2018 Unknown Bilateral leg edema 06/18/[address] Mcclain: I saw your patient Ms. Restrepo in the office today. As you are familiar with her case, I wi ll not state her past history in detail. Briefly, she is a 48 y.o. female patient with past history as delineated above; she is here to F/U on her CKD & its associated complications. She tells me that in 2015, [...] to baseline with t he interventions at [facility]. The patient has history of hypertension since 2015, Diabetes Mellitus since ~1996; her BG and [...] ston es. she has no foamy urine either; her baseline Creatinine is 1.4 from 05/2018. There is no family history of renal genetic diseases such as PKD. She says that she feels 'good ' today. She denies any blurred vision tinnitus, headache, f [...] history and problem list. *U/S from 06/2018: No evidence of any significant renal anatomic abnormalities except for m ild cortical thinning. As in History of Present Illness & in Assessment. All the pertinent systems were reviewed a nd were otherwise negative. Current Outpatient Medications: allopurinol (ZYLOPRIM) 100 mg tablet, Take 1 tablet by mouth daily., Disp: 30 tablet, Rfl: 11 amitriptyline (ELAVIL) 25 mg tablet, Take 100 mg by mouth nightly. (Patient taking dif ferently: Take 50 mg by mouth nightly.), Disp: , Rfl: ASPIRIN ADULT LOW STRENGTH 81 MG EC tablet, Take 1 tablet by mouth Daily., Disp: , Rfl : B-D INS SYRINGE 0.5CC/31GX5/16 31G X 5/16" 0.5 ML MISC, , Disp: , Rfl: 1 BASAGLAR KWIKPEN 100 UNIT/ML injection (pen), Daily. 62 units in AM 45 units in PM, Di sp: , Rfl: BD SHARPS CONTAINER HOME MISC, , Disp: , Rfl: 0 buPROPion (WELLBUTRIN XL) 300 mg 24 hr tablet, Take 300 mg by mouth daily., Disp: , Rf l: busPIRone (BUSPAR) 15 mg tablet, Take 15 mg by mouth 3 (three) times daily., Disp: , R fl: Calcium Carb-Cholecalciferol (CALCIUM-VITAMIN D) 600-400 MG-UNIT TABS, Take by mouth daily. (Patient taking differently: Take by mouth 2 times daily.), Disp: , Rfl: docusate sodium (COLACE) 100 mg capsule, Take 100 mg by mouth 2 (two) times daily., Di sp: , Rfl: famotidine (PEPCID) 20 mg tablet, Take 20 mg by mouth nightly as needed., Disp: , Rfl: 0 ferrous sulfate 325 mg tablet, Take 1 tablet by mouth 2 times daily (with breakfast & dinner)., Disp: 180 tablet, Rfl: 3 Fish Oil 1000 MG delayed release capsule, Take 1 g by mouth daily. (Patient taking dif ferently: Take 1 g by mouth 3 times daily.), Disp: , Rfl: FLUoxetine HCl 60 MG TABS, Take 60 mg by mouth daily., Disp: , Rfl: gabapentin (NEURONTIN) 300 mg capsule, Take 600 mg by mouth 3 (three) times daily., Di sp: , Rfl: levothyroxine (SYNTHROID) 25 mcg tablet, Take 75 mcg by mouth every morning before cruzito akfast. (Patient taking differently: Take 88 mcg by mouth every morning (before breakfast).) , Disp: , Rfl: LIRAGLUTIDE SC, Inject under the skin., Disp: , Rfl: melatonin 200 mcg TABS, Take by mouth nightly as needed., Disp: , Rfl: niacin 500 mg tablet, Take 500 mg by mouth every morning., Disp: , Rfl: NIFEdipine (ADALAT CC) 60 MG 24 hr tablet, Take 90 mg by mouth every evening., Disp: , Rfl: NOVOLOG FLEXPEN 100 UNIT/ML injection pen, Daily., Disp: , Rfl: nystatin (MYCOSTATIN) 988246 UNIT/GM cream, Apply topically as needed., Disp: , Rfl: 0 pravastatin (PRAVACHOL) 40 MG tablet, Take 40 mg by mouth nightly., Disp: , Rfl: prazosin (MINIPRESS) 2 MG capsule, Take 2 mg by mouth nightly., Disp: , Rfl: prazosin (MINIPRESS) 5 mg capsule, Take by mouth nightly., Disp: , Rfl: 0 senna (SENNA) 8.6 mg tablet, Take 1 tablet by mouth daily. (Patient taking differently : Take 2 tablets by mouth 2 times daily (before meals).), Disp: , Rfl: SUMAtriptan (IMITREX) 50 mg tablet, Take 50 mg by mouth as needed for Migraine., Disp: , Rfl: Physical Exam: BP 132/72 | Pulse 74 | Ht 1.753 m (5' 9") | Wt (!) 160.5 kg (353 lb 12.8 oz) | BMI 52.2 5 kg/m General appearance: Pleasant, not in acute [...] tenderness bilaterally. Extremities: Warm to touch with 2+ left, 1+ right leg edema. There is no cyanosis. Skin: There are no rashes, petechiae, or ecchymosis. Neurological: Awake, alert, and oriented to time, place, and person. Normal gross motor po wer. There is no asterixis. Psychiatric: The patient s behavior is normal. Judgment and thought content are normal. Lab Results Component Value Date HGB 10.7 (A) 11/10/2019 HGB 10.5 (A) 05/20/2019 NA 138 11/10/2019 K 4.3 11/10/2019 CL 100 11/10/2019 CO2 25 11/10/2019 BUN 32 (A) 11/10/2019 CREA 2.03 (A) 11/10/2019 CREA 2.03 (A) 08/19/2019 CALCIUM 10.0 11/10/2019 ALBUMIN 3.8 11/10/2019 EGFR 26.0 (A) 11/10/2019 FERRITIN 92.45 08/19/2019 PTH 63.29 10/08/2018 LABPROT 1,281.2 (A) 10/31/2019 Old Labs: Lab Results Component Value Date BUN 29 (A) 05/06/2019 CREATININE 1.62 (A) 05/06/2019 EGFR 34 (A) 05/06/2019 NA 139 05/06/2019 K 4.6 05/06/2019 CL 105 05/06/2019 CO2 24 05/06/2019 CA 9.7 05/06/2019 PHOS 4.1 05/06/2019 ALB 3.5 05/06/2019 HGB 9.8 (A) 05/06/2019 URICACID 9.0 (A) 05/06/2019 WBC 5.9 05/06/2019 HCT 30.4 (A) 05/06/2019 FERRITIN 71.63 05/06/2019 LABIRON 16.5 (A) 05/06/2019 LABPROT 1,148.6 (A) 05/06/2019 [id number] 22 (A) 04/21/2018 Assessment: Ms. Restrepo is a 48 y.o. female patient with stage IV CKD on a background of longstanding di abetes & hypertension. The most likely pathology here is that of diabetic nephropathy +/ - hypertensive nephrosclerosis/arteriolosclerosis. RENAL FUNCTION: Relatively stable GFR BLOOD PRESSURE: Reports it better controlled at home BLOOD SUGAR: Reports it better controlled ELECTROLYTES: okay ANEMIA: Mild now VITAMIN D: Deficiency is being treated thru your office PARATHYROID HORMONE: ok URIC ACID: ok PROTEINURIA: moderate URINALYSIS: No UTI or hematuria [...] bring her sphygmomanometer for validation once a year (ok in 04/2019). She will strictly abide by a low salt, low purine diet. She will avoid all kinds of NSAIDs for analgesia. Also: I will not change any of her vasoactive meds today. (I will not add an MRA (Spirono or Eplerenone) because of her low GFR + as her K was at or near the upper limit of normal in the past; I will see if she can bring her K down with l imiting it in the diet. Then I will introduce an MRA.) She will report back to me her home BP readings if they fall outside of the optimal prov ided range. At that time, I will decide whether any change to his vasoactive regimen is giuliana anted. I sent her for a repeat BMP, CBC in 3 months. I kept her Ferrous Sulfate 325 mg twice a day. I asked her to elevate her legs for 1 hour once or twice a day. She knows that she still needs to be active and ambulatory carefully as possible. I advised her to exercise regularly but safely & to try to lose weight methodically; She voiced good understanding. She will see the Urology team here in town. She will continue to F/U with your office regularly. She will have a RFP, CBC, Iron studies, Ferritin, iPTH, Urine total atkmdpd-pk-bgdacrxax e ratio before she comes back in 6 months. I spent 15 minutes of this 25-minute visit in education, counseling and answering all of her questions to her satisfaction. Thank you Dr Mcclain for the opportunity to see this patient in F/U today. Please do not hesi dunn to call me at any time with questions or concerns. Truly yours, Andrews Massey MD [facility] documented in this enco unter Plan of Treatment +--------+ + + + + | Date | Type | Specialty | Care Team | Description | +--------+ + + + + | 04/30/ | Virtual | Nephrology | Andrews Massey MD | | | 2019 | Office | | [address] [facility] | | | | Visit | | [address] [place] | | | | | | [address] | | | | | | | | +--------+ + + + + | 06/14/ | Office | Cardiology | Ольаг Veloz DO | | | 2019 | Visit | | [address] | | | | | | [place] | | | | | | [id number] | | | | | | | | +--------+ + + + + documented as of this encounter Visit Diagnoses + + | Diagnosis | + + | CKD (chronic kidney disease) stage 4, GFR 15-29 ml/min ([facility]) - Primary Chronic kidney | | disease, Stage IV (severe) | + + | Anemia of chronic renal failure, stage 4 (severe) ([facility]) | + + | Persistent proteinuria Proteinuria | + + | Type 2 diabetes mellitus with diabetic nephropathy, with long-term current use of | | insulin (HCC) | + + | Essential (primary) hypertension Unspecified essential hypertension | + + | Class 3 severe obesity due to excess calories without serious comorbidity with body | | mass index (BMI) of 45.0 to 49.9 in adult (HCC) | + + | Hyperuricemia Other abnormal blood chemistry | + + | Vitamin D deficiency Unspecified vitamin D deficiency | + + | Bilateral leg edema Edema | + + | Iron deficiency anemia due to chronic blood loss Iron deficiency anemia secondary to | | blood loss (chronic) | + + documented in this encounter
--- OUTSIDE RECORDS SUMMARY | ~2020-04-23 | XMS | Encounter Summary ---
Demographics + + + | Address | [address] | | | [place] [address] | + + + | Home Phone | | + + + | Preferred Language | Unknown | + + + | Marital Status | Single | + + + | Gnosticist Affiliation | Unknown | + + + | Race | Unknown | + + + | Ethnic Group | Unknown | + + + Author + + + | Author | [facility] | | | and [place] | + + + | Organization | [facility] | | | and [...] Team Providers + +------+ + | Care Wood Milling Machine Tender Name | Role | Phone | + +------+ + | Lisa Mcclain MD | PCP | | + +------+ + Encounter Details +--------+ + + + + | Date | Type | Department | Care Team | Description | +--------+ + + + + | 08/24/ | Orders Only | [facility] | Andrews Massey MD | Essential (primary) | | 2019 | | NEPHROLOGY [place] | [address] [place] | hypertension | | | | [address] [place] | [address] [place], [place] | (Primary Dx); CKD | | | | [address] [place], [place] | [address] | (chronic kidney | | | | [address] | | disease), stage III | | | | [phone] | | (HCC); Anemia of | | [...] 2019 | Office | | [address] [facility] [place] | | | | Visit | | [address] [place] | | | | | | [address] | | | | | | | | +--------+ + + + + | 06/14/ | Office | Cardiology | Ольга Veloz DO | | | 2019 | Visit | | [address] | | | | | | [place] | | | | | | [id number] | | | | | | | | +--------+ + + + + + +------+--------+ + + [...] III | | | | | | ([facility]) | | + +------+--------+ + + documented [...]
--- OUTSIDE RECORDS SUMMARY | ~2020-04-23 | XMS | Encounter Summary ---
Demographics + + + | Address | [address] | | | [place] [address] | + + + | Home Phone | | + + + | Preferred Language | Unknown | + + + | Marital Status | Single | + + + | Temple Affiliation | Unknown | + + + | Race | Unknown | + + + | Ethnic Group | Unknown | + + + Author + + + | Author | [facility] | | | and [place] | + + + | Organization | [facility] | | [...] Team Providers + +------+ + | Care Graphite Grinder Name | Role | Phone | + +------+ + | Lisa Mcclain MD | PCP | | + +------+ + Encounter Details +--------+ + + + + | Date | Type | Department | Care Team | Description | +--------+ + + + + | 07/17/ | Orders Only | [facility] | Andrews Massey MD | | | 2018 | | [place]PRHOLOGY [place] | [address] [place] | | | | | [address] [place] | [address] [place], [place] | | | | | [address] [place], [place] | [address] | | | | | [address] | | | | | | [phone] | | | +--------+ + + + [...] 2019 | Office | | [address] [facility] [place] | | | | Visit | | [address] [place] | | | | | | [address] | | | | | | | | +--------+ + + + + | 06/14/ | Office | Cardiology | Ольга Veloz DO | | | 2019 | Visit | | [address] | | | | | | [place] | | | | | | [address] | | | | | | | [...]
--- OUTSIDE RECORDS SUMMARY | ~2020-04-23 | XMS | Encounter Summary ---
Demographics + + + | Address | [address] | | | [place] [address] | + + + | Home Phone | | + + + | Preferred Language | Unknown | + + + | Marital Status | Single | + + + | Anabaptist Affiliation | Unknown | + + + | Race | Unknown | + + + | Ethnic Group | Unknown | + + + Author + + + | Author | [facility] | | | and [place] | + + + | Organization | [facility] | | | [...] Team Providers + +------+ + | Care Nitroglycerin Supervisor Name | Role | Phone | + +------+ + | Lisa Mcclain MD | PCP | | + +------+ + Reason for Visit +---------+ + | Reason | Comments | +---------+ + | Results | 08/19/19 | +---------+ + Encounter Details +--------+ + + + + | Date | Type | Department | Care Team | Description | +--------+ + + + + | 08/22/ | Documentati | [facility] | [place], | Results (08/19/19) | | 2019 | on | NEPHROLOGY [place] | [facility] | | | | | [address] [place] | Transition Social Worker | | | | | [address] [facility] [place] | | | | | | [address] | | | | | | [phone] | | | +--------+ + + + [...] 2019 | Office | | [address] [facility] [place] | | | | Visit | | [facility] | | | | | | [address] | | | | | | | | +--------+ + + + + | 06/14/ | Office | Cardiology | Ольга Veloz DO | | | 2019 | Visit | | [address] | | | | | | [place] | | | | | | [id number] | | | | | | | | +--------+ + + + + documented as of this encounter Procedures + +--------+ + + + | Procedure Name | Priori | Date/Time | Associated Diagnosis | Comments | | | ty | | | | + +--------+ + + + | IRON AND IRON | Routin | 08/19/2019 | | Results for this | | BINDING CAPACITY | e | 11:14 AM | | procedure are in the | | | | PDT | | results section. | + +--------+ + + + | PROTEIN/CREATININE | Routin | 08/19/2019 | | Results for this | | RATIO, URINE | e | 11:14 AM | | procedure are in the | | | | PDT | | results section. | + +--------+ + + + | URIC ACID | Routin | 08/19/2019 | | Results for this | | | e | 11:14 AM | | procedure are in the | | | | PDT | | results section. | + +--------+ + + + | RENAL FUNCTION PANEL | Routin | 08/19/2019 | | Results for this | | | e | 11:14 AM | | procedure are in the | | | | PDT | | results section. | + +--------+ + + + | CBC W/AUTO | Routin | 08/19/2019 | | Results for this | | DIFFERENTIAL | e | | | procedure are in the | | | | | | results section. | + +--------+ + + + documented in this encounter Results Uric Acid (08/19/2019 11:14 AM PDT) + +-------+ + + + | Component | Value | Ref Range | Performed | Pathologist | | | | | At | Signature | + +-------+ + + + | Uric Acid | 6.3 | 2.3 - 6.6 | | | + +-------+ + + + + + | Specimen | + + | Blood | + + Protein/Creatinine Ratio, Urine (08/19/2019 11:14 AM PDT) + + + + + + | Component | Value | Ref Range | Performed | Pathologist | | | | | At | Signature | + + + + + + | Protein/Cre | 1,321.3 (A) | 0 - 150 | | | | at Ratio | | | | | + + + + + + + + | Specimen | + + | Urine | + + Iron and Iron Binding Capacity (08/19/2019 11:14 AM PDT) + +-------+ + + + | Component | Value | Ref Range | Performed | Pathologist | | | | | At | Signature | + +-------+ + + + | Iron, | 78 | 37 - 160 | | | | External | | | | | + +-------+ + + + | TIBC | 297 | 245 - 400 ug/dL | | | + +-------+ + + + | Iron | 26 | 20 - 55 % | | | | Saturation | | | | | + +-------+ + + + | Ferritin | 92.45 | 13 - 150 | | | + +-------+ + + + | UIBC | 219 | | | | + +-------+ + + + | TRANSFERRIN | 211.9 | 192.0 - 382.0 | | | | | | mg/dL | | | + +-------+ + + + + + | Specimen | + + | Blood | + + Renal Function Panel (08/19/2019 11:14 AM PDT) + + + + + + | Component | Value | Ref Range | Performed | Pathologist | | | | | At | Signature | + + + + + + | Na | 136 | 132 - 143 | | | | | | mmol/L | | | + + + + + + | K | 4.5 | 3.6 - 5.1 | | | | | | mmol/L | | | + + + + + + | Cl | 102 | 95 - 112 mmol/L | | | + + + + + + | CO2 | 22 | 19 - 31 mmol/L | | | + + + + + + | Anion Gap | 17 | 7 - 21 mmol/L | | | + + + + + + | Glucose | 289 (A) | 70 - 100 mg/dL | | | + + + + + + | BUN | 35 (A) | 6 - 23 mg/dL | | | + + + + + + | CREA | 2.03 (A) | 0.60 - 1.35 | | | | | | mg/dL | | | + + + + + + | eGFR if not | 26 (A) | 60 - 140 | | | | | | | | | | MOZAMBICAN | | | | | + + + + + + | BUN/Creatin | 17.2 | 6.0 - 28.6 | | | | ine Ratio | | | | | + + + + + + | Albumin | 3.3 (A) | 3.5 - 5.0 g/dL | | | + + + + + + | Calcium | 8.1 (A) | 8.5 - 10.3 | | | + + + + + + | Phosphorus, | 3.1 | 2.5 - 5.0 | | | | External | | | | | + + + + + + + + | Specimen | + + | Blood | + + CBC w/ Auto Differential (08/19/2019) + + + + + + | Component | Value | Ref Range | Performed | Pathologist | | | | | At | Signature | + + + + + + | WBC | 5.7 | 4.5 - 11.0 | | | + + + + + + | RBC COUNT | 3 (A) | 4 - 5 | | | + + + + + + | Hemoglobin | 9.2 (A) | 12.0 - 16.0 | | | + + + + + + | MCV | 90.5 | 81 - 99 | | | + + + + + + | RDW | 14.9 | 10.5 - 15.0 | | | + + + + + + | MCH | 31 | 27 - 33 | | | + + + + + + | Hematocrit, | 27.2 (A) | 35 - 45 | | | | BF | | | | | + + + + + + | Platelet | 235 | 140 - 440 | | | | Count | | | | | | Plasma | | | | | + + + + + + | NEUTROPHILS | 66.5 | 39 - 80 % | | | | BL | | | | | + + + + + + | LYMPHOCYTES | 24.4 | 24 - 44 % | | | | BL | | | | | + + + + + + | MONOCYTES | 6.2 | 0 - 12 | | | | BAL | | | | | + + + + + + | MCHC, POC | 34 | 30 - 36 | | | + + + + + + | EOSINOPHILS | 2.7 | 0 - 6 % | | | | BL | | | | | + + + + + + | BASOPHILS | 10.9 | 0 - 2 | | | | BAL | | | | | + + + + + + + + | Specimen | + + | Blood | + + documented in this encounter Visit Diagnoses Not on filedocumented in this encounter"
--- OUTSIDE RECORDS SUMMARY | ~2020-04-23 | XMS | Encounter Summary ---
Demographics + + + | Address | [address] | | | [place] [address] | + + + | Home Phone | | + + + | Preferred Language | Unknown | + + + | Marital Status | Single | + + + | Judaism Affiliation | Unknown | + + + | Race | Unknown | + + + | Ethnic Group | Unknown | + + + Author + + + | Author | [facility] | | | and [place] | + + + | Organization | [facility] | | | [...] Team Providers + +------+ + | Care Tax Compliance Officer Name | Role | Phone | + +------+ + | Lisa Mcclain MD | PCP | | + +------+ + Encounter Details +--------+ + + + + | Date | Type | Department | Care Team | Description | +--------+ + + + + | 07/21/ | Orders Only | [facility] | Conversion | | | 2017 | | INFECTIOUS DISEASE | Transaction, | | | | | [address] | Provider Unknown | | | | | [place], [place] | | | | | | [address] | (Fax) | | | | | [phone] | | | +--------+ + + + [...] + + documented as of this encounter Progress Notes Conversion Transaction, Provider Unknown - 07/27/2018 4:06 PM PDTFormatting of this note m ight be different from the original. Progress Notes by Steph Mayorga CMA at 07/27/18 1606 Author: Steph Mayorga CMA Service: (none) Author Type: Compensation Consultant Filed: 07/28/18 0958 Encounter Date: 07/27/2018 Status: Signed Emergency Communications Officer: Steph Mayorga CMA (Compensation Consultant) Labs abstracted. A copy of the labs will be put in Dr. Whitten inbox, as it's hard to abstr act the HCV labs. KENA HERRING onver jovany Transaction, Provider Unknown - 07/27/2018 4:06 PM PDT Addendum Note by Steph Mayorga CMA at 07/27/18 1606 Author: Steph Mayorga CMA Service: (none) Author Type: Compensation Consultant Filed: 08/09/18 0944 Encounter Date: 07/27/2018 Status: Signed Emergency Communications Officer: Steph Mayorga CMA (Compensation Consultant) Addended by: STEPH MAYORGA on: 08/09/2018 09:44 AM Modules accepted: Orders docume nted in this encounter Plan of Treatment +--------+ + + + + | Date | Type | Specialty | Care Team | Description | +--------+ + + + + | 04/30/ | Virtual | Nephrology | Andrews Massey MD | | | 2019 | Office | | [address] [facility] | | | | Visit | | [address] [place], [place] | | | | | | [phone] | | | | | | | | +--------+ + + + + | 06/14/ | Office | Cardiology | Ольга Veloz DO | | | 2019 | Visit | | [address] | | | | | | [place] | | | | | | [id number] | | | | | | | | +--------+ + + + + documented as of this encounter Procedures + +--------+ + + + | Procedure Name | Priori | Date/Time | Associated Diagnosis | Comments | | | ty | | | | + +--------+ + + + | HISTORICAL | Routin | 07/21/2018 | | | | MICROBIOLOGY RESULT | e | 12:00 AM | | | | | | PDT | | | + +--------+ + + + | HEPATITIS C, | Routin | 07/21/2018 | | Results for this | | FIBROSURE PANEL | e | 12:00 AM | | procedure are in the | | | | PDT | | results section. | + +--------+ + + + | HEPATITIS C | Routin | 07/21/2018 | | Results for this | | GENOTYPING | e | 12:00 AM | | procedure are in the | | | | PDT | | results section. | + +--------+ + + + documented in this encounter Results HISTORICAL MICROBIOLOGY RESULT (07/21/2018 12:00 AM PDT) + + | Specimen | + + | Blood specimen | | (specimen) | + + + +---------+ + + | Performing | Address | City/State/Zipcode | Phone Number | | Organization | | | | + +---------+ + + | EXTERNAL LAB | | | | + +---------+ + + Hepatitis C, Fibrosure Panel (07/21/2018 12:00 AM PDT) + + + + + + | Component | Value | Ref Range | Performed | Pathologist | | | | | At | Signature | + + + + + + | HCV | Comment: see below | | EXTERNAL | | | FibroSURE | | | LAB | | | Results | | | | | + + + + + + | FIBROSURE | | | EXTERNAL | | | STAGE | | | LAB | | + + + + + + | Necroinflam | 0.3 | | EXTERNAL | | | mat | | | LAB | | | Activity | | | | | | Score | | | | | + + + + + + | Necroinflam | A1/J1Mzvtbuc: Equal | | EXTERNAL | | | mat | probability between A1 | | LAB | | | Activity | and A2 | | | | | Grade | | | | | + + + + + + | Alpha | 233 | 131 - 293 | EXTERNAL | | | 2-Macroglob | | | LAB | | | ulins, Qn | | | | | + + + + + + | Haptoglobin | | | EXTERNAL | | | | | | LAB | | + + + + + + | Apolipoprot | | | EXTERNAL | | | ein A-1 | | | LAB | | + + + + + + | Bilirubin, | | mg/dL | EXTERNAL | | | Total | | | LAB | | + + + + + + | Gamma | 11 | 7 - 33 | EXTERNAL | | | Glutamyl | | | LAB | | | Transferase | | | | | + + + + + + | ALT (SGPT) | 21 | 5 - 40 | EXTERNAL | | | P5P | | | LAB | | + + + + + + + + | Specimen | + + | Blood specimen | | (specimen) | + + + + + | Impressions | Performed At | + + + | FIBROSURE: AST Value: 23 Ref. Range: 9-40 | EXTERNAL LAB | | U/L BUN Value: 28 Ref. Range: 7-20 mg/dL | | | Platelet count Value: 291 Ref. Range: 140-440 K/ul | | | Prothrombin Index Value: 82 Ref. Range: 90-120% | | | Fibrometer Score Value: 0.2 Cirrhometer Score | | | Fibrosis Class: F1 [F1-F2] Predominance of F1, but F2 is | | | possible. | | + + + + +---------+ + + | Performing | Address | City/State/Zipcode | Phone Number | | Organization | | | | + +---------+ + + | EXTERNAL LAB | | | | + +---------+ + + Hepatitis C Genotyping (07/21/2018 12:00 AM PDT) + +-------+ + + + | Component | Value | Ref Range | Performed | Pathologist | | | | | At | Signature | + +-------+ + + + | HCV | 1a | | EXTERNAL | | | Genotype | | | LAB | | + [...]
--- OUTSIDE RECORDS SUMMARY | ~2020-04-23 | XMS | Encounter Summary ---
Demographics + + + | Address | [address] | | | [place] [address] | + + + | Home Phone | | + + + | Preferred Language | Unknown | + + + | Marital Status | Single | + + + | Religion Affiliation | Unknown | + + + | Race | Unknown | + + + | Ethnic Group | Unknown | + + + Author + + + | Author | [facility] | | | and [place] | + + + | Organization | [facility] | | [...] Team Providers + +------+ + | Care Parish Visitor Name | Role | Phone | + +------+ + | Lisa Mcclain MD | PCP | | + +------+ + Reason for Visit + + + | Reason | Comments | + + + | Procedure | capsule endoscopy | + + + Evaluate & Treat (Routine) + + + + + + + | Status | Reason | Specialty | Diagnoses / | Referred By | Referred To | | | | | Procedures | Contact | Contact | + + + + + + + | Authorized | Specialty | Gastroenterol | Diagnoses | Mcclain, | Javier, | | | Services | ogy | Iron | Lisa Díaz MD | Doron Ochoa, | | | Required | | deficiency | [address] | [address] | | | | | anemia, | [address] | [address] | | | | | unspecified | [address], | [place], [place] | | | | | | [place] [address] | [address] Phone: | | | | | | Phone: | [phone] | | | | | | [phone] | Fax: | | | | | | Fax: | [phone] | | | | | | [phone] | | + + + + + + + Encounter Details +--------+---------+ + + + | Date | Type | Department | Care Team | Description | +--------+---------+ + + + | 01/12/ | Office | [facility] | Doron Herrera | Iron deficiency | | 2019 | Visit | GASTROENTEROLOGY | MD Don [address] | anemia, unspecified | | | | [address] | [address] [place], [place] | iron deficiency | | | | [place], [place] | [address] | anemia type (Primary | | | | [address] | | Dx) | | | | [phone] | | | +--------+---------+ + + + [...] this encounter Last Filed Vital Signs + +---------+ + + | Vital Sign | Reading | Time Taken | Comments | + +---------+ + + | Blood Pressure | 161/99 | 01/12/2020 8:05 AM | | | | | PST | | + +---------+ + + | Pulse | 81 | 01/12/2020 8:05 AM | | | | | PST | | + +---------+ + + | Temperature | - | - | | + +---------+ + + | Respiratory Rate | - | - | | + +---------+ + + | Oxygen Saturation | - | - | | + +---------+ + + | Inhaled Oxygen | - | - | | | Concentration | | | | + +---------+ + + | Weight | - | - | | + +---------+ + + | Height | - | - | | + +---------+ + + | Body Mass Index | - | - | | + +---------+ + + documented in this encounter Progress Notes Darcie Jane RN - 01/12/2020 8:00 AM PSTPatient presents in office for capsule endosc opy procedure ordered by Dr. Herrera. Patient reports completion of pre procedure prep instru ctions. Allergies verified. Patient was administered 1.8 mL of simethicone gas drops mixed with purified water provided by GI clinic. Patient reports no issues with swallowing ca psule endoscopy with provided purified water. Patient given event form to be returned at this afternoon's appointment for removal of equi pment. documented in this e ncounter Plan of Treatment +--------+ + + + + | Date | Type | Specialty | Care Team | Description | +--------+ + + + + | 04/30/ | Virtual | Nephrology | Andrews Massey MD | | | 2019 | Office | | [address] [place] | | | | Visit | | [address] [place], [place] | | | | | | [address] | | | | | | | | +--------+ + + + + | 06/14/ | Office | Cardiology | VelozОльга DO | | | 2019 | Visit | | [address] | | | | | | [place] | | | | | | [address] | | | | | | | | +--------+ + + + + documented as of this encounter Visit Diagnoses + + | Diagnosis | + + | Iron deficiency anemia, unspecified iron deficiency anemia type - Primary | + + documented in this encounter Administered Medications + +--------+ +--------+------+------+ | Medication Order | MAR | Action | Dose | Rate | Site | | | Action | Date | | | | + +--------+ +--------+------+------+ | simethicone (MYLICON) 40 mg/0.6 | Given | 01/12/20 | 180 mg | | | | mL suspension 180 mg 180 mg, | | 20 8:46 | | | | | Oral, ONCE, [facility] 01/12/20 at 0915, | | AM PST | | | | | For 1 dose, Mix with 30 mL water | | | | | | | prior to giving., | | | | | | + +--------+ +--------+------+------+ +---+---+ | | | +---+---+ documented in this encounter"
--- OUTSIDE RECORDS SUMMARY | ~2020-04-23 | XMS | Encounter Summary ---
Demographics + + + | Address | [address] | | [place] [address] | + + + | Home Phone [...] + + + | Author | [facility] | | | and [place] | + + + | Organization | [facility] | | [...] Team Providers + +------+ + | Care Service Loss Control Consultant Name | Role | Phone | + +------+ + | Lisa Mcclain MD | PCP | | + +------+ + Reason for Referral Diagnostic/Screening (Routine) +--------+--------+ + + + + | Status | Reason | Specialty | Diagnoses / | Referred By | Referred To | | | | | Procedures | Contact | Contact | +--------+--------+ + + + + | Closed | | | Diagnoses | | [facility] | | | | | Type 2 | [facility] | | | | | diabetes | , Claudia Rivera, | [address] | | | | | mellitus | [employer] [address] | | | | | with | [address], [place] | | | | | diabetic | [place], [place] | [address] | | | | | nephropathy, | [address] | Phone: | | | | | with | Phone: | [phone] | | | | | long-term | [phone] | Fax: | | | | | current use | Fax: | [phone] | | | | | of insulin | [phone] | | | | | | (HCC) Early | | | | | | | satiety | | | | | | | Abdominal | | | | | | | bloating | | | | | | | Procedures | | | | | | | [place] Gastric | | | | | | | Emptying | | | +--------+--------+ + + + + Reason for Visit + + + | Reason | Comments | + + + | Follow-up | EGD 11/21/2019 | + + + Evaluate & Treat [...] | | | | | anemia, | [address] | [address] | | | | | unspecified | [address], | [place], [place] | | | | | | [place] [address] | [address] Phone: | | | | | | Phone: | [phone] | | | | | | [phone] | Fax: | | | | | | Fax: | [phone] | | | | | | [phone] | | + + + + + + + Encounter Details +--------+---------+ + + + | Date | Type | Department | Care Team | Description | +--------+---------+ + + + | 12/12/ | Office | [facility] | Jamie, | Early satiety | | 2020 | Visit | GASTROENTEROLOGY | [address] | (Primary Dx); | | | | [address] | [address] [place], | Abdominal bloating; | | | | [place], [place] | [place] [address] | Type 2 diabetes | | | | [address] | [phone] | mellitus with | | | | [phone] | | diabetic | | | | | | nephropathy, with | | | | | | long-term current | | | | | | use of insulin | | | | | | ([facility]); | | | | | | Gastroesophageal | | | | | | reflux disease with | | | | | | esophagitis | +--------+---------+ + + + Social History [...] + + + | Blood Pressure | 132/76 | 12/12/2019 8:42 AM | | | | | PST | | + + + + + | Pulse | - | - | | + + + + + | Temperature | 36.5 C (97.7 F) | 12/12/2019 8:42 AM | | | | | PST | | + + + + + | Respiratory Rate | 20 | 12/12/2019 8:42 AM | | | | | PST | | + + + + + | Oxygen Saturation | - | - | | + + + + + | Inhaled Oxygen | - | - | | | Concentration | | | | + + + + + | Weight | 160 kg (352 lb 12.8 | 12/12/2019 8:42 AM | | | | oz) | PST | | + + + + + | Height | 175.3 cm (5' 9") | 12/12/2019 8:42 AM | | | | | PST | | + + + + + | Body Mass Index | 52.1 | 12/12/2019 8:42 AM | | | | | PST | | + + + + + documented in this encounter Patient Instructions Patient Instructions Claudia Ayala ARNP - 12/12/2019 8:30 AM PSTFormatting of thi s note might be different from the original. Plan: 1. Finish work-up from gastroenterology on iron deficiency anemia will have you do the Caps ule endoscopy so swallow a small camera read handout attached and Dr. Herrera recommendations as well. If this Capsule is negative then we would refer you to template worker 2. On the acid reflux continue the Pepcid 20 mg 1/2 hour before breakfast and bedtime daily . See handout on GERD 3. Retained food Gastric emptying study orders given she will have it at [facility] in [facility] [place] they need to send me a copy. 4. Follow up with me I can see you afterwards post capsule this study in 2 months. Suspected Recommended a Gastric Emptying study to assess how long it takes your digestion t o empty a meal. If abnormal patient can have Diabetic Gastroparesis Gastroparesis,ordelayed gastric emptying,is when food moves through the stomach more slowly than normal. In someone with diabetes, it s caused by damage to the vagus nerve bec ause of chronic high blood sugar. (Other chronic diseases may also cause gastroparesis.) The vagus nerve helps control how food moves through the digestive system. When this nerve is d amaged, the movement of food is slowed down or stopped. Food that stays in the stomach for too long can cause problems. Food can ferment in the sto mach, causing bacteria to grow. Undigested food can also harden into masses called bezoars. These can cause nausea and vomiting. In some cases, they may block food from passing from th e stomach to the small intestine. Gastroparesis can make it hard to manage blood sugar levels because it is hard to predict w hen a meal will actually leave the stomach to be digested. It can also cause problems with v itamins and minerals being absorbed into the body as well as maintaining a healthy weight. Symptoms of diabetic gastroparesis are: Nausea Vomiting Feeling full after eating a small amount of food Stomachpain or cramps Heartburn Stomachbloating Weight loss Loss of appetite High or low blood sugar levels There are several different tests and studies that canhelp diagnose gastroparesis. For many people, gastroparesis is a lifelong health problem. Managing it will likely includ e changes in how you eat. You may be prescribed medicine to help with blood sugar levels,h elp your symptoms like nausea and vomiting, or act on muscles in the digestive system. Certa in medicinesotherwise very effective for diabetes can make gastroparesis worse and should not be taken.In severe cases, surgery to put ernestine feeding tube may be needed. Or a specia l device may be implanted to encourage the stomach muscles to contract. Home care These changes may help easeyour symptoms: Take prescribed medicines exactly as directed. Eat a liquid or soft diet if advised. Eat frequent small meals instead of less frequent large meals. Stay away fromfoods that are high in fat(such as whole milk, cheese, and fried foods )or fiber(such as beans, and many fruits and vegetables). These can slow digestion. Always control your blood sugar levels as well as possible as directed by your healthcar e provider. Follow-up care Follow up with your healthcare provider as advised. Regular visits may be needed to manage gastroparesis. When to seek medical advice Call your healthcare provider right away if any of these occur: Severe pain in your abdomen Inability to keep down food or liquids Weight loss Other symptoms as directed by your healthcare provider Date Last Reviewed: 04/30/201819999968-67[address] [employer] [place] [address], [place] [address]. All righ ts reserved. This information is not intended as a substitute for professional medical care. Always follow your healthcare professional's instructions. Lifestyle Changes for ControllingGERD When you have GERD, stomach acid feels as if it s backing up toward your mouth. Whether o r not you take medicine to control your GERD, your symptoms can often be improved with lifes tyle changes. Talk to your healthcare provider about the following suggestions. These sugges tions may help you get relief from your symptoms. Raise your head Reflux is more likely to strike when you re lying down flat, because stomach fluid can fl ow backward more easily. Raising the head of your bed4 to 6 inches can help. To do this: Slide blocks or books under the legs at the head of your bed. Or, place a wedge under th e mattress. Many foam stores can make a suitable wedge for you. The wedge should run from yo ur waist to the top of your head. Don t just prop your head on several pillows. This increases pressure on your stomach. It can make GERD worse. Watch your eating habits Certain foods may increase the acid in your stomach or relax the lower esophageal sphincter . This makes GERD more likely. It s best to avoid the following if they cause you symptoms : Coffee, tea, and carbonated drinks (with and without caffeine) Fatty, fried, or spicy food Mint, chocolate, onions, and tomatoes Peppermint Any other foods that seem to irritate your stomach or cause you pain Relieve the pressure Tips include the following: Eat smaller meals, even if you have to eat more often. Don t lie down right after you eat. Wait a few hours for your stomach to empty. Avoid tight belts and tight-fitting clothes. Lose excess weight. Tobacco and alcohol Avoid smoking tobacco and drinking alcohol. They can make GERD symptoms worse. Date Last Reviewed: 05/30/201619997956-7202 [employer]. [address] [place] [address]. All righ ts reserved. This information is not intended as a substitute for professional medical care. Always follow your healthcare professional's instructions. GERD (Adult) The esophagus is a tube that carries food from the mouth to the stomach. A valve (the LES, lower esophageal sphincter) at the lower end of the esophagus prevents stomach acid from arnaldo wing upward. When this valve doesn't work properly, stomach contents may repeatedly flow roselyn k up (reflux) into the esophagus. This is calledgastroesophageal reflux disease (GERD).G ERD can irritate the esophagus. It can cause problems with pain, swallowing or breathing. In severe cases, GERD can cause recurrent pneumonia (from aspiration or breathing in particles ) or other serious problems. Symptoms of reflux include burning, pressure or sharp pain in the upper abdomen or mid to l ower chest. The pain can spread to the neck, back, or shoulder. There may be belching, an ac id taste in the back of the throat, chronic cough, or sore throat, or hoarseness. GERD sympt oms often occur during the day after a big meal. They can also occur at night when lying braydon n. Home care Lifestyle changes can help reduce symptoms. If needed, your healthcare provider may prescri be medicines.Symptoms often improve with treatment, but if treatment is stopped, the sympt oms often return after a few months. So most persons with GERD will need to continue treatme nt or get treatment on and off. Lifestyle changes Limit or avoid fatty, fried, and spicy foods, as well as coffee, chocolate, mint, and fo ods with high acid content such as tomatoes and citrus fruit and juices (orange, grapefruit, lemon). Don t eat large meals, especially at night. Frequent, smaller meals are best. Don't li e down right after eating. And don t eat anything 3 hours before going to bed. Don't drink alcohol or smoke. As much as possible, stay away from second hand smoke. If you are overweight, losing weight will reduce symptoms. Don't wear tight clothing around your stomach area. If your symptoms occur during sleep, use a foam wedge to elevate your upper body (not ju st your head.) Or, place 4" blocks under the head of your bed. Or use 2 bed risers under you r bedframe. Medicines If needed, medicines can help relieve the symptoms of GERD and prevent damage to the esopha erika. Discuss a medicine plan with your healthcare provider. This may include one or more of the following medicines: Antacids to help neutralize the normal acids in your stomach. Acid blockers (Histamine or H2 blockers) to decrease acid production. Acid inhibitors (proton pump inhibitors PPIs) to decrease acid production in a different way than the blockers. They may work better, but can take a little longer to take effect. Take an antacid 30 to 60 minutes after eating and at bedtime, but not at the same time as a n acid serene.Try not to take medicines such as ibuprofen and aspirin. If you are taking as pirin for your heart or other medical reasons, talk to your healthcare provider about stoppi ng it. Follow-up care Follow up with your healthcare provider or as advised by our staff. When to seek medical advice Call your healthcare provider if any of the following occur: Stomach pain gets worse or moves to the lower right abdomen (appendix area) Chest pain appears or gets worse, or spreads to the back, neck, shoulder, or arm An luls-ywz-ilwxsbh trial of medicine doesn't relieve your symptoms Weight loss that can't be explained Trouble or pain swallowing Frequent vomiting (can t keep down liquids) Blood in the stool or vomit (red or black in color) Feeling weak or dizzy Fever of 100.4F (38C) or higher, or as directed by your healthcare provider Date Last Reviewed: 01/28/201819994187-3628 [employer]. [address] [place] [address], [place] [address]. All righ ts reserved. This information is not intended as a substitute for professional medical care. Always follow your healthcare professional's instructions. Capsule Endoscopy " Would however strongly recommend a very low residue diet and probably even liquid diet for couple days as possible prior to the study since retained food products will completely impair performance of capsule endoscopy" Per Dr William Herrera. The capsule is a tiny camera that takes pictures as it moves through the digestive tract. Capsule endoscopyis a test done to take pictures of the digestive tract. It uses a capsul e with a tiny camera in it. The capsule is swallowed like a pill. As the capsule travels thr ough the digestive tract, it takes pictures. These pictures are sent to a recorder that is w orn outside the body. The capsule passes out of the body through the stool in a few days. Ca psule endoscopy is most often done to check for problems in the small bowel (intestine)rashi t are hard to see with a standard endoscopy or colonoscopy. These problems include bleeding and tumors. The test can also help diagnose Crohn s disease. This is a condition that caus es inflammation, sores, and narrowing of the bowel. Before the test Tell your provider about any medicines you are taking. You may need to stop taking all or s ome of these before the test. This includes: All prescription medicines Tynn-psu-asbcivy medicines such as aspirin or ibuprofen Street drugs Herbs, vitamins, and other supplements Also before the test: Tell your provider about any surgeries you ve had before, that could cause the capsule to get stuck. Switch to a clear liquid [id number] before the test. Don t eat anything starting [id number] before the test. You may be instructed to do a bowel cleansing or use a laxative. This may be needed to h elp clear your bowels before the test. Follow any other instructions from your provider. During the test The test is done in a provider s office or hospital: You ll be asked to raise your shirt. Small, sticky, round patches are placed on the skin over your belly (abdomen). The patch es have antennas that are attached to short wires (leads). The wires are then plugged into a data recorder. The recorder is attached to a belt worn around your waist. Once the recorder is confirmed to be working, you ll be given the capsule to swallow. (In rare cases, the pill may be placed in your small bowel with the help of an endoscope. Th is is a thin, flexible tube that can be inserted through your mouth and down into the digest dannie tract. Your doctor will tell you more about this, if needed.) The capsule works by sendi ng pictures to the recorder as it moves through your stomach and small bowel. After you swallow the capsule, you re usually allowed to leave the facility. You can d rink clear liquids [id number], and you can eat food or take medicines [id number]. Be sure to follow any other instructions from your provider. For instance, you may be told n ot to do certain activities if they can affect your test results. You will be instructed when to return to your provider s office or the hospital. All o f the equipment is then removed. To prevent complications,do not schedule an MRI examor go near the MRI device until the capsule has passed out of your body. The capsule is passed out of your body through your stool. If this does not happen withi n3days, let your healthcare provider know right away. Treatment may have to be done to r emove the capsule. Your provider will tell you more about this, if needed. After the test Once the pictures are reviewed, your provider will go over the results with you. This is us ually within a few days. If the pictures were blurry or unclear, the test may need to be don e again. Risks and complications There is a small chance that the capsulewill not pass out of your body. In that case, the capsule is most likely stuck in your bowels. Surgery or endoscopy willbe needed to remove the capsule. Date Last Reviewed: 05/30/201619995397-7655 [employer]. [address] [place] [address]. All righ ts reserved. This information is not intended as a substitute for professional medical care. Always follow your healthcare professional's instructions. documented in this encounter Progress Notes Claudia Ayala ARNP - 12/12/2019 8:30 AM PSTFormatting of this note might be diffe rent from the original. Chief Complaint Patient presents with Follow-up EGD 11/21/2019 Patient ID: Isabel Ames is a 49 y.o. female. HPI This is a 49 yo female patient in for follow-up procedure/s. Reviewed results with recommen dations based on procedure findings. She has hx of chronic iron deficiency anemia (TONY) rece nt EGD showed no causes of anemia. She was advised to have a capsule study. Denies dysphagia or cardiac pacemaker. Last colonoscopy 2018 [place] [facility] internal hemorrhoids normal other kumar no records. She noticed feeling full easily with loss of appetite and occasional abdomi nal bloating. She is diabetic type 2 on insulin last HgA1c was 6.0 she recalls. NO past swetha jef emptying study. It was recommended due to retained food in stomach during the recent EGD . She has heartburn but it's well controlled on Pepcid bid daily. No issues with constipatio n or diarrhea. Proceed with Capsule endoscopy for TONY: " Would however strongly recommend a very low residue diet and probably even liquid diet for couple days as possible prior to the study since retained food products will completely impair performance of capsule endoscopy" Per Dr William Herrera. EGD also showed: 1. Retained food recommended gastric empty study 2. Erosive esophagitis recommended treatment/antireflix measures PROCEDURE RESULTS/RECOMMENDATIONS EGD Findings: The Z-line was regular and was found 40 cm from the incisors. A single diminutive erosion was found at the gastroesophageal junction. At the GE junction there was a diminutive erosion evident without more extensive changes of erosive esophagitis or any changes to suggest eosinophilic esophagitis. The exam of the esophagus was otherwise normal. A medium amount of food (residue) was found in the gastric body. Moderate amount of retained food in the stomach limiting visualization and examination of the stomach also due to the need to minimize any air insufflation. Antral area was felt to have been well seen however and did not show any antral vascular ectasia or ulcerations. A few localized erosions without bleeding were found in the second portion of the duodenum. Biopsies were taken with a cold forceps for histology. Estimated blood loss was minimal. Suggestion of some superficial erosions in the duodenum. Had to limit air insufflation due to retained food in the stomach. No overt ulcerations seen. Biopsies were taken of the duodenal mucosa for histology. Impression: - Z-line regular, 40 cm from the incisors. - A single erosion at the gastroesophageal junction. - At the GE junction there was a diminutive erosion evident without more extensive changes of erosive esophagitis or any changes to suggest eosinophilic esophagitis. - A medium amount of food (residue) in the stomach. - Moderate amount of retained food in the stomach limiting visualization and examination of the stomach also due to the need to minimize any air insufflation. Antral area was felt to have been well seen however and did not show any antral vascular ectasia or ulcerations. - Duodenal erosions without bleeding. Biopsied. - Suggestion of some superficial erosions in the duodenum. Had to limit air insufflation due to retained food in the stomach. No overt ulcerations seen. Biopsies were taken of the duodenal mucosa for histology. - Suspect component of delayed gastric emptying due to her underlying diabetes. Recommendation: - Patient has a contact number available for emergencies. The signs and symptoms of potential delayed complications were discussed with the patient. Return to normal activities tomorrow. Written discharge instructions were provided to the patient. - Resume previous diet. - Continue present medications. - Await pathology results. - Could pursue capsule endoscopy as was requested. Would however strongly recommend a very low residue diet and probably even liquid diet for couple days as possible prior to the study since retained food products will completely impair performance of capsule endoscopy. - Though not severe there was some evidence of early erosive esophagitis. Would emphasize to her the need to take acid reduction therapy on a regular basis rather than sporadically. Doron Herrera IV, 11/21/2019 9:39:38 AM FINAL PATHOLOGIC DIAGNOSIS: Duodenum, biopsy: - No pathologic abnormality, including no evidence of celiac disease or peptic duoden itis GROSS DESCRIPTION: Review of Systems Constitutional: Negative for activity change, appetite change, chills, diaphoresis, fatigue , fever and unexpected weight change. HENT: Negative for ear pain, mouth sores, nosebleeds, sore throat, trouble swallowing and v oice change. Eyes: Negative for pain, redness and visual disturbance. Respiratory: Negative for cough, choking, chest tightness, shortness of breath and wheezing . Cardiovascular: Negative for chest pain, palpitations and leg swelling. Gastrointestinal: Positive for constipation. Negative for abdominal distention, abdominal p ain, anal bleeding, blood in stool, diarrhea, nausea, rectal pain and vomiting. Endocrine: Positive for cold intolerance. Negative for heat intolerance and polydipsia. Genitourinary: Negative for difficulty urinating, dysuria, frequency, hematuria, urgency an d vaginal bleeding. Musculoskeletal: Positive for joint swelling (hands). Negative for back pain, gait problem, myalgias, neck pain and neck stiffness. Chronic seen by PCP Allergic/Immunologic: Negative for environmental allergies, food allergies and immunocompro mised state. Neurological: Negative for dizziness, tremors, seizures, syncope, weakness, light-headednes s and headaches. Hematological: Negative for adenopathy. Does not bruise/bleed easily. Psychiatric/Behavioral: Positive for agitation. Negative for confusion and dysphoric mood. The patient is nervous/anxious. Allergies Allergen Reactions Clindamycin Hives Adhesive & Tape Rash Rash, Welts, plastic tape Cefazolin Rash Rash Nafcillin Rash Rash Tetanus Toxoids Rash Rash Lisinopril Cough Cough Outpatient Encounter Medications as of 12/12/2019 Medication Sig Dispense Refill allopurinol (ZYLOPRIM) 100 mg tablet Take 1 tablet by mouth daily. 30 tablet 11 [DISCONTINUED] amitriptyline (ELAVIL) 25 mg tablet Take 100 mg by mouth nightly. (Patie nt not taking: Reported on 12/12/2019) amitriptyline (ELAVIL) 50 mg tablet Take 50 mg by mouth nightly. ASPIRIN ADULT LOW STRENGTH 81 MG EC tablet Take 1 tablet by mouth Daily. B-D INS SYRINGE 0.5CC/31GX5/16 31G X 5/16" 0.5 ML MISC 1 BASAGLAR KWIKPEN 100 UNIT/ML injection (pen) Daily. 62 units in AM 45 units in PM BD SHARPS CONTAINER HOME MISC 0 buPROPion (WELLBUTRIN XL) 300 mg 24 hr tablet Take 300 mg by mouth daily. busPIRone (BUSPAR) 15 mg tablet Take 15 mg by mouth 3 (three) times daily. Calcium Carb-Cholecalciferol (CALCIUM-VITAMIN D) 600-400 MG-UNIT TABS Take by mouth da hipolito. (Patient taking differently: Take by mouth 2 times daily.) docusate sodium (COLACE) 100 mg capsule Take 100 mg by mouth 2 (two) times daily. famotidine (PEPCID) 20 mg tablet Take 20 mg by mouth nightly as needed. 0 ferrous sulfate 325 mg tablet Take 1 tablet by mouth 2 times daily (with breakfast & di nner). 180 tablet 3 Fish Oil 1000 MG delayed release capsule Take 1 g by mouth daily. (Patient taking diffe rently: Take 1 g by mouth 3 times daily.) FLUoxetine HCl 60 MG TABS Take 60 mg by mouth daily. (Patient taking differently: Take 60 mg by mouth nightly.) gabapentin (NEURONTIN) 300 mg capsule Take 600 mg by mouth 3 (three) times daily. levothyroxine (SYNTHROID) 25 mcg tablet Take 75 mcg by mouth every morning before break fast. (Patient taking differently: Take 88 mcg by mouth every morning (before breakfast).) LIRAGLUTIDE SC Inject under the skin as needed. For low blood sugar melatonin 5 mg tablet Take 20 mg by mouth nightly. niacin 500 mg tablet Take 500 mg by mouth every morning. NIFEdipine (ADALAT CC) 60 MG 24 hr tablet Take 90 mg by mouth every evening. NOVOLOG FLEXPEN 100 UNIT/ML injection pen Daily. Sldg Scale with 18 units breakfast an d lunch; 22 units with dinner nystatin (MYCOSTATIN) [id number] UNIT/GM cream Apply topically as needed. 0 pravastatin (PRAVACHOL) 40 MG tablet Take 40 mg by mouth nightly. prazosin (MINIPRESS) 2 MG capsule Take 2 mg by mouth nightly. prazosin (MINIPRESS) 5 mg capsule Take by mouth nightly. 0 senna (SENNA) 8.6 mg tablet Take 1 tablet by mouth daily. (Patient taking differently: Take 2 tablets by mouth 2 times daily (before meals).) SUMAtriptan (IMITREX) 50 mg tablet Take 50 mg by mouth as needed for Migraine. No facility-administered encounter medications on file as of 12/12/2019. Past Medical History: Diagnosis Date Anemia Anxiety Bipolar disorder (HCC) with anxiety Chronic constipation Chronic kidney disease, stage III (moderate) (HCC) sees Dr. 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 Cabral in [place], [place] LIPOMA RESECTION x3 on abdomen and neck OTHER SURGICAL HISTORY Ocular implants ROTATOR CUFF REPAIR Left 2009 TONSILLECTOMY AND ADENOIDECTOMY 1992 UPPER GASTROINTESTINAL ENDOSCOPY 07/07/2018 Dr. Cabral in [place], [place] UPPER GASTROINTESTINAL ENDOSCOPY N/A 11/21/2019 Procedure: EGD; Surgeon: Doron Herrera MD; Location: [facility] Family History Problem Relation Age of Onset Colon polyps Neg Hx Colon cancer Neg Hx Malig hypertherm Neg Hx Social History Socioeconomic History Marital status: Single Spouse name: Not on file Number of children: Not on file Years of education: Not on file Highest education level: Not on file Occupational History Not on file Social Needs Financial resource strain: Not on file Food insecurity: Worry: Not on file Inability: Not on file Transportation needs: Medical: Not on file Non-medical: Not on file Tobacco Use Smoking status: Never Smoker Smokeless tobacco: Never Used Substance and Sexual Activity Alcohol use: Not Currently Comment: Last drink 12/2018 Drug use: Never Comment: Drug use: No Sexual activity: Not on file Lifestyle Physical activity: Days per week: Not on file Minutes per session: Not on file Stress: Not on file Relationships Social connections: Talks on phone: Not on file Gets together: Not on file Attends mu-ism service: Not on file Active member of club or organization: Not on file Attends meetings of clubs or organizations: Not on file Relationship status: Not on file Intimate partner violence: Fear of current or ex partner: Not on file Emotionally abused: Not on file Physically abused: Not on file Forced sexual activity: Not on file Other Topics Concern Not on file Social History Narrative Not on file Objective: Physical Exam BP 132/76 | Temp 36.5 C (97.7 F) | Resp 20 | Ht 1.753 m (5' 9") | Wt (!) 160 kg (35 2 lb 12.8 oz) | BMI 52.10 kg/m Gen: NAD, Morbidly obses Mouth and Throat: [place], moist, clean, Uvula midline, Mallampati 2 CV: Regular Lungs: CTAB Abd: Protuberant, pendulous abdomen non-tender, +BS, no masses or organomegaly Ext: No LE edema HENT: EOMI, no scleral icterus Skin: Warm, moist, intact Neuro: Intact and symmetric grossly No components found for: HGBA1C Lab Results Component Value Date WBC 6.4 05/20/2019 HGB 10.7 (A) 11/10/2019 MCV 89.0 11/10/2019 Lab Results Component Value Date NA 138 11/10/2019 K 4.3 11/10/2019 CL 100 11/10/2019 CO2 25 11/10/2019 ANIONGAP 17 11/10/2019 ANIONGAP 32 (A) 11/10/2019 GLUF 180 (A) 05/20/2019 BUN 32 (A) 11/10/2019 GLOB 2.8 02/15/2019 BILITOT 0.2 02/15/2019 AST 17 02/15/2019 ALT 17 02/15/2019 EGFR 26.0 (A) 11/10/2019 Lab Results Component Value Date CHOL 144 04/21/2018 TRIG 214 (A) 04/21/2018 HDL 46 04/21/2018 Lab Results Component Value Date TSH 3.59 04/21/2018 Assessment and Plan: Visit Diagnosis & Associated Orders: 1. Early satiety NM Gastric Emptying 2. Abdominal bloating NM Gastric Emptying 3. Type 2 diabetes mellitus with diabetic nephropathy, with long-term current use of insuli n (HCC) NM Gastric Emptying 4. Gastroesophageal reflux disease with esophagitis Requested Prescriptions No prescriptions requested or ordered in this encounter Recommendations: Iron Deficiency Anemia proceed with Capsule endoscopy. Kourtney LAUGHLIN will be in contact once aut horized by your insurance. Procedure Consent: The procedure, indications, limitations, alternatives available and potential complications to include but not limited to bleeding, perforation, infection, incomplete study and capsul e retention were explained. Opportunity for questions provided and informed consent obtained . Abnormal food retained in EGD: gastric emptying study recommended liquid to a low residue d iet and several days prior to Capsule study.Keep good diabetes control now at HgA1c is in 6. 0 last. Suspected Recommended a Gastric Emptying study to assess how long it takes your digestion t o empty a meal. If abnormal patient can have Diabetic Gastroparesis GERD: By symptoms you have described clearly indicates she has Gastroesophageal Reflux. No warnin g signs such as dysphagia, hematemesis or abdominal pain. Other possibilities could include ulcer disease, biliary disease or rarely neoplastic process among others. With duration of s ymptoms and nocturnal episodes at higher probability for Erosive esophagitis or potentially even Meza's esophagus. Goals of management of Gastroesophageal Reflux are reached with control of any potential in jury and control of symptoms. Should remain on PPI and/or H2 Serene therapy at this point p er provider recommendations. I did discuss potential increased risk for bone fractures using this PPI therapy but curren tly there is no strong evidence of impaired calcium absorption. Mechanism not clear or wheth er just a statistical association. Ongoing studies addressing this issue. Clearly benefits b y being on the medication is recommended: Calcium plus Vitamin D supplementation. Next colonoscopy due in 10 years (2028) Additional Note given to the patient: Plan: 1. Finish work-up from gastroenterology on iron deficiency anemia will have you do the Caps ule endoscopy so swallow a small camera read handout attached and Dr. Herrera recommendations as well. If this Capsule is negative then we would refer you to template worker 2. On the acid reflux continue the Pepcid 20 mg 1/2 hour before breakfast and bedtime daily . See handout on GERD 3. Retained food Gastric emptying study orders given she will have it at [facility] in [facility] [place] they need to send me a copy. 4. Follow up with me I can see you afterwards post capsule this study in 2 months. Records Reviewed PCP chart notes and previous [facility] records including Gastroenterology Procedures/Treatment s/Imaging/Laboratory studies have been reviewed (Using the electronic record system of [facility]). I carefully reviewed the records with regard to the past medical/surgical history, previous medications, and allergies). Nursing notes reviewed for chief complaint, medications, clinical presentation and vital signs Total direct [id number] time of 45minutes spent in reviewing information and discussion w ith greater than 50% of that time spent in counseling or coordinating of care. Thank you for allowing me PABLO Perdomo [facility]enter[facility] [address] [place] [address]. [place]. [address] to participate in the care of your patient. Please do not hesitate to david l me with any questions or concerns. This report has been prepared using a voice recognition system called [employer]. The report wa s reviewed for accuracy, however, sound-alike word errors, addition and/or deletions may occ ur. If there is any question about this report please contact me. documented in this encounter Plan of Treatment +--------+ + + + + | Date | Type | Specialty | Care Team | Description | +--------+ + + + + | 04/30/ | Virtual | Nephrology | Andrews Massey MD | | | 2019 | Office | | [address] [facility] | | | | Visit | | [address] [place] | | | | | | [address] | | | | | | | | +--------+ + + + + | 06/14/ | Office | Cardiology | Ольга Veloz DO | | | 2019 | Visit | | [address] | | | | | | [place] | | | | | | [id number] | | | | | | | | +--------+ + + + + + +---------+--------+ + + | Name | Type | Priori | Associated Diagnoses | Order Schedule | | | | ty | | | + +---------+--------+ + + | NM Gastric Emptying | Imaging | Routin | Type 2 diabetes | Expected: | | | | e | mellitus with | 12/12/2019, Expires: | | | | | diabetic | 01/12/2020 | | | | | nephropathy, with | | | | | | long-term current | | | | | | use of insulin (HCC) | | | | | | Early satiety | | | | | | Abdominal bloating | | + +---------+--------+ + + documented as of this encounter Visit Diagnoses + + | Diagnosis | + + | Early satiety - Primary | + + | Abdominal bloating Flatulence, eructation, and gas pain | + + | Type 2 diabetes mellitus with diabetic nephropathy, with long-term current use of | | insulin (HCC) | + + | Gastroesophageal reflux disease with esophagitis | + + documented in this encounter
--- OUTSIDE RECORDS SUMMARY | ~2020-04-23 | XMS | Encounter Summary ---
Demographics + + + | Address | [address] | | | [place] [address] | + + + | Home Phone | | + + + | Preferred Language | Unknown | + + + | Marital Status | Single | + + + | Mandaen Affiliation | Unknown | + + + | Race | Unknown | + + + | Ethnic Group | Unknown | + + + Author + + + | Author | [facility] | | | and [place] | + + + | Organization | [facility] | | [...] Team Providers + +------+ + | Care Lapper Name | Role | Phone | + +------+ + | Lisa Mcclain MD | PCP | | + +------+ + Encounter Details +--------+ + + + + | Date | Type | Department | Care Team | Description | +--------+ + + + + | 08/22/ | Orders Only | [facility] | Andrews Massey MD | Anemia of chronic | | 2019 | | NEPHROLOGY [place] | [address] [place] | renal failure, stage | | | | [address] [place] | [address] [place], [place] | 3 (moderate) (HCC) | | | | [address] [place], [place] | [address] | (Primary Dx) | | | | [address] | | | | | | [phone] | | | +--------+ + + + [...] | 04/30/ | Virtual | Nephrology | Andrwes Massey MD | | | 2019 | Office | | [address] [facility] [place] | | | | Visit | | [address] | | | | | | [address] | | | | | | | | +--------+ + + + + | 06/14/ | Office | Cardiology | Ольга Veloz DO | | | 2019 | Visit | | [address] | | | | | | [place] | | | | | | [address] | | | | | | | | +--------+ + + + + documented as of this encounter Visit Diagnoses + + | Diagnosis | + + | Anemia of chronic renal failure, stage 3 (moderate) (HCC) - Primary | + + documented in this encounter"
--- OUTSIDE RECORDS SUMMARY | ~2020-04-23 | XMS | Encounter Summary ---
Demographics + + + | Address | [address] | | | [place] [address] | + + + | Home Phone | | + + + | Preferred Language | Unknown | + + + | Marital Status | Single | + + + | Buddhist Affiliation | Unknown | + + + [...] Team Providers + +------+ + | Care Dehydrator Name | Role | Phone | + +------+ + | Lisa Mcclain MD | PCP | | + +------+ + Encounter Details +--------+ + + + + | Date | Type | Department | Care Team | Description | +--------+ + + + + | 07// | Orders Only | [facility] | Conversion | | | 2018 | | CONVERSION [address]P [address] | Transaction, | | | | | [address] | Provider Unknown | | | | | [place], [place] | [phone] | | | | | [phone] | (Fax) | | | | | [phone] | | | +--------+ + + + [...] [place] | | | | | | [address] | | | | | | | | +--------+ + + + + | 06/14/ | Office | Cardiology | Ольга Veloz DO | | | 2019 | Visit | | [address] | | | | | | [place] | | | | | | [address] | | | | | | | | +--------+ + + + + documented as of this encounter Visit Diagnoses Not on filedocumented in this encounter"
--- OUTSIDE RECORDS SUMMARY | ~2020-04-23 | XMS | Encounter Summary ---
Demographics + + + | Address | [address] | | | [place] [address] | + + + | Home Phone | | + + + | Preferred Language | Unknown | + + + | Marital Status | Single | + + + | Orthodoxy Affiliation | Unknown | + + + | Race | Unknown | + + + | Ethnic Group | Unknown | + + + Author + + + | Author | [facility] | | | and [place] | + + + | Organization | [facility] | | | and [...] Team Providers + +------+ + | Care Casting House Worker Name | Role | Phone | + +------+ + | Lisa Mcclain MD | PCP | | + +------+ + Reason for Visit +--------+ + | Reason | Comments | +--------+ + | Other | Medication question | +--------+ + Encounter Details +--------+ + + + + | Date | Type | Department | Care Team | Description | +--------+ + + + + | 10/24/ | Telephone | [facility] | [place], | Other (Medication | | 2019 | | NE[address]Y [address] | Aminah Lovelace | question) | | | | [address] | [address] | | | | | [address] [place] [address] | [address] | | | | [address], [place] | | | | | | [address] | | | | | | [phone] | | | +--------+ + + + [...] 2020 | Office | | [address] [facility] | | | | Visit | | [address] [place], [place] | | | | | | [address] | | | | | | | | +--------+ + + + + | 06/14/ | Office | Cardiology | Ольга Veloz DO | | | 2020 | Visit | | [address] | | | | | | [place] | | | | | | [address] | | | | | | | | +--------+ + + + + documented as of this encounter Visit Diagnoses Not on filedocumented in this encounter"
--- OUTSIDE RECORDS SUMMARY | ~2020-04-23 | XMS | Encounter Summary ---
Demographics + + + | Address | [address] | | | [place] [address] | + + + | Home Phone | | + + + | Preferred Language | Unknown | + + + | Marital Status | Single | + + + | Evangelical Affiliation | Unknown | + + + | Race | Unknown | + + + | Ethnic Group | Unknown | + + + Author + + + | Author | [facility] | | | and [place] | + + + | Organization | [facility] | | [...] Team Providers + +------+ + | Care District Scout Executive Name | Role | Phone | + +------+ + | Lisa Mcclain MD | PCP | | + +------+ + Encounter Details +--------+ + + + + | Date | Type | Department | Care Team | Description | +--------+ + + + + | 10/08/ | Orders Only | [facility] | Andrews Massey MD | | | 2018 | | NEPRHOLOGY [place] | [address] [place] | | | | | [address] [place] | [address] [place], [place] | | | | | [address] [place], [place] | [address] | | | | | [address] | | | | | | [phone] | | | +--------+ + + + [...] 2019 | Office | | [address] [facility] [place] | | | | Visit | | [address] | | | | | | [address] | | | | | | | | +--------+ + + + + | 06/14/ | Office | Cardiology | Ольга Veloz DO | | | 2019 | Visit | | [address] | | | | | | [place] | | | | | | [address] | | | | | | | | +--------+ + + + + documented as of this encounter Procedures + +--------+ + + + | Procedure Name | Priori | Date/Time | Associated Diagnosis | Comments | | | ty | | | | + +--------+ + + + | EXTERNAL LAB: CBC | Routin | 10/08/2018 | | Results for this | | | e | 12:00 AM | | procedure are in the | | | | PST | | results section. | + +--------+ + + + | IRON AND IRON | Routin | 10/08/2018 | | Results for this | | BINDING CAPACITY | e | 12:00 AM | | procedure are in the | | | | PST | | results section. | + +--------+ + + + | URINALYSIS WITH | Routin | 10/08/2018 | | Results for this | | MICROSCOPIC IF | e | 12:00 AM | | procedure are in the | | INDICATED | | PST | | results section. | + +--------+ + + + | PROTEIN/CREATININE | Routin | 10/08/2018 | | Results for this | | RATIO, URINE | e | 12:00 AM | | procedure are in the | | | | PST | | results section. | + +--------+ + + + | URIC ACID | Routin | 10/08/2018 | | Results for this | | | e | 12:00 AM | | procedure are in the | | | | PST | | results section. | + +--------+ + + + | PARATHYROID HORMONE, | Routin | 10/08/2018 | | Results for this | | INTACT | e | 12:00 AM | | procedure are in the | | | | PST | | results section. | + +--------+ + + + | FERRITIN | Routin | 10/08/2018 | | Results for this | | | e | 12:00 AM | | procedure are in the | | | | PST | | results section. | + +--------+ + + + | RENAL FUNCTION PANEL | Routin | 10/08/2018 | | Results for this | | | e | 12:00 AM | | procedure are in the | | | | PST | | results section. | + +--------+ + + + documented in this encounter Results Iron and Iron Binding Capacity (10/08/2018 12:00 AM PST) + + + + + + | Component | Value | Ref Range | Performed | Pathologist | | | | | At | Signature | + + + + + + | Iron | 48.05 | 37 - 160 | EXTERNAL | | | | | | LAB | | + + + + + + | Iron | 12.4 (A) | 20 - 55 | EXTERNAL | | | Saturation | | | LAB | | + + + + + + | TIBC | 389 | 245 - 400 | EXTERNAL | [...] | | | + +---------+ + + Protein/Creatinine Ratio, Urine (10/08/2018 12:00 AM PST) + + + + + + | Component | Value | Ref Range | Performed | Pathologist | | | | | At | Signature | + + + + + + | Protein/Cre | 2352.9 (A) | 0 - 150 | EXTERNAL [...] + + Urinalysis with Microscopic if Indicated (10/08/2018 12:00 AM PST) + + + + + + | Component | Value | Ref Range | Performed | Pathologist | | | | | At | Signature | + + + + + + | Color | Yellow | | EXTERNAL | | | | | | LAB | | + + + + + + | Clarity | Slightly Cloudy | | EXTERNAL | | | | | | LAB | | + + + + + + | Spec Grav, | 1.011 | 1.005 - 1.030 | EXTERNAL | [...] + + + + | Blood, | Comment: small | | EXTERNAL | | | Urine | | | LAB | | + + + + + + | Ketones | negative | | EXTERNAL | | | | [...] + +---------+ + + External Lab: CBC (10/08/2018 12:00 AM PST) + + + + + + | Component | Value | Ref Range | Performed | Pathologist | | | | | At | Signature | + + + + + + | WBC | 7.1 | 4.5 - 11 10 | EXTERNAL | | | | | | LAB | | + + + + + + | Red Blood | 3.66 (A) | 3.8 - 5.1 10 | EXTERNAL | | | Cells | | | LAB | | | Counted | | | | | + + + + + + | Hemoglobin | 10.1 (A) | 12 - 16 g/dL | EXTERNAL | | | | | | LAB | | + + + + + + | Hematocrit, | 30.4 (A) | 35 - 45 % | EXTERNAL | | | POC | | | LAB | | + + + + + + | MCV | 83 | 81 - 99 fL | EXTERNAL [...] + + + + | Platelet | 312 | 140 - 440 K/ L | EXTERNAL | | | Count | | | LAB | | | Plasma | | | | | + + + + + + | RDW-CV | 15.5 (A) | 10.5 - 15 % | EXTERNAL | | | | [...] | + +---------+ + + Uric Acid (10/08/2018 12:00 AM PST) + +---------+ + + + | Component | Value | Ref Range | Performed | Pathologist | | | | | At | Signature | + +---------+ + + + | Uric Acid | 7.6 (A) | 2.3 - 6.6 | EXTERNAL [...] | | | + +---------+ + + Parathyroid Hormone, Intact (10/08/2018 12:00 AM PST) + +-------+ + + + | Component | Value | Ref Range | Performed | Pathologist | | | | | At | Signature | + +-------+ + + + | PTH INTACT | 63.29 | 15 - 65 pg/mL | EXTERNAL | | | | | [...] | | + +---------+ + + Ferritin (10/08/2018 12:00 AM PST) + +-------+ + + + | Component | Value | Ref Range | Performed | Pathologist | | | | | At | Signature | + +-------+ + + + | Ferritin, | 33.61 | 13 - 150 ng/mL | EXTERNAL [...] + +---------+ + + Renal Function Panel (10/08/2018 12:00 AM PST) + + + + + + | Component | Value | Ref Range | Performed | Pathologist | | | | | At | Signature | + + + + + + | Glucose, | 143 (A) | 70 - 100 mg/dL | EXTERNAL | | | Fasting | | | LAB | | + + + + + + | BUN | 31 (A) | 6 - 23 mg/dL | EXTERNAL | | | | | | LAB | | + + + + + + | Creatinine | 1.42 (A) | 0.60 - 1.35 | EXTERNAL | | | | | mg/dL | LAB | | + + + + + + | PHOSPHORUS | 3.8 | 2.5 - 5.0 mg/dL | EXTERNAL | | | | | | LAB | | + + + + + + | Albumin | 3.3 (A) | 3.5 - 5.0 | EXTERNAL | | | | | | LAB | | + + + + + + | Na | 137 | 132 - 143 | EXTERNAL | | | | | mmol/L | LAB | | + + + + + + | K | 4.7 | 3.6 - 5.1 | EXTERNAL | | | | | mmol/L | LAB | | + + + + + + | Cl | 107 | 95 - 112 mmol/L | EXTERNAL | | | | | | LAB | | + + + + + + | CO2 | 20 | 19 - 31 mmol/L | EXTERNAL | | | | | | LAB | | + + + + + + | Anion Gap | 14.7 | 7 - 21 mmol/L | EXTERNAL | | | | | | LAB | | + + + + + + | eGFR if not | | | EXTERNAL | | | | | | LAB | | | PALAUAN | | | | | + + + + + + | Phosphorus, | | | EXTERNAL | | | Inorganic | | | LAB | | + + + + + + | BUN/Creatin | 21.8 | 6 - 28.6 | EXTERNAL | | | ine Ratio | | | LAB | | + + + + + + | Calcium | 8.7 | 8.5 - 10.3 | EXTERNAL | | | | | mg/dL | LAB | | + + + + + + | Estimated | 39 | mg/dL | EXTERNAL | | | GFR [...]
--- OUTSIDE RECORDS SUMMARY | ~2020-04-23 | XMS | Encounter Summary ---
Demographics + + + | Address | [address] | | | [place] [address] | + + + | Home Phone | | + + + | Preferred Language | Unknown | + + + | Marital Status | Single | + + + | Denominational Affiliation | Unknown | + + + | Race | Unknown | + + + | Ethnic Group | Unknown | + + + Author + + + | Author | [facility] | | | and [place] | + + + | Organization | [facility] | | [...] Team Providers + +------+ + | Care Dyer And Washer Name | Role | Phone | + [...] Provider Unknown | | | | | [place], [place] | [phone] | | | | | [phone] | (Fax) | | | | | [phone] | | | +--------+ + + + [...] [place] | | | | | | [address] | | | | | | | | +--------+ + + + + | 06/14/ | Office | Cardiology | Ольга Veloz DO | | | 2019 | Visit | | [address] | | | | | | [place] | | | | | | [address] | | | | | | | | +--------+ + + + + documented as of this encounter Visit Diagnoses Not on filedocumented in this encounter"
--- OUTSIDE RECORDS SUMMARY | ~2020-04-23 | XMS | Encounter Summary ---
Demographics + + + | Address | [address] | | | [place] [address] | + + + | Home Phone | | + + + | Preferred Language | Unknown | + + + | Marital Status | Single | + + + | Restorationist Affiliation | Unknown | + + + | Race | Unknown | + + + | Ethnic Group | Unknown | + + + Author + + + | Author | [facility] | | | and [place] | + + + | Organization | [facility] | | | [...] Team Providers + +------+ + | Care Corrections Sergeant Name | Role | Phone | + +------+ + | Lisa Mcclain MD | PCP | | + +------+ + Encounter Details +--------+ + + + + | Date | Type | Department | Care Team | Description | +--------+ + + + + | 06/16/ | Orders Only | [facility] | Andrews Massey MD | | | 2017 | | NEPHROLOGY [place] | [address] [place] | | | | | [address] [place] | [address] [place], [place] | | | | | [address] [place], [place] | [address] | | | | | [address] | | | | | | [phone] | | | +--------+ + + + [...] 2019 | Office | | [address] [facility] | | | | Visit | | [address] [place] | | | | | | [address] | | | | | | | | +--------+ + + + + | 06/14/ | Office | Cardiology | Ольга Veloz DO | | | 2019 | Visit | | [address] | | | | | | [place] | | | | | | [address] | | | | | | | [...]
--- OUTSIDE RECORDS SUMMARY | ~2020-04-23 | XMS | Encounter Summary ---
Demographics + + + | Address | [address] | | | [place] [address] | + + + | Home Phone [...] Team Providers + +------+ + | Care Core Shaper Sides Name | Role | Phone | + +------+ + | Lisa Watson MD | PCP | | + +------+ + Encounter Details +--------+---------+ + + + | Date | Type | Department | Care Team | Description | +--------+---------+ + + + | 08/22/ | Office | [facility] | Andrews Massey MD | CKD (chronic kidney | | 2019 | Visit | NEPHROLOGY [address] | [address] [place] | disease), stage III | | | | [address] | [address] [place], [place] | ([facility]) (Primary Dx); | | | | [address] | [address] | Persistent | | | | RD, [place] | | proteinuria; Type 2 | | | | [address] | | diabetes mellitus | | | | [phone] | | with diabetic | | | | | | nephropathy, with | | | | | | long-term current | | | | | | use of insulin | | | | | | ([facility]); Essential | | | | | | [...] | | | | 49.9 in adult ([facility]); | | | | | | Anemia of chronic | | | | | | renal failure, stage | | | | | | 3 (moderate) ([facility]); | | | | | | Hyperuricemia; | | | | | | Vitamin D | | | | | | deficiency; | | | | | | Bilateral leg edema | +--------+---------+ + + + Social History [...] + + + | Blood Pressure | 142/82 | 08/22/2019 11:05 AM | | | | | PDT | | + + + + + | Pulse | 82 | 08/22/2019 11:05 AM | | | | | PDT | | + + + + + [...] + + + + | Weight | 159.8 kg (352 lb 4.8 | 08/22/2019 11:05 AM | | | | oz) | PDT | | + + + + + | Height | 175.3 cm (5' 9") | 08/22/2019 11:05 AM | | | | | PDT | | + + + + + | Body Mass Index | 52.03 | 08/22/2019 11:05 AM | | | | | PDT | | + + + + + documented in this encounter Patient Instructions Patient Instructions Andrews Massey MD - 08/22/2019 10:50 AM PDTDiscussions/Recommendations : I discussed today with Ms. Restrepo [...] to me her home BP readings in 2 then 5 weeks. At that time, I will decide whether any change to his vasoactive regimen is warranted. I sent her for a repeat BMP, CBC in 5 weeks. I increased her Ferrous Sulfate 325 mg to twice a day. I warned her about its possible s konstantin effects including constipation. she voiced good understanding. [...] RFP, CBC, Iron studies, Ferritin, uric acid, Urine total vktzgfr-ry-vkxc tinine ratio before she comes back in 3 months. documented in this encounter Progress Notes Andrews Massey MD - 08/22/2019 10:50 AM PDT Patient Active Problem List Diagnosis Date Noted POA CKD (chronic kidney disease), stage III 06/18/2018 [...] Bilateral leg edema 06/18/[address] watson: I saw your patient [...] to baseline with t he interventions at [facility]. The patient has history of hypertension since [...] mg tablet, Take 100 mg by mouth nightly., Disp: , Rfl: B-D INS SYRINGE 0.5CC/31GX5/16 31G X 5/16" 0.5 ML MISC, , Disp: , Rfl: 1 BD SHARPS CONTAINER HOME MISC, , Disp: , Rfl: 0 buPROPion (WELLBUTRIN XL) 300 mg 24 hr tablet, Take 300 mg by mouth daily., Disp: , Rf l: busPIRone (BUSPAR) 15 mg tablet, Take 15 mg by mouth 3 (three) times daily., Disp: , R fl: Calcium Carb-Cholecalciferol (CALCIUM-VITAMIN D) 600-400 MG-UNIT TABS, Take by mouth daily., Disp: , Rfl: docusate sodium (COLACE) 100 mg capsule, Take 100 mg by mouth 2 (two) times daily., Di sp: , Rfl: famotidine (PEPCID) 20 mg tablet, Take 20 mg by mouth nightly as needed., Disp: , Rfl: 0 ferrous sulfate 325 mg tablet, Take 325 mg by mouth daily (with breakfast)., Disp: , R fl: Fish Oil 1000 MG delayed release capsule, Take 1 g by mouth daily., Disp: , Rfl: FLUoxetine HCl 60 MG [...] Inject under the skin., Disp: , Rfl: NIFEdipine (ADALAT CC) 60 MG 24 hr tablet, Take 60 mg by mouth every evening., Disp: , Rfl: nystatin (MYCOSTATIN) 192956 UNIT/GM cream, Apply topically as needed., Disp: [...] tablet by mouth daily., Disp: , Rfl: SUMAtriptan (IMITREX) 50 mg tablet, Take 50 mg by mouth as needed for Migraine., Disp: , Rfl: Physical Exam: BP 142/82 | Pulse 82 | Ht 1.753 m (5' 9") | Wt (!) 159.8 kg (352 lb 4.8 oz) | BMI 52.03 kg/m General appearance: Pleasant, not in acute [...] bilaterally. Extremities: Warm to touch with 2+ leg edema. There is no cyanosis. Skin: There are no rashes, petechiae, or ecchymosis. Neurological: Awake, alert, and oriented to time, place, and person. Normal gross motor po wer. There is no asterixis. Psychiatric: The patient s behavior is normal. Judgment and thought content are normal. *I also reviewed with her her labs from 08/19/19.* Lab Results Component Value Date BUN 29 [...] 16.5 (A) 05/06/2019 LABPROT 1,148.6 (A) 05/06/2019 [id number] 22 (A) 04/21/2018 Assessment: Ms. Restrepo is a 48 y.o. female patient with stage IIIb CKD on a background of longstanding diabetes & hypertension. The most likely pathology here is that of diabetic nephropathy +/- hypertensive nephrosclerosis/arteriolosclerosis. RENAL FUNCTION: Relatively stable GFR [...] (Spirono or Eplerenone) as her K was at or near the upper limit o f normal; I will see if she can bring her K down with limiting it in the diet. Then I will i ntroduce an MRA.) She will report back to me her home BP readings in 2 weeks. At that time, I will decide whether any change to his vasoactive regimen is warranted. I sent her for a repeat BMP, CBC in 5 weeks. I increased her Ferrous Sulfate 325 mg to twice a day. I warned her about its possible s konstantin effects including constipation. she voiced good understanding. [...] RFP, CBC, Iron studies, Ferritin, uric acid, Urine total mhxhwet-he-vcwf tinine ratio before she comes back in 3 months. I spent 15 minutes of this 25-minute visit in education, counseling and answering all of her questions to her satisfaction. Thank you Dr Watson for the opportunity to see this patient in F/U today. Please do not hesi dunn to call me at any time with questions or concerns. Truly yours, Andrews Massey MD [facility] documented in this enco unter Plan of Treatment +--------+ + + + + | Date | Type | Specialty | Care Team | Description | +--------+ + + + + | 04/30/ | Virtual | Nephrology | Andrews Massey MD | | | 2019 | Office | | [address] [facility] [place] | | | | Visit | | [address] [place] | | | | | | [address] | | | | | | | | +--------+ + + + + | 06/14/ | Office | Cardiology | Ольга Veloz DO | | | 2019 | Visit | | [address] | | | | | | [place] | | | | | | [address] | | | | | | | | +--------+ + + + + documented as of this encounter Visit Diagnoses + + | Diagnosis | + + | CKD (chronic kidney disease), stage III (HCC) - Primary Chronic kidney disease, Stage | | III (moderate) | + + | Persistent proteinuria Proteinuria [...] (BMI) of 45.0 to 49.9 in adult ([facility]) | + + | Anemia of chronic renal failure, stage 3 (moderate) ([facility]) | + + | Hyperuricemia Other abnormal blood chemistry | + + | Vitamin D deficiency Unspecified vitamin D deficiency | + + | Bilateral leg edema Edema | + + documented in this encounter
--- OUTSIDE RECORDS SUMMARY | ~2020-04-23 | XMS | Encounter Summary ---
Demographics + + + | Address | [address] | | | [place] [address] | + + + | Home Phone [...] Team Providers + +------+ + | Care Molder Hand Name | Role | Phone | + [...] | | | | | | | OK EGD | | | | | | | TRANSORAL | | | | | | | BIOPSY | | | | | | | SINGLE/MULTI | | | | | | | PLE [place] | | | | | | | [...] + + | 11/21/ | Surgery | [facility] | Doron Herrera | EGD | | 2019 | | [facility] | MD [address] | | | | | INTRA [address] | [place] | | | | | [place] | [address] | | | | | [address] | | | | | | [phone] | | | +--------+---------+ + + + [...] 0 | 06/21/20 | | | (MYCOSTATIN) [id number] | needed. | | | 18 | [...] 2019 | Office | | [address] [facility] | | | | Visit | | [address] [place] | | | | | | [address] | | | | | | | | +--------+ + + + + | 06/14/ | Office | Cardiology | Ольга Veloz DO | | | 2019 | Visit | | [address] | | | | | | [place] | | | | | | [address] | | | | | | | [...] + +--------+ + + + | *TERMED* [place] UPPER GI | Routin | 11/21/2019 | [...] interpretation was | | | performed by [facility] | | | [place], [place] (Dump Truck Driver Off Highway: August Bray M.D.; | | | CLIA#: [id number]).The technical component was performed by [facility] [employer] | | | [address] [address] (Dump [address] Off Highway: | | | Brooklyn Hunter MD; CLIA# [id number]). Diagnostician: August Bray | | | MDPathologistElectronically Signed 11/24/2019 | | |PERFORMING LABORATORY: | | |The professional interpretation was performed by [facility] (Dump [address] Driver Off Highway: August Bray M.D.; CLIA#: [id number]). | | |The technical component was performed by [facility], [address] [place] [address] (Dump Truck Driver Off Highway: Brooklyn Hunter MD; CLIA# [id number]). | | | | | |Diagnostician: August [...] | + + + | [place] | [facility] | | [facility] | PROVATION | | CenterGastroenterology | | | Patient Name: Wayne , | | | Isabel Harrell Procedure Date: 11/21/2019 9:13 AMMRN: [id number] | | | of : | | [...] AMNumber of | | | Addenda: 0 [facility] | | | | | |Doron Barberer IV, | | |11/21/2019 9:39:38 AM | | |This report has been signed electronically. | | | | | |Note Initiated On: 11/21/2019 9:13 AM | | |Number of Addenda: 0 | | | | | | [facility] | | + + + + [...]
--- OUTSIDE RECORDS SUMMARY | ~2020-04-23 | XMS | Encounter Summary ---
Demographics + + + | Address | [address] | | | [place] [address] | + + + | Home Phone [...] Author + + + | Author | [facility] | | | and [place] | + + + | Organization | [facility] | | | [...] Team Providers + +------+ + | Care Supplier Specialist Name | Role | Phone | + +------+ + | Yessica Mayorga MD | PCP | | + +------+ + Encounter Details +--------+ + + + + | Date | Type | Department | Care Team | Description | +--------+ + + + + | 02/11/ | Orders Only | [facility] | Andrews Massey MD | | | 2019 | | [place]HOLOGY [place] | [address] [place] | | | | | [address] [place] | [address] [place], [place] | | | | | [address] [place], [place] | [address] | | | | | [address] | | | | | | [phone] | | | +--------+ + + + [...] 2019 | Office | | [address] [facility] [place] | | | | Visit | | [address] [place] | | | | | | [address] | | | | | | | | +--------+ + + + + | 06/14/ | Office | Cardiology | Ольга Veloz DO | | | 2019 | Visit | | [address] | | | | | | [place] | | | | | | [address] | | | | | | | | +--------+ + + + + documented as of this encounter Procedures + +--------+ + + + | Procedure Name | Priori | Date/Time | Associated Diagnosis | Comments | | | ty | | | | + +--------+ + + + | BASIC METABOLIC | Routin | 02/11/2019 | | Results for this | | PANEL | e | 4:58 PM | | procedure are in the | | | | PDT | | results section. | + +--------+ + + + documented in this encounter Results Basic Metabolic Panel (02/11/2019 4:58 PM PDT) + + + + + + | Component | Value | Ref Range | Performed | Pathologist | | | | | At | Signature | + + + + + + | Glucose, | 277 (A) | 70 - 100 mg/dL | EXTERNAL | | | Fasting | | | LAB | | + + + + + + | BUN | 32 (A) | 6 - 23 mg/dL | EXTERNAL | | | | | | LAB | | + + + + + + | Creatinine | 1.66 (A) | 0.60 - 1.35 | EXTERNAL | | | | | mg/dL | LAB | | + + + + + + | BUN/Creatin | 19.3 | 6.0 - 28.6 | EXTERNAL | | | ine Ratio | | | LAB | | + + + + + + | Calcium | 9.2 | 8.5 - 10.3 | EXTERNAL | | | | | mg/dL | LAB | | + + + + + + | Na | 136 | 132 - 143 | EXTERNAL | | | | | mmol/L | LAB | | + + + + + + | K | 5.4 (A) | 3.6 - 5.1 | EXTERNAL | | | | | mmol/L | LAB | | + + + + + + | Cl | 105 | 95 - 112 mmol/L | EXTERNAL | | | | | | LAB | | + + + + + + | CO2 | 22 | 19 - 31 mmol/L | EXTERNAL | | | | | | LAB | | + + + + + + | Anion Gap | 14.4 | 7 - 21 mmol/L | EXTERNAL | | | | | | LAB | | + + + + + + | Estimated | 33 (A) | 60 - 140 [...]
--- OUTSIDE RECORDS SUMMARY | ~2020-04-23 | XMS | Encounter Summary ---
Demographics + + + | Address | [address] | | | [place] [address] | + + + | Home Phone | | + + + | Preferred Language | Unknown | + + + | Marital Status | Single | + + + | Uatsdin Affiliation [...] Team Providers + +------+ + | Care Air Conditioning Manager Name | Role | Phone | + +------+ + | Lisa Mcclain MD | PCP | | + +------+ + Encounter Details +--------+ + + + + | Date | Type | Department | Care Team | Description | +--------+ + + + + | 01/18/ | Documentati | [facility] | Doron Herrera | | | 2020 | on | GASTROENTEROLOGY | MD [address] | | | | | [address] | [place] [place], [place] | | | | | [place], [place] | [address] | | | | | [address] | | | | | | [phone] | | | +--------+ + + + [...] documented as of this encounter Progress Notes Doron Herrera MD - 01/18/2020 12:51 PM PSTCapsule endoscopy performed 01/12/2020. Cecum was reached during study. Quality of prep felt to be good. No abnormalities seen. Full report to be scanned under media tab.Electronically signed by MD iglesia Hassan t 01/18/2020 12:57 PM PSTdocumented in this encounter Plan of Treatment +--------+ + + + + | Date | Type | Specialty | Care Team | Description | +--------+ + + + + | 04/30/ | Virtual | Nephrology | Andrews Massey MD | | | 2019 | Office | | [address] [facility] | | | | Visit | | [address] [place], [place] | | | | | | [phone] | | | | | | | | +--------+ + + + + | 06/14/ | Office | Cardiology | Ольга Veloz DO | | | 2019 | Visit | | [address] | | | | | | [place] | | | | | | [address] | | | | | | | | +--------+ + + + + documented as of this encounter Visit Diagnoses Not on filedocumented in this encounter"
--- OUTSIDE RECORDS SUMMARY | ~2020-04-23 | XMS | Encounter Summary ---
Demographics + + + | Address | [address] | | | [place] [address] | + + + | Home Phone [...] Team Providers + +------+ + | Care Displayer Name | Role | Phone | + +------+ + | Lisa Mcclain MD | PCP | | + +------+ + Reason for Visit +--------+ + | Reason | Comments | +--------+ + | Other | UTI and kidney pain | +--------+ + Encounter Details +--------+ + + + + | Date | Type | Department | Care Team | Description | +--------+ + + + + | 03/13/ | Telephone | [facility] | Andrews Massey MD | Other (UTI and | | 2019 | | NE[address]OLOGY [address] | [address] [place] | kidney pain) | | | | [address] | [address] [place], [place] | | | | | [address] | [address] | | | | | [place], [place] | | | | | | [address] | | | | | | [phone] | | | +--------+ + + + [...] 2020 | Office | | [address] [facility] | | | | Visit | | [address] [place], [place] | | | | | | [address] | | | | | | | | +--------+ + + + + | 06/14/ | Office | Cardiology | Ольга Veloz DO | | | 2019 | Visit | | [address] | | | | | | [place] | | | | | | [address] | | | | | | | | +--------+ + + + + documented as of this encounter Visit Diagnoses Not on filedocumented in this encounter"
--- OUTSIDE RECORDS SUMMARY | ~2020-04-23 | XMS | Encounter Summary ---
Demographics + + + | Address | [address] | | | [place] [address] | + + + | Home Phone | | + + + | Preferred Language | Unknown | + + + | Marital Status | Single | + + + | Voodoo Affiliation | Unknown | + + + | Race | Unknown | + + + | Ethnic Group | Unknown | + + + Author + + + | Author | [facility] | | | and [place] | + + + | Organization | [facility] | | | [...] Team Providers + +------+ + | Care Phys Asst Name | Role | Phone | + +------+ + | Lisa Mcclain MD | PCP | | + +------+ + Encounter Details +--------+ + + + + | Date | Type | Department | Care Team | Description | +--------+ + + + + | 05/09/ | Orders Only | [facility] | Conversion | | | 2019 | | CONVERSION [address] | Transaction, | | | | [address] | Provider Unknown | | | | | [place], [place] | [phone] | | | | | [address] | (Fax) | | | | | [phone] | | | +--------+ + + + [...] 2019 | Office | | [address] [facility] [place] | | | | Visit | | [address] [place] | | | | | | [address] | | | | | | | | +--------+ + + + + | 06/14/ | Office | Cardiology | Ольга Veloz DO | | | 2019 | Visit | | [address] | | | | | | [place] | | | | | | [address] | | | | | | | | +--------+ + + + + documented as of this encounter Visit Diagnoses Not on filedocumented in this encounter"
--- OUTSIDE RECORDS SUMMARY | ~2020-04-23 | XMS | Encounter Summary ---
Demographics + + + | Address | [address] | | | [place] [address] | + + + | Home Phone | | + + + | Preferred Language | Unknown | + + + | Marital Status | Single | + + + | Amish Affiliation | Unknown | + + + | Race | Unknown | + + + | Ethnic Group | Unknown | + + + Author + + + | Author | [facility] | | | and [place] | + + + | Organization | [facility] | | | [...] Team Providers + +------+ + | Care Jigger Artisan Name | Role | Phone | + +------+ + | Lisa Watson MD | PCP | | + +------+ + Encounter Details +--------+---------+ + + + | Date | Type | Department | Care Team | Description | +--------+---------+ + + + | 08/22/ | Office | [facility] | Andrews Massey MD | CKD (chronic kidney | | 2019 | Visit | NEPHROLOGY [address] | [address] [place] | disease), stage III | | | | [address] | [address] [place], [place] | ([facility]) (Primary Dx); | | | | [address] | [address] | Persistent | | | | RD, [place] | | proteinuria; Type 2 | | | | [address] | | diabetes mellitus | | | | [phone] | | with diabetic | | | | | | nephropathy, with | | | | | | long-term current | | | | | | use of insulin | | | | | | ([facility]); Essential | | | | | | [...] | | | | 49.9 in adult ([facility]); | | | | | | Anemia of chronic | | | | | | renal failure, stage | | | | | | 3 (moderate) ([facility]); | | | | | | Hyperuricemia; [...] Iron studies, Ferritin, uric acid, Urine total itkhmoe-zr-xjgj tinine ratio before she comes back in [...] to baseline with t he interventions at [facility]. The patient has history of hypertension [...] every evening., Disp: , Rfl: nystatin (MYCOSTATIN) 169921 UNIT/GM cream, Apply topically as needed., Disp: [...] 16.5 (A) 05/06/2019 LABPROT 1,148.6 (A) 05/06/2019 [id number] 22 (A) 04/21/2018 Assessment: Ms. Restrepo is [...] Iron studies, Ferritin, uric acid, Urine total ttxreso-in-opwl tinine ratio before she comes back in 3 months. I spent 15 minutes of this 25-minute visit in education, counseling and answering all of her questions to her satisfaction. Thank you Dr Watson for the opportunity to see this patient in F/U today. Please do not hesi dunn to call me at any time with questions or concerns. Truly yours, Andrews Massey MD [facility] LE[facility] documented in this enco unter Plan of Treatment +--------+ + + + + | Date | Type | Specialty | Care Team | Description | +--------+ + + + + | 04/30/ | Virtual | Nephrology | Andrews Massey MD | | | 2019 | Office | | [address] [facility] [place] | | | | Visit | | [address] [place] | | | | | | [address] | | | | | | | | +--------+ + + + + | 06/14/ | Office | Cardiology | Ольга Veloz DO | | | 2019 | Visit | | [address] | | | | | | [place] | | | | | | [address] | | | | | | | [...] (BMI) of 45.0 to 49.9 in adult ([facility]) | + + | Anemia of chronic renal failure, stage 3 (moderate) ([facility]) | + + | Hyperuricemia Other abnormal blood chemistry | + + | Vitamin D deficiency Unspecified vitamin D deficiency | + + | Bilateral leg edema Edema | + + documented in this encounter
--- OUTSIDE RECORDS SUMMARY | ~2020-04-23 | XMS | Encounter Summary ---
Demographics + + + | Address | [address] | | | [place] [address] | + + + | Home Phone | | + + + | Preferred Language | Unknown | + + + | Marital Status | Single | + + + | Hindu Affiliation | Unknown | + + + | Race | Unknown | + + + | Ethnic Group | Unknown | + + + Author + + + | Author | [facility] | | | and [place] | + + + | Organization | [facility] | | | [...] Team Providers + +------+ + | Care Online Journalist Name | Role | Phone | + +------+ + | Lisa Mcclain MD | PCP | | + +------+ + Encounter Details +--------+ + + + + | Date | Type | Department | Care Team | Description | +--------+ + + + + | 10/26/ | Orders Only | [facility] | Andrews Massey MD | | | 2017 | | NEPHROLOGY [place] | [address] [place] | | | | | [address] [place] | [address] [place], [place] | | | | | [address] [place], [place] | [address] | | | | | [address] | | | | | | [phone] | | | +--------+ + + + [...] 2019 | Office | | [address] [facility] | | | | Visit | | [address] [place] | | | | | | [address] | | | | | | | | +--------+ + + + + | 06/14/ | Office | Cardiology | Ольга Veloz DO | | | 2019 | Visit | | [address] | | | | | | [place] | | | | | | [address] | | | | | | | [...]
--- OUTSIDE RECORDS SUMMARY | ~2020-04-23 | XMS | Encounter Summary ---
Demographics + + + | Address | [address] | | | [place] [address] | + + + | Home Phone [...] + + | Author | [facility] | | | and [place] | + + + | Organization | [facility] | | [...] Team Providers + +------+ + | Care Abatement Worker Name | Role | Phone | + +------+ + | Lisa Mcclain MD | PCP | | + +------+ + Encounter Details +--------+ + + + + | Date | Type | Department | Care Team | Description | +--------+ + + + + | 10/26/ | Orders Only | [facility] | Andrews Massey MD | | | 2017 | | NEPHROLOGY [place] | [address] [place] | | | | | [address] [place] | [address] [place], [place] | | | | | [address] [place], [place] | [address] | | | | | [address] | | | | | | [phone] | | | +--------+ + + + [...] 2019 | Office | | [address] [facility] | | | | Visit | | [address] [place] | | | | | | [address] | | | | | | | | +--------+ + + + + | 06/14/ | Office | Cardiology | Ольга Veloz DO | | | 2019 | Visit | | [address] | | | | | | [place] | | | | | | [address] | | | | | | | [...]
--- OUTSIDE RECORDS SUMMARY | ~2020-04-23 | XMS | Encounter Summary ---
Demographics + + + | Address | [address] | | | [place] [address] | + + + | Home Phone | | + + + | Preferred Language | Unknown | + + + | Marital Status | Single | + + + | Gnosticist Affiliation | Unknown | + + + | Race | Unknown | + + + | Ethnic Group | Unknown | + + + Author + + + | Author | [facility] | | | and [place] | + + + | Organization | [facility] | | [...] Team Providers + +------+ + | Care Corner Block Cutter Name | Role | Phone | + +------+ + | Lisa Mcclain MD | PCP | | + +------+ + Reason for Visit Diagnostic/Screening (Routine) +--------+--------+ + + + + | Status | Reason | Specialty | Diagnoses / | Referred By | Referred To | | | | | Procedures | Contact | Contact | +--------+--------+ + + + + | Closed | | Radiology | Diagnoses | Javier | [facility] | | | | | Iron | Doron | [address] | | | | | deficiency | MD Don | [address] | | | | | anemia | [address] | [place], [place] | | | | | secondary to | BLVD | [address] | | | | | blood loss | [place], [place] | Phone: | | | | | (chronic) | [address] | [phone] | | | | | Procedures | Phone: | Fax: | | | | | CHG | [phone] | [phone] | | | | | RADIOLOGIC | Fax: | | | | | | EXAM SMALL | [phone] | | | | | | INT SINGLE | | | | | | | CONTRAST | | | | | | | STUDY [facility] | | | | | | | FL SBFT | | | +--------+--------+ + + + + Encounter Details +--------+ + + + + | Date | Type | Department | Care Team | Description | +--------+ + + + + | 10/17/ | Hospital | [facility] | Doron Herrera | Iron deficiency | | 2019 | Encounter | [facility] X[facility] | MD Don [address] | anemia due to | | | | [address] | [facility] [place] | chronic blood loss | | | | [place] | [address] | | | | | [address] | | | | | | [phone] | [place], [facility] [place]NAL OPERATOR | | +--------+ + + + + [...] + + +---------+ + + | BASAGLAR BEEIKPEN | Daily. 62 units in | | [...] mg by mouth | | 0 | 07/05/20 | | | (COLACE) 100 mg | [...] 0 | 06/21/20 | | | (MYCOSTATIN) [id number] | needed. | | | 18 | [...] 2019 | Office | | [address] [facility] | | | | Visit | | [address] [facility] | | | | | | [address] | | | | | | | | +--------+ + + + + | 06/14/ | Office | Cardiology | Ольга Veloz DO | | | 2019 | Visit | | [address] | | | | | | [place] | | | | | | [address] | | | | | | | | +--------+ + + + + documented as of this encounter Procedures + +--------+ + + + | Procedure Name | Priori | Date/Time | Associated Diagnosis | Comments | | | ty | | | | + +--------+ + + + | FL SMALL BOWEL | Routin | 10/17/2019 | Iron deficiency | Results for this | | FOLLOW THROUGH | e | 1:19 PM | anemia due to | procedure are in the | | | | PST | chronic blood loss | results section. | + +--------+ + + + documented in this encounter Results FL Small Bowel Follow Through (10/17/2019 1:19 PM PST) + + | Specimen | + + | | + + + + + | Impressions | Performed At | + + + | 1. Normal appearance of the small bowel loops. Normal mucosal | [facility] | | pattern. No stricture. Terminal ileum appears normal. 2. The small | | | bowel transit time was slow and measured 3 hours 50 minutes. | | | Signed by: Philip Raphael, Jackson Sign Date/Time: 10/17/2019 1:42 | | | PM | | + + + + + + | Narrative | Performed At | + + + | SMALL BOWEL FOLLOW THROUGH CLINICAL INFORMATION: Iron | [facility] | | deficiency anemia due to chronic blood loss COMPARISON: None | | | PROCEDURE: Graduate Intern image of the abdomen. Following ingestion of | | | liquid barium, sequential images obtained of the abdomen were | | | obtained. Additional fluoroscopic images of the small bowel with spot | | | images, as needed. Fluoro Time: .9 minute(s). Number of images: | | | 21 Air Kerma: 64.17 mGy FINDINGS: Graduate Intern image: Non-distended | | | bowel gas pattern. No free intraperitoneal air. No abnormal | | | abdominal or pelvic calcifications. No significant osseous | | | abnormality. Cholecystectomy clips. Single contrast appearance | | | of the stomach morphology is normal. No evidence of gastric outlet | | | or duodenal obstruction. Normal diameter of the small bowel. | | | Normal small bowel mucosal pattern. No fixed stricture or filling | | | defects. Terminal ileum appears normal. Small bowel transit | | | time of 230 minutes. | | + + + + + | Procedure Note | + + | Mohit, Rad Results In - 10/17/2019 1:46 PM PST | | SMALL BOWEL FOLLOW THROUGH | | | | CLINICAL INFORMATION: | | Iron deficiency anemia due to chronic blood loss | | | | COMPARISON: | | None | | | | PROCEDURE: | | Graduate Intern image of the abdomen. Following ingestion of liquid barium, | | sequential images obtained of the abdomen were obtained. Additional | | fluoroscopic images of the small bowel with spot images, as needed. | | | | Fluoro Time: .9 minute(s). Number of images: 21 Air Kerma: 64.17 mGy | | | | FINDINGS: | | Graduate Intern image: Non-distended bowel gas pattern. No free intraperitoneal | | air. No abnormal abdominal or pelvic calcifications. No significant | | osseous abnormality. Cholecystectomy clips. | | | | Single contrast appearance of the stomach morphology is normal. No | | evidence of gastric outlet or duodenal obstruction. | | | | Normal diameter of the small bowel. Normal small bowel mucosal | | pattern. No fixed stricture or filling defects. Terminal ileum | | appears normal. | | | | Small bowel transit time of 230 minutes. | | | | IMPRESSION: | | 1. Normal appearance of the small bowel loops. Normal mucosal pattern. | | No stricture. Terminal ileum appears normal. | | 2. The small bowel transit time was slow and measured 3 hours 50 | | minutes. | | | | | | | | | | Signed by: Philip Raphael Isaac | | Sign Date/Time: 10/17/2019 1:42 PM | + + + +---------+ + + | Performing | Address | City/State/Zipcode | Phone Number | | Organization | | | | + +---------+ + + | [facility] | | | | + +---------+ + [...] | | | + +--------+ +--------+------+------+ | barium (LIQUID E-Z-PAQUE) 60% | Given | 10/17/20 | 1,065 | | | | contrast suspension 355 mL 355 | | 19 9:15 | mLs | | | | mL, Oral, ONCE, 10/17/19 at | | AM PST | | | | | 0915, For 1 dose, Shake well., | | | | | | | Radiology | | | | | | + +--------+ +--------+------+------+ +---+---+ | | | +---+---+ documented in this encounter
--- OUTSIDE RECORDS SUMMARY | ~2020-04-23 | XMS | Encounter Summary ---
Demographics + + + | Address | [address] | | | [place] [address] | + + + | Home Phone | | + + + | Preferred Language | Unknown | + + + | Marital Status | Single | + + + | Christian Affiliation | Unknown | + + + | Race | Unknown | + + + | Ethnic Group | Unknown | + + + Author + + + | Author | [facility] | | | and [place] | + + + | Organization | [facility] | | | [...] Team Providers + +------+ + | Care Sewer Connector Name | Role | Phone | + [...] | | anemia | [address] | [place], [place] | | | | | secondary to | BLVD | [address] | | | | | blood loss | [place], [place] | Phone: | | | | | (chronic) | [address] | [phone] | | | | | Procedures | Phone: | Fax: | | | | | CHG | [phone] | [phone] | | | | | RADIOLOGIC | Fax: | | | | | | EXAM SMALL | [phone] | | | | | | INT [...] + + | 10/17/ | Hospital | [facility] | Doron Herrera | Iron deficiency | | 2019 | Encounter | [facility] X[facility] | MD Don [address] | anemia due to | | | | [address] | [facility] [place] | chronic blood loss | | | | [place] | [address] | | | | | [address] | | | | | | [phone] | Imaging, [facility] ACCOUNTING OFFICE MANAGER | | +--------+ + + + + [...] 0 | 06/21/20 | | | (MYCOSTATIN) [id number] | needed. | | | 18 | [...] 2019 | Office | | [address] [facility] | | | | Visit | | [address] [facility] | | | | | | [address] | | | | | | | | +--------+ + + + + | 06/14/ | Office | Cardiology | Ольга Veloz DO | | | 2019 | Visit | | [address] | | | | | | [place] | | | | | | [address] | | | | | | | [...] loss COMPARISON: None | | | PROCEDURE: English Language Learner Tutor image of the abdomen. Following ingestion of | | | liquid barium, sequential images obtained of the abdomen were | | | obtained. Additional fluoroscopic images of the small bowel with spot | | | images, as needed. Fluoro Time: .9 minute(s). Number of images: | | | 21 Air Kerma: 64.17 mGy FINDINGS: English Language Learner Tutor image: Non-distended | | | bowel gas [...] | | | | PROCEDURE: | | English Language Learner Tutor image of the abdomen. Following ingestion of liquid barium, | | sequential images obtained of the abdomen were obtained. Additional | | fluoroscopic images of the small bowel with spot images, as needed. | | | | Fluoro Time: .9 minute(s). Number of images: 21 Air Kerma: 64.17 mGy | | | | FINDINGS: | | English Language Learner Tutor image: Non-distended bowel gas pattern. No free [...]
--- OUTSIDE RECORDS SUMMARY | ~2020-04-23 | XMS | Encounter Summary ---
Demographics + + + | Address | [address] | | | [place] [address] | + + + | Home Phone | | + + + | Preferred Language | Unknown | + + + | Marital Status | Single | + + + | Mu-Ism Affiliation | Unknown | + + + [...] Team Providers + +------+ + | Care Music Educator Name | Role | Phone | + +------+ + | Lisa Mcclain MD | PCP | | + +------+ + Reason for Visit +---------+ + | Reason | Comments | +---------+ + | Results | 09/28/19 | +---------+ + Encounter Details +--------+ + + + + | Date | Type | Department | Care Team | Description | +--------+ + + + + | 10/06/ | Documentati | [facility] | Harrison, | Results (09/28/19) | | 2019 | on | NEPHROLOGY [address] | [facility] | | | | | [address] | [employer]er | | | | | [address] | | | | | | [place] | | | | | | [address] | | | | | | [phone] | | | +--------+ + + + [...] 2019 | Office | | [address] [facility] | | | | Visit | | [address] [facility] [facility] | | | | | | [address] | | | | | | | | +--------+ + + + + | 06/14/ | Office | Cardiology | Ольга Veloz DO | | | 2019 | Visit | | [address] | | | | | | [place] | | | | | | [address] | | | | | | | | +--------+ + + + + documented as of this encounter Procedures + +--------+ + + + | Procedure Name | Priori | Date/Time | Associated Diagnosis | Comments | | | ty | | | | + +--------+ + + + | EXTERNAL LAB: PTH, | Routin | 09/28/2019 | | Results for this | | INTACT | e | | | procedure are in the | | | | | | results section. | + +--------+ + + + | IRON AND IRON | Routin | 09/28/2019 | | Results for this | | BINDING CAPACITY | e | | | procedure are in the | | | | | | results section. | + +--------+ + + + | CBC W/AUTO | Routin | 09/28/2019 | | Results for this | | DIFFERENTIAL | e | | | procedure are in the | | | | | | results section. | + +--------+ + + + | PROTEIN/CREATININE | Routin | 09/28/2019 | | Results for this | | RATIO, URINE | e | | | procedure are in the | | | | | | results section. | + +--------+ + + + | URINALYSIS | Routin | 09/28/2019 | | Results for this | | | e | | | procedure are in the | | | | | | results section. | + +--------+ + + + | URIC ACID | Routin | 09/28/2019 | | Results for this | | | e | | | procedure are in the | | | | | | results section. | + +--------+ + + + | RENAL FUNCTION PANEL | Routin | 09/28/2019 | | Results for this | | | e | | | procedure are in the | | | | | | results section. | + +--------+ + + + documented in this encounter Results Uric Acid (09/28/2019) + +-------+ + + + | Component | Value | Ref Range | Performed | Pathologist | | | | | At | Signature | + +-------+ + + + | Uric Acid | 6.5 | 2.3 - 6.6 | | | + +-------+ + + + + + | Specimen | + + | Blood | + + Protein/Creatinine Ratio, Urine (09/28/2019) + + + + + + | Component | Value | Ref Range | Performed | Pathologist | | | | | At | Signature | + + + + + + | Protein/Cre | 2,825.4 (A) | 0 - 150 | | | | at Ratio | | | | | + + + + + + + + | Specimen | + + | Urine | + + Renal Function Panel (09/28/2019) + + + + + + | Component | Value | Ref Range | Performed | Pathologist | | | | | At | Signature | + + + + + + | Na | 139 | 132 - 143 | | | [...] + + + | Anion Gap | 16 | 7 - 21 mmol/L | | | + + + + + + | Glucose | 91 | 70 - 100 mg/dL | | | + + + + + + | BUN | 28 (A) | 6 - 23 mg/dL | | | + + + + + + | Creatinine | 1.79 (A) | 0.60 - 1.35 | | | | | | mg/dL | | | + + + + + + | Estimated | 30.0 (A) | 60.0 - 140.0 | | | | GFR | | mL/min/1.73m2 | | | + + + + + + | BUN/Creatin | 15.6 | 6.0 - 28.6 | | | | ine Ratio | | | | | + + + + + + | Albumin | 3.7 | 3.5 - 5.0 g/dL | | | + + + + + + | Calcium | 9.4 | 8.5 - 10.3 | | | + + + + + + | PHOSPHORUS | 3.4 | 2.5 - 5.0 | | | + + + + + + + + | Specimen | + + | Blood | + + Iron and Iron Binding Capacity (09/28/2019) + +--------+ + + + | Component | Value | Ref Range | Performed | Pathologist | | | | | At | Signature | + +--------+ + + + | Iron | 57 | 37 - 160 ug/dL | | | + +--------+ + + + | Iron | 16 (A) | 20 - 55 % | | | | Saturation | | | | | + +--------+ + + + | TIBC | 360 | 245 - 400 ug/dL | | | + +--------+ + + + | Ferritin, | 93.47 | 13 - 150 | | | | External | | | | | + +--------+ + + + + + | Specimen | + + | Blood | + + CBC w/ Auto Differential (09/28/2019) + + + + + + | Component | Value | Ref Range | Performed | Pathologist | | | | | At | Signature | + + + + + + | WBC | 7.8 | 4.5 - 11.0 | | | + + + + + + | RBC | 3.39 (A) | 3.80 - 5.10 | | | | | | M/uL | | | + + + + + + | Hemoglobin | 10.0 (A) | 12 - 16 | | | + + + + + + | Hematocrit, | 30.4 (A) | 35.0 - 45.0 % | | | | POC | | | | | + + + + + + | MCV | 89.7 | 81.0 - 99.0 fL | | | + + + + + + | MCH | 29.0 | 27.0 - 33.0 pg | | | + + + + + + | MCHC | 33.0 | 30.0 - 36.0 | | | | | | g/dL | | | + + + + + + | Platelet | 259 | 140 - 440 | | | | Count | | | | | | Plasma | | | | | + + + + + + | RDW | 14.3 | 10.5 - 15.0 | | | + + + + + + | Neutrophils | 64.9 | 39 - 80 | | | | , Absolute | | | | | + + + + + + | Absolute | 25.3 | 24 - 44 | | | | Lymphocytes | | | | | + + + + + + | Absolute | 7.0 | 0 - 12 | | | | Monocytes | | | | | + + + + + + | Eosinophils | 2.2 | 0 - 6 | | | | , Absolute | | | | | + + + + + + | Basophils, | 0.6 | 0 - 2 | | | | Absolute | | | | | + + + + + + + + | Specimen | + + | Blood | + + Urinalysis (09/28/2019) + + + + + + | Component | Value | Ref Range | Performed | Pathologist | | | | | At | Signature | + + + + + + | Color | Straw | | | | + + + + + + | Clarity | Clear | | | | + + + + + + | Specific | 1.008 | 1.005 - 1.030 | | | | [place], | | | | | | Urine | | | | | + + + + + + | pH, Urine | 7.0 | 5.0 - 8.0 | | | + + + + + + | Protein, | 100 mg/dL (A) | Negative | | | | Urine | | | | | + + + + + + | Glucose, | Negative | Negative | | | | Urine | | | | | + + + + + + | Ketones, | Negative | Negative | | | | Urine | | | | | + + + + + + | Bilirubin, | Negative | Negative | | | | Urine | | | | | + + + + + + | Blood, | Small (A) | Negative | | | | Urine | | | | | + + + + + + | Nitrite, | Negative | Negative | | | | Urine | | | | | + + + + + + | Urobilinoge | Normal | < 0.2 mg/dL, | | | | n, Urine | | 1.0 mg/dL, 4.0 | | | | | | mg/dL, Normal, | | | | | | 1.0 E.U./dL, | | | | | | 0.2 E.U./dL, | | | | | | 0.2 mg/dL, | | | | | | Negative, 1 | | | | | | mg/dL, <2.0 | | | | | | mg/dL | | | + + + + + + | Leukocyte | Negative | Negative | | | | Esterase, | | | | | | Urine | | | | | + + + + + + | CASTS | Negative | | | | + + + + + + | WBC UA | 2 | /HPF | | | + + + + + + | RBC UA | 5 | /HPF | | | + + + + + + | Epithelial | 1+ | | | | | Cells | | | | | + + + + + + | CRYSTAL UA | Negative | | | | + + + + + + | Bacteria, | Negative | | | | | UA | | | | | + + + + + + + + | Specimen | + + | Urine | + + External Lab: PTH, Intact (09/28/2019) + +-------+ + + + | Component | Value | Ref Range | Performed | Pathologist | | | | | At | Signature | + +-------+ + + + | PTH Intact, | 35.67 | 15 - 65 | | | | External | | | | | + +-------+ + + + + + | Specimen | + + | | + + documented in this encounter Visit Diagnoses Not on filedocumented in this encounter"
--- OUTSIDE RECORDS SUMMARY | ~2020-04-23 | XMS | Encounter Summary ---
Demographics + + + | Address | [address] | | | [place] [address] | + + + | Home Phone | | + + + | Preferred Language | Unknown | + + + | Marital Status | Single | + + + | Scientology Affiliation | Unknown | + + + | Race | Unknown | + + + | Ethnic Group | Unknown | + + + Author + + + | Author | [facility] | | | and [place] | + + + | Organization | [facility] | | [...] Team Providers + +------+ + | Care Accounting Intern Name | Role | Phone | + +------+ + | Yessica Mayorga MD | PCP | | + +------+ + Encounter Details +--------+ + + + + | Date | Type | Department | Care Team | Description | +--------+ + + + + | 05/20/ | Orders Only | [facility] | Andrews Massey MD | | | 2019 | | NEPHROLOGY [place] | [address] [place] | | | | | [address] [place] | [address] [place], [place] | | | | | [address] [place], [place] | [address] | | | | | [address] | | | | | | [phone] | | | +--------+ + + + [...] Office | | [address] [facility] | | | | Visit | | [address] [place] | | | | | | [address] | | | | | | | | +--------+ + + + + | 06/14/ | Office | Cardiology | Ольга Veloz DO | | | 2019 | Visit | | [address] | | | | | | [place] | | | | | | [address] | | | | | | | [...]
--- OUTSIDE RECORDS SUMMARY | ~2020-04-23 | XMS | Encounter Summary ---
Demographics + + + | Address | [address] | | | [place] [address] | + + + | Home Phone [...] Author + + + | Author | [facility] | | | and [place] | + + + | Organization | [facility] | | [...] Team Providers + +------+ + | Care Scale Operator Name | Role | Phone | + +------+ + | Lisa Mcclain MD | PCP | | + +------+ + Encounter Details +--------+ + + + + | Date | Type | Department | Care Team | Description | +--------+ + + + + | 07/19/ | Orders Only | [facility] | Andrews Massey MD | | | 2019 | | [address] | [address] [place] | | | | | [address] | [address] [place], [place] | | | | | [facility] [place] [address] | [address] | | | | | [place], [place] | | | | | | [address] | | | | | | [phone] | | | +--------+ + + + [...] | Office | | [address] [facility] [address] [place] | | | | Visit | | [address] [place] | | | | | | [address] | | | | | | | | +--------+ + + + + | 06/14/ | Office | Cardiology | Ольга Veloz DO | | | 2019 | Visit | | [address] | | | | | | [place] | | | | | | [address] | | | | | | | | +--------+ + + + + documented as of this encounter Visit Diagnoses Not on filedocumented in this encounter"
--- OUTSIDE RECORDS SUMMARY | ~2020-04-23 | XMS | Encounter Summary ---
Demographics + + + | Address | [address] | | | [place] [address] | + + + | Home Phone | | + + + | Preferred Language | Unknown | + + + | Marital Status | Single | + + + | Confucianism Affiliation | Unknown | + + + | Race | Unknown | + + + | Ethnic Group | Unknown | + + + Author + + + | Author | [facility] | | | and [place] | + + + | Organization | [facility] | | | [...] Team Providers + +------+ + | Care Bench Technician Name | Role | Phone | [...] | | | | | | | AK EGD | | | | | | | TRANSORAL | | | | | | | BIOPSY | | | | | | | SINGLE/MULTI | | | | | | | PLE [place] | | | | | | | [...] + + | 11/21/ | Hospital | [facility] | Doron Herrera | Iron deficiency | | 2019 | Encounter | [facility] | MD Don [address] | anemia due to | | | | INTRA OP [address] | [place] | chronic blood loss; | | | | [place] | [address] | Iron deficiency | | | | [address] | | anemia due to | | | | [phone] | | chronic blood loss; | | [...] 0 | 06/21/20 | | | (MYCOSTATIN) [id number] | needed. | | | 18 | [...] 2020 | Office | | [address] [facility] [address] [place] | | | | Visit | | [address] [place] | | | | | | [address] | | | | | | | | +--------+ + + + + | 06/14/ | Office | Cardiology | Ольга Veloz DO | | | 2019 | Visit | | [address] | | | | | | [place] | | | | | | [address] | | | | | | | [...] + +--------+ + + + | *TERMED* AK UPPER GI | Routin | 11/21/2019 | [...] interpretation was | | | performed by [facility] [address] | | | [place], [place] (Rehabilitation Case Coordinator: August Bray M.D.; | | | CLIA#: [id number]).The technical component was performed by [facility] | | | [place], [address] [place] [address] (Rehabilitation Case Coordinator: | | | Brooklyn Hunter MD; CLIA# [id number]). Diagnostician: August Bray | | | MDPathologistElectronically Signed 11/24/2019 | | |PERFORMING LABORATORY: | | |The professional interpretation was performed by [employer] [employer] (Rehabilitation Case Coordinator: August Bray M.D.; CLIA#: [id number]). | | |The technical component was performed by [employer], [address] [place] [address] (Rehabilitation Case Coordinator: Brooklyn Hunter MD; CLIA# [id number]). | | | | | |Diagnostician: August [...] Performed At | + + + | [facility] | [facility] | | [facility] | PROVATION | | CenterGastroenterology | | | Patient Name: Wayne , | | | Isabel Harrell Procedure Date: 11/21/2019 9:13 AMMRN: [id number] | | | of : | | [...] AMNumber of | | | Addenda: 0 [facility] | | | | | |Doron Herrera IV, | | |11/21/2019 9:39:38 AM | | |This report has been signed electronically. | | | | | |Note Initiated On: 11/21/2019 9:13 AM | | |Number of Addenda: 0 | | | | | | [facility] | | + + + + [...]
--- OUTSIDE RECORDS SUMMARY | ~2020-04-23 | XMS | Encounter Summary ---
Demographics + + + | Address | [address] | | | [place] [address] | + + + | Home Phone | | + + + | Preferred Language | Unknown | + + + | Marital Status | Single | + + + | Quaker Affiliation | Unknown | + + + [...] Team Providers + +------+ + | Care Employee Communications Specialist Name | Role | Phone | [...] | | | unspecified | [address], | [place], [place] | | | | | | [place] [address] | [address] Phone: | | | | | | Phone: | [phone] | | | | | | [phone] | Fax: | | | | | | Fax: | [phone] | | | | | | [phone] | | + + + + + + + Encounter Details +--------+---------+ + + + | Date | Type | Department | Care Team | Description | +--------+---------+ + + + | 01/12/ | Office | [facility] | Doron Herrera | Iron deficiency | | 2019 | Visit | GASTROENTEROLOGY | MD Don [address] | anemia, unspecified | | | | [address] | [address] [place], [place] | iron deficiency | | | | [place], [place] | [address] | anemia type (Primary | | | | [address] | | Dx) | | | | [phone] | | | +--------+---------+ + + + [...] | | | Visit | | [address] [place], [place] | | | | | | [address] | | | | | | | | +--------+ + + + + | 06/14/ | Office | Cardiology | VelozОльга DO | | | 2019 | Visit | | [address] | | | | | | [place] | | | | | | [address] | | | | | | | [...] | | | | | Oral, ONCE, [facility] 01/12/20 at 0915, | | AM PST | | | | | For 1 dose, Mix with 30 mL water | | | | | | | prior to giving., | | | | | | + +--------+ +--------+------+------+ +---+---+ | | | +---+---+ documented in this encounter"
--- OUTSIDE RECORDS SUMMARY | ~2020-04-23 | XMS | Encounter Summary ---
Demographics + + + | Address | [address] | | | [place] [address] | + + + | Home Phone [...] + + + | Author | [facility] | | | and [place] | + + + | Organization | [facility] | | [...] Team Providers + +------+ + | Care Heel Nailing Machine Operator Name | Role | Phone | + +------+ + | Lisa Mcclain MD | PCP | | + +------+ + Reason for Visit +--------+ + | Reason | Comments | +--------+ + | Other | return equipment | +--------+ + Evaluate & Treat (Routine) + + [...] | | | [address] | [address], | [place], [place] | | | | | | [place] [address] | [address] Phone: | | | | | | Phone: | [phone] | | | | | | [phone] | Fax: | | | | | | Fax: | [phone] | | | | | | [phone] | | + + + + + + + Encounter Details +--------+ + + + + | Date | Type | Department | Care Team | Description | +--------+ + + + + | 01/12/ | Clinical | [facility] | Darcie Jane, | Iron deficiency | | 2019 | Support | GASTROENTEROLOGY | RN | anemia, unspecified | | | | [address] | | iron deficiency | | | | [place] | | anemia type (Primary | | | | [address] | | Dx) | | | | [phone] | | | +--------+ + + + [...] documented as of this encounter Progress Notes Darcie Jane RN - 01/12/2020 3:30 PM PSTPatient presents in office for capsule endosc opy equipment return. Patient reports no issues during procedure. Patient given post procedure instructions and event form was returned at this afternoon's a ppointment for removal of equipment. documented in this e ncounter Plan of Treatment +--------+ + + + + | Date | Type | Specialty | Care Team | Description | +--------+ + + + + | 04/30/ | Virtual | Nephrology | Andrews Massey MD | | | 2019 | Office | | [address] [place] | | | | Visit | | [address] [place] | | | | | | [address] | | | | | | | | +--------+ + + + + | 06/14/ | Office | Cardiology | Ольга Veloz DO | | | 2019 | Visit | | [address] | | | | | | [place] | | | | | | [address] | | | | | | | | +--------+ + + + + documented as of this encounter Visit Diagnoses + + | Diagnosis | + + | Iron deficiency anemia, unspecified iron deficiency anemia type - Primary | + + documented in this encounter"
--- OUTSIDE RECORDS SUMMARY | ~2020-04-23 | XMS | Encounter Summary ---
Demographics + + + | Address | [address] | | | [place] [address] | + + + | Home Phone | | + + + | Preferred Language | Unknown | + + + | Marital Status | Single | + + + | Orthodox Affiliation | Unknown | + + + | Race | Unknown | + + + | Ethnic Group | Unknown | + + + Author + + + | Author | [facility] | | | and [place] | + + + | Organization | [facility] | | | and [...] Providers + +------+ + | Care Bench Examiner Name | Role | Phone | + +------+ + | Lisa Mcclain MD | PCP | | + +------+ + Encounter Details +--------+ + + + + | Date | Type | Department | Care Team | Description | +--------+ + + + + | 08/24/ | Orders Only | [facility] | Andrews Massey MD | Essential (primary) | | 2019 | | NEPHROLOGY [place] | [address] [place] | hypertension | | | | [address] [place] | [address] [place], [place] | (Primary Dx); CKD | | | | [address] [place], [place] | [address] | (chronic kidney | | | | [address] | | disease), stage III | | | | [phone] | | (HCC); Anemia of | | [...] 2019 | Office | | [address] [facility] [place] | | | | Visit | | [address] [place] | | | | | | [address] | | | | | | | | +--------+ + + + + | 06/14/ | Office | Cardiology | Ольга Veloz DO | | | 2019 | Visit | | [address] | | | | | | [place] | | | | | | [address] | | | | | | | [...] III | | | | | | ([facility]) | | + +------+--------+ + + documented [...]
--- OUTSIDE RECORDS SUMMARY | ~2020-04-23 | XMS | Encounter Summary ---
Demographics + + + | Address | [address] | | | [place] [address] | + + + | Home Phone | | + + + | Preferred Language | Unknown | + + + | Marital Status | Single | + + + | Muslim Affiliation [...] Team Providers + +------+ + | Care Regional Psychiatric Director Name | Role | Phone | + +------+ + | Lisa Mcclain MD | PCP | | + +------+ + Encounter Details +--------+ + + + + | Date | Type | Department | Care Team | Description | +--------+ + + + + | 04/21/ | Orders Only | [facility] | Conversion | | | 2017 | | NEPHROLOGY [place] | Transaction, | | | | | [address] | Provider Unknown | | | | | [address] [place] | | | | | | [address] | (Fax) | | | | | [phone] | | | +--------+ + + + [...] [place] | | | | | | [address] | | | | | | | | +--------+ + + + + | 06/14/ | Office | Cardiology | Ольга Veloz DO | | | 2019 | Visit | | [address] | | | | | | [place] | | | | | | [address] | | | | | | | [...]
--- OUTSIDE RECORDS SUMMARY | ~2020-04-23 | XMS | Encounter Summary ---
Demographics + + + | Address | [address] | | | [place] [address] | + + + | Home Phone | | + + + | Preferred Language | Unknown | + + + | Marital Status | Single | + + + | Scientologist Affiliation | Unknown | + + + | Race | Unknown | + + + | Ethnic Group | Unknown | + + + Author + + + | Author | [facility] | | | and [place] | + + + | Organization | [facility] | | [...] Team Providers + +------+ + | Care Spray Dyer Name | Role | Phone | [...] + + | 11/11/ | Documentati | [facility] | [place], | Results (11/10/19) | | 2019 | on | NEPHROLOGY [place] | [place] [facility] | | | | | [address] [place] | Billiard Player | | | | | [address] [facility] [place] | | | | | | [address] | | | | | | [phone] | | | +--------+ + + + [...] 2019 | Office | | [address] [facility] | | | | Visit | | [facility] | | | | | | [address] | | | | | | | | +--------+ + + + + | 06/14/ | Office | Cardiology | Ольга Veloz DO | | | 2019 | Visit | | [address] | | | | | | [place] | | | | | | [address] | | | | | | | [...]
--- OUTSIDE RECORDS SUMMARY | ~2020-04-23 | XMS | Encounter Summary ---
Demographics + + + | Address | [address] | | | [place] [address] | + + + | Home Phone | | + + + | Preferred Language | Unknown | + + + | Marital Status | Single | + + + | Rastafari Affiliation | Unknown | + + + [...] Team Providers + +------+ + | Care Ledger Poster Name | Role | Phone | + [...] + + | 12/21/ | Telephone | [facility] | Lo John RN | Other (schedule | | 2020 | | GASTROENTEROLOGY | | capsule endoscopy ); | | | | [address] | | Procedure | | | | [place] | | | | | | [address] | | | | | | [phone] | | | +--------+ + + + [...] 2019 | Office | | [address] [facility] [place] | | | | Visit | | [address] [place] | | | | | | [address] | | | | | | | | +--------+ + + + + | 06/14/ | Office | Cardiology | Ольга Veloz DO | | | 2019 | Visit | | [address] | | | | | | [place] | | | | | | [address] | | | | | | | | +--------+ + + + + documented as of this encounter Visit Diagnoses Not on filedocumented in this encounter"
--- OUTSIDE RECORDS SUMMARY | ~2020-04-23 | XMS | Encounter Summary ---
Demographics + + + | Address | [address] | | | [place] [address] | + + + | Home Phone | | + + + | Preferred Language | Unknown | + + + | Marital Status | Single | + + + | Mu-Ism Affiliation | Unknown | + + + | Race | Unknown | + + + | Ethnic Group | Unknown | + + + Author + + + | Author | [facility] | | | and [place] | + + + | Organization | [facility] | | [...] Team Providers + +------+ + | Care Edge Trimming Machine Operator Name | Role | Phone [...] | | CLINIC [address] | [place], [place] | | | | | [place], [place] | [address] | | | | | [address] | | | | | | [phone] | | | +--------+ + + + [...] NOT TAKE day of procedure nystatin (MYCOSTATIN) 393076 UNIT/GM cream Apply topically as needed. DO [...] vomiting, or vomiting blood Date Last Reviewed: 05/30/201619995305-9454 [employer]. [address] [place] [address], [place] [address]. All righ ts reserved. This information is [...] 2019 | Office | | [address] [facility] | | | | Visit | | [address] [place] | | | | | | [address] | | | | | | | | +--------+ + + + + | 06/14/ | Office | Cardiology | Ольга Veloz DO | | | 2019 | Visit | | [address] | | | | | | [place] | | | | | | [address] | | | | | | | [...] MD | | | | | | (785) on 11/16/2019 | | | | | [...]
--- OUTSIDE RECORDS SUMMARY | ~2020-04-23 | XMS | Encounter Summary ---
Demographics + + + | Address | [address] | | | [place] [address] | + + + | Home Phone [...] + + + | Author | [facility] | | | and [place] | + + + | Organization | [facility] | | | [...] Team Providers + +------+ + | Care Terrazzo Tile Maker Name | Role | Phone | + [...] + + | 10/06/ | Documentati | [facility] | [place], | Results (09/28/19) | | 2019 | on | NEPHROLOGY [address] | [place] [facility] | | | | | [address] | Financial Controller | | | | | [address] | | | | | | [place] | | | | | | [address] | | | | | | [phone] | | | +--------+ + + + [...] 2019 | Office | | [address] [facility] | | | | Visit | | [facility] | | | | | | [address] | | | | | | | | +--------+ + + + + | 06/14/ | Office | Cardiology | Ольга Veloz DO | | | 2019 | Visit | | [address] | | | | | | [place] | | | | | | [address] | | | | | | | [...] 1.005 - 1.030 | | | | [place], | | | | | | Urine [...]
--- OUTSIDE RECORDS SUMMARY | ~2020-04-23 | XMS | Encounter Summary ---
Demographics + + + | Address | [address] | | | [place] [address] | + + + | Home Phone | | + + + | Preferred Language | Unknown | + + + | Marital Status | Single | + + + | Sikhism Affiliation | Unknown | + + + | Race | Unknown | + + + | Ethnic Group | Unknown | + + + Author + + + | Author | [facility] | | | and [place] | + + + | Organization | [facility] | | | [...] Team Providers + +------+ + | Care Traffic Court Referee Name | Role | Phone | + +------+ + | Lisa Mcclain MD | PCP | | + +------+ + Encounter Details +--------+ + + + + | Date | Type | Department | Care Team | Description | +--------+ + + + + | 04/21/ | Orders Only | [facility] | Conversion | | | 2017 | | NEPHROLOGY [place] | Transaction, | | | | | [address] | Provider Unknown | | | | | [address] [place] | | | | | | [address] | (Fax) | | | | | [phone] | | | +--------+ + + + [...] [place] | | | | | | [address] | | | | | | | | +--------+ + + + + | 06/14/ | Office | Cardiology | Ольга Veloz DO | | | 2019 | Visit | | [address] | | | | | | [place] | | | | | | [address] | | | | | | | [...]
--- OUTSIDE RECORDS SUMMARY | ~2020-04-23 | XMS | Encounter Summary ---
Demographics + + + | Address | [address] | | | [place] [address] | + + + | Home Phone | | + + + | Preferred Language | Unknown | + + + | Marital Status | Single | + + + | Mandaeism Affiliation [...] Team Providers + +------+ + | Care Assessment Coordinator Name | Role | Phone | + +------+ + | Yesisca Mayorga MD | PCP | | + +------+ + Encounter Details +--------+ + + + + | Date | Type | Department | Care Team | Description | +--------+ + + + + | 01/18/ | Orders Only | [facility] | Conversion | | | 2018 | | NEPHCAMMY [place] | Transaction, | | | | | [address] | Provider Unknown | | | | | [address] [place] | | | | | | [address] | (Fax) | | | | | [phone] | | | +--------+ + + + [...] 2019 | Office | | [address] [facility] [place] | | | | Visit | | [address] [place] | | | | | | [address] | | | | | | | | +--------+ + + + + | 06/14/ | Office | Cardiology | Ольга Veloz DO | | | 2019 | Visit | | [address] | | | | | | [place] | | | | | | [address] | | | | | | | [...]
--- OUTSIDE RECORDS SUMMARY | ~2020-04-23 | XMS | Encounter Summary ---
Demographics + + + | Address | [address] | | | [place] [address] | + + + | Home Phone [...] +------+ + | Care Wood Milling Machine Operator Name | Role | Phone [...] Provider Unknown | | | | | [place], [place] | [phone] | | | | | [phone] | (Fax) | | | | | [phone] | | | +--------+ + + + [...] [place] | | | | | | [address] | | | | | | | | +--------+ + + + + | 06/14/ | Office | Cardiology | Ольга Veloz DO | | | 2019 | Visit | | [address] | | | | | | [place] | | | | | | [address] | | | | | | | | +--------+ + + + + documented as of this encounter Visit Diagnoses Not on filedocumented in this encounter"
--- OUTSIDE RECORDS SUMMARY | ~2020-04-23 | XMS | Encounter Summary ---
Demographics + + + | Address | [address] | | | [place] [address] | + + + | Home Phone [...] + + + | Author | [facility] | | | and [place] | + + + | Organization | [facility] | | | and [...] Team Providers + +------+ + | Care Smash Hand Name | Role | Phone | [...] + + | 12/21/ | Telephone | [facility] | Lo John RN | Other (schedule | | 2020 | | GASTROENTEROLOGY | | capsule endoscopy ); | | | | [address] | | Procedure | | | | [place] | | | | | | [address] | | | | | | [phone] | | | +--------+ + + + [...] 2019 | Office | | [address] [facility] [place] | | | | Visit | | [address] [place] | | | | | | [address] | | | | | | | | +--------+ + + + + | 06/14/ | Office | Cardiology | Ольга Veloz DO | | | 2019 | Visit | | [address] | | | | | | [place] | | | | | | [address] | | | | | | | | +--------+ + + + + documented as of this encounter Visit Diagnoses Not on filedocumented in this encounter"
--- OUTSIDE RECORDS SUMMARY | ~2020-04-23 | XMS | Encounter Summary ---
Demographics + + + | Address | [address] | | | [place] [address] | + + + | Home Phone | | + + + | Preferred Language | Unknown | + + + | Marital Status | Single | + + + | Faith Affiliation | Unknown | + + + | Race | Unknown | + + + | Ethnic Group | Unknown | + + + Author + + + | Author | [facility] | | | and [place] | + + + | Organization | [facility] | | | [...] Team Providers + +------+ + | Care Trench Pipe Layer Name | Role | Phone | + +------+ + | Lisa Mcclain MD | PCP | | + +------+ + Encounter Details +--------+ + + + + | Date | Type | Department | Care Team | Description | +--------+ + + + + | 11/15/ | Orders Only | [facility] | Andrews Massey MD | Essential (primary) | | 2019 | | NEPHROLOGY [place] | [address] [place] | hypertension | | | | [address] [place] | [address] [place], [place] | (Primary Dx); CKD | | | | [address] [place], [place] | [address] | (chronic kidney | | | | [address] | | disease) stage 4, | | | | [phone] | | GFR 15-29 ml/min | | [...] 2020 | Office | | [address] [facility] | | | | Visit | | [address] [place] | | | | | | [address] | | | | | | | | +--------+ + + + + | 06/14/ | Office | Cardiology | Ольга Veloz DO | | | 2019 | Visit | | [address] | | | | | | [place] | | | | | | [address] | | | | | | | [...]
--- OUTSIDE RECORDS SUMMARY | ~2020-04-23 | XMS | Encounter Summary ---
Demographics + + + | Address | [address] | | | [place] [address] | + + + | Home Phone | | + + + | Preferred Language | Unknown | + + + | Marital Status | Single | + + + | Buddhism Affiliation | Unknown | + + + | Race | Unknown | + + + | Ethnic Group | Unknown | + + + Author + + + | Author | [facility] | | | and [place] | + + + | Organization | [facility] | | | [...] Team Providers + +------+ + | Care Extern Name | Role | Phone | + +------+ + | Yessica Mayorga MD | PCP | | + +------+ + Encounter Details +--------+ + + + + | Date | Type | Department | Care Team | Description | +--------+ + + + + | 05/06/ | Orders Only | [facility] | Conversion | | | 2019 | | NEPHROLOGY MARK | Transaction, | | | | | [address] | Provider Unknown | | | | | [address] | | | | | | [address] | (Fax) | | | | | [phone] | | | +--------+ + + + [...] 2019 | Office | | [address] [facility] | | | | Visit | | [address] [place] | | | | | | [address] | | | | | | | | +--------+ + + + + | 06/14/ | Office | Cardiology | Ольга Veloz DO | | | 2019 | Visit | | [address] | | | | | | [place] | | | | | | [address] | | | | | | | [...]
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
--- OUTSIDE RECORDS SUMMARY | ~2020-04-23 | XMS | Encounter Summary ---
Demographics + + + | Address | [address] | | | [place] [address] | + + + | Home Phone [...] Team Providers + +------+ + | Care Technical Instructor Name | Role | Phone | [...] + + | 12/12/ | Telephone | [facility] | Jamie, | Other | | 2020 | | GASTROENTEROLOGY | Claudia Rivera MANAGER INFRASTRUCTURE [address] | | | | | [address] | [address] [place], | | | | | [place], [place] | [place] [address] | | | | | [address] | [phone] | | | | | [phone] | | | +--------+ + + + [...] 2020 | Office | | [address] [facility] | | | | Visit | | [address] [place], [place] | | | | | | [address] | | | | | | | | +--------+ + + + + | 06/14/ | Office | Cardiology | Ольга Veloz DO | | | 2019 | Visit | | [address] | | | | | | [place] | | | | | | [address] | | | | | | | | +--------+ + + + + documented as of this encounter Visit Diagnoses Not on filedocumented in this encounter"
--- OUTSIDE RECORDS SUMMARY | ~2020-04-23 | XMS | Encounter Summary ---
Demographics + + + | Address | [address] | | | [place] [address] | + + + | Home Phone [...] Providers + +------+ + | Care Casting Machine Operator Automatic Name | Role | Phone | + +------+ + | Lisa Mcclain MD | PCP | | + +------+ + Reason for Visit +--------+ + | Reason | Comments | +--------+ + | Other | [facility] | +--------+ + Encounter Details +--------+ + + + + | Date | Type | Department | Care Team | Description | +--------+ + + + + | 11/01/ | Telephone | [facility] | Doron Herrera | Other ([place]) | | 2019 | | GASTROENTEROLOGY | MD Don [address] | | | | | [address] | [address] [place], [place] | | | | | [place], [place] | [address] | | | | | [address] | | | | | | [phone] | | | +--------+ + + + [...] 2019 | Office | | [address] [email or web address] [place] | | | | Visit | | [address] [place], [place] | | | | | | [address] | | | | | | (Fax) | | +--------+ + + + + | 06/14/ | Office | Cardiology | Ольга Veloz DO | | | 2019 | Visit | | [address] | | | | | | [place] | | | | | | [address] | | | | | | | | +--------+ + + + + documented as of this encounter Visit Diagnoses Not on filedocumented in this encounter"
--- OUTSIDE RECORDS SUMMARY | ~2020-04-23 | XMS | Encounter Summary ---
Demographics + + + | Address | [address] | | | [place] [address] | + + + | Home Phone [...] Team Providers + +------+ + | Care Tour Coordinator Name | Role | Phone | + +------+ + | Yessica Mayorga MD | PCP | | + +------+ + Encounter Details +--------+ + + + + | Date | Type | Department | Care Team | Description | +--------+ + + + + | 02/11/ | Orders Only | [facility] | Andrews Massey MD | | | 2019 | | NEPRHOLOGY [place] | [address] [place] | | | | | [address] [place] | [address] [place], [place] | | | | | [address] [place], [place] | [address] | | | | | [address] | | | | | | [phone] | | | +--------+ + + + [...] 2019 | Office | | [address] [facility] [place] | | | | Visit | | [address] | | | | | | [address] | | | | | | | | +--------+ + + + + | 06/14/ | Office | Cardiology | Ольга Veloz DO | | | 2019 | Visit | | [address] | | | | | | [place] | | | | | | [address] | | | | | | | [...]
--- OUTSIDE RECORDS SUMMARY | ~2020-04-23 | XMS | Encounter Summary ---
Demographics + + + | Address | [address] | | | [place] [address] | + + + | Home Phone [...] Team Providers + +------+ + | Care Through Freight Engineer Name | Role | Phone | + +------+ + | Yessica Mayorga MD | PCP | | + +------+ + Encounter Details +--------+ + + + + | Date | Type | Department | Care Team | Description | +--------+ + + + + | 05/06/ | Orders Only | [facility] | Conversion | | | 2019 | | NEPHROLOGY [place] | Transaction, | | | | | [address] | Provider Unknown | | | | | [address] | | | | | | [address] | (Fax) | | | | | [phone] | | | +--------+ + + + [...] 2019 | Office | | [address] [facility] [place] | | | | Visit | | [address] | | | | | | [address] | | | | | | | | +--------+ + + + + | 06/14/ | Office | Cardiology | Ольга Veloz DO | | | 2019 | Visit | | [address] | | | | | | [place] | | | | | | [address] | | | | | | | [...]
--- OUTSIDE RECORDS SUMMARY | ~2020-04-23 | XMS | Clinical Summary ---
Demographics + + + | Address | [address] | | | [place] [address] | + + + | Home Phone | | + + + | Preferred Language | Unknown | + + + | Marital Status | Unknown | + + + | Presybeterian Affiliation | Unknown | + + + | Race | Unknown | + + + | Ethnic Group | Unknown | + + + Author + + + | Author | [employer] (Historical as of | | | 07-16-19) | + + + | Organization | [facility] (Historical as of | | | 07-16-19) [...] [place] | | | | | [address] | | + + + + + Care Team Providers + +------+ + | Care Theater Set Production Designer Name | Role | Phone | + [...] +------+-------+ + | MEDICAID | CATHERINE | [id number] | | | [address] | | | [place] | | | | [place] | | | [place] | | | | [address] | | | INSPECTOR AND ADJUSTER [employer] | | | | | + +--------+ [...] Self | [birth year] | Home: | [address] | | | al/Fam | | 1970 | [phone] | [place] | | | [place] | | | [phone] | [address] | + +--------+ +--------+ + +
--- OUTSIDE RECORDS SUMMARY | ~2020-04-23 | XMS | Encounter Summary ---
Demographics + + + | Address | [address] | | | [place] [address] | + + + | Home Phone [...] Team Providers + +------+ + | Care Pan Dumper Name | Role | Phone | + [...] | | | [address] [place], [place] | [address] | (chronic kidney | | | | [address] | | disease) stage 4, | | | | [phone] | | GFR 15-29 ml/min | | [...] 2020 | Office | | [address] [facility] | | | | Visit | | [address] [place] | | | | | | [address] | | | | | | | | +--------+ + + + + | 06/14/ | Office | Cardiology | Ольга Veloz DO | | | 2019 | Visit | | [address] | | | | | | [place] | | | | | | [address] | | | | | | | [...] ml/min | | | | | | ([facility]) Persistent | | | | | | [...] ml/min | | | | | | ([facility]) Persistent | | | | | | [...] of chronic renal failure, stage 4 (severe) ([facility]) | + + documented in this encounter"
--- OUTSIDE RECORDS SUMMARY | ~2020-04-23 | XMS | Clinical Summary ---
Demographics + + + | Address | [address] | | | [place] [address] | + + + | Home Phone | | + + + | Preferred Language | Unknown | + + + | Marital Status | Unknown | + + + | Yarsani Affiliation | Unknown | + + + | Race | Unknown | + + + | Ethnic Group | Unknown | + + + Author + + + | Author | [employer] (Historical as of | | | 07-16-19) | + + + | Organization | [facility] [employer] (Historical as of | | | 07-16-19) [...] [place] | | | | | [address] | | + + + + + Care Team Providers + +------+ + | Care Wastewater Treatment Plant Attendant Name | Role | Phone | [...] +------+-------+ + | MEDICAID | CATHERINE | [id number] | | | [address] | | | [place] | | | | [place] | | | [place] | | | | [address] | | | MILL HELPER | | | | | + +--------+ [...] Self | [birth year] | Home: | [address] | | | al/Fam | | 1970 | [phone] | [place] | | | [place] | | | [phone] | [address] | + +--------+ +--------+ + +
--- OUTSIDE RECORDS SUMMARY | ~2020-04-23 | XMS | Encounter Summary ---
Demographics + + + | Address | [address] | | | [place] [address] | + + + | Home Phone | | + + + | Preferred Language | Unknown | + + + | Marital Status | Single | + + + | Holiness Affiliation | Unknown | + + + | Race | Unknown | + + + | Ethnic Group | Unknown | + + + Author + + + | Author | [facility] | | | and [place] | + + + | Organization | [facility] | | | [...] Team Providers + +------+ + | Care Twister Tender Paper Name | Role | Phone | + +------+ + | Lisa Mcclain MD | PCP | | + +------+ + Encounter Details +--------+ + + + + | Date | Type | Department | Care Team | Description | +--------+ + + + + | 10/11/ | Orders Only | [facility] | Conversion | | | 2018 | | INFECTIOUS DISEASE | Transaction, | | | | | [address] | Provider Unknown | | | | | [place], [place] | | | | | | [address] | (Fax) | | | | | [phone] | | | +--------+ + + + [...] Notes by Patricia Peterson CMA at 10/20/18 3400 Author: Patricia Peterson CMA Service: (none) Author Type: [employer] Filed: 10/20/18 1349 Encounter Date: 10/20/2018 Status: Signed Receiving Checker: Patricia Peterson CMA ([employer]) 10/11/2018 [facility]- CMP, HCV RNA, CBC rcvd: 10/20/18 Abstracted. Scanned. docume nted in this encounter Plan of Treatment +--------+ + + + + | Date | Type | Specialty | Care Team | Description | +--------+ + + + + | 04/30/ | Virtual | Nephrology | Andrews Massey MD | | | 2019 | Office | | [address] [facility] | | | | Visit | | [address] | | | | | | [address] | | | | | | | | +--------+ + + + + | 06/14/ | Office | Cardiology | Ольга Veloz DO | | | 2019 | Visit | | [address] | | | | | | [place] | | | | | | [address] | | | | | | | [...]
--- OUTSIDE RECORDS SUMMARY | ~2020-04-23 | XMS | Encounter Summary ---
Demographics + + + | Address | [address] | | | [place] [address] | + + + | Home Phone [...] Team Providers + +------+ + | Care Engine Repairer Name | Role | Phone | [...] + + | 11/17/ | Telephone | [facility] | Boni Augustin, | Confirmation | | 2019 | | GASTROENTEROLOGY | Palliative Care Nurse Practitioner | (11/21/19 procedure) | | | | [address] | | | | | | [place] | | | | | | [address] | | | | | | [phone] | | | +--------+ + + + [...] 2020 | Office | | [address] [facility] | | | | Visit | | [address] [place], [place] | | | | | | [address] | | | | | | | | +--------+ + + + + | 06/14/ | Office | Cardiology | Ольга Veloz DO | | | 2020 | Visit | | [address] | | | | | | [place] | | | | | | [address] | | | | | | | | +--------+ + + + + documented as of this encounter Visit Diagnoses Not on filedocumented in this encounter"
--- OUTSIDE RECORDS SUMMARY | ~2020-04-23 | XMS | Encounter Summary ---
Demographics + + + | Address | [address] | | | [place] [address] | + + + | Home Phone | | + + + | Preferred Language | Unknown | + + + | Marital Status | Single | + + + | Jainism Affiliation | Unknown | + + + | Race | Unknown | + + + | Ethnic Group | Unknown | + + + Author + + + | Author | [facility] | | | and [place] | + + + | Organization | [facility] | | [...] Team Providers + +------+ + | Care Staff Physician Name | Role | Phone | + +------+ + | Lisa Mcclain MD | PCP | | + +------+ + Encounter Details +--------+---------+ + + + | Date | Type | Department | Care Team | Description | +--------+---------+ + + + | 11/14/ | Office | [facility] | Andrews Massey MD | CKD (chronic kidney | | 2019 | Visit | NEPHROLOGY RD | [address] [place] | disease) stage 4, | | | | [address] | [address] [place], [place] | GFR 15-29 ml/min | | | | [address] | [address] | (HCC) (Primary Dx); | | | | RD, [place] | | Anemia of chronic | | | | [address] | | renal failure, stage | | | | [phone] | | 4 (severe) ([facility]); | | | | | | Persistent [...] | | | | | ([facility]); Essential | | | | | | [...] | | | | 49.9 in adult ([facility]); | | | | | | Hyperuricemia; [...] will see the Urology team here in [facility]. She will continue to F/U with your office regularly. She will have a RFP, CBC, Iron studies, Ferritin, iPTH, Urine total iksfzyx-vn-ujskuikzn e ratio before she comes back in [...] to baseline with t he interventions at [facility]. The patient has history of hypertension [...] pen, Daily., Disp: , Rfl: nystatin (MYCOSTATIN) 439539 UNIT/GM cream, Apply topically as needed., Disp: [...] 16.5 (A) 05/06/2019 LABPROT 1,148.6 (A) 05/06/2019 [id number] 22 (A) 04/21/2018 Assessment: Ms. Restrepo is [...] CBC, Iron studies, Ferritin, iPTH, Urine total jzealfj-uu-pyecodlrj e ratio before she comes back in 6 months. I spent 15 minutes of this 25-minute visit in education, counseling and answering all of her questions to her satisfaction. Thank you Dr Mcclain for the opportunity to see this patient in F/U today. Please do not hesi dunn to call me at any time with questions or concerns. Truly yours, Andrews Massey MD [facility] documented in this enco unter Plan of Treatment +--------+ + + + + | Date | Type | Specialty | Care Team | Description | +--------+ + + + + | 04/30/ | Virtual | Nephrology | Andrews Massey MD | | | 2019 | Office | | [address] [facility] | | | | Visit | | [address] | | | | | | [address] | | | | | | | | +--------+ + + + + | 06/14/ | Office | Cardiology | Ольга Veloz DO | | | 2019 | Visit | | [address] | | | | | | [place] | | | | | | [address] | | | | | | | | +--------+ + + + + documented as of this encounter Visit Diagnoses + + | Diagnosis | + + | CKD (chronic kidney disease) stage 4, GFR 15-29 ml/min ([facility]) - Primary Chronic kidney | | disease, Stage IV (severe) | + + | Anemia of chronic renal failure, stage 4 (severe) ([facility]) | + + | Persistent proteinuria Proteinuria [...]
--- OUTSIDE RECORDS SUMMARY | ~2020-04-23 | XMS | Encounter Summary ---
Demographics + + + | Address | [address] | | | [place] [address] | + + + | Home Phone | | + + + | Preferred Language | Unknown | + + + | Marital Status | Single | + + + | Zoroastrianism Affiliation | Unknown | + + + | Race | Unknown | + + + | Ethnic Group | Unknown | + + + Author + + + | Author | [facility] | | | and [place] | + + + | Organization | [facility] | | | [...] Team Providers + +------+ + | Care Shoeblack Name | Role | Phone | + [...] | | [address] | [address]VD [place], [place] | | | | | [place], [place] | [address] | | | | | [address] | | | | | | [phone] | | | +--------+ + + + [...] 2019 | Office | | [address] [facility] | | | | Visit | | [address] [place], [place] | | | | | | [id number] | | | | | | | | +--------+ + + + + | 06/14/ | Office | Cardiology | Ольга Veloz DO | | | 2019 | Visit | | [address] | | | | | | [place] | | | | | | [address] | | | | | | | | +--------+ + + + + documented as of this encounter Visit Diagnoses Not on filedocumented in this encounter"
--- OUTSIDE RECORDS SUMMARY | ~2020-04-23 | XMS | Encounter Summary ---
Demographics + + + | Address | [address] | | | [place] [address] | + + + | Home Phone | | + + + | Preferred Language | Unknown | + + + | Marital Status | Single | + + + | Adventist Affiliation | Unknown | + + + | Race | Unknown | + + + | Ethnic Group | Unknown | + + + Author + + + | Author | [facility] | | | and [place] | + + + | Organization | [facility] | | | [...] Team Providers + +------+ + | Care Security Tech Name | Role | Phone | [...] + + | 10/20/ | Telephone | [facility] | Charli, Boni S, | Procedure (Capsule | | 2018 | | GASTROENTEROLOGY | Executive Vice President And Chief Operating Officer | Endoscopy) | | | | [address] | | | | | | [place] | | | | | | [address] | | | | | | [phone] | | | +--------+ + + + [...] 2020 | Office | | [address] [facility] | | | | Visit | | [address] [place], [place] | | | | | | [address] | | | | | | | | +--------+ + + + + | 06/14/ | Office | Cardiology | Ольга Veloz DO | | | 2020 | Visit | | [address] | | | | | | [place] | | | | | | [address] | | | | | | | | +--------+ + + + + documented as of this encounter Visit Diagnoses Not on filedocumented in this encounter"
--- OUTSIDE RECORDS SUMMARY | ~2020-04-23 | XMS | Encounter Summary ---
Demographics + + + | Address | [address] | | | [place] [address] | + + + | Home Phone [...] Team Providers + +------+ + | Care Appliance Sales Associate Name | Role | Phone | + [...] | | | [address] | [address] [place], [place] | | | | | [place], [place] | [address] | | | | | [address] | | | | | | [phone] | | | +--------+ + + + [...] [place] | | | | | | [address] | | | | | | | | +--------+ + + + + | 06/14/ | Office | Cardiology | Ольга Veloz DO | | | 2019 | Visit | | [address] | | | | | | [place] | | | | | | [address] | | | | | | | [...] 0.95 m/s | | | MV Dec Camp: 4.51 m/s2 MV DecT: 171.69 ms MV E Tripp: 0.77 | | | m/s MV E/A Ratio: 0.81 MV PHT: 49.79 ms MVA By PHT: 4.41 | | | cm2 Septal e': 0.05 m/s Septal E/e': 13.50 Lateral e': | | | 0.08 m/s Lateral E/e': 8.88 RV s': 0.11 m/s Api Architect: | | | DBS Authenticated by: Anaya Pham Report Date/Time: 05-18-2019 | | | 18:21:40 | | + + + + --------+ | Procedure Note | + --------+ | MoihtBrad Conversion - 07/21/2019 1:44 PM PDT Patient [...] cmLVPWd: 0.93 cmLVOT | | Area: 3.18 [id number] Diam: 2.01 cm%FS: 31.25 %EF(Teich): 58.95 %ESV(Teich): | | 43.96 mlLVIDs: 3.29 cmSV(Teich): 63.16 mlRV Major: 7.53 cmRV Minor: 2.92 cmLVEF | | MOD A4C: 56.74 %SV MOD A4C: 67.87 mlLVEDV MOD A4C: 119.61 mlLVLd A4C: 9.44 | | cmLVESV MOD A4C: 51.74 mlLVLs A4C: 7.83 cmLAESV(A-L): 64.31 mlLAESV Index (A-L): | | 24.73 ml/m2LAAs A2C: 21.37 [id number] A-L A2C: 79.16 mlLALs A2C: 4.90 cmLAAs A4C: | | 14.94 [id number] A-L A4C: 44.97 mlLALs A4C: 4.21 cmRAAs: 10.68 [id number] A-L: | | 21.94 mlRAESV MOD: 22.52 mlRALs: 4.41 cmTAPSE: 1.99 cmAV maxP.74 mmHgAV | | meanP.04 mmHgAV Vmax: 1.39 m/Trinity Vmean: 0.93 m/Trinity VTI: 24.81 cmAVA Vmax: | | 2.84 cm2AVA (VTI): 3.25 tb9CWBI (Vmax): 0.00 cm2/m2AVAI (VTI): 0.00 cm2/m2LVOT | | maxP.17 mmHgLVOT meanP.66 mmHgLVSI Dopp: 31.09 ml/m2LVSV Dopp: 80.85 | | mlLVOT Vmax: 1.24 m/sLVOT Vmean: 0.91 m/sLVOT VTI: 25.38 cmMV A Tripp: 0.95 m/sMV | | Dec Camp: 4.51 m/s2MV DecT: 171.69 msMV E Tripp: 0.77 m/sMV E/A Ratio: 0.81MV | | PHT: 49.79 msMVA By PHT: 4.41 wk1Xjbhct e': 0.05 m/sSeptal E/e': 13.50Lateral | | e': 0.08 m/sLateral E/e': 8.88RV s': 0.11 m/s Api Architect: DBSAuthenticated by: | | Anaya [facility] Date/Time: 05-18-2019 18:21:40 IMPRESSION: 1. Overall left [...] A Tripp: 0.95 m/s | |MV Dec Camp: 4.51 m/s2 | |MV DecT: 171.69 ms | |MV E Tripp: 0.77 m/s | |MV E/A Ratio: 0.81 | |MV PHT: 49.79 ms | |MVA By PHT: 4.41 cm2 | |Septal e': 0.05 m/s | |Septal E/e': 13.50 | |Lateral e': 0.08 m/s | |Lateral E/e': 8.88 | |RV s': 0.11 m/s | | | |Api Architect: DBS | |Authenticated by: Anaya Pham | [...]
--- OUTSIDE RECORDS SUMMARY | ~2020-04-23 | XMS | Encounter Summary ---
Demographics + + + | Address | [address] | | | [place] [address] | + + + | Home Phone | | + + + | Preferred Language | Unknown | + + + | Marital Status | Single | + + + | Confucianism Affiliation | Unknown | + + + | Race | Unknown | + + + | Ethnic Group | Unknown | + + + Author + + + | Author | [facility] | | | and [place] | + + + | Organization | [facility] | | [...] Providers + +------+ + | Care Diamond Wheel Edger Name | Role | Phone | + [...] | | | [address] | [address], | [place], [place] | | | | | | [place] [address] | [address] Phone: | | | | | | Phone: | [phone] | | | | | | [phone] | Fax: | | | | | | Fax: | [phone] | | | | | | [phone] | | + + + + + + + Encounter Details +--------+---------+ + + + | Date | Type | Department | Care Team | Description | +--------+---------+ + + + | 10/11/ | Office | [facility] | Doron Herrera | Iron deficiency | | 2019 | Visit | GASTROENTEROLOGY | MD Don [address] | anemia due to | | | | [address] | [address]VD [place], [place] | chronic blood loss | | | | [place], [place] | [address] | (Primary Dx); Anemia | | | | [address] | | due to stage 3 | | | | [phone] | | chronic kidney | | | [...] Herrera MD - 10/11/2019 2:50 PM PST [facility] Gastroenterology Subjective: Chief Complaint Patient presents with [...] 20 mg once a d ay. 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 nystatin (MYCOSTATIN) [id number] UNIT/GM cream Apply topically as needed. 0 [...] CHOLECYSTECTOMY 1999 COLONOSCOPY 07/07/2018 Dr. Cabral in [place], [place] LIPOMA RESECTION x3 OTHER SURGICAL HISTORY Ocular implants TONSILLECTOMY AND ADENOIDECTOMY 1992 UPPER GASTROINTESTINAL ENDOSCOPY 07/07/2018 Dr. Cabral in [place], [place] Family History Problem Relation Age of [...] file Gets together: Not on file Attends denominational service: Not on file Active member of [...] consent obtained . William Herrera IV, M.D. [facility] Gastroenterology 10/11/2019 This note was dictated using Dexmo voice recognition software. Document was reviewed at ti me of dictation but hvila-b-[id number] errors may be present. Please call with any questions or c larifications. TIME: New patient - total direct prhh-qe-qmrb time of 45 minutes spent in reviewing info rmation and discussion with greater than 50% of that time spent in counseling or coordinatin g of care. documented in thi s encounter Plan of Treatment +--------+ + + + + | Date | Type | Specialty | Care Team | Description | +--------+ + + + + | 04/30/ | Virtual | Nephrology | Andrews Massey MD | | | 2019 | Office | | [address] [facility] | | | | Visit | | [address] [place], [place] | | | | | | [id number] | | | | | | | | +--------+ + + + + | 06/14/ | Office | Cardiology | Veloz, Ольга, DO | | | 2020 | Visit | | [address] | | | | | | [place], [place] | | | | | | [address] | | | | | | | | +--------+ + + + + documented as of this encounter Results FL Small Bowel Follow [...] loss COMPARISON: None | | | PROCEDURE: Photographic Spotter image of the abdomen. Following ingestion of | | | liquid barium, sequential images obtained of the abdomen were | | | obtained. Additional fluoroscopic images of the small bowel with spot | | | images, as needed. Fluoro Time: .9 minute(s). Number of images: | | | 21 Air Kerma: 64.17 mGy FINDINGS: Photographic Spotter image: Non-distended | | | bowel gas [...] + + | Mohit, Rad Results In 10/17/2019 1:46 PM PST | | SMALL BOWEL FOLLOW THROUGH | | | | CLINICAL INFORMATION: | | Iron deficiency anemia due to chronic blood loss | | | | COMPARISON: | | None | | | | PROCEDURE: | | Photographic Spotter image of the abdomen. Following ingestion of liquid barium, | | sequential images obtained of the abdomen were obtained. Additional | | fluoroscopic images of the small bowel with spot images, as needed. | | | | Fluoro Time: .9 minute(s). Number of images: 21 Air Kerma: 64.17 mGy | | | | FINDINGS: | | Photographic Spotter image: Non-distended bowel gas pattern. No free [...] | | | | Signed by: Philip Raphael, [place] | | Sign Date/Time: 10/17/2019 1:42 PM [...]
--- OUTSIDE RECORDS SUMMARY | ~2020-04-23 | XMS | Encounter Summary ---
Demographics + + + | Address | [address] | | | [place] [address] | + + + | Home Phone [...] Author + + + | Author | [facility] | | | and [place] | + + + | Organization | [facility] | | [...] Team Providers + +------+ + | Care Forklift Wheel Loader Name | Role | Phone | + [...] | | 2019 | Event | [facility] | MD [address] | | | | | INTRA OP [address] | [place] [address] | | | | | [address] [place], [place] | [phone] | | | | | [address] | | | | | | [phone] | | | +--------+ + + + [...] 0957 by Dominique | | eral | bnha-jbo-wylwkp catheter system; | Devi Greer RN | [...] 2020 | Office | | [address] [facility] | | | | Visit | | [address] [place], [place] | | | | | | [address] | | | | | | | | +--------+ + + + + | 06/14/ | Office | Cardiology | VelozОльга solerDO | | | 2019 | Visit | | [address] | | | | | | [place] | | | | | | [address] | | | | | | | [...]
--- OUTSIDE RECORDS SUMMARY | ~2020-04-23 | XMS | Encounter Summary ---
Demographics + + + | Address | [address] | | | [place] [address] | + + + | Home Phone | | + + + | Preferred Language | Unknown | + + + | Marital Status | Single | + + + | Restorationist Affiliation | Unknown | + + + | Race | Unknown | + + + | Ethnic Group | Unknown | + + + Author + + + | Author | [facility] | | | and [place] | + + + | Organization | [facility] | | [...] Providers + +------+ + | Care Parts Finisher Name | Role | Phone | + +------+ + | Lisa Mcclain MD | PCP | | + +------+ + Encounter Details +--------+ + + + + | Date | Type | Department | Care Team | Description | +--------+ + + + + | 07/15/ | Orders Only | [facility] | Annel Whitten | Chronic viral | | 2019 | | INFECTIOUS DISEASE | Мария Farley MD | hepatitis C (HCC); | | | | [address] | [address] | Chronic kidney | | | | [place], [place] | [place] [address] | disease, stage III | | | | [address] | [phone] | (moderate) (HCC); | | | | [phone] | | Essential (primary) | | | [...] 2019 | Office | | [address] [facility] | | | | Visit | | [address] | | | | | | [address] | | | | | | | | +--------+ + + + + | 06/14/ | Office | Cardiology | Ольга Veloz DO | | | 2019 | Visit | | [address] | | | | | | [place] | | | | | | [address] | | | | | | | [...] Expires: | | | | | (moderate) ([facility]) | 10/12/2019 | | | | | [...] | | | | | | (moderate) ([facility]) | | | | | | Vitamin D deficiency | | | | | | Localized edema | | + +------+--------+ + + | CBC with | Lab | Routin | Chronic kidney | Expected: | | Differential | | e | disease, stage III | 01/12/2019, Expires: | | | | | (moderate) ([facility]) | 10/12/2019 | | | | | [...] | | | | | | (moderate) ([facility]) | | | | | | Vitamin D deficiency | | | | | | Localized edema | | + +------+--------+ + + | Iron and Iron | Lab | Routin | Chronic kidney | Expected: | | Binding Capacity | | e | disease, stage III | 01/12/2019, Expires: | | | | | (moderate) ([facility]) | 10/12/2019 | | | | | [...] | | | (moderate) (HCC) | | | | | | Vitamin D deficiency | | | | | | Localized edema | | + +------+--------+ + + | Ferritin | Lab | Routin | Chronic kidney | Expected: | | | | e | disease, stage III | 01/12/2019, Expires: | | | | | (moderate) (HCC) | 10/12/2019 | | | | | [...] | | | | | | (moderate) ([facility]) | | | | | | Vitamin D deficiency | | | | | | Localized edema | | + +------+--------+ + + | Uric Acid | Lab | Routin | Chronic kidney | Expected: | | | | e | disease, stage III | 01/12/2019, Expires: | | | | | (moderate) ([facility]) | 10/12/2019 | | | | | [...] | | | | | | (moderate) ([facility]) | | | | | | Vitamin D deficiency | | | | | | Localized edema | | + +------+--------+ + + | Urinalysis with | Lab | Routin | Chronic kidney | Expected: | | Microscopic if | | e | disease, stage III | 01/12/2019, Expires: | | Indicated | | | (moderate) ([facility]) | 10/12/2019 | | | | | [...] | | | | | | (moderate) ([facility]) | | | | | | Vitamin D deficiency | | | | | | Localized edema | | + +------+--------+ + + | Protein/Creatinine | Lab | Routin | Chronic kidney | Expected: | | Ratio, Urine | | e | disease, stage III | 01/12/2019, Expires: | | | | | (moderate) ([facility]) | 10/12/2019 | | | | | [...] | | | | | | (moderate) ([facility]) | | | | | | Vitamin D deficiency | | | | | | Localized edema | | + +------+--------+ + + | Protein/Creatinine | Lab | Routin | Chronic kidney | Expected: | | Ratio, Urine | | e | disease, stage III | 02/07/2019, Expires: | | | | | (moderate) ([facility]) | 02/01/2020 | | | | | [...] Expires: | | | | | (moderate) ([facility]) | 05/09/2020 | | | | | [...] Expires: | | | | | (moderate) ([facility]) | 05/09/2020 | | | | | [...] Expires: | | | | | (moderate) ([facility]) | 05/09/2020 | | | | | [...] NAAT | | e | hepatitis C ([facility]) | 05/18/2019, Expires: | | | | [...]
--- OUTSIDE RECORDS SUMMARY | ~2020-04-23 | XMS | Encounter Summary ---
Demographics + + + | Address | [address] | | | [place] [address] | + + + | Home Phone [...] Providers + +------+ + | Care Computer Technology Teacher Name | Role | Phone | + +------+ + | Lisa Mcclain MD | PCP | | + +------+ + Encounter Details +--------+ + + + + | Date | Type | Department | Care Team | Description | +--------+ + + + + | 07/20/ | Orders Only | [facility] | Andrews Massey MD | CKD (chronic kidney | | 2019 | | NEPHROLOGY [address] | [address] [facility] [place] | disease), stage III | | | | [address] | [address] [place], [place] | (HCC) (Primary Dx); | | | | [address] | [address] | Essential (primary) | | | | [address], [place] | | hypertension; | | | | [address] | | Persistent | | | | [phone] | | proteinuria | +--------+ + + [...] 2019 | Office | | [address] [facility] [place] | | | | Visit | | [address] [place] | | | | | | [address] | | | | | | | | +--------+ + + + + | 06/14/ | Office | Cardiology | Ольга Veloz DO | | | 2019 | Visit | | [address] | | | | | | [place] | | | | | | [address] | | | | | | | | +--------+ + + + + + +------+--------+ + + | Name | Type | Priori | Associated Diagnoses | Order Schedule | | | | ty | | | + +------+--------+ + + | [facility] Lab Referral | Lab | Routin | [...]
--- OUTSIDE RECORDS SUMMARY | ~2020-04-23 | XMS | Encounter Summary ---
Demographics + + + | Address | [address] | | | [place] [address] | + + + | Home Phone [...] + + + | Author | [facility] | | | and [place] | + + + | Organization | [facility] | [...] Team Providers + +------+ + | Care Dice Spotter Name | Role | Phone | + +------+ + | Lisa Mcclain MD | PCP | | + +------+ + Encounter Details +--------+ + + + + | Date | Type | Department | Care Team | Description | +--------+ + + + + | 07/21/ | Orders Only | [facility] | Conversion | | | 2017 | | INFECTIOUS DISEASE | Transaction, | | | | | [address] | Provider Unknown | | | | | [place], [place] | | | | | | [address] | (Fax) | | | | | [phone] | | | +--------+ + + + [...] Steph Mayorga CMA Service: (none) Author Type: Toy Assembly Supervisor Filed: 07/28/18 0958 Encounter Date: 07/27/2018 Status: Signed Education Professional: Steph Mayorga CMA (Toy Assembly Supervisor) Labs abstracted. A copy of the labs will be put in Dr. Whitten inbox, as it's hard to abstr act the HCV labs. KENA HERRING onver jovany Transaction, Provider Unknown - 07/27/2018 4:06 PM PDT Addendum Note by Steph Mayorga CMA at 07/27/18 1606 Author: Steph Mayorga CMA Service: (none) Author Type: Toy Assembly Supervisor Filed: 08/09/18 0944 Encounter Date: 07/27/2018 Status: Signed Education Professional: Steph Mayorga CMA (Toy Assembly Supervisor) Addended by: STEPH MAYORGA on: 08/09/2018 09:44 AM Modules accepted: Orders docume nted in this encounter Plan of Treatment +--------+ + + + + | Date | Type | Specialty | Care Team | Description | +--------+ + + + + | 04/30/ | Virtual | Nephrology | Andrews Massey MD | | | 2019 | Office | | [address] [facility] | | | | Visit | | [address] [place], [place] | | | | | | [id number] | | | | | | | | +--------+ + + + + | 06/14/ | Office | Cardiology | Ольга Veloz DO | | | 2019 | Visit | | [address] | | | | | | [place] | | | | | | [id number] | | | | | | | [...] + + + + | Necroinflam | [id number]/[id number]: Equal | | EXTERNAL | | | [...]
--- OUTSIDE RECORDS SUMMARY | ~2020-04-23 | XMS | Encounter Summary ---
Demographics + + + | Address | [address] | | | [place] [address] | + + + | Home Phone | | + + + | Preferred Language | Unknown | + + + | Marital Status | Single | + + + | Mu-Ism Affiliation | Unknown | + + + | Race | Unknown | + + + | Ethnic Group | Unknown | + + + Author + + + | Author | [facility] | | | and [place] | + + + | Organization | [facility] | | | [...] Team Providers + +------+ + | Care Av Specialist Name | Role | Phone | + +------+ + | Yessica Mayorga MD | PCP | | + +------+ + Encounter Details +--------+ + + + + | Date | Type | Department | Care Team | Description | +--------+ + + + + | 05/20/ | Orders Only | [facility] | Andrews Massey MD | | | 2019 | | NEPHROLOGY [place] | [address] [place] | | | | | [address] [place] | [address] [place], [place] | | | | | [address] [place], [place] | [address] | | | | | [address] | | | | | | [phone] | | | +--------+ + + + [...] | | [address] [facility] | | | | Visit | | [address] [place] | | | | | | [address] | | | | | | | | +--------+ + + + + | 06/14/ | Office | Cardiology | Ольга Veloz DO | | | 2019 | Visit | | [address] | | | | | | [place] | | | | | | [address] | | | | | | | [...]
--- OUTSIDE RECORDS SUMMARY | ~2020-04-23 | XMS | Encounter Summary ---
Demographics + + + | Address | [address] | | | [place] [address] | + + + | Home Phone [...] Team Providers + +------+ + | Care Dish Carrier Name | Role | Phone | + +------+ + | Lisa Mcclain MD | PCP | | + +------+ + Encounter Details +--------+ + + + + | Date | Type | Department | Care Team | Description | +--------+ + + + + | 10/08/ | Orders Only | [facility] | Andrews Massey MD | | | 2018 | | NEPRHOLOGY [place] | [address] [place] | | | | | [address] [place] | [address] [place], [place] | | | | | [address] [place], [place] | [address] | | | | | [address] | | | | | | [phone] | | | +--------+ + + + [...] | 04/30/ | Virtual | Nephrology | Anderws Massey MD | | | 2019 | Office | | [address] [facility] [address] | | | | Visit | | [address] | | | | | | [address] | | | | | | | | +--------+ + + + + | 06/14/ | Office | Cardiology | Ольга Veloz DO | | | 2019 | Visit | | [address] | | | | | | [place] | | | | | | [address] | | | | | | | [...] | | | LAB | | | MAURITANIAN | | | | | + + [...]
--- OUTSIDE RECORDS SUMMARY | ~2020-04-23 | XMS | Encounter Summary ---
Demographics + + + | Address | [address] | | | [place] [address] | + + + | Home Phone [...] Author | [facility] | | | and [place] | + [...] Team Providers + +------+ + | Care Solutions Engineer Name | Role | Phone | [...] Provider Unknown | | | | | [place], [place] | [phone] | | | | | [phone] | (Fax) | | | | | [phone] | | | +--------+ + + + [...] [place] | | | | | | [address] | | | | | | | | +--------+ + + + + | 06/14/ | Office | Cardiology | Ольга Veloz DO | | | 2019 | Visit | | [address] | | | | | | [place] | | | | | | [address] | | | | | | | | +--------+ + + + + documented as of this encounter Visit Diagnoses Not on filedocumented in this encounter"
--- OUTSIDE RECORDS SUMMARY | ~2020-04-23 | XMS | Encounter Summary ---
Demographics + + + | Address | [address] | | | [place] [address] | + + + | Home Phone [...] Providers + +------+ + | Care Computer Repair Instructor Name | Role | Phone | [...] | | | unspecified | [address], | [place], [place] | | | | | | [place] [address] | [address] Phone: | | | | | | Phone: | [phone] | | | | | | [phone] | Fax: | | | | | | Fax: | [phone] | | | | | | [phone] | | + + + + + + + Encounter Details +--------+---------+ + + + | Date | Type | Department | Care Team | Description | +--------+---------+ + + + | 10/11/ | Office | [facility] | Doron Herrera | Iron deficiency | | 2019 | Visit | GASTROENTEROLOGY | MD Don [address] | anemia due to | | | | [address] | [address]VD [place], [place] | chronic blood loss | | | | [place], [place] | [address] | (Primary Dx); Anemia | | | | [address] | | due to stage 3 | | | | [phone] | | chronic kidney | | | [...] Herrera MD - 10/11/2019 2:50 PM PST [facility] Gastroenterology Subjective: Chief Complaint Patient [...] 20 mg once a d ay. Her char puller has been very hesitant to consider PPI [...] 100 UNIT/ML injection pen Daily. nystatin (MYCOSTATIN) 386596 UNIT/GM cream Apply topically as needed. 0 [...] CHOLECYSTECTOMY 1999 COLONOSCOPY 07/07/2018 Dr. Cabral in [place], [place] LIPOMA RESECTION x3 OTHER SURGICAL HISTORY Ocular implants TONSILLECTOMY AND ADENOIDECTOMY 1992 UPPER GASTROINTESTINAL ENDOSCOPY 07/07/2018 Dr. Cabral in [place], [place] Family History Problem Relation Age of [...] file Gets together: Not on file Attends restorationism service: Not on file Active member of [...] questions provided and informed consent obtained . Wliliam Herrera IV, M.D. [facility] Gastroenterology 10/11/2019 This note was dictated using mojio voice recognition software. Document was reviewed at ti me of dictation but [id number] errors may be present. Please call with any questions or c larifications. TIME: New patient - total direct [id number] time of 45 minutes spent in reviewing [...] 2019 | Office | | [address] [facility] | | | | Visit | | [address] [place], [place] | | | | | | [address] | | | | | | | | +--------+ + + + + | 06/14/ | Office | Cardiology | Veloz, Ольга, DO | | | 2020 | Visit | | [address] | | | | | | [place], [place] | | | | | | [address] | | | | | | | [...] loss COMPARISON: None | | | PROCEDURE: Corporate Administrative Assistant image of the abdomen. Following ingestion of | | | liquid barium, sequential images obtained of the abdomen were | | | obtained. Additional fluoroscopic images of the small bowel with spot | | | images, as needed. Fluoro Time: .9 minute(s). Number of images: | | | 21 Air Kerma: 64.17 mGy FINDINGS: Corporate Administrative Assistant image: Non-distended | | | bowel gas [...] | | | | PROCEDURE: | | Corporate Administrative Assistant image of the abdomen. Following ingestion of liquid barium, | | sequential images obtained of the abdomen were obtained. Additional | | fluoroscopic images of the small bowel with spot images, as needed. | | | | Fluoro Time: .9 minute(s). Number of images: 21 Air Kerma: 64.17 mGy | | | | FINDINGS: | | Corporate Administrative Assistant image: Non-distended bowel gas pattern. No free [...]
--- OUTSIDE RECORDS SUMMARY | ~2020-04-23 | XMS | Encounter Summary ---
Demographics + + + | Address | [address] | | | [place] [address] | + + + | Home Phone [...] Team Providers + +------+ + | Care Spinner Box Name | Role | Phone | + +------+ + | Lisa Mcclain MD | PCP | | + +------+ + Encounter Details +--------+ + + + + | Date | Type | Department | Care Team | Description | +--------+ + + + + | 07/20/ | Orders Only | [facility] | Andrews Massey MD | CKD (chronic kidney | | 2019 | | NEPHROLOGY [address] | [address] [facility] [place] | disease), stage III | | | | [address] | [address] [place], [place] | (HCC) (Primary Dx); | | | | [address] [address] | [address] | Essential (primary) | | | | RD, [place] | | hypertension; | | | | [address] | | Persistent | | | | [phone] | | proteinuria | +--------+ + + [...] | [address] [facility] [place] | | | | Visit | | [address] [place] | | | | | | [address] | | | | | | | | +--------+ + + + + | 06/14/ | Office | Cardiology | Ольга Veloz DO | | | 2019 | Visit | | [address] | | | | | | [place] | | | | | | [address] | | | | | | | | +--------+ + + + + + +------+--------+ + + | Name | Type | Priori | Associated Diagnoses | Order Schedule | | | | ty | | | + +------+--------+ + + | [facility] | Lab | Routin | [...]
--- OUTSIDE RECORDS SUMMARY | ~2020-04-23 | XMS | Clinical Summary ---
Demographics + + + | Address | [address] | | | [place] [address] | + + + | Home Phone | | + + + | Preferred Language | Unknown | + + + | Marital Status | Single | + + + | Taoist Affiliation [...] Team Providers + +------+ + | Care Therapeutic Recreation Leader Name | Role | Phone | + [...] 07/2 | | Activ | | (MYCOSTATIN) [id number] | needed. | | | 3/20 | [...] automatically from request for surgery | | [id number] | + + + + + | [...] | continued medical care if she leaves [place].We discussed the | | following plan:1) Pt will drive to the [place] clinic to meet | | with CHW/RD. 2) I will ask our [facility] in [place] to reach out | | and welcome [...] [place] | | | | | | [address] | | | | | | | | +--------+ + + + + | 06/14/ | Office | Cardiology | Ольга Veloz DO | | 2019 | Visit | | [address] | | | | | | [place] | | | | | | [address] | | | | | | | [...] | [employer] | COMM | [id number] | 11/30/19 | [phone] | | Medica [...] | [employer] | MODA | [id number] | 07/03/20 | [phone] | | Medica [...] [place] | al/Fam | | 1969 | [id number] | [address] [place] | | | [place] | | | 2 (Home) | | + +--------+ +--------+ + + | Kishoer Ames | Person | Self | [birth year] | | [address] | | yovani Harrell | al/Fam | | 1970 | [phone] | [address] [place] | | | [place] | | | 2 (Home) | | + +--------+ +--------+ + + Advance Directives + + + + + | Type | Date Recorded | Patient | Explanation | | | | Signalman | | + + + + + | Power of | | | | | Associate Financial Representative | | | | + + + + + | Advance | 11/07/2019 4:17 | | | | Directive | PM | | | + + + + +
--- OUTSIDE RECORDS SUMMARY | ~2020-04-23 | XMS | Encounter Summary ---
Demographics + + + | Address | [address] | | | [place] [address] | + + + | Home Phone | | + + + | Preferred Language | Unknown | + + + | Marital Status | Single | + + + | Confucianist Affiliation [...] Team Providers + +------+ + | Care Daily Release And Dupe Printer Name | Role | Phone | [...] + + | 11/01/ | Telephone | [facility] | Doron Herrera | Other (CAPSULE) | | 2019 | | GASTROENTEROLOGY | MD [address] | | | | | [address] | [address] [place], [place] | | | | | [place], [place] | [address] | | | | | [address] | | | | | | [phone] | | | +--------+ + + + [...] 2019 | Office | | [address] [facility] [place] | | | | Visit | | [address] [place], [place] | | | | | | [address] | | | | | | (Fax) | | +--------+ + + + + | 06/14/ | Office | Cardiology | Ольга Veloz DO | | | 2019 | Visit | | [address] | | | | | | [place] | | | | | | [address] | | | | | | | | +--------+ + + + + documented as of this encounter Visit Diagnoses Not on filedocumented in this encounter"
--- OUTSIDE RECORDS SUMMARY | ~2020-04-23 | XMS | Encounter Summary ---
Demographics + + + | Address | [address] | | | [place] [address] | + + + | Home Phone [...] + + + | Author | [facility] | | | and [place] | + + + | Organization | [facility] | | [...] Providers + +------+ + | Care Dry Food Products Mixer Name | Role | Phone | [...] + + | 12/12/ | Telephone | [facility] | Jamie, | Other | | 2020 | | GASTROENTEROLOGY | Claudia Rivera EQUIPMENT SUPERINTENDENT [address] | | | | | [address] | [address] [place], | | | | | [place], [place] | [place] [address] | | | | | [address] | [phone] | | | | | [phone] | | | +--------+ + + + [...] 2020 | Office | | [address] [facility] | | | | Visit | | [address] [place], [place] | | | | | | [address] | | | | | | | | +--------+ + + + + | 06/14/ | Office | Cardiology | Ольга Veloz DO | | | 2019 | Visit | | [address] | | | | | | [place] | | | | | | [address] | | | | | | | | +--------+ + + + + documented as of this encounter Visit Diagnoses Not on filedocumented in this encounter"
--- OUTSIDE RECORDS SUMMARY | ~2020-04-23 | XMS | Encounter Summary ---
Demographics + + + | Address | [address] | | | [place] [address] | + + + | Home Phone [...] Providers + +------+ + | Care Senior Business Manager Name | Role | Phone | [...] + + | 03/13/ | Telephone | [facility] | Andrews Massey MD | Other (UTI and | | 2019 | | NEPHROLOGY [address] | [address] [place] | kidney pain) | | | | [address] | [address] [place], [place] | | | | | [address] [address] | [address] | | | | | [address], [place] | | | | | | [address] | | | | | | [phone] | | | +--------+ + + + [...] 2020 | Office | | [address] [facility] | | | | Visit | | [address] [place], [place] | | | | | | [address] | | | | | | | | +--------+ + + + + | 06/14/ | Office | Cardiology | Ольга Veloz DO | | | 2019 | Visit | | [address] | | | | | | [place] | | | | | | [address] | | | | | | | | +--------+ + + + + documented as of this encounter Visit Diagnoses Not on filedocumented in this encounter"
--- OUTSIDE RECORDS SUMMARY | ~2020-04-23 | XMS | Encounter Summary ---
Demographics + + + | Address | [address] | | | [place] [address] | + + + | Home Phone | | + + + | Preferred Language | Unknown | + + + | Marital Status | Single | + + + | Bahai Affiliation | Unknown | + + + | Race | Unknown | + + + | Ethnic Group | Unknown | + + + Author + + + | Author | [facility] | | | and [place] | + + + | Organization | [facility] | | | [...] Team Providers + +------+ + | Care Car Tracer Name | Role | Phone | + [...] + + | 10/24/ | Telephone | [facility] | Harrison, | Other (Medication | | 2019 | | NE[address]ROLOGY [address] | Aminah Lovelace | question) | | | | [address] | [employer] | | | | | [address] [place] [address] | | | | | | RD, [place] | | | | | | [address] | | | | | | [phone] | | | +--------+ + + + [...] 2020 | Office | | [address] [facility] | | | | Visit | | [address] [place], [place] | | | | | | [address] | | | | | | | | +--------+ + + + + | 06/14/ | Office | Cardiology | Ольга Veloz DO | | | 2020 | Visit | | [address] | | | | | | [place] | | | | | | [address] | | | | | | | | +--------+ + + + + documented as of this encounter Visit Diagnoses Not on filedocumented in this encounter"
--- OUTSIDE RECORDS SUMMARY | ~2020-04-23 | XMS | Encounter Summary ---
Demographics + + + | Address | [address] | | | [place] [address] | + + + | Home Phone | | + + + | Preferred Language | Unknown | + + + | Marital Status | Single | + + + | Pentecostalism Affiliation | Unknown | + + + | Race | Unknown | + + + | Ethnic Group | Unknown | + + + Author + + + | Author | [facility] | | | and [place] | + + + | Organization | [facility] | | [...] Providers + +------+ + | Care Director Call Center Sales Name | Role | Phone | + +------+ + | Lisa Mcclain MD | PCP | | + +------+ + Encounter Details +--------+ + + + + | Date | Type | Department | Care Team | Description | +--------+ + + + + | 11/16/ | [facility] | [facility] | Doron Herrera | Preop testing | | 2019 | Encounter | [facility] | MD [address] | | | | | [address]IAGNOSTICS | [address] [place], [place] | | | | | [address] | [address] | | | | | [place], [place] | | | | | | [address] | | | | | | [phone] | | | +--------+ + + + [...] 0 | 06/21/20 | | | (MYCOSTATIN) [id number] | needed. | | | 18 | [...] 2019 | Office | | [address] [facility] | | | | Visit | | [address] [place] | | | | | | [address] | | | | | | | | +--------+ + + + + | 06/14/ | Office | Cardiology | Ольга Veloz DO | | | 2019 | Visit | | [address] | | | | | | [place] | | | | | | [address] | | | | | | | [...] MD | | | | | | (556) on 11/16/2019 | | | | | [...]
--- OUTSIDE RECORDS SUMMARY | ~2020-04-23 | XMS | Encounter Summary ---
Demographics + + + | Address | [address] | | | [place] [address] | + + + | Home Phone [...] Providers + +------+ + | Care Senior Corporate Strategy Manager Name | Role | Phone | [...] | | | unspecified | [address], | [place], [place] | | | | | | [place] [address] | [address] Phone: | | | | | | Phone: | [phone] | | | | | | [phone] | Fax: | | | | | | Fax: | [phone] | | | | | | [phone] | | + + + + + + + Encounter Details +--------+ + + + + | Date | Type | Department | Care Team | Description | +--------+ + + + + | 01/12/ | Clinical | [facility] | Darcie Jane, | Iron deficiency | | 2019 | Support | GASTROENTEROLOGY | RN | anemia, unspecified | | | | [address] | | iron deficiency | | | | [place] | | anemia type (Primary | | | | [address] | | Dx) | | | | [phone] | | | +--------+ + + + [...] [place] | | | | | | [address] | | | | | | | | +--------+ + + + + | 06/14/ | Office | Cardiology | Ольга Veloz DO | | | 2019 | Visit | | [address] | | | | | | [place] | | | | | | [address] | | | | | | | | +--------+ + + + + documented as of this encounter Visit Diagnoses + + | Diagnosis | + + | Iron deficiency anemia, unspecified iron deficiency anemia type - Primary | + + documented in this encounter"
--- OUTSIDE RECORDS SUMMARY | ~2020-04-23 | XMS | Encounter Summary ---
Demographics + + + | Address | [address] | | | [place] [address] | + + + | Home Phone [...] Team Providers + +------+ + | Care Review Trainer Name | Role | Phone | + +------+ + | Lisa Mcclain MD | PCP | | + +------+ + Encounter Details +--------+ + + + + | Date | Type | Department | Care Team | Description | +--------+ + + + + | 07/15/ | Orders Only | [facility] | Annel Whitten | Chronic viral | | 2019 | | INFECTIOUS DISEASE | Мария Farley MD | hepatitis C (HCC); | | | | [address] | [address] | Chronic kidney | | | | [place], [place] | [place] [address] | disease, stage III | | | | [address] | [phone] | (moderate) (HCC); | | | | [phone] | | Essential (primary) | | | [...] | | [address] [facility] | | | | Visit | | [address] [place] | | | | | | [address] | | | | | | | | +--------+ + + + + | 06/14/ | Office | Cardiology | Ольга Veloz DO | | | 2019 | Visit | | [address] | | | | | | [place] | | | | | | [address] | | | | | | | [...] Expires: | | | | | (moderate) ([facility]) | 10/12/2019 | | | [...] | | | | | | (moderate) ([facility]) | | | | | | Vitamin D deficiency | | | | | | Localized edema | | + +------+--------+ + + | CBC with | Lab | Routin | Chronic kidney | Expected: | | Differential | | e | disease, stage III | 01/12/2019, Expires: | | | | | (moderate) ([facility]) | 10/12/2019 | | | [...] | | | | | | (moderate) ([facility]) | | | | | | Vitamin D deficiency | | | | | | Localized edema | | + +------+--------+ + + | Iron and Iron | Lab | Routin | Chronic kidney | Expected: | | Binding Capacity | | e | disease, stage III | 01/12/2019, Expires: | | | | | (moderate) ([facility]) | 10/12/2019 | | | [...] | | | | | | (moderate) ([facility]) | | | | | | Vitamin D deficiency | | | | | | Localized edema | | + +------+--------+ + + | Uric Acid | Lab | Routin | Chronic kidney | Expected: | | | | e | disease, stage III | 01/12/2019, Expires: | | | | | (moderate) ([facility]) | 10/12/2019 | | | [...] | | | | | | (moderate) ([facility]) | | | | | | Vitamin D deficiency | | | | | | Localized edema | | + +------+--------+ + + | Urinalysis with | Lab | Routin | Chronic kidney | Expected: | | Microscopic if | | e | disease, stage III | 01/12/2019, Expires: | | Indicated | | | (moderate) ([facility]) | 10/12/2019 | | | [...] | | | | | | (moderate) ([facility]) | | | | | | Vitamin D deficiency | | | | | | Localized edema | | + +------+--------+ + + | Protein/Creatinine | Lab | Routin | Chronic kidney | Expected: | | Ratio, Urine | | e | disease, stage III | 01/12/2019, Expires: | | | | | (moderate) ([facility]) | 10/12/2019 | | | [...] | | | | | | (moderate) ([facility]) | | | | | | Vitamin D deficiency | | | | | | Localized edema | | + +------+--------+ + + | Protein/Creatinine | Lab | Routin | Chronic kidney | Expected: | | Ratio, Urine | | e | disease, stage III | 02/07/2019, Expires: | | | | | (moderate) ([facility]) | 02/01/2020 | | | [...] Expires: | | | | | (moderate) ([facility]) | 05/09/2020 | | | [...] Expires: | | | | | (moderate) ([facility]) | 05/09/2020 | | | [...] Expires: | | | | | (moderate) ([facility]) | 05/09/2020 | | | [...] NAAT | | e | hepatitis C ([facility]) | 05/18/2019, Expires: | | [...]
--- OUTSIDE RECORDS SUMMARY | ~2020-04-23 | XMS | Encounter Summary ---
Demographics + + + | Address | [address] | | | [place] [address] | + + + | Home Phone [...] + +------+ + | Care Director Of Counterintelligence Name | Role | Phone | + +------+ + | Lisa Mcclain MD | PCP | | + +------+ + Encounter Details +--------+ + + + + | Date | Type | Department | Care Team | Description | +--------+ + + + + | 07/26/ | Orders Only | [facility] | Andrews Massey MD | Chronic kidney | | 2019 | | NEPRHOLOGY [place] | [address] | disease, stage III | | | | [address] | [address] [place], [place] | (moderate) (HCC); | | | | [address] [place], [place] | [address] | Essential (primary) | | | | [address] | | hypertension; | | | | [phone] | | Persistent | | | | [...] 2019 | Office | | [address] [facility] [place] | | | | Visit | | [address] [place] | | | | | | [address] | | | | | | | | +--------+ + + + + | 06/14/ | Office | Cardiology | Ольга Veloz DO | | | 2019 | Visit | | [address] | | | | | | [place] | | | | | | [address] | | | | | | | [...]
--- OUTSIDE RECORDS SUMMARY | ~2020-04-23 | XMS | Encounter Summary ---
Demographics + + + | Address | [address] | | | [place] [address] | + + + | Home Phone [...] Team Providers + +------+ + | Care Wet Process Miller Head Name | Role | Phone | + +------+ + | Lisa Mcclain MD | PCP | | + +------+ + Encounter Details +--------+ + + + + | Date | Type | Department | Care Team | Description | +--------+ + + + + | 06/17/ | Orders Only | [facility] | Andrews Massey MD | | | 2017 | | NEPHROLOGY [place] | [address] [place] | | | | | [address] [place] | [address] [place], [place] | | | | | [address] [place], [place] | [address] | | | | | [address] | | | | | | [phone] | | | +--------+ + + + [...] 2019 | Office | | [address] [facility] | | | | Visit | | [address] [place] | | | | | | [address] | | | | | | | | +--------+ + + + + | 06/14/ | Office | Cardiology | Ольга Veloz DO | | | 2019 | Visit | | [address] | | | | | | [place] | | | | | | [address] | | | | | | | [...]
--- OUTSIDE RECORDS SUMMARY | ~2020-04-23 | XMS | Encounter Summary ---
Demographics + + + | Address | [address] | | | [place] [address] | + + + | Home Phone [...] Providers + +------+ + | Care Automotive Parts Advisor Name | Role | Phone | + +------+ + | Lisa Mcclain MD | PCP | | + +------+ + Encounter Details +--------+ + + + + | Date | Type | Department | Care Team | Description | +--------+ + + + + | 06/16/ | Orders Only | [facility] | Andrews Massey MD | | | 2017 | | NEPHROLOGY [place] | [address] [place] | | | | | [address] [place] | [address] [place], [place] | | | | | [address] [place], [place] | [address] | | | | | [address] | | | | | | [phone] | | | +--------+ + + + [...] 2019 | Office | | [address] [facility] | | | | Visit | | [address] [place] | | | | | | [address] | | | | | | | | +--------+ + + + + | 06/14/ | Office | Cardiology | Ольга Veloz DO | | | 2019 | Visit | | [address] | | | | | | [place] | | | | | | [address] | | | | | | | [...]
--- OUTSIDE RECORDS SUMMARY | ~2020-04-23 | XMS | Encounter Summary ---
Demographics + + + | Address | [address] | | | [place] [address] | + + + | Home Phone [...] Team Providers + +------+ + | Care Real Estate Closing Coordinator Name | Role | Phone | + +------+ + | Lisa Mcclain MD | PCP | | + +------+ + Encounter Details +--------+ + + + + | Date | Type | Department | Care Team | Description | +--------+ + + + + | 07/19/ | Orders Only | [facility] | Andrews Massey MD | | | 2019 | | NE[address]Y [address] | [address] [place] | | | | | [address] | [address] [place], [place] | | | | | [facility] [address] | [address] | | | | | RD, [place] | | | | | | [address] | | | | | | [phone] | | | +--------+ + + + [...] 2019 | Office | | [address] [facility] [address] | | | | Visit | | [address] [place] | | | | | | [address] | | | | | | | | +--------+ + + + + | 06/14/ | Office | Cardiology | Ольга Veloz DO | | | 2019 | Visit | | [address] | | | | | | [place] | | | | | | [address] | | | | | | | | +--------+ + + + + documented as of this encounter Visit Diagnoses Not on filedocumented in this encounter"
--- OUTSIDE RECORDS SUMMARY | ~2020-04-23 | XMS | Encounter Summary ---
Demographics + + + | Address | [address] | | | [place] [address] | + + + | Home Phone [...] Team Providers + +------+ + | Care Mail List Processor Name | Role | Phone | + +------+ + | Lisa Mcclain MD | PCP | | + +------+ + Encounter Details +--------+ + + + + | Date | Type | Department | Care Team | Description | +--------+ + + + + | 07/26/ | Orders Only | [facility] | Andrews Massey MD | Chronic kidney | | 2019 | | NEPRHOLOGY [place] | [address] | disease, stage III | | | | [address] | [address] [place], [place] | (moderate) (HCC); | | | | [address] [place], [place] | [address] | Essential (primary) | | | | [address] | | hypertension; | | | | [phone] | | Persistent | | | | [...] | | [address] [facility] [address] | | | | Visit | | [address] [place] | | | | | | [address] | | | | | | | | +--------+ + + + + | 06/14/ | Office | Cardiology | Ольга Veloz DO | | | 2019 | Visit | | [address] | | | | | | [place] | | | | | | [address] | | | | | | | [...]
--- OUTSIDE RECORDS SUMMARY | ~2020-04-23 | XMS | Encounter Summary ---
Demographics + + + | Address | [address] | | | [place] [address] | + + + | Home Phone | | + + + | Preferred Language | Unknown | + + + | Marital Status | Single | + + + | Spiritism Affiliation [...] Team Providers + +------+ + | Care Proofsheet Corrector Name | Role | Phone | + +------+ + | Lisa Mcclain MD | PCP | | + +------+ + Encounter Details +--------+ + + + + | Date | Type | Department | Care Team | Description | +--------+ + + + + | 06/17/ | Orders Only | [facility] | Andrews Massey MD | | | 2017 | | NEPHROLOGY [place] | [address] [place] | | | | | [address] [place] | [address] [place], [place] | | | | | [address] [place], [place] | [address] | | | | | [address] | | | | | | [phone] | | | +--------+ + + + [...] 2019 | Office | | [address] [facility] | | | | Visit | | [address] [place] | | | | | | [address] | | | | | | | | +--------+ + + + + | 06/14/ | Office | Cardiology | Ольга Veloz DO | | | 2019 | Visit | | [address] | | | | | | [place] | | | | | | [address] | | | | | | | [...]
--- OUTSIDE RECORDS SUMMARY | ~2020-04-23 | XMS | Encounter Summary ---
Demographics + + + | Address | [address] | | | [place] [address] | + + + | Home Phone [...] Team Providers + +------+ + | Care Acetylene Cylinder Packing Mixer Name | Role | Phone | + +------+ + | Lisa Mcclain MD | PCP | | + +------+ + Encounter Details +--------+ + + + + | Date | Type | Department | Care Team | Description | +--------+ + + + + | 08/22/ | Orders Only | [facility] | Andrews Massey MD | Anemia of chronic | | 2019 | | NEPHROLOGY [place] | [address] [place] | renal failure, stage | | | | [address] [place] | [address] [place], [place] | 3 (moderate) (HCC) | | | | [address] [place], [place] | [address] | (Primary Dx) | | | | [address] | | | | | | [phone] | | | +--------+ + + + [...] 2019 | Office | | [address] [facility] [place] | | | | Visit | | [address] [place] | | | | | | [address] | | | | | | | | +--------+ + + + + | 06/14/ | Office | Cardiology | Ольга Veloz DO | | | 2019 | Visit | | [address] | | | | | | [place] | | | | | | [address] | | | | | | | | +--------+ + + + + documented as of this encounter Visit Diagnoses + + | Diagnosis | + + | Anemia of chronic renal failure, stage 3 (moderate) (HCC) - Primary | + + documented in this encounter"
--- OUTSIDE RECORDS SUMMARY | ~2020-04-23 | XMS | Encounter Summary ---
Demographics + + + | Address | [address] | | | [place] [address] | + + + | Home Phone | | + + + | Preferred Language | Unknown | + + + | Marital Status | Single | + + + | Nondenominational Affiliation | Unknown | + + + | Race | Unknown | + + + | Ethnic Group | Unknown | + + + Author + + + | Author | [facility] | | | and [place] | + + + | Organization | [facility] | | | and [...] Providers + +------+ + | Care Machine Tool Technology Instructor Name | Role | Phone | [...] Provider Unknown | | | | | [place], [place] | [phone] | | | | | [address] | (Fax) | | | | | [phone] | | | +--------+ + + + [...] [place] | | | | | | [address] | | | | | | | | +--------+ + + + + | 06/14/ | Office | Cardiology | Ольга Veloz DO | | | 2019 | Visit | | [address] | | | | | | [place] | | | | | | [address] | | | | | | | | +--------+ + + + + documented as of this encounter Visit Diagnoses Not on filedocumented in this encounter"
--- OUTSIDE RECORDS SUMMARY | ~2020-04-23 | XMS | Encounter Summary ---
Demographics + + + | Address | [address] | | | [place] [address] | + + + | Home Phone | | + + + | Preferred Language | Unknown | + + + | Marital Status | Single | + + + | Jewish Affiliation [...] Team Providers + +------+ + | Care Landfill Gas Collection Operator Name | Role | Phone | [...] | | | | Type 2 | [facility] | | | | | diabetes | , Claudia Rivera, | [address] | | | | | mellitus | TECHNOLOGY MANAGER [address] | [address] | | | | | with | [address] | [address], [place] | | | | | diabetic | [place], [place] | [address] | | | | | nephropathy, | [address] | Phone: | | | | | with | Phone: | [phone] | | | | | long-term | [phone] | Fax: | | | | | current use | Fax: | [phone] | | | | | of insulin | [phone] | | | | | | (HCC) [...] | | | unspecified | [address], | [place], [place] | | | | | | [place] [address] | [address] Phone: | | | | | | Phone: | [phone] | | | | | | [phone] | Fax: | | | | | | Fax: | [phone] | | | | | | [phone] | | + + + + + + + Encounter Details +--------+---------+ + + + | Date | Type | Department | Care Team | Description | +--------+---------+ + + + | 12/12/ | Office | [facility] | Jamie, | Early satiety | | 2020 | Visit | GASTROENTEROLOGY | [address] | (Primary Dx); | | | | [address] | [address] [place], | Abdominal bloating; | | | | [place], [place] | [place] [address] | Type 2 diabetes | | | | [address] | [phone] | mellitus with | | | | [phone] | | diabetic | | | | | | nephropathy, with | | | | | | long-term current | | | | | | use of insulin | | | | | | ([facility]); | | | | | | Gastroesophageal [...] negative then we would refer you to [facility] 2. On the acid reflux continue the Pepcid 20 mg 1/2 hour before breakfast and bedtime daily . See handout on GERD 3. Retained food Gastric emptying study orders given she will have it at [facility] [place] they need to send me [...] by your healthcare provider Date Last Reviewed: 04/30/201819991637-6777 [employer] [place] [address], [place] [address]. All righ ts reserved. This information is [...] make GERD symptoms worse. Date Last Reviewed: 05/30/201619997866-8939 [employer]. [address] [place] [address]. All righ ts reserved. This information is [...] the back, neck, shoulder, or arm An xowb-ocq-ijgjywv trial of medicine doesn't relieve your symptoms Weight loss that can't be explained Trouble or pain swallowing Frequent vomiting (can t keep down liquids) Blood in the stool or vomit (red or black in color) Feeling weak or dizzy Fever of 100.4F (38C) or higher, or as directed by your healthcare provider Date Last Reviewed: 01/28/201819994723-2782 [employer]. [address] [place] [address], [place] [address]. All righ ts reserved. This information is [...] the test. This includes: All prescription medicines Rfnu-xsn-rnzbwjx medicines such as aspirin or ibuprofen Street drugs Herbs, vitamins, and other supplements Also before the test: Tell your provider about any surgeries you ve had before, that could cause the capsule to get stuck. Switch to a clear liquid [id number] before the test. Don t eat anything starting [id number] before the test. You may be instructed [...] facility. You can d rink clear liquids [id number], and you can eat food or take medicines [id number]. Be sure to follow any other instructions [...] to remove the capsule. Date Last Reviewed: 05/30/201619991866-6530 [employer]. [address] [place] [address]. All righ ts reserved. This information is [...] dysphagia or cardiac pacemaker. Last colonoscopy 2018 [place] [facility] internal hemorrhoids normal other kumar no [...] lunch; 22 units with dinner nystatin (MYCOSTATIN) 228004 UNIT/GM cream Apply topically as needed. 0 [...] CHOLECYSTECTOMY 1999 COLONOSCOPY 07/07/2018 Dr. Cabral in [place], [place] LIPOMA RESECTION x3 on abdomen and neck OTHER SURGICAL HISTORY Ocular implants ROTATOR CUFF REPAIR Left 2009 TONSILLECTOMY AND ADENOIDECTOMY 1992 UPPER GASTROINTESTINAL ENDOSCOPY 07/07/2018 Dr. Cabral in [place], [place] UPPER GASTROINTESTINAL ENDOSCOPY N/A 11/21/2019 Procedure: EGD; Surgeon: Doron Herrera MD; Location: [facility] Family History Problem Relation [...] file Gets together: Not on file Attends adventism service: Not on file Active member of [...] Gen: NAD, Morbidly obses Mouth and Throat: [place], moist, clean, [place] midline, Mallampati 2 CV: [...] negative then we would refer you to [facility] 2. On the acid reflux continue the Pepcid 20 mg 1/2 hour before breakfast and bedtime daily . See handout on GERD 3. Retained food Gastric emptying study orders given she will have it at [facility] [place] they need to send me a copy. 4. Follow up with me I can see you afterwards post capsule this study in 2 months. Records Reviewed PCP chart notes and previous [facility] records including Gastroenterology Procedures/Treatment s/Imaging/Laboratory studies have been reviewed (Using the electronic record system of [facility]). I carefully reviewed the records with regard to the past medical/surgical history, previous medications, and allergies). Nursing notes reviewed for chief complaint, medications, clinical presentation and vital signs Total direct rfsy-xl-oxnh time of 45minutes spent in reviewing information and discussion w ith greater than 50% of that time spent in counseling or coordinating of care. Thank you for allowing me PABLO Perdomo [facility] Gastroenterology [address] [place] [address]. [place]. [address] to participate in the care of your patient. Please do not hesitate to david l me with any questions or concerns. This report has been prepared using a voice recognition system called [employer]. The report wa s reviewed for accuracy, [...] 2019 | Office | | [address] [facility] | | | | Visit | | [address] [place] | | | | | | [address] | | | | | | | | +--------+ + + + + | 06/14/ | Office | Cardiology | Ольга Veloz DO | | | 2019 | Visit | | [address] | | | | | | [place] | | | | | | [address] | | | | | | | [...]
--- OUTSIDE RECORDS SUMMARY | ~2020-04-23 | XMS | Encounter Summary ---
Demographics + + + | Address | [address] | | | [place] [address] | + + + | Home Phone [...] Team Providers + +------+ + | Care Material Loader Name | Role | Phone | [...] + + | 11/17/ | Telephone | [facility] | Boni Augustin, | Confirmation | | 2019 | | GASTROENTEROLOGY | Nurse Transition | (11/21/19 procedure) | | | | [address] | | | | | | [place] | | | | | | [address] | | | | | | [phone] | | | +--------+ + + + [...] 2020 | Office | | [address] [facility] | | | | Visit | | [address] [place], [place] | | | | | | [address] | | | | | | | | +--------+ + + + + | 06/14/ | Office | Cardiology | Ольга Veloz DO | | | 2020 | Visit | | [address] | | | | | | [place] | | | | | | [address] | | | | | | | | +--------+ + + + + documented as of this encounter Visit Diagnoses Not on filedocumented in this encounter"
--- OUTSIDE RECORDS SUMMARY | ~2020-04-23 | XMS | Encounter Summary ---
Demographics + + + | Address | [address] | | | [place] [address] | + + + | Home Phone [...] + + | Author | [facility] | | | and [place] | + + + | Organization | [facility] | | [...] Providers + +------+ + | Care Manager Packaging Name | Role | Phone | + [...] + + | 10/20/ | Telephone | [facility] | Charli, Boni S, | Procedure (Capsule | | 2018 | | GASTROENTEROLOGY | Clothes Ironer | Endoscopy) | | | | [address] | | | | | | [place] | | | | | | [address] | | | | | | [phone] | | | +--------+ + + + [...] 2020 | Office | | [address] [facility] | | | | Visit | | [address] [place], [place] | | | | | | [address] | | | | | | | | +--------+ + + + + | 06/14/ | Office | Cardiology | Ольга Veloz DO | | | 2020 | Visit | | [address] | | | | | | [place] | | | | | | [address] | | | | | | | | +--------+ + + + + documented as of this encounter Visit Diagnoses Not on filedocumented in this encounter"
--- OUTSIDE RECORDS SUMMARY | ~2020-04-23 | XMS | Encounter Summary ---
Demographics + + + | Address | [address] | | | [place] [address] | + + + | Home Phone | | + + + | Preferred Language | Unknown | + + + | Marital Status | Single | + + + | Worship Affiliation | Unknown | + + + | Race | Unknown | + + + | Ethnic Group | Unknown | + + + Author + + + | Author | [facility] | | | and [place] | + + + | Organization | [facility] | | [...] Team Providers + +------+ + | Care Bathing Suit Maker Name | Role | Phone | + +------+ + | Yessica Mayorga MD | PCP | | + +------+ + Encounter Details +--------+ + + + + | Date | Type | Department | Care Team | Description | +--------+ + + + + | 01/18/ | Orders Only | [facility] | Conversion | | | 2018 | | NEPHCAMMY [place] | Transaction, | | | | | [address] | Provider Unknown | | | | | [address] [place] | | | | | | [address] | (Fax) | | | | | [phone] | | | +--------+ + + + [...] 2019 | Office | | [facility] [address] [facility] [place] | | | | Visit | | [address] [place] | | | | | | [address] | | | | | | | | +--------+ + + + + | 06/14/ | Office | Cardiology | Ольга Veloz DO | | | 2019 | Visit | | [address] | | | | | | [place] | | | | | | [address] | | | | | | | [...]
--- OUTSIDE RECORDS SUMMARY | ~2020-04-23 | XMS | Encounter Summary ---
Demographics + + + | Address | [address] | | | [place] [address] | + + + | Home Phone [...] + + + | Author | [facility] | | | and [place] | + + + | Organization | [facility] | | [...] Team Providers + +------+ + | Care Flaker Tender Name | Role | Phone | [...] + + | 08/22/ | Documentati | [facility] | Harrison, | Results (08/19/19) | | 2019 | on | NEPHROLOGY MARK | [place] | | | | | [address] [place] | [employer] Of [employer] | | | | | [address] [facility] [place] | | | | | | [address] | | | | | | [phone] | | | +--------+ + + + [...] 2019 | Office | | [address] [facility] [place] | | | | Visit | | [facility] | | | | | | [address] | | | | | | | | +--------+ + + + + | 06/14/ | Office | Cardiology | Ольга Veloz DO | | | 2019 | Visit | | [address] | | | | | | [place] | | | | | | [address] | | | | | | | [...] | | | | | | | DANISH | | | | | + + [...]
--- OUTSIDE RECORDS SUMMARY | ~2020-04-23 | XMS | Encounter Summary ---
Demographics + + + | Address | [address] | | | [place] [address] | + + + | Home Phone [...] Team Providers + +------+ + | Care Hospice Spiritual Care Coordinator Name | Role | Phone | + +------+ + | Lisa Mcclain MD | PCP | | + +------+ + Encounter Details +--------+ + + + + | Date | Type | Department | Care Team | Description | +--------+ + + + + | 11/16/ | [facility] | [facility] | Doron Herrera | Preop testing | | 2019 | Encounter | [facility] | MD Don [address] | | | | | [address] | [address] [place], [place] | | | | | [address] | [address] | | | | | [place], [place] | | | | | | [address] | | | | | | [phone] | | | +--------+ + + + [...] 0 | 06/21/20 | | | (MYCOSTATIN) [id number] | needed. | | | 18 | [...] 2019 | Office | | [address] [facility] | | | | Visit | | [address] [place] | | | | | | [address] | | | | | | | | +--------+ + + + + | 06/14/ | Office | Cardiology | Ольга Veloz DO | | | 2019 | Visit | | [address] | | | | | | [place] | | | | | | [address] | | | | | | | [...] MD | | | | | | ([id number]) on 11/16/2019 | | | | | [...]
--- OUTSIDE RECORDS SUMMARY | ~2020-04-23 | XMS | Encounter Summary ---
Demographics + + + | Address | [address] | | | [place] [address] | + + + | Home Phone | | + + + | Preferred Language | Unknown | + + + | Marital Status | Single | + + + | Congregational Affiliation | Unknown | + + + | Race | Unknown | + + + | Ethnic Group | Unknown | + + + Author + + + | Author | [facility] | | | and [place] | + + + | Organization | [facility] | | [...] Team Providers + +------+ + | Care Stonemason Helper Name | Role | Phone | + +------+ + | Lisa Mcclain MD | PCP | | + +------+ + Encounter Details +--------+ + + + + | Date | Type | Department | Care Team | Description | +--------+ + + + + | 10/11/ | Orders Only | [facility] | Conversion | | | 2018 | | INFECTIOUS DISEASE | Transaction, | | | | | [address] | Provider Unknown | | | | | [place], [place] | | | | | | [address] | (Fax) | | | | | [phone] | | | +--------+ + + + [...] Notes by Patricia Peterson CMA at 10/20/18 3071 Author: Patricia Peterson CMA Service: (none) Author Type: Pediatric Orthodontist Filed: 10/20/18 1349 Encounter Date: 10/20/2018 Status: Signed Bag Cutter: Patricia Peterson CMA (Pediatric Orthodontist) 10/11/2018 [facility]- CMP, HCV RNA, CBC rcvd: 10/20/18 Abstracted. Scanned. docume nted in this encounter Plan of Treatment +--------+ + + + + | Date | Type | Specialty | Care Team | Description | +--------+ + + + + | 04/30/ | Virtual | Nephrology | Andrews Massey MD | | | 2019 | Office | | [address] [facility] | | | | Visit | | [address] [place] | | | | | | [address] | | | | | | | | +--------+ + + + + | 06/14/ | Office | Cardiology | Ольга Veloz DO | | | 2019 | Visit | | [address] | | | | | | [place] | | | | | | [address] | | | | | | | [...]
--- OUTSIDE RECORDS SUMMARY | 2020-04-23 08:10 | XMS ---
PreManage Notification: SEN BOUDREAUX Security Rehabilitation Supervisor Events No recent Security Events currently on file CRITERIA MET - Group Notification - [facility] - Has Care Guidelines - [facility] - 2 Visits in 30 Days CARE PROVIDERS Anne Villafana Fiscal Agent/Sensor Technician 02/05/2018-Current PHONE: [phone] CAITLYN CHAVIS Internal Medicine 09/29/2018-Current PHONE: [phone] Guidelines Source: [facility] Guidelines Date: 04/03/2020 Care Coordination: Currently engaged in mental health services with [facility].\T\nbsp; Please contact [facility] with mental health concerns.\T\nbsp; [phone]. Allergies: Azithromycin - mild to moderate Lisinopril - mild to moderate\T\nbsp; Care History Medical/Surgical 12/19/2019 [facility] Patient seen\T\nbsp;after clinic hours. \T\nbsp;Unable to pull up patient name in [employer].\T\nbsp; 06/21/2019 [facility] - PATIENT HAS AN APT WITH PCP DR CHAVIS ON 06/27/19 FOR ED FOLLOW UP. 03/29/2019 [facility] - [facility] CASE MANAGEMENT REFERRAL MADE DUE TO CHRONIC PAIN MANAGEMENT EDUCATION NEEDED. Mark VISIT COUNT (12 MO.) [facility] T[facility] NOTE: Visits indicate total known visits. ED/UCC VISIT TRACKING (12 MO.) [facility] [place] [facility] COMPLAINT: - BACK PAIN 04/03/2020 16:04 [facility] [place] TYPE: Emergency COMPLAINT: - WEAKNESS DIAGNOSES: - Allergy status to other drugs, medicaments and biological sub - Other nonmedicinal substance allergy status - Essential (primary) hypertension - Major depressive disorder, single episode, unspecified - Pure hypercholesterolemia, unspecified - Diarrhea, unspecified - Emphysema, unspecified - Other intermission coordinator (current) drug therapy - Allergy status to other antibiotic agents status - Allergy status to serum and vaccine status - Type 2 diabetes mellitus without complications 12/17/2019 23:52 [facility] [place] TYPE: Emergency COMPLAINT: - FALL DIAGNOSES: - Altered mental status, unspecified - Major depressive disorder, single episode, unspecified - Type 2 diabetes mellitus without complications - Orthostatic hypotension - Other skilled nursing (current) drug therapy - Pure hypercholesterolemia, unspecified [...] other drugs, medicaments and biological sub - adjunct faculty for medical terminology (current) use of insulin - Personal history of pulmonary embolism - Allergy status to penicillin - Chest pain, unspecified - Other skilled nursing (current) drug therapy - Other nonmedicinal substance allergy status - Chronic kidney disease, stage 3 (moderate) - Hypotension, unspecified 06/20/2019 10:20 [facility] [place] TYPE: Emergency COMPLAINT: - DIZZINESS DIAGNOSES: - Personal history of pulmonary embolism - Other skilled nursing (current) drug therapy - Allergy status to other drugs, medicaments and biological sub - Chronic kidney disease, stage 3 (moderate) - Acquired absence of other specified parts of digestive tract - Allergy status to penicillin - adjunct faculty for medical terminology (current) use of insulin - 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 - Other nonmedicinal substance allergy status - Hypotension, unspecified - Dizziness and giddiness - Allergy status to serum and vaccine status - Allergy status to other antibiotic agents status - MCC (current) use of aspirin - Type 2 diabetes mellitus without complications 06/16/2019 10:43 [facility] [place] TYPE: Emergency COMPLAINT: - BLOOD PRESSURE PROBLEM DIAGNOSES: - Other intermission coordinator (current) drug therapy - Allergy status to other antibiotic agents status - Acquired absence of other specified parts of digestive tract - MCC (current) use of insulin - Type 2 diabetes mellitus without complications - adjunct faculty for medical terminology (current) use of aspirin - Nonspecific low [...] with diabetic chronic kidney disease - Other intermission coordinator (current) drug therapy - MCC (current) use of aspirin - MCC (current) use of insulin - Other nonmedicinal substance allergy status - Anemia, unspecified 06/11/2019 11:17 [facility] [place] TYPE: Emergency COMPLAINT: - NUMBNESS DIAGNOSES: - Allergy status to penicillin - Acquired absence of other specified parts of digestive tract - Chronic kidney disease, stage 3 (moderate) - Allergy status to other antibiotic agents status - Other intermission coordinator (current) drug therapy - Paresthesia of skin - Allergy status to other drugs, medicaments and biological sub - Other injury of unspecified body region, initial encounter - Type 2 diabetes mellitus with diabetic chronic kidney disease - Other nonmedicinal substance allergy status - adjunct faculty for medical terminology (current) use of aspirin - Allergy status to serum and vaccine status - 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 05/19/2019 13:47 [facility] [place] TYPE: Emergency COMPLAINT: - WEAKNESS DIAGNOSES: - Poisoning by other antipsychotics and neuroleptics, accidenta - Type 2 diabetes mellitus without complications - adjunct faculty for medical terminology (current) use of insulin - MCC (current) use of aspirin - Allergy status to other antibiotic agents status - Weakness - Allergy status to penicillin - Acquired absence of other specified parts of digestive tract - Allergy status to other drugs, medicaments and biological sub - Other skilled nursing (current) drug therapy - Allergy status to serum and vaccine status - Chronic kidney disease, stage 3 (moderate) - adjunct faculty for medical terminology (current) use of systemic steroids - 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
[2020-04-23] MEDS ORDERED: PERCOCET 5-3251 EACH PO (12:09)
== END 2020-04-23 12:27 | disposition home or self-care (01) ==
LOC: ED 08:08
DX: S39.012A Strain of muscle, fascia and tendon of lower back, initial encounter (principal); J43.9 Emphysema, unspecified; F32.9 Major depressive disorder, single episode, unspecified; E78.00 Pure hypercholesterolemia, unspecified; E11.22 Type 2 diabetes mellitus with diabetic chronic kidney disease; I12.9 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e 4 chronic kidney disease, or unspecified chronic kidney disease; N18.3 Chronic kidney disease, stage 3 (moderate); Z88.1 Allergy status to other antibiotic agents; Z88.7 Allergy status to serum and vaccine; Z91.048 Other nonmedicinal substance allergy status; Z88.8 Allergy status to other drugs, medicaments and biological substances; Z79.899 Other long term (current) drug therapy; X58.XXXA Exposure to other specified factors, initial encounter
CPT/HCPCS: 72100; 96374; 96375; 96376; 99283-25; J1100; J1170

== ENCOUNTER 2021-02-17 10:37 | Emergency (ER) | payer OTHER ==
[~2021-02-17] VITALS: Ht 175.3 cm; Wt 160.1 kg
--- OUTSIDE RECORDS SUMMARY | 2021-02-17 10:40 | XMS ---
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 Allergies: Azithromycin - mild to moderate Lisinopril - mild to moderate\T\nbsp; Care History Medical/Surgical 04/25/2020 [facility] Have requested MA coordinate ED follow up apt for Pt. 12/19/2019 [facility] Patient seen\T\nbsp;after clinic hours. \T\nbsp;Unable to pull up patient name in [employer] Works.\T\nbsp; 06/21/2019 [facility] - PATIENT HAS AN APT WITH PCP DR CHAVIS ON 06/27/19 FOR ED FOLLOW UP. Mark VISIT COUNT (12 MO.) 3 [facility] Deni TOTAL 3 NOTE: Visits indicate total known visits. ED/UCC VISIT TRACKING (12 MO.) [facility] [place] [facility] COMPLAINT: - CHEST PAIN/PASSED OUT AT [facility] 04/23/2020 08:09 [facility] [place] TYPE: Emergency COMPLAINT: - BACK PAIN DIAGNOSES: - Allergy status to serum and vaccine - Other fpc (current) drug therapy - Allergy status to other antibiotic agents - Allergy status to other drugs, medicaments and biological substances - Other nonmedicinal substance allergy status - Low back pain - Type 2 diabetes mellitus with diabetic chronic kidney disease - Major depressive disorder, single episode, unspecified - Emphysema, unspecified - Exposure to other specified factors, initial encounter - Chronic kidney disease, stage 3 (moderate) - Strain of muscle, fascia and tendon of lower back, initial encounter - Pure hypercholesterolemia, unspecified - 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e 4 chronic kidney disease, or unspecified chronic kidney disease 04/03/2020 16:04 [facility] [place] TYPE: Emergency COMPLAINT: - WEAKNESS DIAGNOSES: - Allergy status to other drugs, medicaments and biological substances - Other nonmedicinal substance allergy status - Essential (primary) hypertension - Major depressive disorder, single episode, unspecified - Pure hypercholesterolemia, unspecified - Diarrhea, unspecified - Emphysema, unspecified - Other oil heaterman (current) drug therapy - Allergy status to other antibiotic agents - Allergy status to serum and vaccine - Type 2 diabetes mellitus without complications INPATIENT VISIT TRACKING (12 MO.) No inpatient visits to display in this time frame [email or web address]
[2021-02-17] MEDS ORDERED: POTASSIUM99 M1 PO (10:52)
--- NOTE | 2021-02-17 12:37 | EKG ---
[facility] [address] [place] [address] Signed Normal sinus rhythm Possible Inferior infarct , age undetermined Abnormal ECG When compared with ECG of 17-DEC-2019 23:55, No significant change was found Confirmed by LIDA REAVES MD ([id number]) on 02/17/2021 12:37:00 PM Electronically Signed By: LIDA REAVES MD 02/17/21 1237 PATIENT NAME: SEN BOUDREAUX Electrocardiogram DATE OF : 70 PHYSICIAN: LIDA REAVES MD REPORT #: [id number] REPORT IS CONFIDENTIAL AND NOT TO BE RELEASED WITHOUT AUTHORIZATION
== END 2021-02-17 13:36 | disposition short-term general hospital (02) ==
LOC: ED 10:37
DX: R55 Syncope and collapse (principal); R77.8 Other specified abnormalities of plasma proteins; M54.2 Cervicalgia; Z20.822 Contact with and (suspected) exposure to COVID-19; E11.22 Type 2 diabetes mellitus with diabetic chronic kidney disease; J43.9 Emphysema, unspecified; I12.9 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e 4 chronic kidney disease, or unspecified chronic kidney disease; E78.00 Pure hypercholesterolemia, unspecified; N18.30 Chronic kidney disease, stage 3 unspecified; Z88.8 Allergy status to other drugs, medicaments and biological substances; Z88.1 Allergy status to other antibiotic agents; Z88.7 Allergy status to serum and vaccine; Z91.048 Other nonmedicinal substance allergy status; Z79.899 Other long term (current) drug therapy; Z79.4 Long term (current) use of insulin; Z79.82 Long term (current) use of aspirin
CPT/HCPCS: 71045; 80053; 83735; 84484; 85025; 93005; 93010; 99285-25; C9803; U0003